=== PATIENT | female | born 1980 | race Caucasian/White ===

== ENCOUNTER → 2018-11-26 08:56 | Outpatient (CLI) | payer OTHER, SELFPAY ==
[2016-04-02 10:10] VITALS: BMI 22.1
[2018-11-26 09:58] LABS: Absolute Lymphocyte Count 1.73 X10^3/ul (0.83-4.51); Absolute Neutrophil Count 5.5 X10^3/uL (2.0-7.7); Basophil# 0.04 X10^3/uL; Basophil% 0.5 % (0-1); Eosinophil# 0.12 X10^3/uL; Eosinophils% 1.5 % (0-5); Hematocrit 37.4 % (37-47); Hemoglobin 12.1 g/dl (12.0-15.0); Lymphocyte # 1.73 X10^3/ul (4.0); Lymphocyte % 21.3 % (19-41); Mean Corp Hgb Conc 32.4 g/gl (32-36); Mean Corpuscular Hgb 28.3 pg (27.0-32.0); Mean Corpuscular Volume 87.4 fL (81-99); Monocyte% 8.6 % (0-10); Neutrophil # 5.54 X10^3/uL (2.7-7.7); Platelet Count 257 K/mm3 (150-450); RBC Distribution Width CV 15.4 % (11.6-14.6); RBC Distribution Width SD 49.4 fl (35.1-43.9); Red Blood Count 4.28 M/mm3 (4.2-5.4); White Blood Count 8.1 K/mm3 (4.4-11.0)
[2018-11-26 09:59] LABS: POSITIVE COUNT NO; POSITIVE DIFFERENTIAL NO; POSITIVE MORPHOLOGY NO
[2018-11-26 11:02] LABS: ALB/GLOB Ratio 1.1 RATIO (0.9-2.4); AST(SGOT) 24 U/L (15-37); Alanine Aminotransfer ALT/SGPT 18 U/L (13-56); Albumin, Serum 3.8 g/dL (3.2-5.0); Alkaline Phosphatase 54 U/L (45-117); Anion Gap 6 (5-15); BUN 16 mg/dL (7-18); BUN/Creat Ratio 20.3 RATIO (10-20); Calcium,Total 8.7 mg/dL (8.5-10.1); Chloride 105 mmol/L (98-107); Cholesterol 183 mg/dL (200); Creatinine, Serum 0.79 mg/dL (0.55-1.02); EST Glomerular Filtration Rate 87 mL/min (>60); Est Glom Filt Rate - Afr Amer 105 mL/min (>60); Globulin 3.4 g/dL (2.2-4.2); Glucose 96 mg/dL (74-106); High Density Lipoprotein 58 mg/dL; Potassium 4.2 mmol/L (3.5-5.1); Protein, Total 7.2 g/dL (6.4-8.2); Sodium Level 138 mmol/L (136-145); Thyroid Stim Hormone (TSH) 1.62 uIU/mL (0.358-3.74); Triglycerides 60 mg/dL; Very Low Density Lipoprotein 12 mg/dL (5-40)
== END ==
PROVIDERS: Family Provider Family Medicine; PCP Family Medicine; Referring Provider Family Medicine; Visit Provider Family Medicine
DX: Z00.00 Encounter for general adult medical examination without abnormal findings (principal)
CPT/HCPCS: 36415; 80053; 80061; 84443; 85025

== ENCOUNTER → 2019-06-25 17:10 | Outpatient (CLI) | payer BC, SELFPAY ==
[2019-07-01 14:07] LABS: Age Gdln ACOG Testing 30-65 (.)
[2019-07-02 13:15] LABS: HPV APTIMA, High Risk Negative (Negative)
[2019-07-02 13:25] LABS: HPV Reflexed? YES, CHARGE PATIENT
== END ==
PROVIDERS: Family Provider Family Medicine; PCP Family Medicine; Referring Provider Obstetrics & Gynecology; Visit Provider Obstetrics & Gynecology
DX: Z12.4 Encounter for screening for malignant neoplasm of cervix (principal)
CPT/HCPCS: 87624; 88175; G0145

== ENCOUNTER → 2019-07-22 12:37 | Outpatient (CLI) | payer BC, SELFPAY ==
--- NOTE | 2019-07-22 12:43 | EKG12_ITS ---
Test Reason : CP Blood Pressure : / mmHG Vent. Rate : 061 BPM Atrial Rate : 061 BPM P-R Int : 140 ms QRS Dur : 096 ms QT Int : 448 ms P-R-T Axes : 039 085 046 degrees QTc Int : 450 ms Normal sinus rhythm Normal ECG Confirmed by JANES PERKINS, JANELLE ([id number]), editor publications [employer] ([id number]) on 07/23/2019 2:18:56 PM Referred By: BRAEDEN MERRITT Confirmed By:CASSY MARRERO MD
== END ==
PROVIDERS: PCP Family Medicine
DX: R07.9 Chest pain, unspecified (principal)
CPT/HCPCS: 93005

== ENCOUNTER → 2020-11-20 | Outpatient (CLI) | payer BC, SELFPAY ==
[2020-11-22 13:30] LABS: HPV APTIMA, High Risk Negative (Negative)
== END | disposition home or self-care (01) ==
LOC: LABSPEC 10:23
PROVIDERS: PCP Family Medicine; Visit Provider Obstetrics & Gynecology
DX: Z12.4 Encounter for screening for malignant neoplasm of cervix (principal)
CPT/HCPCS: 87624; 88175; G0145

== ENCOUNTER → 2020-12-07 17:03 | Outpatient (CLI) | payer BC, SELFPAY ==
[2020-12-07 18:02] LABS: Estradiol 46.7 pg/mL; Prolactin 9.1 ng/mL
[2020-12-13 13:23] LABS: Testosterone Free 1.4 pg/mL (0.0-4.2)
== END ==
PROVIDERS: PCP Family Medicine; Visit Provider Obstetrics & Gynecology
DX: N93.9 Abnormal uterine and vaginal bleeding, unspecified (principal)
CPT/HCPCS: 36415; 82627; 82670; 84146; 84402; 82626

== ENCOUNTER → 2020-12-25 | Outpatient (CLI) | payer BC, SELFPAY ==
--- NOTE | 2020-12-25 16:00 | EMB_PTH ---
PATIENT: ELEAZAR SHAHID LOC: [facility] U#:[id number] AGE/SX: 40/F ROOM: RE12/25/[address]: Dr. Gonzalez Henry MD : 1980 BED: DIS: 12/25/2020 SPEC #: [id number] RECD: 12/25/20 17:58 STATUS: YANY PEACE #: [id number] RADHA: 12/25/20 16:[address]: Gonzalez Henry DEPT: SURGICAL PATHOLOGY RECD BY: Domonique Strange ENTERED: 12/26/20 08:06 SP TYPE: ENDOM BX/C MUKESH DR: Dr. Ej Sutton MD Tissues: Endometrium, NOS Procedures: Surgery Specimen Level IV HEADER OPERATION: Endometrial biopsy PRE-OP DIAGNOSIS: Abnormal uterine bleeding N93.9 TISSUE SUBMITTED: Endometrial biopsy MICROSCOPIC DIAGNOSIS Endometrial biopsy: Secretory endometrium. SJ:jasmin 12/27/2020 MICROSCOPIC DESCRIPTION Slides are reviewed. GROSS DESCRIPTION Received in fixative is one container labeled with the patient's name and designated EM biopsy. The specimen consists of multiple irregular fragments of soria soft tissue that in aggregate measure 1.5 x 1 x 0.1 cm. The specimen is totally submitted in one cassette. / SJ:jasmin 12/26/20 TC:4 CPT: 33353
== END | disposition home or self-care (01) ==
LOC: LABSPEC 17:08
PROVIDERS: PCP Family Medicine; Visit Provider Obstetrics & Gynecology
DX: N93.9 Abnormal uterine and vaginal bleeding, unspecified (principal)
CPT/HCPCS: 88305

== ENCOUNTER 2021-01-05 09:57 | Emergency (ER) | payer BC, SELFPAY ==
[2021-01-05 09:59] VITALS: BP 154/102; PULSE 76; RESP 20; TEMP 36.7; O2SAT 99; BMI 26.6
--- NOTE | 2021-01-05 10:12 | EKG12_ITS ---
Test Reason : CHEST PAIN Blood Pressure : / mmHG Vent. Rate : 073 BPM Atrial Rate : 073 BPM P-R Int : 136 ms QRS Dur : 084 ms QT Int : 430 ms P-R-T Axes : 038 085 041 degrees QTc Int : 473 ms Normal sinus rhythm Normal ECG Confirmed by LENY PERKINS, COY ([id number]), staff editor YVETTE EMERY ([id number]) on 01/08/2021 1:17:00 PM Referred By: Confirmed By:COY MICHELE MD
--- NOTE | 2021-01-05 10:13 | ED.RN ---
PT C/O CHEST PAIN. EKG COMPLETED
--- NOTE | 2021-01-05 10:56 | MRI_ITS ---
STUDY: MRI LUMBAR SPINE WITHOUT CONTRAST REASON FOR EXAM: Female, 40 years old. back pain, unable to ambulate, h/o 2 hnp TECHNIQUE: Standardized fat and water weighted pulse sequences were obtained in the sagittal and axial planes. COMPARISON: None FINDINGS: T12-L1: Normal endplates. Normal disc height, hydration and morphology. Normal bilateral facet joints. Normal central canal and bilateral lateral recesses. Normal bilateral intervertebral neural foramina. Normal lumbar lordosis. There is no substantial scoliosis. Normal conus medullaris that terminates at the T12/L1. L1-2: Normal endplates. Normal disc height, hydration and morphology. Normal bilateral facet joints. Normal central canal and bilateral lateral recesses. Normal bilateral intervertebral neural foramina. L2-3: Normal endplates. Normal disc height, hydration and morphology. Normal bilateral facet joints. Normal central canal and bilateral lateral recesses. Normal bilateral intervertebral neural foramina. L3-4: Normal endplates. Normal disc height, hydration and morphology. Normal bilateral facet joints. Normal central canal and bilateral lateral recesses. Normal bilateral intervertebral neural foramina. L4-5: Disc desiccation but no disc protrusion, spinal stenosis, or neural foraminal stenosis. L5-S1: Large (12 mm) central left paracentral disc protrusion produces moderate spinal stenosis, mild right lateral recess stenosis, moderate left lateral recess stenosis with abutment of the left S1 nerve root and no neural foraminal stenosis. Normal visualized sacral ala. Normal visualized paraspinous soft tissue structures. MRI/Spine Lumbar (Routine) IMPRESSION: Focal degenerative disc disease L5/S1 as described above. Electronically Signed: Mario Godinez MD at 13:56 EDT Tel , Service support ,
[2021-01-05] MEDS: Ondansetron 4 MG/2 ML Vial IV (11:00)
[2021-01-05] MEDS: Ketorolac 15 MG/ML Vial IV (11:01)
--- NOTE | 2021-01-05 11:01 | ED.VIS.BACK ---
HPI History of Present Illness Chief Complaint: Back Narrative Narrative: 40-year-old female presenting with lower back pain. She has had this issue chronically but in the acute setting has had worsening. She saw Dr. Henson who ordered an MRI on her lumbar spine and noted that she had some bulging disks the worst of which is at L5-S1. Patient was told not to take meloxicam because she is supposed to get an injection next week. She has only been able to take Tylenol. Nobody wrote her for any other pain medications. Patient states that she went for a walk yesterday to loosen up and did and felt loose enough to try to jog a little bit and it made it worse. She then felt a crunch in the left lower back and is not able to walk. She does have sensation and motor in her lower extremities but she cannot walk secondary to pain in her back. She states she had slide herself across the floor to use the restroom. She is also states it took multiple people to get her into the ambulance. She denies any loss of bladder or bowel control. She denies saddle paresthesia. [facility] Medical History (Updated 01/05/21 @ 14:[address] Behzad Brown DO) Herniated disc Hypertension Home Medications amlodipine 10 mg PO DAILY 01/05/21 [History Last Taken Unknown] hydrochlorothiazide 12.5 mg PO DAILY 01/05/21 [History Last Taken Unknown] meloxicam [Mobic] 15 mg PO DAILY 01/05/21 [History Last Taken Unknown] oxycodone-acetaminophen [Percocet] 1 tab PO Q6H PRN 3 Days #12 tab 01/05/21 [Rx Last Taken Unknown] tizanidine [Zanaflex] 4 mg PO BID PRN 01/05/21 [History Last Taken Unknown] Allergy/AdvReac Type Severity Reaction Status Date / Time clindamycin Allergy Hives Verified 01/05/21 10:04 Social History Smoking Status: Never smoker ROS ROS ED Constitutional Constitutional ED: Denies fever(s) or subjective Eyes Eyes: Denies blurry vision or diplopia ENT ENT ED: Denies rhinorrhea or sore throat Cardiovascular Cardiovascular: Denies chest pain or palpitations Respiratory/Chest Respiratory/Chest: Denies dyspnea or sputum Gastrointestinal Gastrointestinal: Denies abdominal pain, nausea or vomiting Genitourinary Genitourinary ED: Denies dysuria or hematuria Musculoskeletal Musculoskeletal: Reports back pain Integumentary Denies abscess or rash Neurologic Neurologic: Denies headache(s) or weakness Psychiatric Psychiatric: Denies anxiety or depression EXAM Physical Exam Const Vital Signs: 01/05/21 09:59 01/05/21 14:16 Temperature 98.0 F Temperature Source Oral Pulse Rate 76 84 Respiratory Rate 20 H 16 Blood Pressure 154/102 H 148/66 H Blood Pressure Mean 119 93 Pulse Ox 99 99 Oxygen Delivery Method Room Air Positive well nourished General Appearance ED: NAD HEENT Reports moist mucous membranes Negative for trauma Eyes PERRL and EOMs intact bilaterally Resp normal respiratory effort and clear to auscultation bilaterally Cardio regular rate and regular rhythm GI normal to inspection, nondistended, normoactive bowel sounds Narrative: Sensation intact in the perineum and in the gluteal region. Patient has sensation in both legs. It is hard to test motor strength because she will not move her legs secondary to pain. She was able to roll over in the bed to give me a better back exam. Back/Spine Back/Spine Narrative: Tenderness to palpation left lumbar paraspinal musculature and into the left gluteal region. No midline spinal deformity or step-off. Extremity normal to inspection General Extremety ED: Negative for edema or tenderness General Extremity: Negative for edema Neuro oriented x3 Sensorium / Orientation: alert Skin no rashes or lesions noted and no wounds MDM MDM MDM Narrative Medical decision making narrative: Patient presenting with acute worsening of what sounds like chronic back pain. She previous had an MRI which showed findings that L5-S1 bulging disks and degenerative changes. This was ordered by Dr. Henson. On arrival patient is unable to move secondary to pain. Patient was given pain medication in the ED which did control her pain. Patient had an MRI of the lumbar spine which showed similar findings as previous after discussing this with Dr. Henson. He felt as if she could get her pain under control but that she could stay in the hospital until we can get it under control but there was no new surgical intervention that would need to be acutely done. Patient was able to get up with assist. She is given Percocet for home. She also has Zanaflex and is counseled not to take them together. She requested a referral to another physician at [facility] which was provided. Patient discharged home in stable condition. Impression: 1. Degenerative disc disease L5-S1 Lab Data Labs: Laboratory Results - last 24 hr 01/05/21 01/05/21 01/05/21 09:30 09:50 09:50 WBC 7.0 Cancelled Corrected WBC Cancelled RBC 4.64 Cancelled Hgb 13.9 Cancelled Hct 41.4 Cancelled MCV 89.2 Cancelled MCH 30.0 Cancelled MCHC 33.6 Cancelled RDW Std Deviation 40.6 Cancelled RDW Coeff of Mike 12.4 Cancelled Plt Count 270 Cancelled MPV 10.3 Cancelled Immature Gran % (Auto) 0.400 Cancelled Neut % (Auto) 47.7 Cancelled Lymph % (Auto) 37.1 Cancelled [place] % (Auto) 11.2 H Cancelled Eos % (Auto) 2.7 Cancelled Baso % (Auto) 0.9 Cancelled Absolute Neuts (auto) 3.3 Cancelled Absolute Lymphs (auto) 2.59 Cancelled Total Counted Cancelled Neutrophils % (Manual) Cancelled Band Neutrophils % Cancelled Lymphocytes % (Manual) Cancelled Monocytes % (Manual) Cancelled Eosinophils % (Manual) Cancelled Basophils % (Manual) Cancelled Metamyelocytes % Cancelled Myelocytes % Cancelled Promyelocytes % Cancelled Blast Cells % Cancelled Plasma Cell % (Manual) Cancelled Other Cells % Cancelled Nucleated RBC % 0 Cancelled Nucleated RBCs/100 WBC Cancelled Differential Comment Cancelled Diff Path Review Cancelled Hypersegmented Neuts Cancelled Atypical Lymphocytes Cancelled Reactive Lymphocytes Cancelled Smudge Cells Cancelled Toxic Granulation Cancelled Toxic Vacuolation Cancelled Dohle Bodies Cancelled Cristi Rods Cancelled Platelet Estimate Cancelled Plt Morphology Comment Cancelled RBC Morphology Cancelled Polychromasia Cancelled Hypochromasia Cancelled Poikilocytosis Cancelled Basophilic Stippling Cancelled Anisocytosis Cancelled Microcytosis Cancelled Macrocytosis Cancelled Spherocytes Cancelled Sickle Cells Cancelled Target Cells Cancelled Tear Drop Cells Cancelled Ovalocytes Cancelled Stomatocytes Cancelled Feldman-Oreana Bodies Cancelled Patrick Cells Cancelled Bite Cells Cancelled Crenated Cell Cancelled Acanthocytes (Spur) Cancelled Rouleaux Cancelled Schistocytes Cancelled Sodium 134 L Potassium 3.6 Chloride 102 Carbon Dioxide 24.0 Anion Gap 8 BUN 17 Creatinine 0.83 Estim Creat Clear Calc 81.07 Est GFR (MDRD) Af Amer 98 Est GFR (MDRD) Non-Af 81 BUN/Creatinine Ratio 20.4 H Glucose 101 Calcium 9.4 Radiography Diagnostic Testing: Radiology Impression Lumbar Spine MRI 01/05/21 10:56 IMPRESSION: Focal degenerative disc disease L5/S1 as described above. Electronically Signed: Mario Godinez MD at 13:56 EDT Tel , Service support , Discharge Plan Triage Chief Complaint: Back ED Provider: Behzad Brown Dx/Rx/DC Orders Prescriptions: New oxycodone-acetaminophen [Percocet] 5-325 mg tablet 1 tab PO Q6H PRN (Reason: pain) 3 Days Qty: 12 RF: 0 No Action tizanidine [Zanaflex] 4 mg Tablet 4 mg PO BID PRN (Reason: MUSCLE SPASMS) RF: 0 meloxicam [Mobic] 15 mg Tablet 15 mg PO DAILY RF: 0 amlodipine 10 mg tablet 10 mg PO DAILY RF: 0 hydrochlorothiazide 12.5 mg tablet 12.5 mg PO DAILY RF: 0 Primary Care Provider: Care Physician,No Primary Referrals: Violet Iverson [Other] - As soon as possible (Hours Friday:7 a.m. - 6 p.m. Friday:7 a.m. - 6 p.m. Friday:7 a.m. - 6 p.m. :7 a.m. - 6 p.m. Friday:7 a.m. - 6 p.m. Friday:8 a.m. - 1 p.m. Friday:Closed ) Uri Henosn DO [STAFF PHYSICIAN] - As soon as possible Care Physician,No Primary [Primary Care Provider] - Disposition Disposition: Home, Self Care Discharge Date/Time: 01/05/21 15:11
[2021-01-05] MEDS: MethylPREDNISolone 125 MG/2 ML Vial IV (11:03)
[2021-01-05] MEDS: HYDROmorphone 0.5 MG/0.5 ML SYRINGE IV (11:04)
[2021-01-05 11:07] LABS: Absolute Lymphocyte Count 2.59 X10^3/uL (0.83-4.51); Absolute Neutrophil Count 3.3 X10^3/uL (2.0-7.7); Basophil# 0.06 X10^3/uL; Basophil% 0.9 % (0-1); Eosinophil# 0.19 X10^3/uL; Eosinophils% 2.7 % (0-5); Hematocrit 41.4 % (37-47); Hemoglobin 13.9 g/dL (12.0-15.0); Lymphocyte # 2.59 X10^3/ul (0.83-4.51); Lymphocyte % 37.1 % (19-41); Mean Corp Hgb Conc 33.6 g/dL (32-36); Mean Corpuscular Volume 89.2 fL (81-99); Mean Platelet Vol. 10.3 fl (6.2-12.0); Monocyte# 0.78 X10^3/uL; Monocyte% 11.2 % (0-10); NRBC Flagged by Analyzer 0 % (0-5); Neutrophil # 3.33 X10^3/uL (2.7-7.7); Neutrophil % 47.7 % (47-70); Platelet Count 270 K/mm3 (150-450); RBC Distribution Width CV 12.4 % (11.6-14.6); RBC Distribution Width SD 40.6 fl (35.1-43.9); Red Blood Count 4.64 M/mm3 (4.2-5.4)
[2021-01-05 12:04] LABS: Anion Gap 8 (5-15); BUN 17 mg/dL (7-18); BUN/Creat Ratio 20.4 RATIO (10-20); Calcium,Total 9.4 mg/dL (8.5-10.1); Chloride 102 mmol/L (98-107); Creatinine, Serum 0.83 mg/dL (0.55-1.02); EST Glomerular Filtration Rate 81 mL/min (>60); Est Glom Filt Rate - Afr Amer 98 mL/min (>60); Estimated Creatinine Clearance 81.07 ml/min; Glucose 101 mg/dL (74-106); Potassium 3.6 mmol/L (3.5-5.1); Sodium Level 134 mmol/L (136-145)
[2021-01-05] MEDS: fentaNYL 100 MCG/2 ML Ampul 25 MCG IV (12:20)
[2021-01-05 14:16] VITALS: BP 148/66; PULSE 84; RESP 16; O2SAT 99
[2021-01-05] MEDS: oxyCODONE 5 MG Tablet PO (14:50)
== END 2021-01-05 15:11 | disposition home or self-care (01) ==
PROVIDERS: Emergency Provider Student in an Organized Health Care Education/Training Program
DX: M51.37 Other intervertebral disc degeneration, lumbosacral region (principal); G89.29 Other chronic pain; I10 Essential (primary) hypertension; Z79.899 Other long term (current) drug therapy; Z79.1 Long term (current) use of non-steroidal anti-inflammatories (NSAID)
CPT/HCPCS: 72148; 80048; 85025; 93005; 96374; 96375; 99285; A4216; J2405

== ENCOUNTER 2021-02-01 07:05 | Day surgery (SDC) | payer BC, SELFPAY ==
[2021-02-01] VITALS (8 sets, daily range): BP systolic 109–131; BP diastolic 72–79; PULSE 50–68; RESP 16–18; TEMP 36.1–36.7; O2SAT 96–100; BMI 23.9
[2021-02-01] MEDS: Lactated Ringers 1,000 ML 100 ML IV ×2 (07:30→09:18)
[2021-02-01 07:33] LABS: Internal QC Validated? YES +Cl - CLEAR BKGD; Pregnancy, Urine Negative Negative
--- NOTE | 2021-02-01 08:15 | PCM.HP.BLA ---
History and Physical Date of Admission: 02/01/21 Surgical History and Physical Date: 02/01/2021 Name: CASSIA RONDON Age: 40 Date of : 1980 Cassia Rondon, a 40 year old female 2 0 0 0 2, presents for Hysteroscopy D Lucila ablation on February 01, 2021 at 7:30. -- Abnormal uterine/vaginal bleeding. 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 Questions answered and consents signed. Medication and Allergy lists up-dated. ARMOND Cassia is here for Pre-Op visit for Hysteroscopy, D and C, Lucila MEDICATIONS HISTORY: Patient is also takin. amlodipine 10 mg tablet, daily ALLERGIES: NKDA, clindamycin, Hives, Clindamycin and Hives and/or rash Infections - Chicken pox Illnesses - no serious past illnesses Accidents - no injuries of consequence Hospitalizations - see surgery LGSIL pap, Last pap 06/07 WNL and but + HPV; Review of Systems: GENERAL - Denies fever, or chills SKIN - Denies skin changes EYES - Denies visual changes EARS - Denies difficulty hearing NOSE - Denies nasal congestion or bleeding MOUTH - Denies sore throat or difficulty swallowing NECK - Denies pain or swelling RESPIRATORY - Denies shortness of breath or wheezing CARDIOVASCULAR - Denies palpitations or chest pain GASTROINTESTINAL - Denies nausea, vomiting, diarrhea, constipation GENITOURINARY - Denies dysuria, frequency of urination, incontinence of urine MUSCULOSKELETAL - Denies joint or muscle pain NEUROLOGICAL - Denies localized numbness or weakness PSYCHIATRIC - Denies depression or anxiety ENDOCRINE - Denies heat or cold intolerance, weight loss or gain HEMATO-IMMUNOLOGIC - Denies excesive bleeding with cuts SOCIAL HISTORY: Alcohol Use - denies drinking Smoking - used to smoke but quit and 2002 Diet - moderately well balanced Lifestyle - moderate stress lifestyle and Exercise - regular Seat Belt Use - always Employer - [employer] 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 Maternal Grandmother: Lung cancer. Maternal Grandfather: Lung cancer. Paternal Grandmother: Lung cancer. Paternal Grandfather: Lung cancer. MENSTRUAL HISTORY: LMP Known?- DefiniteAmount/Duration - 5-7, Regularity - heavy, Frequency - monthly days, LMP - 12/31/20, Age Onset Menarche - 12 PAST PREGNANCIES: Total Pregnancies - 2; Full Term Pregnancies - 2; Premature - 0; Abortions, Induced - 0; Abortions, Spontaneous - 0; Ectopics - 0; Multiple Births - 0; Living Children - 2 SURGICAL HISTORY: 1. tumor removed right knee-1994 ; - 2. tubes in ears 1990 ; - 3. 04/19/2011 ELIOTIK ; - PHYSICAL EXAM BP- 134/76 Sitting, Right arm, regular cuff Weight- 143.05080 lbs Height- 65 inch BMI:[id number] CONSTITUTIONAL - NAD, well nourished, and well developed SKIN - No rash, lesions, or ulcers HEENT - Normocephalic, PERRLA, EOMI NECK - No nodes, no nuchal rigidity and thyroid normal size and texture LYMPH NODES - Palpation of lymph nodes in neck and groins within normal limits ABDOMEN - Without hepatosplenomegaly, distention, masses, rebound, or guarding; normal bowel sounds; no hernias EXTREMITIES - No edema or calf tenderness NEUROLOGICAL - Cranial nerves II-XII grossly intact PSYCHIATRIC - A and O to time, place, person, mood and affect External Genitial Vagina - non-tender without lesions Urethra/Urethral Meatus - non-tender Bladder - non-tender Vagina - vaginal latham are pink and moist without loss of rugae and no evidence of atropy Cervix - without cervical motion tenderness and has normal size and features without evident lesions Uterus - 5-6 cm in size, mobile and nontender Adnexa - clear without massess or tenderness ASSESSMENT/PLAN: 1. Encounter For Other Preprocedural Examination Scheduled for hysteroscopy, dilation curettage, endometrial ablation Educated patient on procedure risk benefits alternatives. All questions were answered consent was signed. Patient with no history of complications with anesthesia. Discussed home medications Educated patient on pain after surgery, driving, intercourse, vaginal discharge 2. Abnormal Uterine And Vaginal Bleeding, Unspecified Pt with regular but heavy periods that recently started. These are also very painful. 2 days of heavy bleeding, 5 days total. Effects her daily life unresolved by IBU U/s 8.9cm EMB negative, educated patient on results
--- NOTE | 2021-02-01 09:03 | PCM.DC ---
Discharge Instructions Diet Discharge Diet: No restrictions Activity Discharge Activity: Return to Normal Activity, May Drive and May Shower May resume sexual activity in: 4-6 weeks Weight Bearing Status: Weight bearing as tolerated Dressing / Incision Call your doctor if your incision/area has: Continuous Slow Oozing and Foul Smelling Discharge Call your doctor if you observe: Fever of 101 or Higher, Shortness of breath and Chest pain Follow Up Care Please Follow Up With: Gonzalez Henry MD When: Follow-up 2 weeks postoperatively Test Results: Test results from this visit will be discussed in further detail at your follow-up appointment, if applicable. Discharge Plan Admission Attending Provider: Gonzalez Henry Primary Care Provider: Care Physician,Isidra Primary Discharge Orders/Prescriptions Prescriptions: No Action amlodipine 10 mg tablet 10 mg PO DAILY RF: 0 Disposition Discharge Orders: Discharge Patient (Routine); Ordered 02/01/21 Ordered By: Dr. Gonzalez Henry
--- NOTE | 2021-02-01 09:03 | PCM.OPRPT ---
Report of Operation Date of Procedure: 02/01/21 Pre-Operative Diagnosis: Abnormal uterine bleeding Post-Operative Diagnosis: Abnormal uterine bleeding Surgery/Procedure Performed:: Hysteroscopy, endometrial ablation via Lucila Description of Surgical Findings:: Surgeon: Gonzalez Henry MD Anesthesia: MAC EBL: 5 cc Urine output: 100 cc IV fluids: 1000 cc Complications: None Specimen: None Findings: Preoperative hysteroscopy with no pathology noted. Endometrial ablation device Lucila cavity length 5 cm. Lucila safety test passed x2. Post procedure hysteroscopy performed and no new pathology noted Consent: Patient with abnormal uterine bleeding in need of hysteroscopy Lucila endometrial ablation. Patient understands the risk of the procedure include but are not limited to visceral or vascular injury, prolonged hospitalization, blood loss and need for transfusion, reoperation. Patient states understanding wish to proceed. All questions were answered consent was signed. Procedure: Patient was brought back to the OR where MAC anesthesia was found to be adequate. Patient was prepared and draped in a dorsolithotomy position with yellowfin stirrups. Lid speculum placed in the posterior aspect of vagina and cervical dilators used dilate cervix. Hysteroscope was inserted and above findings were noted. Lucila device was inserted under direct visualization, cavity length set to 5 cm. Lucila cavity safety test were passed x2. Endometrial ablation 420 seconds performed. Lucila device was removed under direct visualization. Hysteroscope was inserted and above findings are noted. Good hemostasis noted. All counts correct x2. Patient tolerated procedure well was brought to recovery in a stable condition.
[2021-02-01] MEDS: oxyCODONE 5 MG Tablet PO (09:56)
== END 2021-02-01 10:44 | disposition home or self-care (01) ==
LOC: SDC 07:06 → AC 07:07
PROVIDERS: Anesthesiology; Referring Provider Obstetrics & Gynecology; Visit Provider Obstetrics & Gynecology
PROC: 0U5B8ZZ Destruction of Endometrium, Via Natural or Artificial Opening Endoscopic (ICD-10-PCS; CPT 58558; principal; 2021-02-01 08:15)
DX: N93.9 Abnormal uterine and vaginal bleeding, unspecified (principal); Z20.822 Contact with and (suspected) exposure to COVID-19; I10 Essential (primary) hypertension; M19.90 Unspecified osteoarthritis, unspecified site; Z79.899 Other long term (current) drug therapy; Z87.891 Personal history of nicotine dependence
CPT/HCPCS: 00952; 58563; 81025; 87426; J7120; J2405

== ENCOUNTER → 2021-03-30 11:14 | Outpatient (CLI) | payer BC, SELFPAY ==
--- NOTE | 2021-03-30 11:17 | CT_ITS ---
STUDY: CT ABDOMEN AND PELVIS WITH CONTRAST REASON FOR EXAM: Female, 40 years old. ABD PAIN . ACUTE RT LOWER QUAD RADIATION DOSAGE (If Supplied By Facility): CTDIvol = ( 8.175 ) mGy, DLP = ( 507.15 ) mGycm TECHNIQUE: Transaxial images were obtained from the dome of the diaphragm to the symphysis pubis with oral contrast. Oral and amp; IV Gastrografin and amp; 100mL Isovue-370 was administered. Sagittal and coronal images were reconstructed. Individualized dose optimization techniques were used for this CT. COMPARISON: None. FINDINGS: The visualized lung bases are unremarkable. The visualized portions of the heart are within normal limits. Normal liver. Normal gallbladder and extrahepatic biliary system. Normal spleen. Normal pancreas. Normal bilateral adrenal glands. Normal right kidney. Normal left kidney. Normal visualized stomach. Normal small intestine. Normal colon. The appendix is visualized and appears normal. Normal abdominal aorta. Normal inferior vena cava. Normal retroperitoneum. Normal urinary bladder. Small follicles are seen in the right ovary. There is evidence of a nabothian cyst of the cervix. Normal abdominal wall. There is a 1.6 cm x 0.7 cm sclerotic density along the midportion of the left sacroiliac joint. CT/Abdomen/Pelvis WITH Contrast IMPRESSION: No acute abnormality is seen. 1.6 cm x 0.7 sinus colonic density in the left iliac bone at the level of the left sacroiliac joint. Electronically Signed: Shiraz Vail MD at 14:09 EDT , Service support ,
== END ==
PROVIDERS: PCP Internal Medicine; Visit Provider Internal Medicine
DX: R10.31 Right lower quadrant pain (principal)
CPT/HCPCS: 74177; Q9967; A4216

== ENCOUNTER 2021-08-22 07:56 | Outpatient (CLI) | payer BC, SELFPAY ==
--- NOTE | 2021-08-22 08:03 | US_ITS ---
STUDY: ABDOMINAL ULTRASOUND - RIGHT UPPER QUADRANT REASON FOR VISIT: Female, 41 years old RUQ PAIN TECHNIQUE: Ultrasound evaluation of the right upper quadrant was performed with real-time and static malin-scale imaging. TECHNICAL QUALITY: Adequate. COMPARISON: None. FINDINGS: Liver: The liver measures 15.1 cm. There is normal echogenicity of the liver. The bile ducts are within normal limits. There is hepatic color flow. The direction of portal flow is hepatopetal. There is no demonstrated mass lesion. Gallbladder: Normal distended gallbladder. The gallbladder wall measures 1.5 mm. There is a negative sonographic Andrade''s sign. There is no pericholecystic fluid. There are no gallstones. Common Bile Duct (C.B.D.): The common bile duct measures 3.3 mm. Pancreas: Normal size of the head, body and tail of the pancreas. There is normal echogenicity of the pancreas. There is no demonstrated pancreatic mass or cyst. Right Kidney: Normal size of the right kidney. The right kidney measures 10.6 cm x 4.6 cm x 3.5 cm. Normal renal cortex. The right cortex measures 1.5 cm. There is no demonstrated renal mass or cyst. There is no right hydronephrosis. US/Abdomen Limited IMPRESSION: Normal right upper quadrant ultrasound examination. Electronically Signed: Shiraz Vail MD at 10:54 EST ,
== END 2021-08-22 23:59 | disposition home or self-care (01) ==
PROVIDERS: PCP Internal Medicine; Referring Provider Internal Medicine; Visit Provider Internal Medicine
DX: R10.10 Upper abdominal pain, unspecified (principal)
CPT/HCPCS: 76705

== ENCOUNTER 2021-08-24 13:53 | Outpatient (CLI) | payer BC, SELFPAY ==
[2021-08-24 14:12] LABS: Absolute Lymphocyte Count 2.31 X10^3/uL (0.83-4.51); Absolute Neutrophil Count 4.1 X10^3/uL (2.0-7.7); Basophil# 0.05 X10^3/uL; Basophil% 0.7 % (0-1); Eosinophil# 0.02 X10^3/uL; Eosinophils% 0.3 % (0-5); Hematocrit 39.6 % (37-47); Hemoglobin 13.4 g/dL (12.0-15.0); Lymphocyte # 2.31 X10^3/ul (0.83-4.51); Lymphocyte % 32.4 % (19-41); Mean Corp Hgb Conc 33.8 g/dL (32-36); Mean Corpuscular Hgb 31.2 pg (27.0-32.0); Mean Corpuscular Volume 92.3 fL (81-99); Mean Platelet Vol. 10.1 fl (6.2-12.0); Monocyte# 0.67 X10^3/uL; Monocyte% 9.4 % (0-10); NRBC Flagged by Analyzer 0 % (0-5); Neutrophil # 4.07 X10^3/uL (2.7-7.7); Neutrophil % 56.9 % (47-70); Platelet Count 259 K/mm3 (150-450); RBC Distribution Width CV 12.6 % (11.6-14.6); RBC Distribution Width SD 43.2 fl (35.1-43.9); Red Blood Count 4.29 M/mm3 (4.2-5.4); White Blood Count 7.1 K/mm3 (4.4-11.0)
[2021-08-24 14:18] LABS: Erythrocyte Sedimentation Rate 3 mm/hr (0-30)
[2021-08-24 14:32] LABS: AST(SGOT) 62 U/L (15-37); Alanine Aminotransfer ALT/SGPT 132 U/L (13-56); Alkaline Phosphatase 190 U/L (45-117); Amylase 70 U/L (25-115); Anion Gap 5 (5-15); BUN 15 mg/dL (7-18); Calcium,Total 9.4 mg/dL (8.5-10.1); Chloride 104 mmol/L (98-107); Creatinine, Serum 0.75 mg/dL (0.55-1.02); EST Glomerular Filtration Rate 90 mL/min (>60); Est Glom Filt Rate - Afr Amer 109 mL/min (>60); Glucose 97 mg/dL (74-106); Lipase 220 U/L (73-393); Potassium 4.2 mmol/L (3.5-5.1); Sodium Level 138 mmol/L (136-145); Thyroid Stim Hormone (TSH) 0.69 uIU/mL (0.358-3.74); Troponin-I HS 7 pg/mL (3.0-54.0)
== END 2021-08-24 23:59 | disposition home or self-care (01) ==
LOC: LABSPEC 13:54
PROVIDERS: PCP Internal Medicine; Visit Provider Internal Medicine
DX: R07.89 Other chest pain (principal); R10.10 Upper abdominal pain, unspecified; R00.1 Bradycardia, unspecified
CPT/HCPCS: 80053; 82150; 83690; 84443; 84484; 85025; 85652

== ENCOUNTER → 2021-11-07 | Outpatient (CLI) | payer BC, SELFPAY ==
--- NOTE | 2021-11-07 14:35 | RAD_ITS ---
STUDY: X-RAY CHEST REASON FOR EXAM: Female, 41 years old. PRE OP TECHNIQUE: XR Chest 2 Views COMPARISON: None FINDINGS: There is no demonstrated pleural abnormality. Normal size heart. Normal mediastinum and belkis. Normal visualized pulmonary arteries. Normal visualized aortic arch and descending thoracic aorta. Normal visualized thoracic spine. Normal visualized ribs, clavicles, and shoulders. There is no demonstrated abnormality of the visualized soft tissue structures of the upper abdomen. RAD/Chest PA and Lateral IMPRESSION: There are no acute findings. Electronically Signed: Jonah Germain MD at 18:29 EDT ,
[2021-11-07 15:17] LABS: Absolute Lymphocyte Count 2.06 X10^3/uL (0.83-4.51); Absolute Neutrophil Count 4.1 X10^3/uL (2.0-7.7); Basophil# 0.07 X10^3/uL; Eosinophil# 0.09 X10^3/uL; Eosinophils% 1.2 % (0-5); Hematocrit 37.3 % (37-47); Hemoglobin 12.1 g/dL (12.0-15.0); Lymphocyte # 2.06 X10^3/ul (0.83-4.51); Lymphocyte % 28.5 % (19-41); Mean Corp Hgb Conc 32.4 g/dL (32-36); Mean Corpuscular Hgb 30.4 pg (27.0-32.0); Mean Corpuscular Volume 93.7 fL (81-99); Mean Platelet Vol. 9.7 fl (6.2-12.0); Monocyte# 0.85 X10^3/uL; Monocyte% 11.8 % (0-10); NRBC Flagged by Analyzer 0 % (0-5); Neutrophil # 4.13 X10^3/uL (2.7-7.7); Neutrophil % 57.2 % (47-70); Platelet Count 254 K/mm3 (150-450); RBC Distribution Width CV 12.7 % (11.6-14.6); RBC Distribution Width SD 43.8 fl (35.1-43.9); Red Blood Count 3.98 M/mm3 (4.2-5.4); White Blood Count 7.2 K/mm3 (4.4-11.0)
[2021-11-07 15:26] LABS: International Normalized Ratio 1.1; Partial Thromboplast Time 25.4 Seconds (24.1-36.2); Prothrombin Time (Protime)PT. 13.7 SECONDS (11.7-14.9)
[2021-11-07 16:09] LABS: Anion Gap 6 (5-15); BUN 13 mg/dL (7-18); BUN/Creat Ratio 17.6 RATIO (10-20); Calcium,Total 9.4 mg/dL (8.5-10.1); Chloride 105 mmol/L (98-107); Creatinine, Serum 0.74 mg/dL (0.55-1.02); EST Glomerular Filtration Rate 92 mL/min (>60); Est Glom Filt Rate - Afr Amer 111 mL/min (>60); Glucose 102 mg/dL (74-106); Potassium 3.8 mmol/L (3.5-5.1); Sodium Level 138 mmol/L (136-145)
== END | disposition home or self-care (01) ==
PROVIDERS: PCP Internal Medicine; Referring Provider Orthopaedic Surgery; Visit Provider Orthopaedic Surgery
DX: Z01.818 Encounter for other preprocedural examination (principal); Z11.59 Encounter for screening for other viral diseases
CPT/HCPCS: 36415; 71046; 80048; 85025; 85610; 85730; 87635; C9803; U0003; U0005

== ENCOUNTER → 2022-01-02 | Outpatient (CLI) | payer BC, SELFPAY ==
[2022-01-02 14:43] LABS: Erythrocyte Sedimentation Rate 11 mm/hr (0-30)
[2022-01-02 14:44] LABS: Absolute Lymphocyte Count 1.79 X10^3/uL (0.83-4.51); Absolute Neutrophil Count 2.5 X10^3/uL (2.0-7.7); Basophil# 0.02 X10^3/uL; Basophil% 0.4 % (0-1); Eosinophil# 0.02 X10^3/uL; Eosinophils% 0.4 % (0-5); Hematocrit 39.1 % (37-47); Lymphocyte # 1.79 X10^3/ul (0.83-4.51); Lymphocyte % 36.8 % (19-41); Mean Corp Hgb Conc 33.2 g/dL (32-36); Mean Corpuscular Hgb 29.9 pg (27.0-32.0); Mean Corpuscular Volume 89.9 fL (81-99); Mean Platelet Vol. 9.9 fl (6.2-12.0); Monocyte# 0.51 X10^3/uL; Monocyte% 10.5 % (0-10); NRBC Flagged by Analyzer 0 % (0-5); Neutrophil # 2.52 X10^3/uL (2.7-7.7); Neutrophil % 51.9 % (47-70); Platelet Count 252 K/mm3 (150-450); RBC Distribution Width CV 11.9 % (11.6-14.6); RBC Distribution Width SD 39.4 fl (35.1-43.9); Red Blood Count 4.35 M/mm3 (4.2-5.4); White Blood Count 4.9 K/mm3 (4.4-11.0)
[2022-01-02 15:21] LABS: ALB/GLOB Ratio 1.1 RATIO (0.9-2.4); AST(SGOT) 69 U/L (15-37); Alanine Aminotransfer ALT/SGPT 100 U/L (13-56); Alkaline Phosphatase 74 U/L (45-117); Anion Gap 5 (5-15); BUN 8 mg/dL (7-18); BUN/Creat Ratio 11.5 RATIO (10-20); CRP < 2.90 mg/L (0.0-3.0); Calcium,Total 9.1 mg/dL (8.5-10.1); Chloride 109 mmol/L (98-107); Creatinine, Serum 0.69 mg/dL (0.55-1.02); EST Glomerular Filtration Rate 99 mL/min (>60); Est Glom Filt Rate - Afr Amer 120 mL/min (>60); Globulin 3.7 g/dL (2.2-4.2); Glucose 106 mg/dL (74-106); Potassium 3.9 mmol/L (3.5-5.1); Protein, Total 7.7 g/dL (6.4-8.2); Sodium Level 139 mmol/L (136-145)
[2022-01-04 14:11] LABS: Anti-Centromere B Ab <0.2 AI (0.0-0.9); Anti-Chromatin <0.2 AI (0.0-0.9); Anti-Jo <0.2 AI (0.0-0.9); Anti-Scleroderma-70 AB <0.2 AI (0.0-0.9); RNP Ab <0.2 AI (0.0-0.9); SJOGREN'S Anti-SS-A test < 0.2 AI (0.0-0.9); SJOGREN'S Anti-SS-B test 0.2 AI (0.0-0.9); Smith Ab <0.2 AI (0.0-0.9)
[2022-01-04 15:56] LABS: Anti-Mitochondrial AB <20.0 Units (0.0-20.0); Anti-dsDNA Ab 3 IU/mL (0-9)
[2022-01-05 14:10] LABS: Endomysial Antibody IgA Negative (Negative); HEPATITIS B SURFACE AG Negative (Negative); Hep C Antibodies <0.1 s/co ratio (0.0-0.9); Hepatitis A IgM Antibody Negative (Negative); Hepatitis B Core AB IgM Negative (Negative); Immunoglobulin A 221 mg/dL (87-352)
[2022-01-06 14:15] LABS: Anti-Smooth Muscle ABS 3 Units (0-19); t-Transglutaminase IgA <2 U/mL (0-3)
== END | disposition home or self-care (01) ==
LOC: LAB 13:46
PROVIDERS: PCP Internal Medicine; Referring Provider Nurse Practitioner Adult Health; Visit Provider Nurse Practitioner Adult Health
DX: R10.11 Right upper quadrant pain (principal)
CPT/HCPCS: 36415; 80053; 80074; 82784; 83516; 85025; 85652; 86140; 86225; 86235; 86255

== ENCOUNTER → 2022-01-03 | Outpatient (CLI) | payer BC, SELFPAY ==
[2022-01-08 10:34] LABS: Pancreatic Elastase, Fecal > 500 (>200)
== END | disposition home or self-care (01) ==
LOC: LABSPEC 10:08
PROVIDERS: PCP Internal Medicine; Visit Provider Nurse Practitioner Adult Health
DX: R10.11 Right upper quadrant pain (principal)
CPT/HCPCS: 82653

== ENCOUNTER 2022-01-16 16:28 | Emergency (ER) | payer BC, SELFPAY ==
[2022-01-16 16:30] VITALS: BP 153/111; PULSE 72; RESP 16; TEMP 36.9; O2SAT 95; BMI 22.4
[2022-01-16 16:48] VITALS: BP 173/114; PULSE 106; RESP 16; O2SAT 98
--- NOTE | 2022-01-16 16:49 | CT_ITS ---
INDICATION: paresthesias. LEFT-sided arm and face numbness for one week. EXAMINATION: CTA HEAD - CTA Head and Neck W/ Contrast Injection (and W/O Contrast Images if performed) TECHNIQUE: Noncontrast CT examination the head. CTA examination of the [place] of [place], and CTA examination of the cervical vasculature obtained. Head CT obtained with axial noncontrast imaging with additional planar reconstructions. CTA examination of the head and neck obtained with axial postcontrast imaging, and three-dimensional MIP reconstructions. A radiation dose optimization technique was used for this scan. Radiation Dose (provided by facility) CTDIvol (27.09 ) mGy, DLP ( 1360.94) mGy-cm IV Contrast dosage and agent: 100 mL Isovue-370 COMPARISON: None. FINDINGS: CT HEAD: 1. The cerebral parenchyma, ventricular system and gyral pattern have normal configuration. 2. Hemispheric white matter has normal appearance. 3. No intraparenchymal mass, hemorrhage, or acute territorial infarct. 4. The cerebellum, brainstem, basilar and suprasellar cisterns have normal appearance. No Chiari malformation. 5. No vascular calcifications identified in the cavernous carotid vessels. No hyperdense vascular signs noted. 6. Normal appearance the visualized orbits and paranasal sinuses. CTA [place]: PETROUS AND CAVERNOUS CAROTID ARTERIES: Normal appearance of the petrous and cavernous carotid vessels bilaterally. No focal stenosis noted. SUPRACLINOID CAROTID ARTERIES: Normal appearance the supraclinoid carotid vessels bilaterally, the visualized ophthalmic arteries have normal appearance. ANTERIOR CEREBRAL AND A- COMM: Normal appearance the proximal and distal segments of the anterior cerebral circulation bilaterally. MIDDLE CEREBRAL ARTERIES: Normal appearance the proximal and distal segments of the middle cerebral circulation bilaterally. Normal appearance of the M4 cortical distribution bilaterally. INTRACRANIAL VERTEBRAL ARTERIES AND BASILAR ARTERY: Normal appearance of the intracranial course of the vertebral arteries bilaterally, normal appearance of basilar artery to the level of the bifurcation. POSTERIOR CEREBRAL ARTERIES: Normal appearance proximal distal segments of posterior cerebral circulation bilaterally. DURAL SINUSES: Normal, no filling defects noted CT HEAD: The cerebral parenchyma, ventricular system and gyral pattern have normal configuration. No areas of abnormal contrast enhancement. No evidence of hemorrhage given the limitation of postcontrast imaging. CTA Neck: TECHNIQUE: CTA examination of the neck obtained with standard protocol including axial postcontrast imaging with additional planar and three-dimensional reconstructions. Aortic arch: [Normal appearance of the aortic arch and origin the great vessels.] Right carotid system: There is normal appearance RIGHT common carotid, RIGHT internal carotid arteries, and the bifurcation. Normal appearance of the external carotid circulation on the RIGHT. Left carotid system: There is normal appearance of the LEFT common carotid, LEFT internal carotid, and the bifurcation. There is normal appearance of the LEFT external carotid circulation Vertebral arteries: There is normal appearance of the vertebral arteries bilaterally without focal stenosis or occlusion. Airway and soft tissues of the neck: There is normal appearance of the musculofascial planes of suprahyoid and infrahyoid neck. Normal appearance of the visualized airway. Normal appearance the visualized thyroid without masses or nodules noted. Cervical spine: Normal appearance of bony elements of the cervical spine. No focal stenosis or occlusion involving the cervical spinal canal. CT/CTA Head AND Neck W/ Contrast IMPRESSION: 1. Normal CT examination of the head without intracranial mass, hemorrhage, or acute territorial infarct. 2. No evidence of radiographically significant sinus disease. 3. Normal CTA examination of the [place] of [place] without focal stenosis occlusion or aneurysmal dilatation. No CTA evidence of LVO. 4. Normal CTA examination of the cervical carotid and vertebral circulation to the level of skull base without stenosis occlusion or luminal irregularity. Electronically Signed: Mario Olsen MD at 19:14 EDT ,
--- NOTE | 2022-01-16 16:49 | EKG12_ITS ---
Test Reason : CP Blood Pressure : / mmHG Vent. Rate : 062 BPM Atrial Rate : 062 BPM P-R Int : 136 ms QRS Dur : 088 ms QT Int : 432 ms P-R-T Axes : 034 077 054 degrees QTc Int : 438 ms Normal sinus rhythm Minimal voltage criteria for LVH, may be normal variant ( Sokolow-Messer ) Borderline ECG Confirmed by LUIS M PERKINS, DIAMOND ([id number]), senior technical editor [facility]UC[facility] ([id number]) on 01/17/2022 2:21:46 PM Referred By: DAYRON/RADHA Confirmed By:DIAMOND ASENCIO MD
--- NOTE | 2022-01-16 16:56 | EDS_ITS ---
HPI History of Present Illness Chief Complaint: Chest Pain Informant: patient Onset/Context/Timing Onset: Days Current Severity: Mild Maximum Severity: Moderate Narrative Narrative: Patient presents secondary to recurrent episodes of paresthesias in her left face and left arm along with chest pressure. She describes the chest sensation as a squeezing. She states the first episode occurred after she had taken a dose of Flexeril. This had been prescribed by her back surgeon as she had a laminectomy at L5-S1 2 months ago. Patient assumed that the symptoms were secondary to the Flexeril did not take another dose. Symptoms resolved in about 24 hours. Several days later she had an alcoholic beverage and symptoms recurred. Symptoms again lasted several hours and then resolved. She then had recurrent symptoms after taking some anti-inflammatories. When she called her doctor's office today for evaluation she was advised to come to the emergency room. She does report a history of high blood pressure but states her blood pressure has been running higher than normal. [facility] Medical History Alcohol use Arthritis Back pain Elevated LFTs Elevated serum GGT level Former smoker Herniated disc History of edema History of peptic ulcer Hypertension Injury of head and neck Tumor Home Medications amlodipine 10 mg tablet 10 mg PO DAILY 01/05/21 [History Last Taken 02/01/21 04:00] omeprazole 40 mg capsule,delayed release 40 mg PO DAILY 11/07/21 [History Last Taken Unknown] lidocaine 5 % topical patch (Lidoderm) 1 patch topical DAILY #15 ea 01/16/22 [Rx Last Taken Unknown] Allergy/AdvReac Type Severity Reaction Status Date / Time clindamycin Allergy Hives Verified 01/16/22 16:33 Surgical History History of discectomy History of laminectomy Hx of myringotomy Social History Smoking Status: Former smoker ROS ROS ED Constitutional Constitutional ED: Denies chills or fever(s) Eyes Eyes: Denies change in vision or discharge from eye(s) ENT ENT ED: Denies discharge from eye(s), rhinorrhea or sore throat Cardiovascular Cardiovascular: Reports chest pain; Denies palpitations Respiratory/Chest Respiratory/Chest: Denies cough or dyspnea Gastrointestinal Gastrointestinal: Denies abdominal pain, diarrhea, nausea or vomiting Genitourinary Genitourinary ED: Denies difficulty urinating or dysuria Musculoskeletal Musculoskeletal: Denies back pain or extremity pain Integumentary Denies Abrasions or rash Neurologic Neurologic: Reports paresthesias; Denies headache(s) or weakness Psychiatric Psychiatric: Denies anxiety or depression Endocrine Endocrinology: Denies polydipsia or polyuria Allergic/Immunologic Allergic/Immunologic ED: Denies lip swelling or urticaria EXAM Physical Exam Const Vital Signs: 01/16/22 16:30 01/16/22 16:48 01/16/22 16:48 Temperature 98.4 F Temperature Source Oral Pulse Rate 72 106 H Respiratory Rate 16 16 Respiratory Effort Normal Blood Pressure 153/111 H 173/114 H Blood Pressure Mean 125 133 Pulse Ox 95 98 Oxygen Delivery Method Room Air Room Air 01/16/22 17:46 01/16/22 18:39 Temperature Temperature Source Pulse Rate 61 68 Respiratory Rate 15 15 Respiratory Effort Blood Pressure 144/89 H Blood Pressure Mean 107 Pulse Ox 99 99 Oxygen Delivery Method Room Air Positive well nourished and well developed General Appearance ED: well developed HEENT Reports normocephalic and head/scalp atraumatic Eyes PERRL and EOMs intact bilaterally Neck supple Chest Wall inspection of chest normal and palpation of chest normal Resp normal respiratory effort and clear to auscultation bilaterally Cardio regular rate and regular rhythm GI normal to inspection, nondistended, normoactive bowel sounds Palpation: soft Extremity normal to inspection Neuro oriented x3 and no sensory deficits noted Neuro Narrative: NIH equals 0 at time of my exam. Sensorium / Orientation: alert Motor Exam: strength 5/5 throughout Psych mental status grossly normal Skin no rashes or lesions noted MDM MDM MDM Narrative Medical decision making narrative: Patient placed on air sampling and monitoring. EKG and chest x-ray obtained. Lab work obtained along with CTA of the head and neck. Lab Data Attestation: I reviewed the patient's lab results. Labs: Laboratory Results - last 24 hr 01/16/22 01/16/22 16:58 16:58 WBC 6.1 RBC 4.19 L Hgb 12.5 Hct 38.7 MCV 92.4 MCH 29.8 MCHC 32.3 RDW Std Deviation 42.0 RDW Coeff of Mike 12.4 Plt Count 256 MPV 9.7 Immature Gran % (Auto) 0.300 Neut % (Auto) 58.9 Lymph % (Auto) 30.8 [place] % (Auto) 9.0 Eos % (Auto) 0.3 Baso % (Auto) 0.7 Absolute Neuts (auto) 3.6 Absolute Lymphs (auto) 1.88 Nucleated RBC % 0 Sodium 140 Potassium 3.9 Chloride 107 Carbon Dioxide 28.0 Anion Gap 5 BUN 8 Creatinine 0.75 Estim Creat Clear Calc 81.66 Est GFR (MDRD) Af Amer 109 Est GFR (MDRD) Non-Af 90 BUN/Creatinine Ratio 10.6 Glucose 96 Calcium 9.2 Total Bilirubin 0.50 Direct Bilirubin 0.15 AST 29 ALT 40 Alkaline Phosphatase 55 Troponin I High Sens 4 Total Protein 7.8 Albumin 4.1 Globulin 3.7 Radiography Chest X-Ray - ED: 1 View, Read by ED Physician, Normal, Heart, Lungs and Mediastinum Diagnostic Testing: Clinical Impression(s) from Imaging Studies Head/Neck CTA 01/16/22 16:49 IMPRESSION: 1. Normal CT examination of the head without intracranial mass, hemorrhage, or acute territorial infarct. 2. No evidence of radiographically significant sinus disease. 3. Normal CTA examination of the [place] without focal stenosis occlusion or aneurysmal dilatation. No CTA evidence of LVO. 4. Normal CTA examination of the cervical carotid and vertebral circulation to the level of skull base without stenosis occlusion or luminal irregularity. Electronically Signed: Mario Olsen MD at 19:14 EDT , Chest X-Ray 01/16/22 17:18 IMPRESSION: There are no acute findings. Electronically Signed: Jonah Germain MD at 18:50 EDT , EKG Initial EKG: Attestation: I personally reviewed and interpreted this EKG as follows: Interpretation: Sinus Rhythm (Sinus at 62 with no acute ischemia.) Treatment and Re-Evaluation Narrative: On repeat evaluation patient resting comfortably. Test results discussed with patient as well as at bedside. At this time work-up is unremarkable including negative cardiac and neurologic testing. I do believe the patient's thought process is correct in thinking that she is having muscle spasm. Symptoms wrap around the left side of her neck to her face, left arm, left chest. I will write her for some Lidoderm patches. We did discuss that if this were recurrent TIAs with seem symptom distribution each time I would expect to see some narrowing on the CTA resolving focal to that area of the brain. She voices understanding and agreement. She was given strict return instructions. She will follow-up with her primary care physician. Discharge Plan Triage Chief Complaint: Chest Pain Other Complaint: Numb/Ting ED Provider: Bessy Rosa Dx/Rx/DC Orders Clinical Impression: Paresthesias, Chest pain, non-cardiac Instructions: ED Chest Pain, Noncardiac, ED Paraesthesias Prescriptions: New lidocaine [Lidoderm] 5 % adhesive patch,medicated 1 patch topical DAILY Qty: 15 0RF Rx Instructions: leave on most painful area for up to 12 hrs No Action omeprazole 40 mg capsule,delayed release(DR/EC) 40 mg PO DAILY amlodipine 10 mg tablet 10 mg PO DAILY Label Comments: take 1 tablet by mouth every morning Primary Care Provider: Cassidy Ugarte Referrals: Cassidy Ugarte DO [Primary Care Provider] - 3-5 Days Disposition Disposition: Home, Self Care
[2022-01-16 17:07] LABS: Absolute Lymphocyte Count 1.88 X10^3/uL (0.83-4.51); Absolute Neutrophil Count 3.6 X10^3/uL (2.0-7.7); Basophil# 0.04 X10^3/uL; Basophil% 0.7 % (0-1); Eosinophil# 0.02 X10^3/uL; Eosinophils% 0.3 % (0-5); Hematocrit 38.7 % (37-47); Hemoglobin 12.5 g/dL (12.0-15.0); Lymphocyte # 1.88 X10^3/ul (0.83-4.51); Lymphocyte % 30.8 % (19-41); Mean Corp Hgb Conc 32.3 g/dL (32-36); Mean Corpuscular Hgb 29.8 pg (27.0-32.0); Mean Corpuscular Volume 92.4 fL (81-99); Mean Platelet Vol. 9.7 fl (6.2-12.0); Monocyte# 0.55 X10^3/uL; NRBC Flagged by Analyzer 0 % (0-5); Neutrophil # 3.59 X10^3/uL (2.7-7.7); Neutrophil % 58.9 % (47-70); Platelet Count 256 K/mm3 (150-450); RBC Distribution Width CV 12.4 % (11.6-14.6); Red Blood Count 4.19 M/mm3 (4.2-5.4); White Blood Count 6.1 K/mm3 (4.4-11.0)
--- NOTE | 2022-01-16 17:18 | RAD_ITS ---
STUDY: X-RAY CHEST REASON FOR EXAM: Female, 41 years old. CHEST PAIN chest pain TECHNIQUE: XR Chest 1 View COMPARISON: 11/07/2021 FINDINGS: There is no demonstrated pleural abnormality. Stable left lung nodularities. Normal size heart. Normal mediastinum and belkis. Normal visualized pulmonary arteries. Normal visualized aortic arch and descending thoracic aorta. Normal visualized thoracic spine. Normal visualized ribs, clavicles, and shoulders. There is no demonstrated abnormality of the visualized soft tissue structures of the upper abdomen. RAD/Chest 1 View (Portable) IMPRESSION: There are no acute findings. Electronically Signed: Jonah Germain MD at 18:50 EDT ,
[2022-01-16 17:31] LABS: AST(SGOT) 29 U/L (15-37); Alanine Aminotransfer ALT/SGPT 40 U/L (13-56); Albumin, Serum 4.1 g/dL (3.2-5.0); Alkaline Phosphatase 55 U/L (45-117); Anion Gap 5 (5-15); BUN 8 mg/dL (7-18); BUN/Creat Ratio 10.6 RATIO (10-20); Bilirubin, Direct 0.15 mg/dL (0.00-0.30); Calcium,Total 9.2 mg/dL (8.5-10.1); Chloride 107 mmol/L (98-107); Creatinine, Serum 0.75 mg/dL (0.55-1.02); EST Glomerular Filtration Rate 90 mL/min (>60); Est Glom Filt Rate - Afr Amer 109 mL/min (>60); Estimated Creatinine Clearance 81.66 ml/min; Globulin 3.7 g/dL (2.2-4.2); Glucose 96 mg/dL (74-106); Potassium 3.9 mmol/L (3.5-5.1); Protein, Total 7.8 g/dL (6.4-8.2); Sodium Level 140 mmol/L (136-145); Troponin-I HS 4 pg/mL (3.0-54.0)
[2022-01-16 17:46] VITALS: BP 144/89; PULSE 61; RESP 15; O2SAT 99
[2022-01-16 18:39] VITALS: PULSE 68; RESP 15; O2SAT 99
[2022-01-16] MEDS: Lidocaine 5% Patch 1 PATCH TOPICAL (19:43)
[2022-01-16 19:46] VITALS: BP 138/77; PULSE 64; RESP 15; O2SAT 97
== END 2022-01-16 19:47 | disposition home or self-care (01) ==
PROVIDERS: Emergency Provider Emergency Medicine; PCP Internal Medicine; Visit Provider Emergency Medicine
DX: R20.2 Paresthesia of skin (principal); R07.89 Other chest pain; I10 Essential (primary) hypertension; M19.90 Unspecified osteoarthritis, unspecified site; Z79.899 Other long term (current) drug therapy; Z87.891 Personal history of nicotine dependence; Z87.11 Personal history of peptic ulcer disease
CPT/HCPCS: 70496; 70498; 71045; 80048; 80076; 84484; 85025; 93005; 99285; Q9967; A4216

== ENCOUNTER → 2022-01-23 | Outpatient (CLI) | payer BC, SELFPAY ==
--- NOTE | 2022-01-23 17:03 | MRI_ITS ---
STUDY: MR MRCP WITHOUT CONTRAST REASON FOR EXAM: Female, 41 years old. elevated GGT, RUQ pain TECHNIQUE: Standard MRCP technique was utilized. COMPARISON: None. FINDINGS: Gall Bladder: Normal with no distention or demonstrated fixed intraluminal filling defect. Cystic duct: Normal with no demonstrated fixed filling defect. Intrahepatic ducts: Normal visualized intrahepatic ducts with no demonstrated fixed filling defect, dilation or stricture. Common hepatic duct: Normal with no demonstrated fixed filling defect, dilation or stricture. Common bile duct: Normal with no demonstrated fixed filling defect, dilation or stricture. Pancreatic duct: Normal with no demonstrated fixed filling defect, dilation or stricture. MRI/MRCP Abdomen without Contrast IMPRESSION: Normal MR Cholangiopancreatography (MRCP). Electronically Signed: Todd Dawn DO at 3:04 EDT ,
== END | disposition home or self-care (01) ==
LOC: MRI 17:03
PROVIDERS: PCP Internal Medicine; Visit Provider Nurse Practitioner Adult Health
DX: R74.8 Abnormal levels of other serum enzymes (principal); R10.11 Right upper quadrant pain
CPT/HCPCS: 74181

== ENCOUNTER → 2022-01-30 | Outpatient (CLI) | payer BC, SELFPAY ==
[2022-01-30 09:06] LABS: D-Dimer Quantitative (DVT/PE) < 0.27 FEU/ug/m (0.27-0.49)
== END | disposition home or self-care (01) ==
LOC: LABSPEC 08:44
PROVIDERS: PCP Internal Medicine; Visit Provider Family Medicine
DX: R06.02 Shortness of breath (principal); R79.89 Other specified abnormal findings of blood chemistry
CPT/HCPCS: 85379

== ENCOUNTER → 2022-02-11 | Outpatient (CLI) | payer BC, SELFPAY ==
--- NOTE | 2022-02-11 14:54 | ECHOD_ITS ---
Reason For Study: Atypical Chest Pain Procedure This was a 2D Doppler, Color Flow transthoracic echocardiogram. Exam performed in department. Left Ventricle Normal LV size. Left ventricular systolic function is normal. The estimated ejection fraction is 65 %. Normal diastology for age. No regional wall motion abnormalities noted. Right Ventricle Normal RV size. Normal systolic function. Atria Normal left atrium. Normal right atrium. Mitral Valve Normal mitral valve. Tricuspid Valve Normal tricuspid valve. Aortic Valve Normal aortic valve. Trisinus/trileaflet aortic valve. Pulmonic Valve Normal pulmonic valve. Great Vessels Normal aortic root. The pulmonary artery is normal size. Normal inferior vena cava. Pericardium/Pleural No pericardial effusion. MMode/2D Measurements & Calculations LVIDd: 4.2 cm IVSd: 0.80 cm Ao root diam: 3.1 cm LVIDs: 2.2 cm LVPWd: 0.93 cm LA dimension: 3.2 cm RVDd: 3.3 cm FS: 47.8 % LAV(MOD-bp): 46.4 ml LA A4 area: 16.3 cm2 RA A4 area: 12.0 cm2 LAV(MOD-bp) Indexed: 28.7 ml/m2 LAV(MOD-sp2): 48.9 ml LAV(MOD-sp4): 44.5 ml Time Measurements MV dec time: 0.22 sec Doppler Measurements & Calculations MV E max aleida: 91.4 cm/sec MV V2 max: 103.6 cm/sec MV P1/2t max aleida: 103.6 cm/sec MV A max aleida: 58.0 cm/sec MV max P.3 mmHg MV P1/2t: 74.4 msec MV E/A: 1.6 MV V2 mean: 44.5 cm/sec MV dec slope: 407.7 cm/sec2 MV mean P.0 mmHg MVA(P1/2t): 3.0 cm2 MV V2 VTI: 31.5 cm Ao V2 max: 130.7 cm/sec LV V1 max: 110.9 cm/sec PA V2 max: 100.9 cm/sec Ao max P.8 mmHg LV V1 max P.9 mmHg PA V2 mean: 71.7 cm/sec LV V1 mean P.8 mmHg LV V1 mean: 78.7 cm/sec LV V1 VTI: 24.4 cm ECHO/Echo Complete Interpretation Summary Normal LV size. Left ventricular systolic function is normal. The estimated ejection fraction is 65 %. Normal diastology for age. Structurally normal valves. Ordering Physician: Cassidy Ugarte Referring Physician: Cassidy Ugarte M.D. Performed By: Hoang Keenan RCS
== END | disposition home or self-care (01) ==
LOC: CVS 14:52
PROVIDERS: PCP Internal Medicine; Visit Provider Internal Medicine
DX: R07.89 Other chest pain (principal); K76.1 Chronic passive congestion of liver
CPT/HCPCS: 93306

== ENCOUNTER 2022-02-24 10:20 | Emergency (ER) | payer BC, SELFPAY ==
[2022-02-24 10:20] VITALS: BP 147/95; PULSE 81; RESP 18; TEMP 37.1; O2SAT 96; BMI 20.7
[2022-02-24 10:30] VITALS: BMI 20.7
--- NOTE | 2022-02-24 10:57 | EDS_ITS ---
HPI History of Present Illness Chief Complaint: Numb/Ting Informant: patient Onset/Context/Timing Onset: Weeks Context: Gradual Onset Timing: Continuous Current Severity: Mild Maximum Severity: Mild Narrative Narrative: 41-year-old female prior lumbar discectomy in October of this year by Dr. Henson. She had injection done on February 05. In her lower back. Since 2 days after the injection she has had numbness and tingling in both her upper and lower extremities. Again it was a lumbar epidural steroid injection. She denies any bowel or bladder incontinence. She denies any fever or chills. She denies any weakness in her lower extremities. She is able to walk. Prior similar symptoms: Yes Recent Illness/Hospitalization: No PFSH PFS Medical History Alcohol use Arthritis Back pain Elevated LFTs Elevated serum GGT level Former smoker Herniated disc History of edema History of peptic ulcer Hypertension Injury of head and neck Tumor Home Medications amlodipine 10 mg tablet 10 mg PO DAILY 01/05/21 [History Last Taken 02/01/21 04:00] omeprazole 40 mg capsule,delayed release 40 mg PO DAILY 11/07/21 [History Last Taken Unknown] lidocaine 5 % topical patch (Lidoderm) 1 patch topical DAILY #15 ea 01/16/22 [Rx Last Taken Unknown] Allergy/AdvReac Type Severity Reaction Status Date / Time clindamycin Allergy Hives Verified 02/24/22 10:22 benazepril AdvReac Other Verified 02/24/22 10:22 Surgical History History of discectomy History of laminectomy Hx of myringotomy Social History Smoking Status: Former smoker ROS ROS ED ROS Narrative Subjective numbness and tingling in both upper EXTR and lower extremities. Review of Systems ROS Unobtainable: Denies due to encephalopathy Constitutional Constitutional ED: Denies chills or fever(s) Eyes Eyes: Denies blurry vision ENT ENT ED: Denies ear pain Cardiovascular Cardiovascular: Denies chest pain Respiratory/Chest Respiratory/Chest: Denies cough Gastrointestinal Gastrointestinal: Denies abdominal pain Genitourinary Genitourinary ED: Denies dysuria Musculoskeletal Musculoskeletal: Denies arthralgias Integumentary Denies abscess Neurologic Neurologic: Denies headache(s) Psychiatric Psychiatric: Denies anxiety Endocrine Endocrinology: Denies cold intolerance Hematologic/Lymphatic Hematologic/Lymphatic: Reports none Allergic/Immunologic Allergic/Immunologic ED: Denies mouth swelling or tongue swelling EXAM Physical Exam Narrative Exam Narrative: 41-year-old female no acute distress. Vital signs stable afebrile. H EENT exam unremarkable. Neck nontender. Lungs clear to auscultation bilaterally. Heart regular rhythm no murmur. Abdomen soft nontender. Moving all 4 extremities. Neurovascular intact. 5 out of 5 fundraising officer strength both upper extremities. Dorsi and plantar flexion intact in both lower extremities. No cauda equina. No saddle anesthesia. Normal medial thigh sensation. Normal both medial and lateral sensation of both lower extremities. She can lift either leg off the bed without any difficulty. Back nontender. Prior lumbar surgery scar well- healed. No redness or warmth. No discomfort to exam. Next nontender. N eurologic exam normal. No focal numbness or weakness. Normal motor strength. Completely normal exam. Const Vital Signs: 02/24/22 10:20 Temperature 98.7 F Temperature Source Temporal Pulse Rate 81 Respiratory Rate 18 Blood Pressure 147/95 H Blood Pressure Mean 112 Pulse Ox 96 Oxygen Delivery Method Room Air Positive well nourished and well developed; Negative for obese, cachectic, contractures or unkempt General Appearance ED: well developed and NAD; Negative for unkempt, cachectic, contractures, cyanotic or diaphoretic Nutritional Appearance: Negative for cachectic or obese HEENT Reports moist mucous membranes; Denies dry mucous membranes Negative for trauma Mouth ED: No dry mucous membranes Mouth: No dry mucous membranes Eyes PERRL and EOMs intact bilaterally General Eye ED: Negative for pale conjunctiva, scleral icterus or other Neck no lymphadenopathy, supple and no JVD General: Negative for tenderness Lymph Lymphatic: Negative for other Chest Wall inspection of chest normal and palpation of chest normal Chest: Negative for other Resp normal respiratory effort and clear to auscultation bilaterally Effort and Inspection: Negative for retractions Auscultation: Negative for rales, rhonchi, wheezes or diminished lung sounds Cardio regular rate, regular rhythm, S1 normal heart sound, S2 normal heart sound and no murmurs Palpation: Negative for palpable S3 Rate: Negative for bradycardia Rhythm: Negative for abnormal rhythm GI normal to inspection, nondistended, normoactive bowel sounds, non-tender, non- distended and no masses Inspection: Negative for abdominal distention Auscultation: normoactive bowel sounds Palpation: soft; Negative for tender Back/Spine no CVA tenderness Back/Spine Narrative: Well-healed lumbar scar. No signs of infection. No redness or warmth. General Back: Negative for CVA tenderness Cervical Spine: Negative for cervical spine tenderness Thoracic Spine / Upper Back: Negative for thoracic spinal tenderness Lumbar Spine / Lower Back: Negative for lumbar spinal tenderness Extremity normal to inspection Extremity Narrative: Normal motor strength and sensation both upper and lower extremities. No cauda equina. Full range of motion. Normal sensation. General Extremety ED: Negative for edema or tenderness General Extremity: Negative for edema Neuro oriented x3, CN's II-XII intact bilaterally and no sensory deficits noted Sensorium / Orientation: alert; Negative for orientation impaired Sensory Exam: No sensory level loss detected Motor Exam: strength 5/5 throughout; Negative for general weakness Psych mental status grossly normal Appearance: Negative for unkempt Attitude: No agitated Mood & Affect: Negative for depressed or anxious Skin no rashes or lesions noted and no wounds General Skin Exam: Negative for elasticity normal Lesions: No lesion noted Rashes: No rashes noted Trauma: Negative for abrasion Wounds: Negative for wounds noted MDM MDM MDM Narrative Medical decision making narrative: 41-year-old complaining of subjective numbness and tingling in both upper and lower extremities. She has a normal exam both motor strength and sensation. No signs of cauda equina. This is been 2 weeks. She has had no fever. The injection was in the lumbar spine area which should not affect her upper extremities. Objectively she has no findings and does not need emergent MRI. I told her if is not improving they can get one as an outpatient is unavailable at this time at this facility today. She question if she should go to a larger facility I told her that is possible they may or may not have MRI capability with a normal exam they may not consider an emergent but she is willing to choose that option. She can also follow-up with her primary care physician or orthopedic microbial specialist to determine if they want to do any imaging.. There is no signs of any space-occupying lesion compressing her spinal cord at this time. Discharge Plan Triage Chief Complaint: Numb/Ting ED Provider: Chapa,Gomez Dx/Rx/DC Orders Clinical Impression: Paresthesia Instructions: ED Paraesthesias Prescriptions: No Action omeprazole 40 mg capsule,delayed release(DR/EC) 40 mg PO DAILY amlodipine 10 mg tablet 10 mg PO DAILY Label Comments: take 1 tablet by mouth every morning lidocaine [Lidoderm] 5 % adhesive patch,medicated 1 patch topical DAILY Qty: 15 0RF Rx Instructions: leave on most painful area for up to 12 hrs Primary Care Provider: Cassidy Ugarte Referrals: Uri Henson DO [Med Staff - Active Staff] - As soon as possible Cassidy Ugarte DO [Primary Care Provider] - As soon as possible Activity Restrictions/Additional Instructions: You have a normal exam today. The lower lumbar injection should not affect her upper extremities due to the distribution of the nerves. You can follow-up with Dr. Henson your primary care physician they may or may not she is a an MRI of your spine to evaluate for possible fluid collection in your lower back impinging on your lower spine or nerves. There is no signs of that currently on exam. If you develop significant weakness in 1 lower extremity or fever you need to be seen. Disposition Disposition: Home, Self Care
== END 2022-02-24 11:09 | disposition home or self-care (01) ==
LOC: ED 11:08
PROVIDERS: Emergency Provider Emergency Medicine; PCP Internal Medicine; Visit Provider Emergency Medicine
DX: R20.2 Paresthesia of skin (principal); I10 Essential (primary) hypertension; Z79.899 Other long term (current) drug therapy; Z87.891 Personal history of nicotine dependence; Z98.890 Other specified postprocedural states
CPT/HCPCS: 99282

== ENCOUNTER 2022-03-01 17:23 | Emergency (ER) | payer BC, SELFPAY ==
[2022-03-01 17:25] VITALS: BP 144/80; PULSE 68; RESP 16; TEMP 36.2; O2SAT 98; BMI 20.5
--- NOTE | 2022-03-01 19:56 | CT_ITS ---
STUDY: CT LUMBAR SPINE WITH CONTRAST REASON FOR EXAM: Female, 41 years old. paresthesias RADIATION DOSAGE (If Supplied By Facility): CTDIvol = ( 13.98 ) mGy, DLP = ( 479.69 ) mGycm TECHNIQUE: The patient was scanned in a multi detector CT scanner. High resolution transaxial imaging was performed following the intravenous administration of IV-100 ML ISOVUE 370. Images were obtained from T12 to S1. Sagittal and coronal images were reconstructed. Individualized dose optimization techniques were used for this CT. COMPARISON: None FINDINGS: Normal lumbar lordosis. There is no substantial scoliosis. Normal vertebrae of the lumbar spine. L1-2: Normal endplates. Normal disc height and morphology. Normal bilateral facet joints. Normal central canal and bilateral lateral recesses. Normal bilateral intervertebral neural foramina. L2-3: Normal endplates. Normal disc height and morphology. Normal bilateral facet joints. Normal central canal and bilateral lateral recesses. Normal bilateral intervertebral neural foramina. L3-4: Normal endplates. Normal disc height and morphology. Normal bilateral facet joints. Normal central canal and bilateral lateral recesses. Normal bilateral intervertebral neural foramina. L4-5: Mild broad disc protrusion produces mild spinal stenosis and mild bilateral neural foraminal stenosis. L5-S1: Mild broad disc protrusion produces mild spinal stenosis and mild bilateral neural foraminal stenosis. Normal visualized paraspinous soft tissue structures. CT/Spine Lumbar WITH Contrast IMPRESSION: Multilevel degenerative changes, as described above. Electronically Signed: Mario Godinez MD at 22:08 EDT ,
--- NOTE | 2022-03-01 19:56 | CT_ITS ---
STUDY: CT CERVICAL SPINE WITH CONTRAST REASON FOR EXAM: Female, 41 years old. paresthesias RADIATION DOSAGE (If Supplied By Facility): CTDIvol = ( 13.56 ) mGy, DLP = ( 302.29 ) mGycm TECHNIQUE: High resolution transaxial imaging was performed following intravenous administration of IV-100 ML ISOVUE 370. Sagittal and coronal images were reconstructed. Individualized dose optimization techniques were used for this CT. COMPARISON: None FINDINGS: Normal craniovertebral junction. Normal anterior atlantoaxial articulation. Normal odontoid process. Normal cervical lordosis. Normal vertebral bodies and posterior osseous elements. C2-3: Normal endplates. Normal disc height and morphology. Normal central canal and intervertebral neuroforamina. C3-4: Normal endplates. Normal disc height and morphology. Normal central canal and intervertebral neuroforamina. C4-5: Normal endplates. Normal disc height and morphology. Normal central canal and intervertebral neuroforamina. C5-6: Normal endplates. Normal disc height and morphology. Normal central canal and intervertebral neuroforamina. C6-7: Normal endplates. Normal disc height and morphology. Normal central canal and intervertebral neuroforamina. C7-T1: Normal endplates. Normal disc height and morphology. Normal central canal and intervertebral neuroforamina. Normal visualized soft tissue structures. CT/Spine Cervical WITH Contrast IMPRESSION: Normal enhanced CT examination of the cervical spine. Electronically Signed: Mario Godinez MD at 22:05 EDT ,
[2022-03-01] MEDS: 0.9% Normal Saline 1,000 ML 150 ML IV (20:08)
[2022-03-01 20:17] LABS: Absolute Lymphocyte Count 2.63 X10^3/uL (0.83-4.51); Absolute Neutrophil Count 4.3 X10^3/uL (2.0-7.7); Basophil# 0.04 X10^3/uL; Basophil% 0.5 % (0-1); Eosinophil# 0.07 X10^3/uL; Eosinophils% 0.9 % (0-5); Hematocrit 36.7 % (37-47); Hemoglobin 11.9 g/dL (12.0-15.0); Lymphocyte # 2.63 X10^3/ul (0.83-4.51); Lymphocyte % 33.3 % (19-41); Mean Corp Hgb Conc 32.4 g/dL (32-36); Mean Corpuscular Hgb 30.4 pg (27.0-32.0); Mean Corpuscular Volume 93.6 fL (81-99); Mean Platelet Vol. 9.4 fl (6.2-12.0); Monocyte% 10.1 % (0-10); NRBC Flagged by Analyzer 0 % (0-5); Neutrophil # 4.34 X10^3/uL (2.7-7.7); Neutrophil % 54.9 % (47-70); Platelet Count 239 K/mm3 (150-450); RBC Distribution Width CV 13.2 % (11.6-14.6); RBC Distribution Width SD 45.4 fl (35.1-43.9); Red Blood Count 3.92 M/mm3 (4.2-5.4); White Blood Count 7.9 K/mm3 (4.4-11.0)
[2022-03-01 20:31] LABS: Erythrocyte Sedimentation Rate 5 mm/hr (0-30)
[2022-03-01 21:08] LABS: Anion Gap 7 (5-15); BUN 13 mg/dL (7-18); BUN/Creat Ratio 19.6 RATIO (10-20); CRP < 2.90 mg/L (0.0-3.0); Calcium,Total 9.1 mg/dL (8.5-10.1); Chloride 107 mmol/L (98-107); Creatinine, Serum 0.66 mg/dL (0.55-1.02); EST Glomerular Filtration Rate 104 mL/min (>60); Est Glom Filt Rate - Afr Amer 126 mL/min (>60); Glucose 92 mg/dL (74-106); Magnesium 2.4 mg/dL (1.6-2.6); Sodium Level 140 mmol/L (136-145)
--- NOTE | 2022-03-01 22:27 | EX.ED.DYSGE1 ---
HPI History of Present Illness Chief Complaint: General Illness Informant: patient Onset/Context/Timing Onset: Weeks Context: Gradual Onset Narrative Narrative: Patient presents secondary to continued paresthesias. She had an injection in her lumbar spine on February 05. Several days later she started evolving patchy paresthesias over her whole body. She feels that her legs are slightly weak. She was seen in the emergency room recently and referred to her PCP for an MRI. Her PCP has ordered a brain MRI but it is not yet scheduled. Patient denies fever or chills. She has no significant increase in back pain. [facility] Medical History Alcohol use Arthritis Back pain Elevated LFTs Elevated serum GGT level Former smoker Herniated disc History of edema History of peptic ulcer Hypertension Injury of head and neck Tumor Home Medications amlodipine 10 mg tablet 10 mg PO DAILY 01/05/21 [History Last Taken 02/01/21 04:00] omeprazole 40 mg capsule,delayed release 40 mg PO DAILY 11/07/21 [History Last Taken Unknown] lidocaine 5 % topical patch (Lidoderm) 1 patch topical DAILY #15 ea 01/16/22 [Rx Last Taken Unknown] Allergy/AdvReac Type Severity Reaction Status Date / Time clindamycin Allergy Hives Verified 03/01/22 17:26 benazepril AdvReac Other Verified 03/01/22 17:26 Surgical History History of discectomy History of laminectomy Hx of myringotomy Social History Smoking Status: Former smoker ROS ROS ED Constitutional Constitutional ED: Denies chills or fever(s) Eyes Eyes: Denies change in vision or discharge from eye(s) ENT ENT ED: Denies discharge from eye(s), rhinorrhea or sore throat Cardiovascular Cardiovascular: Denies chest pain or palpitations Respiratory/Chest Respiratory/Chest: Denies cough or dyspnea Gastrointestinal Gastrointestinal: Denies abdominal pain, diarrhea, nausea or vomiting Genitourinary Genitourinary ED: Denies difficulty urinating or dysuria Musculoskeletal Musculoskeletal: Denies back pain or extremity pain Integumentary Denies Abrasions or rash Neurologic Neurologic: Reports paresthesias and weakness; Denies headache(s) Psychiatric Psychiatric: Denies anxiety or depression Allergic/Immunologic Allergic/Immunologic ED: Denies lip swelling or urticaria EXAM Physical Exam Const Vital Signs: 03/01/22 17:25 03/01/22 19:10 Temperature 97.1 F L Temperature Source Temporal Pulse Rate 68 Respiratory Rate 16 Respiratory Effort Normal Non-Labored Respiratory Pattern Normal Blood Pressure 144/80 H Blood Pressure Mean 101 Pulse Ox 98 Oxygen Delivery Method Room Air Positive well nourished and well developed General Appearance ED: well developed HEENT Reports normocephalic and head/scalp atraumatic Eyes PERRL and EOMs intact bilaterally Neck supple Chest Wall inspection of chest normal and palpation of chest normal Resp normal respiratory effort and clear to auscultation bilaterally Cardio regular rate and regular rhythm GI normal to inspection, nondistended, normoactive bowel sounds Palpation: soft Extremity normal to inspection Neuro oriented x3 Neuro Narrative: Patient has no obvious focal motor or sensory deficits on exam. Sensorium / Orientation: alert Psych mental status grossly normal Skin no rashes or lesions noted MDM MDM MDM Narrative Medical decision making narrative: Spoke with MRI shortly to see the patient as the patient thought she was supposed to come here to get the MRI that her PCP ordered. They state they have an order but it is a routine outpatient study and has not yet been scheduled. They are going off shift and 15 minutes and I do not have caused to get an emergent MRI at this time. Lab work was obtained including inflammatory markers, potassium, magnesium. CT scan of the C-spine and L-spine are obtained with contrast to ensure no space-occupying lesions or hematomas. Lab Data Attestation: I reviewed the patient's lab results. Labs: Laboratory Results - last 24 hr 03/01/22 03/01/22 20:05 20:05 WBC 7.9 RBC 3.92 L Hgb 11.9 L Hct 36.7 L MCV 93.6 MCH 30.4 MCHC 32.4 RDW Std Deviation 45.4 H RDW Coeff of Mike 13.2 Plt Count 239 MPV 9.4 Immature Gran % (Auto) 0.300 Neut % (Auto) 54.9 Lymph % (Auto) 33.3 [place] % (Auto) 10.1 H Eos % (Auto) 0.9 Baso % (Auto) 0.5 Absolute Neuts (auto) 4.3 Absolute Lymphs (auto) 2.63 Nucleated RBC % 0 ESR 5 Sodium 140 Potassium 4.0 Chloride 107 Carbon Dioxide 26.0 Anion Gap 7 BUN 13 Creatinine 0.66 Estim Creat Clear Calc 98.80 Est GFR (MDRD) Af Amer 126 Est GFR (MDRD) Non-Af 104 BUN/Creatinine Ratio 19.6 Glucose 92 Calcium 9.1 Magnesium 2.4 C-React Prot Ext Range < 2.90 Radiography Diagnostic Testing: Clinical Impression(s) from Imaging Studies Cervical Spine CT 03/01/22 19:56 IMPRESSION: Normal enhanced CT examination of the cervical spine. Electronically Signed: Mario Godinez MD at 22:05 EDT Reading Location ID and State: [facility] / [address] Tel , Service support , Lumbar Spine CT 03/01/22 19:56 IMPRESSION: Multilevel degenerative changes, as described above. Electronically Signed: Mario Godinez MD at 22:08 EDT Reading Location ID and State: [facility] / [address] Tel , Service support , Treatment and Re-Evaluation Narrative: Lab work is unremarkable including normal sed rate and CRP. Magnesium and potassium are normal. CT scans of the C-spine and L-spine show chronic degenerative changes. Test results are reviewed with the patient. At this time I advised her I see no evidence of acute finding on the studies. I did recommend she follow-up for the MRI as previously ordered. She did state that MS had been mention to her. I did advise her that those lesions are not necessarily seen on the CAT scan and will require the MRI. Discharge Plan Triage Chief Complaint: General Illness ED Provider: Bessy Rosa Dx/Rx/DC Orders Clinical Impression: Paresthesias Instructions: ED Paraesthesias Prescriptions: No Action omeprazole 40 mg capsule,delayed release(DR/EC) 40 mg PO DAILY amlodipine 10 mg tablet 10 mg PO DAILY Label Comments: take 1 tablet by mouth every morning lidocaine [Lidoderm] 5 % adhesive patch,medicated 1 patch topical DAILY Qty: 15 0RF Rx Instructions: leave on most painful area for up to 12 hrs Primary Care Provider: Cassidy Ugarte Referrals: Cassidy Ugarte DO [Primary Care Provider] - 1 Week Activity Restrictions/Additional Instructions: As discussed, please follow-up for your brain MRI. Disposition Disposition: Home, Self Care
== END 2022-03-01 22:35 | disposition home or self-care (01) ==
PROVIDERS: Emergency Provider Emergency Medicine; PCP Internal Medicine; Visit Provider Emergency Medicine
DX: R20.2 Paresthesia of skin (principal); Z87.891 Personal history of nicotine dependence; I10 Essential (primary) hypertension; M54.9 Dorsalgia, unspecified
CPT/HCPCS: 72126; 72132; 80048; 83735; 85025; 85652; 86140; 96360; 96361; 99284; J7030; Q9967; A4216

== ENCOUNTER → 2022-04-01 | Outpatient (CLI) | payer BC, SELFPAY ==
--- NOTE | 2022-04-01 17:05 | MRI_ITS ---
STUDY: MRI BRAIN WITHOUT CONTRAST REASON FOR EXAM: Female, 41 years old. PARESTHESIA TECHNIQUE: Standardized multiplanar fat and water weighted pulse sequences were obtained. COMPARISON: None. FINDINGS: Normal size of the ventricles and extra-axial spaces for the patient''s age. Normal white matter tracts of the supratentorial brain. Normal bilateral basal ganglia. Normal thalami. There is no extra-axial fluid accumulation. Normal flow voids within the major intracranial circulation suggesting patency by spin echo criteria. Normal sella turcica, pituitary gland, infundibular stalk, optic chiasm and hypothalamus. Normal tectal plate and pineal gland. Normal midbrain, may and medulla. Normal cerebellum. Normal basal cisterns. Normal bilateral temporal bones. Normal bilateral internal auditory canals. Fluid signal density noted within left mastoid which may be consistent with inflammatory disease No demonstrated orbital abnormality, within the constraints of a routine brain study. Normal visualized paranasal sinuses. Normal calvarium and skull base. Normal visualized soft tissue structures. Normal visualized upper cervical spine. MRI/Brain without Contrast IMPRESSION: Normal unenhanced MRI of the brain. Findings which may be consistent with chronic left mastoid sinus disease Electronically Signed: Uri Davis MD at 22:12 EDT ,
== END | disposition home or self-care (01) ==
LOC: MRI 17:01
PROVIDERS: PCP Internal Medicine; Referring Provider Internal Medicine; Visit Provider Internal Medicine
DX: R20.2 Paresthesia of skin (principal)
CPT/HCPCS: 70551

== ENCOUNTER → 2022-04-04 | Outpatient (CLI) | payer BC, SELFPAY | END | disposition home or self-care (01) | LOC: LABSPEC 08:31 | PROVIDERS: PCP Internal Medicine; Visit Provider Nurse Practitioner Adult Health | DX: R19.7 Diarrhea, unspecified (principal); K58.9 Irritable bowel syndrome, unspecified | CPT/HCPCS: 87493; 87506 ==

== ENCOUNTER → 2022-04-15 | Outpatient (CLI) | payer BC, SELFPAY | END | disposition home or self-care (01) | LOC: LABSPEC 07:16 | PROVIDERS: PCP Internal Medicine; Referring Provider Nurse Practitioner Adult Health; Visit Provider Nurse Practitioner Adult Health | DX: K58.9 Irritable bowel syndrome, unspecified (principal) | CPT/HCPCS: 87177; 87209 ==

== ENCOUNTER → 2022-05-03 | Outpatient (CLI) | payer BC, SELFPAY ==
[2022-05-10 15:03] LABS: HPV APTIMA, High Risk Negative (Negative)
== END | disposition home or self-care (01) ==
LOC: LABSPEC 16:00
PROVIDERS: PCP Internal Medicine; Visit Provider Obstetrics & Gynecology
DX: Z12.4 Encounter for screening for malignant neoplasm of cervix (principal)
CPT/HCPCS: 87624; 88175; G0145

== ENCOUNTER → 2022-05-17 | Outpatient (CLI) | payer BC, SELFPAY ==
--- NOTE | 2022-05-17 15:55 | BI_ITS ---
MAMMOGRAPHY - BILATERAL SCREENING REASON FOR EXAM: Female, 41 years old. Routine annual screening examination. PERTINENT HISTORY: Non-contributory. TECHNIQUE: Digital bilateral breast jennifer (3D mammographic acquisition) in the CC and MLO projections. 2-D mediolateral oblique (MLO) and craniocaudad (CC) views of both breasts were obtained. CAD: Full Field Digital Mammography with Computer Added Detection was performed. COMPARISON: None. Baseline examination. FINDINGS: Breast Composition: The breasts are extremely dense, which lowers the sensitivity of mammography. There are no dominant masses or suspicious calcifications. No other significant abnormalities are identified. BI/SCRN MAMM (CAD)W/JENNIFER BILAT IMPRESSION: Negative screening mammogram. Yearly followup mammogram recommended. (A) ASSESSMENT CATEGORY: BIRADS Category 1: Negative. A letter regarding these results will be sent to the patient by the facility within 30 days. Approximately 10% of breast cancers are not detected by mammography. A normal mammogram should not delay biopsy of a clinically suspicious abnormality. Electronically Signed: Hossein Warner, at 10:20 EST ,
== END | disposition home or self-care (01) ==
LOC: OPBI 15:54
PROVIDERS: PCP Internal Medicine; Referring Provider Obstetrics & Gynecology; Visit Provider Obstetrics & Gynecology
DX: Z12.31 Encounter for screening mammogram for malignant neoplasm of breast (principal)
CPT/HCPCS: 77063; 77067

== ENCOUNTER → 2022-06-07 | Outpatient (CLI) | payer BC, SELFPAY ==
[2022-06-07 09:44] LABS: Creatinine, Serum 0.78 mg/dL (0.55-1.02); EST Glomerular Filtration Rate 87 mL/min (>60); Est Glom Filt Rate - Afr Amer 105 mL/min (>60); Estradiol 52.1 pg/mL; Free T3 2.5 pg/mL (2.18-3.98); T4 Free Direct 0.91 ng/dL (0.76-1.46); Thyroid Stim Hormone (TSH) 1.88 uIU/mL (0.358-3.74)
[2022-06-08 09:48] LABS: Thyroid Peroxidase AB 9 IU/mL (0-34)
== END | disposition home or self-care (01) ==
PROVIDERS: PCP Internal Medicine
DX: N28.9 Disorder of kidney and ureter, unspecified (principal); B37.7 Candidal sepsis; E03.9 Hypothyroidism, unspecified; N95.1 Menopausal and female climacteric states
CPT/HCPCS: 36415; 82565; 82627; 82670; 84144; 84403; 84439; 84443; 84481; 86376; 82626

== ENCOUNTER → 2022-06-14 | Outpatient (CLI) | payer BC, SELFPAY ==
--- NOTE | 2022-06-14 17:56 | MRI_ITS ---
EXAM: MR LUMBAR SPINE WITHOUT AND WITH INTRAVENOUS CONTRAST CLINICAL INDICATION: RADICULOPATHY TECHNIQUE: Multiplanar and multisequence MR images of the lumbar spine without and with intravenous contrast. This report was created using [employer] report [employer] technology. CONTRAST: IV 11ml clariscan COMPARISON: CT 03/01/2022. FINDINGS: VERTEBRAE: Unremarkable. Vertebral body heights are preserved. Normal vertebral bodies and posterior elements. Normal alignment. No spondylolisthesis. There is preservation of the normal lumbar lordosis. SPINAL CORD: Unremarkable. Normal position and signal intensity of the conus medullaris. SOFT TISSUES: Unremarkable. DISCS/SPINAL CANAL/NEURAL FORAMINA: No demonstrated fracture. Vertebral bodies are normal in height. T12-L1: Normal disc height and morphology. Normal bilateral facet joints. Normal central canal. Normal bilateral lateral recesses. Normal intervertebral neural foramina. L1-2: Normal disc height and morphology. Normal bilateral facet joints. Normal central canal. Normal bilateral lateral recesses. Normal intervertebral neural foramina. L2-3: Normal disc height and morphology. Normal bilateral facet joints. Normal central canal. Normal bilateral lateral recesses. Normal intervertebral neural foramina. L3-4: Normal disc height and morphology. Normal bilateral facet joints. Normal central canal. Normal bilateral lateral recesses. Normal intervertebral neural foramina. L4-5: Disc dehydration and mild disc space narrowing. Small, central, noncompressive disc protrusion. Normal bilateral facet joints. Normal central canal. Normal bilateral lateral recesses. Normal intervertebral neural foramina. L5-S1: Disc dehydration and moderate disc space narrowing. Normal bilateral facet joints. Normal central canal. Normal bilateral lateral recesses. Mild right foraminal encroachment due to spurring. No enhancing lesion. MRI/Spine Lumbar W/WO Contrast IMPRESSION: No compressive disc disease, canal or high-grade foraminal stenosis. Noncompressive L4-5 disc protrusion. Electronically Signed: Aminah Woodall MD at 22:49 EST Reading Location ID and State: [id number] / Tel , Service support ,
== END | disposition home or self-care (01) ==
LOC: MRI 17:50
PROVIDERS: PCP Internal Medicine; Referring Provider Orthopaedic Surgery Orthopaedic Surgery of the Spine; Visit Provider Orthopaedic Surgery Orthopaedic Surgery of the Spine
DX: M54.16 Radiculopathy, lumbar region (principal); N28.9 Disorder of kidney and ureter, unspecified
CPT/HCPCS: 72158; A9575

== ENCOUNTER → 2022-06-27 | Outpatient (CLI) | payer BC, SELFPAY ==
--- NOTE | 2022-06-27 17:42 | MRI_ITS ---
MRI of the cervical spine INDICATION: Spondylosis and radiculopathy TECHNIQUE: MRI of the cervical spine was performed in the sagittal and axial projections utilizing, T1 T2 and STIR imaging sequences. FINDINGS: Bony structures demonstrate homogeneous signal intensity. No evidence for acute fracture or subluxation.. The cervicocranial junction is unremarkable as is the atlantoaxial complex C2-3: Normal disc space height and morphology. Normal central canal and neuroforamina C3-4: Normal disc space height and morphology. Normal central canal and neural foramina C4-5: Normal disc space height and morphology. Normal central canal and neuroforamina C5-6: Normal disc space height and tiny right foraminal disc/osteophyte protrusion. Normal central canal. Mild right neural foraminal encroachment. C6-7: Normal disc space height and morphology. Normal central canal and bilateral neural foraminal Spinal cord is normal in size and homogeneous signal intensity. MRI/Spine Cervical (Routine) IMPRESSION: No evidence for acute fracture or other significant bony pathology. Mild right neural foraminal encroachment at C5-6 secondary to tiny right foraminal disc/osteophyte protrusion Electronically Signed: Uri Davis MD at 20:35 EST ,
--- NOTE | 2022-06-27 18:40 | MRI_ITS ---
STUDY: MR PELVIS WITH T WITHOUT CONTRAST REASON FOR EXAM: Female, 41 years old. LESION L ILLIAC ADJACENT TO SI JOINT -- SEEN ON CT LUMBAR SPINE TECHNIQUE: Standardized fat and water weighted pulse sequences were obtained in all 3 orthogonal planes, pre-and post contrast administration. IV 12mL CLARISCAN was administered for the contrast portion of the examination. COMPARISON: CT lumbar spine 03/01/2022. FINDINGS: Normal urinary bladder. Normal visualized small intestine. Normal visualized colon. Normal visualized uterus. Normal visualized adnexa. There is no pelvic fluid. There is no pelvic mass lesion or lymphadenopathy. Normal visualized pelvic arteries. 1.6 x 0.6 cm T1 and T2 dark lesion in the medial left iliac bone adjacent to the sacroiliac joint . No evidence of enhancement on post contrast images. Normal abdominal wall. MRI/Pelvis W/WO Contrast IMPRESSION: Previously seen 1.6 cm sclerotic lesion in the left medial iliac bone adjacent to the left sacroiliac joint is most consistent with a benign bone island. Electronically Signed: Tacos Hernandez MD at 21:13 EST ,
== END | disposition home or self-care (01) ==
LOC: MRI 17:00
PROVIDERS: PCP Internal Medicine; Referring Provider Orthopaedic Surgery; Visit Provider Orthopaedic Surgery
DX: M47.22 Other spondylosis with radiculopathy, cervical region (principal); R20.2 Paresthesia of skin; Q76.49 Other congenital malformations of spine, not associated with scoliosis
CPT/HCPCS: 72141; 72197; A9575

== ENCOUNTER → 2022-07-25 | Outpatient (CLI) | payer BC, SELFPAY ==
[2022-07-25 22:53] LABS: Absolute Lymphocyte Count 2.63 X10^3/uL (0.83-4.51); Absolute Neutrophil Count 2.5 X10^3/uL (2.0-7.7); Basophil# 0.04 X10^3/uL; Basophil% 0.7 % (0-1); Eosinophil# 0.09 X10^3/uL; Eosinophils% 1.5 % (0-5); Hematocrit 38.4 % (37-47); Hemoglobin 12.8 g/dL (12.0-15.0); Lymphocyte # 2.63 X10^3/ul (0.83-4.51); Lymphocyte % 45.2 % (19-41); Mean Corp Hgb Conc 33.3 g/dL (32-36); Mean Platelet Vol. 10.4 fl (6.2-12.0); Monocyte# 0.52 X10^3/uL; Monocyte% 8.9 % (0-10); NRBC Flagged by Analyzer 0 % (0-5); Neutrophil # 2.53 X10^3/uL (2.7-7.7); Neutrophil % 43.5 % (47-70); Platelet Count 268 K/mm3 (150-450); RBC Distribution Width CV 12.8 % (11.6-14.6); RBC Distribution Width SD 43.6 fl (35.1-43.9); Red Blood Count 4.13 M/mm3 (4.2-5.4); White Blood Count 5.8 K/mm3 (4.4-11.0)
[2022-07-25 23:10] LABS: ALB/GLOB Ratio 1.3 RATIO (0.9-2.4); AST(SGOT) 28 U/L (15-37); Alanine Aminotransfer ALT/SGPT 32 U/L (13-56); Albumin, Serum 4.3 g/dL (3.2-5.0); Alkaline Phosphatase 45 U/L (45-117); Anion Gap 9 (5-15); BUN 16 mg/dL (7-18); BUN/Creat Ratio 24.1 RATIO (10-20); Calcium,Total 9.2 mg/dL (8.5-10.1); Chloride 102 mmol/L (98-107); Creatinine, Serum 0.66 mg/dL (0.55-1.02); EST Glomerular Filtration Rate 104 mL/min (>60); Est Glom Filt Rate - Afr Amer 126 mL/min (>60); Globulin 3.4 g/dL (2.2-4.2); Glucose 89 mg/dL (74-106); Potassium 4.4 mmol/L (3.5-5.1); Protein, Total 7.7 g/dL (6.4-8.2); Sodium Level 138 mmol/L (136-145)
== END | disposition home or self-care (01) ==
PROVIDERS: PCP Internal Medicine; Visit Provider Nurse Practitioner Family
DX: A79.9 Rickettsiosis, unspecified (principal)
CPT/HCPCS: 80053; 85025

== ENCOUNTER → 2022-08-23 | Outpatient (CLI) | payer BC, SELFPAY ==
[2022-08-23 11:24] LABS: Basophil# 0.06 X10^3/uL; Basophil% 0.8 % (0-1); Eosinophil# 0.05 X10^3/uL; Eosinophils% 0.7 % (0-5); Hematocrit 38.3 % (37-47); Hemoglobin 12.1 g/dL (12.0-15.0); Lymphocyte % 33.8 % (19-41); Mean Corp Hgb Conc 31.6 g/dL (32-36); Mean Corpuscular Hgb 30.2 pg (27.0-32.0); Mean Corpuscular Volume 95.5 fL (81-99); Mean Platelet Vol. 10.8 fl (6.2-12.0); Monocyte# 0.61 X10^3/uL; Monocyte% 8.6 % (0-10); NRBC Flagged by Analyzer 0 % (0-5); Neutrophil # 3.98 X10^3/uL (2.7-7.7); Platelet Count 266 K/mm3 (150-450); RBC Distribution Width CV 13.3 % (11.6-14.6); Red Blood Count 4.01 M/mm3 (4.2-5.4); White Blood Count 7.1 K/mm3 (4.4-11.0)
[2022-08-23 11:28] LABS: ALB/GLOB Ratio 1.4 RATIO (0.9-2.4); AST(SGOT) 32 U/L (15-37); Alanine Aminotransfer ALT/SGPT 31 U/L (13-56); Albumin, Serum 4.4 g/dL (3.2-5.0); Alkaline Phosphatase 47 U/L (45-117); Anion Gap 9 (5-15); BUN 20 mg/dL (7-18); BUN/Creat Ratio 28.2 RATIO (10-20); Calcium,Total 9.3 mg/dL (8.5-10.1); Chloride 104 mmol/L (98-107); Creatinine, Serum 0.71 mg/dL (0.55-1.02); EST Glomerular Filtration Rate 96 mL/min (>60); Est Glom Filt Rate - Afr Amer 117 mL/min (>60); Globulin 3.2 g/dL (2.2-4.2); Glucose 91 mg/dL (74-106); Potassium 4.3 mmol/L (3.5-5.1); Protein, Total 7.6 g/dL (6.4-8.2); Sodium Level 140 mmol/L (136-145)
[2022-08-25 17:06] LABS: Red Blood Cell Count Test/G6PD 3.96 x10E6/uL (3.77-5.28)
[2022-08-26 09:51] LABS: G6PD Quant Test 278 (127-427)
== END | disposition home or self-care (01) ==
LOC: LABSPEC 10:32
PROVIDERS: PCP Internal Medicine; Referring Provider Nurse Practitioner Family; Visit Provider Nurse Practitioner Family
DX: A79.9 Rickettsiosis, unspecified (principal); A69.20 Lyme disease, unspecified; B37.31 Acute candidiasis of vulva and vagina; B60.09 Other babesiosis
CPT/HCPCS: 80053; 82955; 85025

== ENCOUNTER → 2022-12-11 | Outpatient (CLI) | payer BC, SELFPAY ==
[2022-12-11 15:52] LABS: ALB/GLOB Ratio 1.1 RATIO (0.9-2.4); AST(SGOT) 25 U/L (15-37); Alanine Aminotransfer ALT/SGPT 29 U/L (13-56); Albumin, Serum 3.9 g/dL (3.2-5.0); Alkaline Phosphatase 46 U/L (45-117); Amylase 60 U/L (25-115); Anion Gap 6 (5-15); BUN 14 mg/dL (7-18); BUN/Creat Ratio 18.8 RATIO (10-20); Bilirubin, Direct 0.17 mg/dL (0.00-0.30); CRP < 2.90 mg/L (0.0-3.0); Calcium,Total 9.3 mg/dL (8.5-10.1); Chloride 104 mmol/L (98-107); Creatinine, Serum 0.75 mg/dL (0.55-1.02); EST Glomerular Filtration Rate 91 mL/min (>60); Est Glom Filt Rate - Afr Amer 110 mL/min (>60); Globulin 3.5 g/dL (2.2-4.2); Glucose 88 mg/dL (74-106); Lipase 46 U/L (13-75); Potassium 4.2 mmol/L (3.5-5.1); Protein, Total 7.4 g/dL (6.4-8.2); Sodium Level 137 mmol/L (136-145)
[2022-12-11 15:55] LABS: Erythrocyte Sedimentation Rate 2 mm/hr (0-30)
[2022-12-11 15:56] LABS: Absolute Lymphocyte Count 2.37 X10^3/uL (0.83-4.51); Absolute Neutrophil Count 3.3 X10^3/uL (2.0-7.7); Basophil# 0.05 X10^3/uL; Basophil% 0.8 % (0-1); Eosinophil# 0.09 X10^3/uL; Eosinophils% 1.4 % (0-5); Hematocrit 37.9 % (37-47); Hemoglobin 12.6 g/dL (12.0-15.0); Lymphocyte # 2.37 X10^3/ul (0.83-4.51); Lymphocyte % 36.7 % (19-41); Mean Corp Hgb Conc 33.2 g/dL (32-36); Mean Corpuscular Hgb 31.5 pg (27.0-32.0); Mean Corpuscular Volume 94.8 fL (81-99); Mean Platelet Vol. 10.3 fl (6.2-12.0); Monocyte# 0.62 X10^3/uL; Monocyte% 9.6 % (0-10); NRBC Flagged by Analyzer 0 % (0-5); Neutrophil # 3.31 X10^3/uL (2.7-7.7); Neutrophil % 51.2 % (47-70); Platelet Count 247 K/mm3 (150-450); RBC Distribution Width CV 12.3 % (11.6-14.6); RBC Distribution Width SD 42.9 fl (35.1-43.9); White Blood Count 6.5 K/mm3 (4.4-11.0)
== END | disposition home or self-care (01) ==
LOC: BIMLAB 12:08
PROVIDERS: PCP Internal Medicine; Referring Provider Nurse Practitioner Family; Visit Provider Nurse Practitioner Family
DX: A79.9 Rickettsiosis, unspecified (principal); B60.09 Other babesiosis; A69.20 Lyme disease, unspecified; M54.59 Other low back pain; R10.10 Upper abdominal pain, unspecified; R11.0 Nausea
CPT/HCPCS: 36415; 80053; 82150; 82248; 83690; 85025; 85652; 86140

== ENCOUNTER → 2022-12-19 | Outpatient (CLI) | payer BC, SELFPAY ==
--- NOTE | 2022-12-19 07:28 | US_ITS ---
EXAM: US ABDOMEN LIMITED, RIGHT UPPER QUADRANT CLINICAL INDICATION: POST PRANDIAL PAIN TECHNIQUE: Real-time ultrasound of the right upper quadrant with image documentation. COMPARISON: No relevant prior studies available. FINDINGS: LIVER: Unremarkable. There is normal echotexture. No focal hepatic lesion. No intrahepatic biliary ductal dilation. GALLBLADDER: Unremarkable. No shadowing gallstone. No gallbladder wall thickening is demonstrated. No pericholecystic fluid. Negative sonographic Andrade''s sign. COMMON BILE DUCT: Unremarkable as visualized. The proximal common bile duct is within normal limits for the patient''s age. PANCREAS: Unremarkable as visualized. No focal abnormality is demonstrated in the pancreas. No pancreatic ductal dilatation. RIGHT KIDNEY: Unremarkable. There is no hydronephrosis. No shadowing calculus. No focal lesion or perinephric collection is demonstrated. US/Abdomen Limited IMPRESSION: Normal right upper quadrant ultrasound. Electronically Signed: Izaiah Villa MD at 5:10 EDT ,
== END | disposition home or self-care (01) ==
PROVIDERS: PCP Nurse Practitioner Family; Referring Provider Nurse Practitioner Family; Visit Provider Nurse Practitioner Family
DX: R10.819 Abdominal tenderness, unspecified site (principal)
CPT/HCPCS: 76705

== ENCOUNTER → 2023-01-08 | Outpatient (CLI) | payer BC, SELFPAY ==
--- NOTE | 2023-01-08 18:02 | CT_ITS ---
INDICATION: EARLY SATIETY,PELVIC PAIN EXAMINATION: CT ABDOMEN AND PELVIS WITH CONTRAST - CT Abdomen And Pelvis W/ Contrast Injection TECHNIQUE: Helically acquired images were obtained of the abdomen and pelvis following IV contrast. A radiation dose optimization technique was used for this scan. IV Contrast dosage and agent: 100 mL Isovue-370 Oral contrast: Administered.. COMPARISON: December 19 2022 abdominal ultrasound. FINDINGS: LOWER CHEST: Lung bases are clear. No cardiomegaly or pericardial effusion. LIVER: Homogeneous. No focal mass. GALLBLADDER AND BILIARY TREE: No calcified gallstones. No gallbladder distension or wall edema. No intra- or extrahepatic biliary ductal dilation. PANCREAS: No focal cystic or solid mass. SPLEEN: Normal size without focal cystic or solid mass. ADRENAL GLANDS: No nodules. KIDNEYS AND URETERS: Normal renal size and position. No hydronephrosis. PERITONEUM: No ascites or free air. No other fluid collection. BOWEL: No acute gastric finding. No small bowel distention or focal wall thickening. Normal appendix suggested in the anterior right lower pelvis. Large colonic stool burden from cecum to rectum. LYMPH NODES: No enlarged mesenteric or retroperitoneal lymph nodes. VESSELS: Aorta is non-dilated. URINARY BLADDER: Unremarkable. REPRODUCTIVE ORGANS: Unremarkable uterus and adnexa. ABDOMINAL WALL: No discrete abdominal or pelvic wall hernia. BONES: Left iliac bone island. L5-S1 disc height loss with small posterior disc bulge L4-5 and L5-S1 with minimal spinal canal and mild neural foraminal narrowing. CT/Abdomen/Pelvis WITH Contrast IMPRESSION: Large colonic burden of layering soft stool and air as can be seen with constipation. Electronically Signed: Chico Johns MD at 2:27 EDT ,
== END | disposition home or self-care (01) ==
LOC: CT 18:01
PROVIDERS: PCP Nurse Practitioner Family; Referring Provider Nurse Practitioner Family; Visit Provider Nurse Practitioner Family
DX: M54.9 Dorsalgia, unspecified (principal); R10.2 Pelvic and perineal pain; R68.81 Early satiety
CPT/HCPCS: 74177; Q9967

== ENCOUNTER → 2023-05-27 | Outpatient (CLI) | payer BC, SELFPAY ==
--- NOTE | 2023-05-27 16:15 | RAD_ITS ---
STUDY: X-RAY - LUMBAR SPINE REASON FOR EXAM: Female, 42 years old. Back pain. TECHNIQUE: 2 view(s) of the lumbar spine were obtained. COMPARISON: Lumbar spine MRI dated December 2020 and May 2022. FINDINGS: Normal lumbar lordosis. No substantial scoliosis. Normal alignment of the vertebrae. Diffuse lower thoracic and lumbosacral facet sclerosis. Intervertebral disc space narrowing at L5-S1 with subchondral sclerosis and small osteophytes. Normal soft tissues. RAD/Lumbar Spine 2 or 3 Views IMPRESSION: Substantial disc degeneration at L5-S1. No acute abnormality or erosive changes. Electronically Signed: Luis Angel MD at 12:07 EST ,
== END | disposition home or self-care (01) ==
LOC: RAD.FUTURE 16:00 → RAD 16:02
PROVIDERS: PCP Nurse Practitioner Family; Referring Provider Orthopaedic Surgery; Visit Provider Orthopaedic Surgery
DX: M54.59 Other low back pain (principal)
CPT/HCPCS: 72100

== ENCOUNTER → 2023-06-27 | Outpatient (CLI) | payer BC, SELFPAY ==
[2023-06-27 15:23] LABS: Absolute Lymphocyte Count 1.96 X10^3/uL (0.83-4.51); Absolute Neutrophil Count 2.6 X10^3/uL (2.0-7.7); Basophil# 0.06 X10^3/uL; Basophil% 1.2 % (0-1); Eosinophil# 0.06 X10^3/uL; Eosinophils% 1.2 % (0-5); Hematocrit 37.9 % (37-47); Lymphocyte # 1.96 X10^3/ul (0.83-4.51); Lymphocyte % 38.1 % (19-41); Mean Corp Hgb Conc 31.7 g/dL (32-36); Mean Corpuscular Hgb 29.9 pg (27.0-32.0); Mean Corpuscular Volume 94.5 fL (81-99); Mean Platelet Vol. 10.5 fl (6.2-12.0); Monocyte# 0.45 X10^3/uL; Monocyte% 8.8 % (0-10); NRBC Flagged by Analyzer 0 % (0-5); Neutrophil % 50.5 % (47-70); Platelet Count 249 K/mm3 (150-450); RBC Distribution Width CV 13.6 % (11.6-14.6); RBC Distribution Width SD 47.4 fl (35.1-43.9); Red Blood Count 4.01 M/mm3 (4.2-5.4); White Blood Count 5.1 K/mm3 (4.4-11.0)
[2023-06-27 15:31] LABS: ALB/GLOB Ratio 1.1 RATIO (0.9-2.4); AST(SGOT) 24 U/L (15-37); Alanine Aminotransfer ALT/SGPT 26 U/L (13-56); Albumin, Serum 3.8 g/dL (3.2-5.0); Alkaline Phosphatase 51 U/L (45-117); Anion Gap 5 (5-15); BUN 11 mg/dL (7-18); BUN/Creat Ratio 18.4 RATIO (10-20); Calcium,Total 8.8 mg/dL (8.5-10.1); Chloride 104 mmol/L (98-107); EST Glomerular Filtration Rate 117 mL/min (>60); Est Glom Filt Rate - Afr Amer 141 mL/min (>60); Globulin 3.6 g/dL (2.2-4.2); Glucose 92 mg/dL (74-106); Magnesium 2.2 mg/dL (1.6-2.6); Potassium 3.9 mmol/L (3.5-5.1); Protein, Total 7.4 g/dL (6.4-8.2); Sodium Level 134 mmol/L (136-145)
[2023-06-27 15:37] LABS: Progesterone Level 4.09 ng/mL (See Comment)
[2023-07-04 16:09] LABS: Copper, Serum or Plasma 109 ug/dL (80-158); EBV Acute VCA IgM < 36.0 U/mL (0.0-35.9); EBV Early Antigen IgG 17.6 U/mL (0.0-8.9); EBV-VCA IgG > 600.0 U/mL (0.0-17.9); VITAMIN B6 7.3 ug/L (3.4-65.2); Vitamin A, Retinol 41.7 ug/dL (20.1-62.0); Vitamin B1, Thiamine 105.7 nmol/L (66.5-200.0)
== END | disposition home or self-care (01) ==
PROVIDERS: PCP Nurse Practitioner Family; Referring Provider Nurse Practitioner Family; Visit Provider Nurse Practitioner Family
DX: A79.9 Rickettsiosis, unspecified (principal); B60.09 Other babesiosis; A69.20 Lyme disease, unspecified; M54.59 Other low back pain; R10.10 Upper abdominal pain, unspecified; R11.0 Nausea; R68.81 Early satiety; R53.82 Chronic fatigue, unspecified; G89.29 Other chronic pain
CPT/HCPCS: 36415; 80053; 82306; 82525; 82627; 83735; 84144; 84207; 84403; 84425; 84590; 85025; 86663; 86665; 82626

== ENCOUNTER → 2023-06-28 | Outpatient (CLI) | payer BC, SELFPAY ==
--- OUTSIDE RECORDS SUMMARY | 2023-06-28 11:59 | XMS RPT_ITS | CCD ---
Author Name Unknown Address [address] [place] [address] Organization [facility] Care Team Providers Care Change Control Analyst Name Role Phone Cassidy Dawkins DO Unavailable Violet Lorenzo Unavailable Raymond LAUREANO, Cee Unavailable Unavailable Gravius STATE APPELLATE CLERK, Aline Unavailable Unavailable Cuate RAZOR GRINDER, Becky Unavailable Unavailable Unavailable Unavailable Slarb RAZOR GRINDER, Prerna Unavailable Unavailable CASSIDY DAWKINS DO Attending Unavailable CASSIDY DAWKINS DO Consulting Unavailable CASSIDY DAWKINS DO Primary Care Unavailable CASSIDY DAWKINS DO Admitting Unavailable PROVIDER, UNKNOWN Consulting Unavailable Friend, Dr. Sands Unavailable [phone] Unavailable Primary Care Provider Unavailabl e Cassidy Dawkins DO Primary Care Provider Cassidy Dawkins DO Unavailable Martha Musa MD Unavailable Unavailable Unavailable Akosua HENLEY, Kayela Unavailable Unavailable Cassidy Dawkins DO Primary Care Provider Adry Cai CNP Unavailable Cassidy Dawkins DO Primary Care Provider [phone] CASSIDY DAWKINS Primary Care Unavailable VIOLET LORENZO Attending Unavailable JUANCHOCASSIDY AL K Primary Care Unavailable MANLOO DAWKINSHLEEN K Referring Unavailable VIOLET LORENZO Attending Unavailable VIOLET LORENZO Referring Unavailable JUANCHOMANOLOCASSIDY K Primary Care Unavailable JUANCHOMANOLOCASSIDY K Primary Care Unavailable Maikel Crawley Unavailable Dr. Lester Santacruz Unavailable Yazan Hank Unavailable Dr. Gato Lee Unavailable Mahesh Leger LPN Unavailable Unavailable Zhanejef jansen Unavailable Unavailable Juancho ARMIJO, Cassidy Short Primary Care Provider CLARI DEL VALLE Attending Unavailable JUANCHO, CASSIDY SHORT Referring Unavailab le JUANCHO, CASSIDY SHORT Primary Care Unavailab le HARDINGERMA Attending Unavailab le JUANCHO, CASSIDY SHORT Primary Care Unavailab le MARISOL, MARTHA Riley Referring Unavailable JUANCHO, CASSIDY SHORT Primary Care Unavailab le JESSICANICOLAS Attending Unavailable JUANCHO, CASSIDY SHORT Primary Care Unavailab le MARISOL, MARTHA Riley Attending Unavailable MARISOL, MARTHA Riley Referring Unavailable JUANCHO, CASSIDY SHORT Primary Care Unavailab le VANCECHRISTIANO Referring Unavailable JUANCHO, CASSIDY SHORT Primary Care Unavailab le JUANCHO, CASSIDY SHORT Primary Care Unavailab le MARISOL, MARTHA Riley Attending Unavailable MARISOL, MARTHA Riley Referring Unavailable JUANCHO, CASSIDY SHORT Primary Care Unavailab le MARISOL, MARTHA Riley Attending Unavailable MARISOL, MARTHA Riley Referring Unavailable MARISOL, MARTHA Riley Attending Unavailable Juancho DO, Cassidy Short Primary Care Provider Clari Del Valle MD Unavailable Cassidy Dawkins DO Attending Unavailable Juancho , Cassidy Consulting Unavailable Allergies Allergy Classification Reported Allergen(s) Allergy Type Date of Onset Reaction(s) Facility (19 sources) Clindamycin; Translations: [CLINDAMYCIN] Drug Allergy 3 Rash [facility] Work Phone: (18 sources) benazepril; Translations: [BENAZEPRIL] Drug Allergy 2 Cough [facility] (20 sources) Ciprofloxacin; Translations: [Cipro *FLUOROQUINOLONE S*] Drug Allergy [facility] Work Phone: Medications Current Medications Medication Drug Class(es) Dates Sig (Normalized) Sig (Original) Ascorbic Acid (2 sources) Vitamin C Start: 03-04-2022 Ascorbic Acid (VITAMIN C PLUS WILD ALEXSANDER HIPS PO) B Complex Vitamins (VITAMIN B COMPLEX PO) (2 sources) B Complex Vitami ns (VITAMIN B COMPLEX PO) Take by mouth. 0 Active cholecalciferol 0.125 mg oral tablet (2 sources) Vitamin D Start: 03-04-2022 cholecalciferol 125 MCG (5000 UNIT) tablet Garlic preparation (6 sources) Non-Standardized Food Allergenic Extract Start: 06-29-2018 End: 01-30-2022 take 1 tablet by mouth once daily Garlic tab Take 1 tablet by mouth once daily. 0 06/29/2018 01/30/2022 Discontinued Completed/Discontinued Medications Medication Drug Class(es) Dates Sig (Normalized) Sig (Original) acetaminophen 325 mg oral tablet (6 sources) TylenoL 325 mg o ral tablet as needed (325 mg) Active Comments: Medication taken as needed. Problems Active Problems Problem Classification Problem Date Documented Da te Episodic/Chronic Abdominal hernia (20 sources) Hernia of anterior abdominal wall; Translations: [Ventral hernia without obstruction or gangrene] Resolved: 11-02-2021 03-30-2021 Episodic Abdominal pain (20 sources) Right lower quadrant pain; Translations: [Abdominal pain, acute, right lower quadrant] Onset: 02-21-2022 Resolved: 11-02-2021 03-30-2021 Episodic Allergic reactions (20 sources) Disorders of skin induced by physical agents; Translations: [Contact dermatitis and other eczema due to plants (except food)] Resolved: 03-16-2021 03-16-2021 Episodic Anxiety disorders (20 sources) Anxiety; Translations: [Anxiety] Resolved: 03-16-2021 03-30-2021 Chronic Cardiac dysrhythmias (20 sources) Bradycardia; Translations: [Bradycardia] 2021 Episodic Contraceptive and procreative management (20 sources) Patient encounter status; Translations: [General counseling on prescription of oral contraceptives] Resolved: 11-24-2008 05-19-2015 Episodic Diseases of mouth; excluding dental (20 sources) Oral aphthae; Translations: [Oral aphthae] Resolved: 11-24-2008 09-21-2012 Episodic Past or Other Problems Problem Classification Problem Date Documented Da te Episodic/Chronic Intracranial injury (20 sources) Concussion injury of body structure; Translations: [Concussion] Resolved: 11-02-2021 03-30-2021 Episodic Results Test Name Value Interpretation Reference Range Facil ity Vital Signs Date Time Vital Sign Value Performing Clinician Shayla parikhuvaldo 06-13-2022 10:37-0500 Body height 165.1 cm Beckyyou Cuello MARY KAY [facility] Work Phone: Encounters Encounter Date Encounter Type Care Provider Facility Start: 06-13-2022 Review Cassidy abarca DO Work Phone: [facility] Start: 06-13-2022 End: 06-13-2022 Office outpatient visit 40 minutes Cassidy Dawkins DO Work Phone: [facility] Start: 06-12-2022 ambulatory Cassidy Dawkins DO [facility] Start: 05-15-2022 End: 05-15-2022 ambulatory CLARI DEL VALLE Facility:[facility] Start: 05-15-2022 End: 05-15-2022 Patient encounter procedure Clari Del Valle MD Work Phone: Neurology Procedures Date Procedure Procedure Detail Performing Clinician Start: 06-27-2022 End: 06-27-2022 Pelvis W/WO Contrast Procedure Note: See Note; NOTES: [facility] Imaging Services [address] [place] [address] Pelvis W/WO Contrast MR#: [id number] Acct: [id number] Name: ELEAZAR RONDON Rep #: [id number] : 1980 F 41 From: Tacos negron MD PCP: Dr. Cassidy Dawkins, DO Status: REG CLI Study: Pelvis W/WO Contrast Date of Exam: 06/27/22 Exam# [id number] Ordering Dr: Uri Henson DO STUDY: MR PELVIS WITH T WITHOUT CONTRAST REASON FOR EXAM: Female, 41 years old. LESION L ILLIAC ADJACENT TO SI JOINT -- SEEN ON CT LUMBAR SPINE TECHNIQUE: Standardized fat and water weighted pulse sequences were obtained in all 3 orthogonal planes, pre-and post contrast administration. IV 12mL CLARISCAN was administered for the contrast portion of the examination. COMPARISON: CT lumbar spine 03/01/2022. FINDINGS: Normal urinary bladder. Normal visualized small intestine. Normal visualized colon. Normal visualized uterus. Normal visualized adnexa. There is no pelvic fluid. There is no pelvic mass lesion or lymphadenopathy. Normal visualized pelvic arteries. 1.6 x 0.6 cm T1 and T2 dark lesion in the medial left iliac bone adjacent to the sacroiliac joint . No evidence of enhancement on post contrast images. Normal abdominal wall. MRI/Pelvis W/WO Contrast IMPRESSION: Previously seen 1.6 cm sclerotic lesion in the left medial iliac bone adjacent to the left sacroiliac joint is most consistent with a benign bone island. Electronically Signed: Tacos Hernandez MD at 21:13 EST Reading Location ID and State: [facility] / [place] Tel , Service support , CC: Dr. Uri Henson DO; Dr. Cassidy Dawkins DO Janitorial Cleaner: Signed Cassidy Dawkins DO Work Phone: Start: 06-27-2022 End: 06-27-2022 Spine Cervical (Routine) Procedure Note: See Note; NOTES: [facility] Imaging Services [address] [place] [id number] Spine Cervical (Routine) MR#: [id number] Acct: [id number] Name: ELEAZAR RONDON Rep #: [id number] : 1980 F 41 From: Uri Davis MD PCP: Dr. Cassidy Dawkins DO Status: REG CLI Study: Spine Cervical (Routine) Date of Exam: Exam# [id number] Ordering Dr: Uri Henson DO MRI of the cervical spine INDICATION: Spondylosis and radiculopathy TECHNIQUE: MRI of the cervical spine was performed in the sagittal and axial projections utilizing, T1 T2 and STIR imaging sequences. FINDINGS: Bony structures demonstrate homogeneous signal intensity. No evidence for acute fracture or subluxation.. The cervicocranial junction is unremarkable as is the atlantoaxial complex C2-3: Normal disc space height and morphology. Normal central canal and neuroforamina C3-4: Normal disc space height and morphology. Normal central canal and neural foramina C4-5: Normal disc space height and morphology. Normal central canal and neuroforamina C5-6: Normal disc space height and tiny right foraminal disc/osteophyte protrusion. Normal central canal. Mild right neural foraminal encroachment. C6-7: Normal disc space height and morphology. Normal central canal and bilateral neural foraminal Spinal cord is normal in size and homogeneous signal intensity. MRI/Spine Cervical (Routine) IMPRESSION: No evidence for acute fracture or other significant bony pathology. Mild right neural foraminal encroachment at C5-6 secondary to tiny right foraminal disc/osteophyte protrusion Electronically Signed: Uri Davis MD at 20:35 EST Reading Location ID and State: [facility] / [place] , Service support , CC: Dr. Uri Henson, ; Dr. Cassidy Dawkins DO Janitorial Cleaner: Signed Cassidy Dawkins DO Work Phone: Start: 06-14-2022 End: 06-14-2022 Spine Lumbar W/WO Contrast Procedure Note: See Note; NOTES: [facility] Imaging Services [address] [place] [address] Spine Lumbar W/WO Contrast MR#: [id number] Acct: [id number] Name: ELEAZAR RONDON Rep #: [id number] : 1980 F 41 From: Aminah cook MD PCP: Dr. Cassidy Dawkins DO Status: REG CLI Study: Spine Lumbar W/WO Contrast Date of Exam: 05/30 12/19 Exam# [id number] Ordering Dr: Jacqueline Mo MD EXAM: MR LUMBAR SPINE WITHOUT AND WITH INTRAVENOUS CONTRAST CLINICAL INDICATION: RADICULOPATHY TECHNIQUE: Multiplanar and multisequence MR images of the lumbar spine without and with intravenous contrast. This report was created using [employer] report [employer] technology. CONTRAST: IV 11ml clariscan COMPARISON: CT 03/01/2022. FINDINGS: VERTEBRAE: Unremarkable. Vertebral body heights are preserved. Normal vertebral bodies and posterior elements. Normal alignment. No spondylolisthesis. There is preservation of the normal lumbar lordosis. SPINAL CORD: Unremarkable. Normal position and signal intensity of the conus medullaris. SOFT TISSUES: Unremarkable. DISCS/SPINAL CANAL/NEURAL FORAMINA: No demonstrated fracture. Vertebral bodies are normal in height. T12-L1: Normal disc height and morphology. Normal bilateral facet joints. Normal central canal. Normal bilateral lateral recesses. Normal intervertebral neural foramina. L1-2: Normal disc height and morphology. Normal bilateral facet joints. Normal central canal. Normal bilateral lateral recesses. Normal intervertebral neural foramina. L2-3: Normal disc height and morphology. Normal bilateral facet joints. Normal central canal. Normal bilateral lateral recesses. Normal intervertebral neural foramina. L3-4: Normal disc height and morphology. Normal bilateral facet joints. Normal central canal. Normal bilateral lateral recesses. Normal intervertebral neural foramina. L4-5: Disc dehydration and mild disc space narrowing. Small, central, noncompressive disc protrusion. Normal bilateral facet joints. Normal central canal. Normal bilateral lateral recesses. Normal intervertebral neural foramina. L5-S1: Disc dehydration and moderate disc space narrowing. Normal bilateral facet joints. Normal central canal. Normal bilateral lateral recesses. Mild right foraminal encroachment due to spurring. No enhancing lesion. MRI/Spine Lumbar W/WO Contrast IMPRESSION: No compressive disc disease, canal or high-grade foraminal stenosis. Noncompressive L4-5 disc protrusion. Electronically Signed: Aminah Woodall MD at 22:49 EST Reading Location ID and State: [id number] / Tel , Service support , CC: Dr. Jacqueline Mo MD; Dr. Cassidy Dawkins DO Janitorial Cleaner: Signed Cassidy Dawkins DO Work Phone: Start: 05-28-2022 End: 05-28-2022 Gastroenterology Visit Report Procedure Note: See Note ; NOTES: [facility] Gastroenterology [address] [place] [address] OFFICE VISIT Date of Service: 05/28/22 MR#: [id number] Acct: [id number] Name: ELEAZAR RONDON Rep #: [id number] : 1980 Provider: KELSY Hartley Age/Sex: 41/F [place] [facility] [place] Signed Intake Vital Signs 03/01/22 17:25 05/28/22 10:26 Height 5 ft 5 in 5 ft 5 in Weight: 133 lb BMI 22.1 BP 150/94 H Blood Pressure Location Rt brachial Position Sitting Pulse 58 L Pulse Oximetry (%) 98 Oxygen Delivery Method room air Intake Visit Reasons: FU Chief Complaint: paresthesias Allergies clindamycin Allergy (Verified 05/28/22 10:22) Hives benazepril Adverse Reaction (Verified 05/28/22 10:22) Other Medications amlodipine 10 mg tablet 10 mg PO DAILY 01/05/21 [History Confirmed 05/28/22] fluconazole 150 mg tablet 150 mg PO DAILY #7 tabs 05/28/22 [Rx Confirmed 05/28/22] PFSH Medical History (Reviewed 05/28/22 @ 10:28 by Wendy Hartley BIAS CUTTING MACHINE OPERATOR, BIAS CUTTING MACHINE OPERATOR-C) Alcohol use Arthritis Back pain Elevated LFTs Elevated serum GGT level Former smoker Herniated disc History of edema History of peptic ulcer Hypertension Injury of head and neck Tumor Surgical History History of discectomy History of laminectomy Hx of myringotomy Social History Smoking Status: Former smoker HPI HPI Chief Complaint: paresthesias Details: ELEAZAR RONDON, is a 41 F who presents to the office today for concern about intestinal yeast infection. Since January she gets pins and needles, can be random different places in the body eg hands, feet--has seen neuro, no disorder found. Started after steroid injection for back. Gets worse after eating sugar, eg chocolate. Asks about yeast or bacterial infection in the intestines as cause of those food related paresthesias. Can have sharp pain inferior to umbilicus at same time. Taking OTC digestive enzymes which has treated the post-prandial epigastric pain. Er Rn diagnosed overgrowth of yeast, hasn't improved with over a month of treatment drops. We did stool tests in 03/2022 for infection--negative enteric pathogens, C diff, O P. Bowels are fine. Hasn't lost weight. ROS Const Constitutional: Positive for fatigue ENT ENT: No difficulty swallowing Gastro GI: Positive for abdominal pain, bloating, diarrhea, heartburn and excessive flatus; No belching, change in bowel habits, change in stool character, coffee ground emesis, constipation, cramping, difficulty swallowing, feeling full early, incontinent of stools, Vomiting blood/hematemesis, Blood in stool, loose stools, Black,tarry stools, nausea/dyspepsia, pain with swallowing, vomiting or other Musc Musculoskeletal: Positive for joint pain, back pain, muscle cramps, numbness, stiffness, tingling, Arthritis and sciatica Skin Skin: No yellowing of the eye or itchy eyes Neuro Neurology: Positive for numbness, tingling and Increased tone in limbs Psych Psychiatric: Positive for anxiety and No depression Endo Endocrine: Positive for fatigue Aller/Imm Allergy/Immunologic: No itchy eyes Calixto/Lymp Hematologic/Lymphatic: No easy bleeding or easy bruising Exam Const General: cooperative and comfortable Nutritional Appearance: average body habitus Orientation: alert, awake and oriented x3 Quality Reporting Tobacco Screening ([facility] 138) Smoking Status: Former smoker Assessment and Plan Assessment and Plan (1) Abdominal pain: Status: Acute Plan: Consider breath tests for intestinal bacterial overgrowth eg Trio online. Discussed that yeast overgrowth isn't typically a diagnosis we make. I agreed to give her a short course of fluconazole which she has tolerated in the past. Medications: New fluconazole 150 mg PO DAILY 7 tabs 0RF Coding Level of Care Code Off vis,est,level 2 Diagnoses Abdominal pain R10.9 05/28/22 1132 <Electronically signed by Wendy Hartely BIAS CUTTING MACHINE OPERATOR BIAS CUTTING MACHINE OPERATOR-C> Date Wendy Hartley NP BIAS CUTTING MACHINE OPERATOR-C Cosigner Signature: Date (if applicable) CC: DO Cassidy Marin DO Work Phone: Start: 05-17-2022 End: 05-20-2022 SCRN MAMM (CAD)W/JENNIFER BILAT Procedure Note: See Note; NOTES: [facility] Imaging Services [address] [place] [address] SCRN MAMM (CAD)W/JENNIFER BILAT MR#: [id number] Acct: [id number] Name: ELEAZAR RONDON Rep #: [id number] : 1980 F 41 From: Hossein Hylton DO PCP: Dr. Cassidy Dawkins DO Status: REG CLI Study: SCRN MAMM (CAD)W/JENNIFER BILAT Date of Exam: 04/30 02/18 Exam# [id number] Ordering Dr: Gonzalez Henry MD MAMMOGRAPHY - BILATERAL SCREENING REASON FOR EXAM: Female, 41 years old. Routine annual screening examination. PERTINENT HISTORY: Non-contributory. TECHNIQUE: Digital bilateral breast jennifer (3D mammographic acquisition) in the CC and MLO projections. 2-D mediolateral oblique (MLO) and craniocaudad (CC) views of both breasts were obtained. CAD: Full Field Digital Mammography with Computer Added Detection was performed. COMPARISON: None. Baseline examination. FINDINGS: Breast Composition: The breasts are extremely dense, which lowers the sensitivity of mammography. There are no dominant masses or suspicious calcifications. No other significant abnormalities are identified. BI/SCRN MAMM (CAD)W/JENNIFER BILAT IMPRESSION: Negative screening mammogram. Yearly followup mammogram recommended. (A) ASSESSMENT CATEGORY: BIRADS Category 1: Negative. A letter regarding these results will be sent to the patient by the facility within 30 days. Approximately 10% of breast cancers are not detected by mammography. A normal mammogram should not delay biopsy of a clinically suspicious abnormality. Electronically Signed: Hossein Hylton, at 10:20 EST Reading Location ID and State: [facility] / [place] Tel , Service support , CC: Dr. Gonzalez Henry MD; Dr. Cassidy Dawkins DO Janitorial Cleaner: Signed Cassidy Dawkins DO Work Phone: Start: 04-01-2022 End: 04-05-2022 Brain without Contrast Procedure Note: See Note; NOTES: [facility] Imaging Services [address] [place] [address] Brain without Contrast MR#: [id number] Acct: [id number] Name: ELEAZAR RONDON Rep #: [id number] : 1980 F 41 From: Uri Davis MD PCP: Dr. Cassidy Dawkins DO Status: REG CLI Study: Brain without Contrast Date of Exam: 04/01/22 Exam# [id number] Ordering Dr: Cassidy Dawkins DO STUDY: MRI BRAIN WITHOUT CONTRAST REASON FOR EXAM: Female, 41 years old. PARESTHESIA TECHNIQUE: Standardized multiplanar fat and water weighted pulse sequences were obtained. COMPARISON: None. FINDINGS: Normal size of the ventricles and extra-axial spaces for the patient''s age. Normal white matter tracts of the supratentorial brain. Normal bilateral basal ganglia. Normal thalami. There is no extra-axial fluid accumulation. Normal flow voids within the major intracranial circulation suggesting patency by spin echo criteria. Normal sella turcica, pituitary gland, infundibular stalk, optic chiasm and hypothalamus. Normal tectal plate and pineal gland. Normal midbrain, may and medulla. Normal cerebellum. Normal basal cisterns. Normal bilateral temporal bones. Normal bilateral internal auditory canals. Fluid signal density noted within left mastoid which may be consistent with inflammatory disease No demonstrated orbital abnormality, within the constraints of a routine brain study. Normal visualized paranasal sinuses. Normal calvarium and skull base. Normal visualized soft tissue structures. Normal visualized upper cervical spine. MRI/Brain without Contrast IMPRESSION: Normal unenhanced MRI of the brain. Findings which may be consistent with chronic left mastoid sinus disease Electronically Signed: Uri Davis MD at 22:12 EDT , CC: Dr. Cassidy Dawkins DO Janitorial Cleaner: Signed Cassidy Dawkins DO Work Phone: Start: 03-01-2022 End: 03-02-2022 Emergency Department Summary Procedure Note: See Note; NOTES: [facility] Medical Records Department [address] [place] [address] Emergency Department Summary 03/01/22 MR#: [id number] Acct: [id number] Name: ELEAZAR RONDON Rep #: [id number] : 1980 41 From: Bessy Rosa MD PCP: Dr. Cassidy Dawkins DO Status:[facility] ER Location: ED HPI History of Present Illness Chief Complaint: General Illness Informant: patient Onset/Context/Timing Onset: Weeks Context: Gradual Onset Narrative Narrative: Patient presents secondary to continued paresthesias. She had an injection in her lumbar spine on February 05. Several days later she started evolving patchy paresthesias over her whole body. She feels that her legs are slightly weak. She was seen in the emergency room recently and referred to her PCP for an MRI. Her PCP has ordered a brain MRI but it is not yet scheduled. Patient denies fever or chills. She has no significant increase in back pain. [facility] Medical History Alcohol use Arthritis Back pain Elevated LFTs Elevated serum GGT level Former smoker Herniated disc History of edema History of peptic ulcer Hypertension Injury of head and neck Tumor Home Medications amlodipine 10 mg tablet 10 mg PO DAILY 01/05/21 [History Last Taken 02/01/21 04:00] omeprazole 40 mg capsule,delayed release 40 mg PO DAILY 11/07/21 [History Last Taken Unknown] lidocaine 5 % topical patch (Lidoderm) 1 patch topical DAILY #15 ea 01/16/22 [Rx Last Taken Unknown] Allergy/AdvReac Type Severity Reaction Status Date / Time clindamycin Allergy Hives Verified 03/01/22 17:26 benazepril AdvReac Other Verified 03/01/22 17:26 Surgical History History of discectomy History of laminectomy Hx of myringotomy Social History Smoking Status: Former smoker ROS ROS ED Constitutional Constitutional ED: Denies chills or fever(s) Eyes Eyes: Denies change in vision or discharge from eye(s) ENT ENT ED: Denies discharge from eye(s), rhinorrhea or sore throat Cardiovascular Cardiovascular: Denies chest pain or palpitations Respiratory/Chest Respiratory/Chest: Denies cough or dyspnea Gastrointestinal Gastrointestinal: Denies abdominal pain, diarrhea, nausea or vomiting Genitourinary Genitourinary ED: Denies difficulty urinating or dysuria Musculoskeletal Musculoskeletal: Denies back pain or extremity pain Integumentary Denies Abrasions or rash Neurologic Neurologic: Reports paresthesias and weakness; Denies headache(s) Psychiatric Psychiatric: Denies anxiety or depression Allergic/Immunologic Allergic/Immunologic ED: Denies lip swelling or urticaria EXAM Physical Exam Const Vital Signs: 03/01/22 17:25 03/01/22 19:10 Temperature 97.1 F L Temperature Source Temporal Pulse Rate 68 Respiratory Rate 16 Respiratory Effort Normal Non-Labored Respiratory Pattern Normal Blood Pressure 144/80 H Blood Pressure Mean 101 Pulse Ox 98 Oxygen Delivery Method Room Air Positive well nourished and well developed General Appearance ED: well developed HEENT Reports normocephalic and head/scalp atraumatic Eyes PERRL and EOMs intact bilaterally Neck supple Chest Wall inspection of chest normal and palpation of chest normal Resp normal respiratory effort and clear to auscultation bilaterally Cardio regular rate and regular rhythm GI normal to inspection, nondistended, normoactive bowel sounds Palpation: soft Extremity normal to inspection Neuro oriented x3 Neuro Narrative: Patient has no obvious focal motor or sensory deficits on exam. Sensorium / Orientation: alert Psych mental status grossly normal Skin no rashes or lesions noted MDM MDM MDM Narrative Medical decision making narrative: Spoke with MRI shortly to see the patient as the patient thought she was supposed to come here to get the MRI that her PCP ordered. They state they have an order but it is a routine outpatient stud y and has not yet been scheduled. They are going off shift and 15 minutes and I do not have caused to get an emergent MRI at this time. Lab work was obtained including inflammatory markers, potassium, magnesium. CT scan of the C-spine and L-spine are obtained with contrast to ensure no space-occupying lesions or hematomas. Lab Data Attestation: I reviewed the patient's lab results. Labs: Laboratory Results - last 24 hr 03/01/22 03/01/22 20:05 20:05 WBC 7.9 RBC 3.92 L Hgb 11.9 L Hct 36.7 L MCV 93.6 MCH 30.4 MCHC 32.4 RDW Std Deviation 45.4 H RDW Coeff of Mike 13.2 Plt Count 239 MPV 9.4 Immature Gran % (Auto) 0.300 Neut % (Auto) 54.9 Lymph % (Auto) 33.3 [place] % (Auto) 10.1 H Eos % (Auto) 0.9 Baso % (Auto) 0.5 Absolute Neuts (auto) 4.3 Absolute Lymphs (auto) 2.63 Nucleated RBC % 0 ESR 5 Sodium 140 Potassium 4.0 Chloride 107 Carbon Dioxide 26.0 Anion Gap 7 BUN 13 Creatinine 0.66 Estim Creat Clear Calc 98.80 Est GFR (MDRD) Af Amer 126 Est GFR (MDRD) Non-Af 104 BUN/Creatinine Ratio 19.6 Glucose 92 Calcium 9.1 Magnesium 2.4 C-React Prot Ext Range < 2.90 Radiography Diagnostic Testing: Clinical Impression(s) from Imaging Studies Cervical Spine CT 03/01/22 19:56 IMPRESSION: Normal enhanced CT examination of the cervical spine. Electronically Signed: Martha Godinez MD at 22:05 EDT Reading Location ID and State: [id number] / [facility] [employer] , Service support , Lumbar Spine CT 03/01/22 19:56 IMPRESSION: Multilevel degenerative changes, as described above. Electronically Signed: Martha Godinez MD at 22:08 EDT , Treatment and Re-Evaluation Narrative: Lab work is unremarkable including normal sed rate and CRP. Magnesium and potassium are normal. CT scans of the C-spine and L-spine show chronic degenerative changes. Test results are reviewed with the patient. At this time I advised her I see no evidence of acute finding on the studies. I did recommend she follow-up for the MRI as previously ordered. She did state that MS had been mention to her. I did advise her that those lesions are not necessarily seen on the CAT scan and will require the MRI. Discharge Plan Triage Chief Complaint: General Illness ED Provider: Bessy Rosa Dx/Rx/DC Orders Clinical Impression: Paresthesias Instructions: ED Paraesthesias Prescriptions: No Action omeprazole 40 mg capsule,delayed release(DR/EC) 40 mg PO DAILY amlodipine 10 mg tablet 10 mg PO DAILY Label Comments: take 1 tablet by mouth every morning lidocaine [Lidoderm] 5 % adhesive patch,medicated 1 patch topical DAILY Qty: 15 0RF Rx Instructions: leave on most painful area for up to 12 hrs Primary Care Provider: Cassidy Dawkins Referrals: Cassidy Dawkins DO [Primary Care Provider] - 1 Week Activity Restrictions/Additional Instructions: As discussed, please follow-up for your brain MRI. Disposition Disposition: Home, Self Care What to do if you have Problems For any increased pain, shortness of breath, bleeding, nausea or vomiting, chest pain, or any unexpected problems, contact your Primary Care Provider. Call [facility] ([phone]) or report to the closest Emergency Room. Call 911 if necessary. 03/02/22 0011 <Electronically signed by Bessy Rosa MD> Cosigner Signature (if applicable): CC: Dr. Cassidy Dawkins, DO Signed Cassidy Dawkins DO Work Phone: Start: 03-01-2022 End: 03-01-2022 Spine Cervical WITH Contrast Procedure Note: See Note; NOTES: [facility] Imaging Services [address] [place] [address] Spine Cervical WITH Contrast MR#: [id number] Acct: [id number] Name: ELEAZAR RONDON Rep #: [id number] : 1980 F 41 From: Martha Godinez MD PCP: Dr. Cassidy Dawkins DO Status: REG ER Study: Spine Cervical WITH Contrast Date of Exam: 08/21 Exam# [id number] Ordering Dr: Bessy Rosa MD STUDY: CT CERVICAL SPINE WITH CONTRAST REASON FOR EXAM: Female, 41 years old. paresthesias RADIATION DOSAGE (If Supplied By Facility): CTDIvol = ( 13.56 ) mGy, DLP = ( 302.29 ) mGycm TECHNIQUE: High resolution transaxial imaging was performed following intravenous administration of IV-100 ML ISOVUE 370. Sagittal and coronal images were reconstructed. Individualized dose optimization techniques were used for this CT. COMPARISON: None FINDINGS: Normal craniovertebral junction. Normal anterior atlantoaxial articulation. Normal odontoid process. Normal cervical lordosis. Normal vertebral bodies and posterior osseous elements. C2-3: Normal endplates. Normal disc height and morphology. Normal central canal and intervertebral neuroforamina. C3-4: Normal endplates. Normal disc height and morphology. Normal central canal and intervertebral neuroforamina. C4-5: Normal endplates. Normal disc height and morphology. Normal central canal and intervertebral neuroforamina. C5-6: Normal endplates. Normal disc height and morphology. Normal central canal and intervertebral neuroforamina. C6-7: Normal endplates. Normal disc height and morphology. Normal central canal and intervertebral neuroforamina. C7-T1: Normal endplates. Normal disc height and morphology. Normal central canal and intervertebral neuroforamina. Normal visualized soft tissue structures. CT/Spine Cervical WITH Contrast IMPRESSION: Normal enhanced CT examination of the cervical spine. Electronically Signed: Martha Godinez MD at 22:05 EDT , CC: Dr. Bessy Rosa MD; Dr. Cassidy Dawkins DO Janitorial Cleaner: Signed Cassidy Dawkins DO Work Phone: Start: 03-01-2022 End: 03-01-2022 Spine Lumbar WITH Contrast Procedure Note: See Note; NOTES: [facility] Imaging Services [address] [place] [address] Spine Lumbar WITH Contrast MR#: [id number] Acct: [id number] Name: ELEAZAR RONDON Rep #: [id number] : 1980 F 41 From: Martha Godinez MD PCP: Dr. Cassidy Dawkins DO Status: REG ER Study: Spine Lumbar WITH Contrast Date of Exam: 03/01 Exam# [id number] Ordering Dr: Bessy Rosa MD STUDY: CT LUMBAR SPINE WITH CONTRAST REASON FOR EXAM: Female, 41 years old. paresthesias RADIATION DOSAGE (If Supplied By Facility): CTDIvol = ( 13.98 ) mGy, DLP = ( 479.69 ) mGycm TECHNIQUE: The patient was scanned in a multi detector CT scanner. High resolution transaxial imaging was performed following the intravenous administration of IV-100 ML ISOVUE 370. Images were obtained from T12 to S1. Sagittal and coronal images were reconstructed. Individualized dose optimization techniques were used for this CT. COMPARISON: None FINDINGS: Normal lumbar lordosis. There is no substantial scoliosis. Normal vertebrae of the lumbar spine. L1-2: Normal endplates. Normal disc height and morphology. Normal bilateral facet joints. Normal central canal and bilateral lateral recesses. Normal bilateral intervertebral neural foramina. L2-3: Normal endplates. Normal disc height and morphology. Normal bilateral facet joints. Normal central canal and bilateral lateral recesses. Normal bilateral intervertebral neural foramina. L3-4: Normal endplates. Normal disc height and morphology. Normal bilateral facet joints. Normal central canal and bilateral lateral recesses. Normal bilateral intervertebral neural foramina. L4-5: Mild broad disc protrusion produces mild spinal stenosis and mild bilateral neural foraminal stenosis. L5-S1: Mild broad disc protrusion produces mild spinal stenosis and mild bilateral neural foraminal stenosis. Normal visualized paraspinous soft tissue structures. CT/Spine Lumbar WITH Contrast IMPRESSION: Multilevel degenerative changes, as described above. Electronically Signed: Martha Godinez MD at 22:08 EDT , CC: Dr. Bessy Rosa MD; Dr. Cassidy Dawkins DO Janitorial Cleaner: Signed Cassidy Dawkins DO Work Phone: Start: 02-24-2022 End: 02-24-2022 Emergency Department Summary Procedure Note: See Note; NOTES: [facility] Medical Records Department [address] [place] [address] Emergency Department Summary 02/24/22 MR#: [id number] Acct: [id number] Name: ELEAZAR RONDON Rep #: [id number] : 1980 41 From: Gomez Chapa MD PCP: Dr. Cassidy Dawkins DO Status:DEP ER Location: ED HPI History of Present Illness Chief Complaint: Numb/Ting Informant: patient Onset/Context/Timing Onset: Weeks Context: Gradual Onset Timing: Continuous Current Severity: Mild Maximum Severity: Mild Narrative Narrative: 41-year-old female prior lumbar discectomy in October of this year by Dr. Henson. She had injection done on February 05. In her lower back. Since 2 days after the injection she has had numbness and tingling in both her upper and lower extremities. Again it was a lumbar epidural steroid injection. She denies any bowel or bladder incontinence. She denies any fever or chills. She denies any weakness in her lower extremities. She is able to walk. Prior similar symptoms: Yes Recent Illness/Hospitalization: No PFSH PFSH Medical History Alcohol use Arthritis Back pain Elevated LFTs Elevated serum GGT level Former smoker Herniated disc History of edema History of peptic ulcer Hypertension Injury of head and neck Tumor Home Medications amlodipine 10 mg tablet 10 mg PO DAILY 01/05/21 [History Last Taken 02/01/21 04:00] omeprazole 40 mg capsule,delayed release 40 mg PO DAILY 11/07/21 [History Last Taken Unknown] lidocaine 5 % topical patch (Lidoderm) 1 patch topical DAILY #15 ea 01/16/22 [Rx Last Taken Unknown] Allergy/AdvReac Type Severity Reaction Status Date / Time clindamycin Allergy Hives Verified 02/24/22 10:22 benazepril AdvReac Other Verified 02/24/22 10:22 Surgical History History of discectomy History of laminectomy Hx of myringotomy Social History Smoking Status: Former smoker ROS ROS ED ROS Narrative Subjective numbness and tingling in both upper EXTR and lower extremities. Review of Systems ROS Unobtainable: Denies due to encephalopathy Constitutional Constitutional ED: Denies chills or fever(s) Eyes Eyes: Denies blurry vision ENT ENT ED: Denies ear pain Cardiovascular Cardiovascular: Denies chest pain Respiratory/Chest Respiratory/Chest: Denies cough Gastrointestinal Gastrointestinal: Denies abdominal pain Genitourinary Genitourinary ED: Denies dysuria Musculoskeletal Musculoskeletal: Denies arthralgias Integumentary Denies abscess Neurologic Neurologic: Denies headache(s) Psychiatric Psychiatric: Denies anxiety Endocrine Endocrinology: Denies cold intolerance Hematologic/Lymphatic Hematologic/Lymphatic: Reports none Allergic/Immunologic Allergic/Immunologic ED: Denies mouth swelling or tongue swelling EXAM Physical Exam Narrative Exam Narrative: 41-year-old female no acute distress. Vital signs stable afebrile. H EENT exam unremarkable. Neck nontender. Lungs clear to auscultation bilaterally. Heart regular rhythm no murmur. Abdomen soft nontender. Moving all 4 extremities. Neurovascular intact. 5 out of 5 it field technician strength both upper extremities. Dorsi and plantar flexion intact in both lower extremities. No cauda equina. No saddle anesthesia. Normal medial thigh sensation. Normal both medial and lateral sensation of both lower extremities. She can lift either leg off the bed without any difficulty. Back nontender. Prior lumbar surgery scar well-healed. No redness or warmth. No discomfort to exam. Next nontender. Neurologic exam normal. No focal numbness or weakness. Normal motor strength. Completely normal exam. Const Vital Signs: 02/24/22 10:20 Temperature 98.7 F Temperature Source Temporal Pulse Rate 81 Respiratory Rate 18 Blood Pressure 147/95 H Blood Pressure Mean 112 Pulse Ox 96 Oxygen Delivery Method Room Air Positive well nourished and well developed; Negative for obese, cachectic, contractures or unkempt General Appearance ED: well developed and NAD; Negative for unkempt, cachectic, contractures, cyanotic or diaphoretic Nutritional Appearance: Negative for cachectic or obese HEENT Reports moist mucous membranes; Denies dry mucous membranes Negative for trauma Mouth ED: No dry mucous membranes Mouth: No dry mucous membranes Eyes PERRL and EOMs intact bilaterally General Eye ED: Negative for pale conjunctiva, scleral icterus or other Neck no lymphadenopathy, supple and no JVD General: Negative for tenderness Lymph Lymphatic: Negative for other Chest Wall inspection of chest normal and palpation of chest normal Chest: Negative for other Resp normal respiratory effort and clear to auscultation bilaterally Effort and Inspection: Negative for retractions Auscultation: Negative for rales, rhonchi, wheezes or diminished lung sounds Cardio regular rate, regular rhythm, S1 normal heart sound, S2 normal heart sound and no murmurs Palpation: Negative for palpable S3 Rate: Negative for bradycardia Rhythm: Negative for abnormal rhythm GI normal to inspection, nondistended, normoactive bowel sounds, non-tender, non-distended and no masses Inspection: Negative for abdominal distention Auscultation: normoactive bowel sounds Palpation: soft; Negative for tender Back/Spine no CVA tenderness Back/Spine Narrative: Well-healed lumbar scar. No signs of infection. No redness or warmth. General Back: Negative for CVA tenderness Cervical Spine: Negative for cervical spine tenderness Thoracic Spine / Upper Back: Negative for thoracic spinal tenderness Lumbar Spine / Lower Back: Negative for lumbar spinal tenderness Extremity normal to inspection Extremity Narrative: Normal motor strength and sensation both upper and lower extremities. No cauda equina. Full range of motion. Normal sensation. General Extremety ED: Negative for edema or tenderness General Extremity: Negative for edema Neuro oriented x3, CN's II-XII intact bilaterally and no sensory deficits noted Sensorium / Orientation: alert; Negative for orientation impaired Sensory Exam: No sensory level loss detected Motor Exam: strength 5/5 throughout; Negative for general weakness Psych mental status grossly normal Appearance: Negative for unkempt Attitude: No agitated Mood Affect: Negative for depressed or anxious Skin no rashes or lesions noted and no wounds General Skin Exam: Negative for elasticity normal Lesions: No lesion noted Rashes: No rashes noted Trauma: Negative for abrasion Wounds: Negative for wounds noted MDM MDM MDM Narrative Medical decision making narrative: 41-year-old complaining of subjective numbness and tingling in both upper and lower extremities. She has a normal exam both motor strength and sensation. No signs of cauda equina. This is been 2 weeks. She has had no fever. The injection was in the lumbar spine area which should not affect her upper extremities. Objectively she has no findings and does not need emergent MRI. I told her if is not improving they can get one as an outpatient is unavailable at this time at this facility today. She question if she should go to a larger facility I told her that is possible they may or may not have MRI capability with a normal exam they may not consider an emergent but she is willing to choose that option. She can also follow-up with her primary care physician or orthopedic process control specialist to determine if they want to do any imaging.. There is no signs of any space-occupying lesion compressing her spinal cord at this time. Discharge Plan Triage Chief Complaint: Numb/Ting ED Provider: Gomez Chapa Dx/Rx/DC Orders Clinical Impression: Paresthesia Instructions: ED Paraesthesias Prescriptions: No Action omeprazole 40 mg capsule,delayed release(DR/EC) 40 mg PO DAILY amlodipine 10 mg tablet 10 mg PO DAILY Label Comments: take 1 tablet by mouth every morning lidocaine [Lidoderm] 5 % adhesive patch,medicated 1 patch topical DAILY Qty: 15 0RF Rx Instructions: leave on most painful area for up to 12 hrs Primary Care Provider: Cassidy Dawkins Referrals: Uri Henson DO [Med Staff - Active Staff] - As soon as possible Cassidy Dawkins DO [Primary Care Provider] - As soon as possible Activity Restrictions/Additional Instructions: You have a normal exam today. The lower lumbar injection should not affect her upper extremities due to the distribution of the nerves. You can follow-up with Dr. Henson your primary care physician they may or may not she is a an MRI of your spine to evaluate for possible fluid collection in your lower back impinging on your lower spine or nerves. There is no signs of that currently on exam. If you develop significant weakness in 1 lower extremity or fever you need to be seen. Disposition Disposition: Home, Self Care What to do if you have Problems For any increased pain, shortness of breath, bleeding, nausea or vomiting, chest pain, or any unexpected problems, contact your Primary Care Provider. Call [facility] ([phone]) or report to the closest Emergency Room. Call 911 if necessary. 02/24/22 1553 <Electronically signed by Gomez Chapa MD> Cosign Signature (if applicable): CC: Dr. Cassidy Dawkins DO Signed Cassidy Dawkins DO Work Phone: Start: 02-11-2022 End: 02-11-2022 Echo Complete Procedure Note: See Note; NOTES: [facility] Cardiovascular Services [address] [place] [address] Echo Complete 02/11/22 1508 MR#: [id number] Acct: [id number] Name: ELEAZAR RONDON Rep #: [id number] : 1980 41 From: Mehdi Mitchell MD Attending Dr: Dr. Cassidy Dawkins DO Status: R EG CLI Ordering Dr: Cassidy Dawkins DO Date: 02/11/22 Location: CVS Sex: F C Admitted: Reason For Study: Atypical Chest Pain Procedure This was a 2D Doppler, Color Flow transthoracic echocardiogram. Exam performed in department. Left Ventricle Normal LV size. Left ventricular systolic function is normal. The estimated ejection fraction is 65 %. Normal diastology for age. No regional wall motion abnormalities noted. Right Ventricle Normal RV size. Normal systolic function. Atria Normal left atrium. Normal right atrium. Mitral Valve Normal mitral valve. Tricuspid Valve Normal tricuspid valve. Aortic Valve Normal aortic valve. Trisinus/trileaflet aortic valve. Pulmonic Valve Normal pulmonic valve. Great Vessels Normal aortic root. The pulmonary artery is normal size. Normal inferior vena cava. Pericardium/Pleural No pericardial effusion. MMode/2D Measurements Calculations LVIDd: 4.2 cm IVSd: 0.80 cm Ao root diam: 3.1 cm LVIDs: 2.2 cm LVPWd: 0.93 cm LA dimension: 3.2 cm RVDd: 3.3 cm FS: 47.8 % LAV(MOD-bp): 46.4 ml LA A4 area: 16.3 cm2 RA A4 area: 12.0 cm2 LAV(MOD-bp) Indexed: 28.7 ml/m2 LAV(MOD-sp2): 48.9 ml LAV(MOD-sp4): 44.5 ml Time Measurements MV dec time: 0.22 sec Doppler Measurements Calculations MV E max aleida: 91.4 cm/sec MV V2 max: 103.6 cm/sec MV P1/2t max aleida: 103.6 cm/sec MV A max aleida: 58.0 cm/sec MV max P.3 mmHg MV P1/2t: 74.4 msec MV E/A: 1.6 MV V2 mean: 44.5 cm/sec MV dec slope: 407.7 cm/sec2 MV mean P.0 mmHg MVA(P1/2t): 3.0 cm2 MV V2 VTI: 31.5 cm Ao V2 max: 130.7 cm/sec LV V1 max: 110.9 cm/sec PA V2 max: 100.9 cm/sec Ao max P.8 mmHg LV V1 max P.9 mmHg PA V2 mean: 71.7 cm/sec LV V1 mean P.8 mmHg LV V1 mean: 78.7 cm/sec LV V1 VTI: 24.4 cm ECHO/Echo Complete Interpretation Summary Normal LV size. Left ventricular systolic function is normal. The estimated ejection fraction is 65 %. Normal diastology for age. Structurally normal valves. _ Ordering Physician: Cassidy Dawkins Referring Physician: Cassidy Dawkins M.D. Performed By: Hoang Keenan, RCS 02/11/221802 Date Mehdi Mitchell MD CC: Dr. Cassidy Dawkins DO Date Dictated: 02/11/22 1508 Date Transcribed: 02/11/221802 Janitorial Cleaner: Signed Cassidy Dawkins DO Work Phone: Start: 01-30-2022 STREP A MOLECULAR (POC) Christiano Vance MD Work Phone: Start: 01-23-2022 End: 01-28-2022 MRCP Abdomen without Contrast Comments: See Note; NOTES: [facility] Imaging Services [address] [place] [address] MRCP Abdomen without Contrast MR#: [id number] Acct: [id number] Name: ELEAZAR RONDON Rep #: [id number] : 1980 F 41 From: Todd Dawn DO PCP: Dr. Cassidy Dawkins DO Status: DEP CLI Study: MRCP Abdomen without Contrast Date of Exam: Exam# [id number] Ordering Dr: Wendy Hartley NP BIAS CUTTING MACHINE OPERATOR-C STUDY: MR MRCP WITHOUT CONTRAST REASON FOR EXAM: Female, 41 years old. elevated GGT, RUQ pain TECHNIQUE: Standard MRCP technique was utilized. COMPARISON: None. FINDINGS: Gall Bladder: Normal with no distention or demonstrated fixed intraluminal filling defect. Cystic duct: Normal with no demonstrated fixed filling defect. Intrahepatic ducts: Normal visualized intrahepatic ducts with no demonstrated fixed filling defect, dilation or stricture. Common hepatic duct: Normal with no demonstrated fixed filling defect, dilation or stricture. Common bile duct: Normal with no demonstrated fixed filling defect, dilation or stricture. Pancreatic duct: Normal with no demonstrated fixed filling defect, dilation or stricture. MRI/MRCP Abdomen without Contrast IMPRESSION: Normal MR Cholangiopancreatography (MRCP). Electronically Signed: Todd Dawn DO at 3:04 EDT , CC: BIAS CUTTING MACHINE OPERATOR-C Wendy Hartley; Dr. Cassidy Dawknis DO Janitorial Cleaner: Signed Cassidy Dawkins DO Work Phone: Start: 01-16-2022 End: 01-16-2022 Chest 1 View (Portable) Comments: See Note; NOTES: [facility] Imaging Services [address] [place] [address] Chest 1 View (Portable) MR#: [id number] Acct: [id number] Name: ELEAZAR RONDON Rep #: [id number] : 1980 F 41 From: Jonah Lyle PCP: Dr. Cassidy Dawkins DO Status: REG ER Study: Chest 1 View (Portable) Date of Exam: 01/16/22 Exam# [id number] Ordering Dr: Bessy Rosa MD STUDY: X-RAY CHEST REASON FOR EXAM: Female, 41 years old. CHEST PAIN chest pain TECHNIQUE: XR Chest 1 View COMPARISON: 11/07/2021 FINDINGS: There is no demonstrated pleural abnormality. Stable left lung nodularities. Normal size heart. Normal mediastinum and belkis. Normal visualized pulmonary arteries. Normal visualized aortic arch and descending thoracic aorta. Normal visualized thoracic spine. Normal visualized ribs, clavicles, and shoulders. There is no demonstrated abnormality of the visualized soft tissue structures of the upper abdomen. RAD/Chest 1 View (Portable) IMPRESSION: There are no acute findings. Electronically Signed: Jonah Germain MD at 18:50 EDT Reading Location ID and State: [facility] / [place] , Service support , CC: Dr. Bessy Rosa MD; Dr. Cassidy Dawkins DO Janitorial Cleaner: Signed Cassidy Dawkins DO Work Phone: Start: 01-16-2022 End: 01-16-2022 Emergency Department Summary Comments: See Note; NOTES: [facility] Medical Records Department [address] [place] [address] Emergency Department Summary 01/16/22 MR#: [id number] Acct: [id number] Name: ELEAZAR RONDON Rep #: [id number] : 1980 41 From: Bessy Rosa MD PCP: Dr. Cassidy Dawkins, DO Status:DEP ER Location: ED HPI History of Present Illness Chief Complaint: Chest Pain Informant: patient Onset/Context/Timing Onset: Days Current Severity: Mild Maximum Severity: Moderate Narrative Narrative: Patient presents secondary to recurrent episodes of paresthesias in her left face and left arm along with chest pressure. She describes the chest sensation as a squeezing. She states the first episode occurred after she had taken a dose of Flexeril. This had been prescribed by her back surgeon as she had a laminectomy at L5-S1 2 months ago. Patient assumed that the symptoms were secondary to the Flexeril did not take another dose. Symptoms resolved in about 24 hours. Several days later she had an alcoholic beverage and symptoms recurred. Symptoms again lasted several hours and then resolved. She then had recurrent symptoms after taking some anti-inflammatories. When she called her doctor's office today for evaluation she was advised to come to the emergency room. She does report a history of high blood pressure but states her blood pressure has been running higher than normal. [facility] Medical History Alcohol use Arthritis Back pain Elevated LFTs Elevated serum GGT level Former smoker Herniated disc History of edema History of peptic ulcer Hypertension Injury of head and neck Tumor Home Medications amlodipine 10 mg tablet 10 mg PO DAILY 01/05/21 [History Last Taken 02/01/21 04:00] omeprazole 40 mg capsule,delayed release 40 mg PO DAILY 11/07/21 [History Last Taken Unknown] lidocaine 5 % topical patch (Lidoderm) 1 patch topical DAILY #15 ea 01/16/22 [Rx Last Taken Unknown] Allergy/AdvReac Type Severity Reaction Status Date / Time clindamycin Allergy Hives Verified 01/16/22 16:33 Surgical History History of discectomy History of laminectomy Hx of myringotomy Social History Smoking Status: Former smoker ROS ROS ED Constitutional Constitutional ED: Denies chills or fever(s) Eyes Eyes: Denies change in vision or discharge from eye(s) ENT ENT ED: Denies discharge from eye(s), rhinorrhea or sore throat Cardiovascular Cardiovascular: Reports chest pain; Denies palpitations Respiratory/Chest Respiratory/Chest: Denies cough or dyspnea Gastrointestinal Gastrointestinal: Denies abdominal pain, diarrhea, nausea or vomiting Genitourinary Genitourinary ED: Denies difficulty urinating or dysuria Musculoskeletal Musculoskeletal: Denies back pain or extremity pain Integumentary Denies Abrasions or rash Neurologic Neurologic: Reports paresthesias; Denies headache(s) or weakness Psychiatric Psychiatric: Denies anxiety or depression Endocrine Endocrinology: Denies polydipsia or polyuria Allergic/Immunologic Allergic/Immunologic ED: Denies lip swelling or urticaria EXAM Physical Exam Const Vital Signs: 01/16/22 16:30 01/16/22 16:48 01/16/22 16:48 Temperature 98.4 F Temperature Source Oral Pulse Rate 72 106 H Respiratory Rate 16 16 Respiratory Effort Normal Blood Pressure 153/111 H 173/114 H Blood Pressure Mean 125 133 Pulse Ox 95 98 Oxygen Delivery Method Room Air Room Air 01/16/22 17:46 01/16/22 18:39 Temperature Temperature Source Pulse Rate 61 68 Respiratory Rate 15 15 Respiratory Effort Blood Pressure 144/89 H Blood Pressure Mean 107 Pulse Ox 99 99 Oxygen Delivery Method Room Air Positive well nourished and well developed General Appearance ED: well developed HEENT Reports normocephalic and head/scalp atraumatic Eyes PERRL and EOMs intact bilaterally Neck supple Chest Wall inspection of chest normal and palpation of chest normal Resp normal respiratory effort and clear to auscultation bilaterally Cardio regular rate and regular rhythm GI normal to inspection, nondistended, normoactive bowel sounds Palpation: soft Extremity normal to inspection Neuro oriented x3 and no sensory deficits noted Neuro Narrative: NIH equals 0 at time of my exam. Sensorium / Orientation: alert Motor Exam: strength 5/5 throughout Psych mental status grossly normal Skin no rashes or lesions noted MDM MDM MDM Narrative Medical decision making narrative: Patient placed on property assessment monitor. EKG and chest x-ray obtained. Lab work obtained along with CTA of the head and neck. Lab Data Attestation: I reviewed the patient's lab results. Labs: Laboratory Results - last 24 hr 01/16/22 01/16/22 16:58 16:58 WBC 6.1 RBC 4.19 L Hgb 12.5 Hct 38.7 MCV 92.4 MCH 29.8 MCHC 32.3 RDW Std Deviation 42.0 RDW Coeff of Mike 12.4 Plt Count 256 MPV 9.7 Immature Gran % (Auto) 0.300 Neut % (Auto) 58.9 Lymph % (Auto) 30.8 [place] % (Auto) 9.0 Eos % (Auto) 0.3 Baso % (Auto) 0.7 Absolute Neuts (auto) 3.6 Absolute Lymphs (auto) 1.88 Nucleated RBC % 0 Sodium 140 Potassium 3.9 Chloride 107 Carbon Dioxide 28.0 Anion Gap 5 BUN 8 Creatinine 0.75 Estim Creat Clear Calc 81.66 Est GFR (MDRD) Af Amer 109 Est GFR (MDRD) Non-Af 90 BUN/Creatinine Ratio 10.6 Glucose 96 Calcium 9.2 Total Bilirubin 0.50 Direct Bilirubin 0.15 AST 29 ALT 40 Alkaline Phosphatase 55 Troponin I High Sens 4 Total Protein 7.8 Albumin 4.1 Globulin 3.7 Radiography Chest X-Ray - ED: 1 View, Read by ED Physician, Normal, Heart, Lungs and Mediastinum Diagnostic Testing: Clinical Impression(s) from Imaging Studies Head/Neck CTA 01/16/22 16:49 IMPRESSION: 1. Normal CT examination of the head without intracranial mass, hemorrhage, or acute territorial infarct. 2. No evidence of radiographically significant sinus disease. 3. Normal CTA examination of the [place] without focal stenosis occlusion or aneurysmal dilatation. No CTA evidence of LVO. 4. Normal CTA examination of the cervical carotid and vertebral circulation to the level of skull base without stenosis occlusion or luminal irregularity. Electronically Signed: Martha Olsen MD at 19:14 EDT , Chest X-Ray 01/16/22 17:18 IMPRESSION: There are no acute findings. Electronically Signed: Jonah Germain MD at 18:50 EDT , EKG Initial EKG: Attestation: I personally reviewed and interpreted this EKG as follows: Interpretation: Sinus Rhythm (Sinus at 62 with no acute ischemia.) Treatment and Re-Evaluation Narrative: On repeat evaluation patient resting comfortably. Test results discussed with patient as well as at bedside. At this time work-up is unremarkable including negative cardiac and neurologic testing. I do believe the patient's thought process is correct in thinking that she is having muscle spasm. Symptoms wrap around the left side of her neck to her face, left arm, left chest. I will write her for some Lidoderm patches. We did discuss that if this were recurrent TIAs with seem symptom distribution each time I would expect to see some narrowing on the CTA resolving focal to that area of the brain. She voices understanding and agreement. She was given strict return instructions. She will follow-up with her primary care physician. Discharge Plan Triage Chief Complaint: Chest Pain Other Complaint: Numb/Ting ED Provider: Bessy Rosa Dx/Rx/DC Orders Clinical Impression: Paresthesias, Chest pain, non-cardiac Instructions: ED Chest Pain, Noncardiac, ED Paraesthesias Prescriptions: New lidocaine [Lidoderm] 5 % adhesive patch,medicated 1 patch topical DAILY Qty: 15 0RF Rx Instructions: leave on most painful area for up to 12 hrs No Action omeprazole 40 mg capsule,delayed release(DR/EC) 40 mg PO DAILY amlodipine 10 mg tablet 10 mg PO DAILY Label Comments: take 1 tablet by mouth every morning Primary Care Provider: Cassidy Dawkins Referrals: Cassidy Dawkins DO [Primary Care Provider] - 3-5 Days Disposition Disposition: Home, Self Care What to do if you have Problems For any increased pain, shortness of breath, bleeding, nausea or vomiting, chest pain, or any unexpected problems, contact your Primary Care Provider. Call [facility] ([phone]) or report to the closest Emergency Room. Call 911 if necessary. 01/16/22 4513 <Electronically signed by Bessy Rosa MD> Cosigner Signature (if applicable): CC: Dr. Cassidy Dawkins DO Signed Cassidy Dawkins DO Work Phone: Start: 01-16-2022 End: 01-17-2022 12 Lead EKG Comments: See Note; NOTES: [facility] Cardiovascular Services [address] [place] [address] 12 Lead EKG 01/16/22 1639 MR#: [id number] Acct: [id number] Name: ELEAZAR RONDON Rep #: [id number] : 1980 41 From: Miquel Candelario MD Attending Dr: Status: DEP ER Ordering Dr: Bessy Rosa MD Date: 01/16/22 Location: ED Sex: F C Admitted: Test Reason : CP Blood Pressure : / mmHG Vent. Rate : 062 BPM Atrial Rate : 062 BPM P-R Int : 136 ms QRS Dur : 088 ms QT Int : 432 ms P-R-T Axes : 034 077 054 degrees QTc Int : 438 ms Normal sinus rhythm Minimal voltage criteria for LVH, may be normal variant ( Sokolow-Messer ) Borderline ECG Confirmed by LUIS M PERKINS, MIQUEL ([id number]), fashion editor NHI SAUCEDO ([id number]) on 01/17/2022 2:21:46 PM Referred By: DAYRON/RADHA Confirmed By:MIQUEL CANDELARIO MD 01/17/22 1421 Date Miquel Candelario MD CC: Dr. Bessy Rosa MD; Dr. Cassidy Dawkins DO Signed Cassidy Dawkins DO Work Phone: Start: 01-16-2022 End: 01-16-2022 CTA Head AND Neck W/ Contrast Comments: See Note; NOTES: [facility] Imaging Services [address] [place] [address] CTA Head AND Neck W/ Contrast MR#: [id number] Acct: [id number] Name: ELEAZAR RONDON Rep #: [id number] : 1980 F 41 From: Martha Lyle PCP: Dr. Cassidy Dawkins DO Status: REG ER Study: CTA Head AND Neck W/ Contrast Date of Exam: Exam# [id number] Ordering Dr: Bessy Rosa MD INDICATION: paresthesias. LEFT-sided arm and face numbness for one week. EXAMINATION: CTA HEAD - CTA Head and Neck W/ Contrast Injection (and W/O Contrast Images if performed) TECHNIQUE: Noncontrast CT examination the head. CTA examination of the [place], and CTA examination of the cervical vasculature obtained. Head CT obtained with axial noncontrast imaging with additional planar reconstructions. CTA examination of the head and neck obtained with axial postcontrast imaging, and three-dimensional MIP reconstructions. A radiation dose optimization technique was used for this scan. Radiation Dose (provided by facility) CTDIvol (27.09 ) mGy, DLP ( 1360.94) mGy-cm IV Contrast dosage and agent: 100 mL Isovue-370 COMPARISON: None. FINDINGS: CT HEAD: 1. The cerebral parenchyma, ventricular system and gyral pattern have normal configuration. 2. Hemispheric white matter has normal appearance. 3. No intraparenchymal mass, hemorrhage, or acute territorial infarct. 4. The cerebellum, brainstem, basilar and suprasellar cisterns have normal appearance. No Chiari malformation. 5. No vascular calcifications identified in the cavernous carotid vessels. No hyperdense vascular signs noted. 6. Normal appearance the visualized orbits and paranasal sinuses. CTA [place]: PETROUS AND CAVERNOUS CAROTID ARTERIES: Normal appearance of the petrous and cavernous carotid vessels bilaterally. No focal stenosis noted. SUPRACLINOID CAROTID ARTERIES: Normal appearance the supraclinoid carotid vessels bilaterally, the visualized ophthalmic arteries have normal appearance. ANTERIOR CEREBRAL AND A- COMM: Normal appearance the proximal and distal segments of the anterior cerebral circulation bilaterally. MIDDLE CEREBRAL ARTERIES: Normal appearance the proximal and distal segments of the middle cerebral circulation bilaterally. Normal appearance of the M4 cortical distribution bilaterally. INTRACRANIAL VERTEBRAL ARTERIES AND BASILAR ARTERY: Normal appearance of the intracranial course of the vertebral arteries bilaterally, normal appearance of basilar artery to the level of the bifurcation. POSTERIOR CEREBRAL ARTERIES: Normal appearance proximal distal segments of posterior cerebral circulation bilaterally. DURAL SINUSES: Normal, no filling defects noted CT HEAD: The cerebral parenchyma, ventricular system and gyral pattern have normal configuration. No areas of abnormal contrast enhancement. No evidence of hemorrhage given the limitation of postcontrast imaging. CTA Neck: TECHNIQUE: CTA examination of the neck obtained with standard protocol including axial postcontrast imaging with additional planar and three-dimensional reconstructions. Aortic arch: [Normal appearance of the aortic arch and origin the great vessels.] Right carotid system: There is normal appearance RIGHT common carotid, RIGHT internal carotid arteries, and the bifurcation. Normal appearance of the external carotid circulation on the RIGHT. Left carotid system: There is normal appearance of the LEFT common carotid, LEFT internal carotid, and the bifurcation. There is normal appearance of the LEFT external carotid circulation Vertebral arteries: There is normal appearance of the vertebral arteries bilaterally without focal stenosis or occlusion. Airway and soft tissues of the neck: There is normal appearance of the musculofascial planes of suprahyoid and infrahyoid neck. Normal appearance of the visualized airway. Normal appearance the visualized thyroid without masses or nodules noted. Cervical spine: Normal appearance of bony elements of the cervical spine. No focal stenosis or occlusion involving the cervical spinal canal. CT/CTA Head AND Neck W/ Contrast IMPRESSION: 1. Normal CT examination of the head without intracranial mass, hemorrhage, or acute territorial infarct. 2. No evidence of radiographically significant sinus disease. 3. Normal CTA examination of the [place] without focal stenosis occlusion or aneurysmal dilatation. No CTA evidence of LVO. 4. Normal CTA examination of the cervical carotid and vertebral circulation to the level of skull base without stenosis occlusion or luminal irregularity. Electronically Signed: Martha Olsen MD at 19:14 EDT Reading Location ID and State: [address] [place] [address] Tel , Service support , CC: Dr. Bessy Rosa MD; Dr. Cassidy Dawkins DO Janitorial Cleaner: Signed Cassidy Dawkins DO Work Phone: Start: 01-02-2022 End: 01-02-2022 Gastroenterology Visit Report Comments: See Note; NOTES: [facility] Gastroenterology [address] [place] [address] OFFICE VISIT Date of Service: 01/02/22 MR#: [id number] Acct: [id number] Name: ELEAZAR RONDON Rep #: [id number] : 1980 Provider: KELSY Hartley Age/Sex: 41/F [place] [facility] Status: Signed Intake Vital Signs 01/02/22 13:01 Height 5 ft 3 in Weight: 130 lb BMI 23.0 BP 137/89 H Blood Pressure Location Rt brachial Position Sitting Pulse 65 Pulse Oximetry (%) 97 Oxygen Delivery Method room air Intake Visit Reasons: ABD PAIN Chief Complaint: Right upper quadrant pain Allergies clindamycin Allergy (Verified 01/02/22 13:00) Hives Medications amlodipine 10 mg tablet 10 mg PO DAILY 01/05/21 [History Confirmed 01/02/22] omeprazole 40 mg capsule,delayed release 40 mg PO DAILY 11/07/21 [History Confirmed 01/02/22] PFSH Medical History Alcohol use Arthritis Back pain Elevated LFTs Elevated serum GGT level Former smoker Herniated disc History of edema Hypertension Injury of head and neck Tumor Surgical History Hx of myringotomy Social History Smoking Status: Former smoker HPI HPI Chief Complaint: Right upper quadrant pain Details: ELEAZAR RONDON, is a 41 F who presents to the office today for ongoing RUQ pain. The epigastric pain is almost gone. She was diagnosed with gastritis, esophagitis, elevated liver enzymes. At her appointments last month we tried to add sucralfate however she reports it caused an increase in her right upper quadrant pain. The right upper quadrant pain is anintermittent pain, wraps around flank. Occurs after eating, not severe, lingers for hours. It can wake her up. Sharp and burning. No relieving factors. No cause other than eating. Doesn't matter what she eats, eg had banana this morning which caused it. It also flared with alcohol. Not having diarrhea. She is concerned about poor digestion, last week she took an Sherin-D capsule and passed the entire pill the next day. 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 She established with this office on 11/07/2021, presenting for gastritis and elevated liver enzymes. She had been having epigastric and RUQ pain after eating.??? This began in July 2021.??? Right upper quadrant ultrasound was normal.??? HIDA scan was normal with ejection fraction 80%, that was done at [facility].??? Last year she had a CT of the abdomen and pelvis done for right lower quadrant pain, that scan was unremarkable.??? In October 2021 she had EGD done by Dr. Musa; he found nonsevere reflux esophagitis, gastritis, duodenal erosions without bleeding.??? Biopsies showed no pathology in the esophagus, no pathology in the stomach, negative for H. pylori, no pathology in the duodenum, no evidence of celiac disease or enteritis.??? She had not had relief with famotidine, but she reported significant improvement on omeprazole 40 mg daily.??? She was no longer has pain after eating, only getting the epigastric pain if she is feeling especially stressed or anxious. Can also get pain in other locations in abd such as LUQ, wonders if gas. Especially bothered by processed cheese, milk and bread; this is new since July. She is not having nausea, vomiting, dysphagia.??? Her bowels are regular, she denies constipation or diarrhea.??? No hematochezia or melena. In July 2021 her liver enzymes were elevated. AST 62, ALT 132, alk phos 190. GGT was 435 in August, patient reports it was 256 in September or October, GGT decreased to 128 on 12/26.??? She also reports AST ALT and alk phos normalized in September or October. On 12/26/2021 AST was 47 (0-40), ALT 53 (0- 32) acute. Normal bilirubin, normal amylase, normal lipase, normal TSH, normal sed rate.??? Ceruloplasmin normal.??? Hepatitis panel normal.??? Transferrin normal.??? Liver kidney microsomal antibody negative.??? Cytomegalovirus antibody negative.??? Ferritin normal.??? Actin antibody normal.??? Mitochondrial antibody negative, MEHNAZ negative. She had discectomy for L5-S1 herniated disc 7 weeks ago; her pain resolved however she had a recurrence of pain that radiates down the left leg, therefore she had an MRI this morning to reevaluate. ROS Const Constitutional: No fatigue ENT ENT: No difficulty swallowing Gastro GI: Positive for abdominal pain, bloating and excessive flatus; No belching, change in bowel habits, change in stool character, coffee ground emesis, constipation, cramping, diarrhea, heartburn, difficulty swallowing, feeling full early, incontinent of stools, Vomiting blood/hematemesis, Blood in stool, loose stools, Black,tarry stools, nausea/dyspepsia, pain with swallowing, vomiting or other Musc Musculoskeletal: Positive for back pain and leg pain at night; No joint pain Skin Skin: No yellowing of the eye or itchy eyes Psych Psychiatric: Positive for anxiety and No depression Endo Endocrine: No fatigue Aller/Imm Allergy/Immunologic: No itchy eyes Calixto/Lymp Hematologic/Lymphatic: No easy bleeding or easy bruising Exam Const General: cooperative, healthy appearing, no acute distress and well developed Nutritional Appearance: average body habitus HENMT Head: normal to inspection Eyes General: appearance normal, both eyes and all related structures Resp Effort Inspection: normal respiratory effort GI Inspection: normal to inspection Palpation: soft, no hepatosplenomegaly, no guarding, no masses and tender in the RUQ; with no rebound tenderness Skin General: no jaundice Quality Reporting Tobacco Screening ([facility] 138) Smoking Status: Former smoker Assessment and Plan Assessment and Plan (1) RUQ abdominal pain: Status: Acute Plan: 41 yr old female w/ post prandial RUQ pain, in the setting of elevated GGT, alk phos, ALT, AST although improving. RUQ US was normal, HIDA was normal. Further biochemical eval today--eval celiac, autoimmune disorders. Pancreatic fecal elastase. MRCP ordered to further eval biliary tract. DDx includes biliary obstruction, pancreatic insufficiency, gastroparesis. Consider gastric emptying study. (2) Elevated serum GGT level: Status: Acute (3) Elevated alkaline phosphatase level: Status: Acute (4) Postprandial abdominal pain in right upper quadrant: Status: Acute Orders: Orders CRP Today R10.11 - Right upper quadrant pain Erythrocyte Sed Rate Today R10.11 - Right upper quadrant pain Anti-Mitochondrial AB Today R10.11 - Right upper quadrant pain MEHNAZ Comprehensive Panel Today R10.11 - Right upper quadrant pain Hepatitis Panel Acute Today R10.11 - Right upper quadrant pain Anti-Smooth Muscle ABS Today R10.11 - Right upper quadrant pain Celiac Disease Profile Today R10.11 - Right upper quadrant pain Comprehensive Metabolic Profil Today R10.11 - Right upper quadrant pain CBC W/Diff, Automated Today R10.11 - Right upper quadrant pain MRCP Abdomen without Contrast Today R10.11 - Right upper quadrant pain, R74.8 - Abnormal levels of other serum enzymes Pancreatic Elastase, Fecal Today R10.11 - Right upper quadrant pain Medications: Discontinued sucralfate Discontinued Reason: Order Completed 1 g PO QAC 90 tabs 0RF Coding Level of Care Code Off vis,est,level 4 Diagnoses RUQ abdominal pain R10.11 Elevated serum GGT level R74.8 Elevated alkaline phosphatase level R74.8 Postprandial abdominal pain in right upper quadrant R10.11 01/02/22 1638 <Electronically signed by Wendy TIERNEY> Date Wendy TIERNEY Cosigner Signature: Date (if applicable) CC: Dr. Cassidy Dawkins, DO Cassidy Dawkins DO Work Phone: Start: 11-07-2021 End: 11-07-2021 Gastroenterology Visit Report Comments: See Note; NOTES: [facility] Gastroenterology [address] [place] [address] OFFICE VISIT Date of Service: 11/07/21 MR#: [id number] Acct: [id number] Name: ELEAZAR RONDON Rep #: [id number] : 1980 Provider: KELSY Hartley Age/Sex: 41/F [place] [facility] Status: Signed Intake Vital Signs 11/07/21 15:08 Height 5 ft 3 in Weight: 132 lb BMI 23.3 BP 148/87 H Blood Pressure Location Rt brachial Position Sitting Pulse 55 L Pulse Oximetry (%) 98 Oxygen Delivery Method room air Intake Visit Reasons: Consult Allergies clindamycin Allergy (Verified 02/01/21 07:37) Hives Medications amlodipine 10 mg PO DAILY 01/05/21 [History Confirmed 01/25/21] omeprazole 40 mg capsule,delayed release 40 mg PO DAILY 11/07/21 [History Confirmed 11/07/21] sucralfate 1 gram tablet 1 g PO QAC #90 tab 11/07/21 [Rx Confirmed 11/07/21] PFSH Medical History (Updated 11/07/21 @ 16:01 by Wendy Hartley BIAS CUTTING MACHINE OPERATOR, BIAS CUTTING MACHINE OPERATOR-C) Alcohol use Arthritis Back pain Elevated LFTs Elevated serum GGT level Former smoker Herniated disc History of edema Hypertension Injury of head and neck Tumor Surgical History Hx of myringotomy Social History Smoking Status: Former smoker HPI HPI Details: ELEAZAR RONDON, is a 41 F who presents to the office today for abdominal pain and abnormal liver labs. She has already had a comprehensive work up for the abdominal pain. Epigastric and RUQ pain after eating. This began in July of this year. Right upper quadrant ultrasound was normal. HIDA scan was normal with ejection fraction 80%. Last year she had a CT of the abdomen and pelvis done for right lower quadrant pain, that scan was unremarkable. Earlier this month she had EGD done by Dr. Musa; he found nonsevere reflux esophagitis, gastritis, duodenal erosions without bleeding. Biopsies showed no pathology in the esophagus, no pathology in the stomach, negative for H. pylori, no pathology in the duodenum, no evidence of celiac disease or enteritis. She had not had relief with famotidine, but she is noticing significant improvement now that she is taking omeprazole 40 mg daily since her endoscopy. She no longer has pain after eating, only getting the epigastric pain if she is feeling especially stressed or anxious. Can also get pain in other locations in abd such as LUQ, wonders if gas. Especially bothered by processed cheese, milk and bread; this is new since July. She is not having nausea, vomiting, dysphagia. Her bowels are regular, she denies constipation or diarrhea. No hematochezia or melena. In July her liver enzymes were elevated. AST 62, ALT 132, alk phos 190. GGT was 435 in August, patient reports it was 256 since then. She also reports AST ALT and alk phos normalized. Normal bilirubin, normal amylase, normal lipase, normal TSH, normal sed rate. Ceruloplasmin normal. Hepatitis panel normal. Transferrin normal. Liver kidney microsomal antibody negative. Cytomegalovirus antibody negative. Ferritin normal. Actin antibody normal. Mitochondrial antibody negative MEHNAZ negative. She has L5-S1 herniated disc; she will be having discectomy next week; she is understandably nervous about that surgery. Past medical history hypertension ROS Const Constitutional: No fatigue ENT ENT: No difficulty swallowing Gastro GI: Positive for abdominal pain, bloating and heartburn; No belching, change in bowel habits, change in stool character, coffee ground emesis, constipation, cramping, diarrhea, difficulty swallowing, feeling full early, excessive flatus, incontinent of stools, Vomiting blood/hematemesis, Blood in stool, loose stools, Black,tarry stools, nausea/dyspepsia, pain with swallowing, vomiting or other Musc Musculoskeletal: Positive for back pain, stiffness and sciatica; No joint pain Skin Skin: No yellowing of the eye or itchy eyes Psych Psychiatric: Positive for anxiety and No depression Endo Endocrine: No fatigue Aller/Imm Allergy/Immunologic: No itchy eyes Calixto/Lymp Hematologic/Lymphatic: No easy bleeding or easy bruising Exam Const General: healthy appearing, no acute distress, well developed and well groomed Eyes General: appearance normal, both eyes and all related structures Conjunctivae: conjunctivae normal Sclera: sclerae normal Resp Effort Inspection: normal respiratory effort Psych Affect: anxious affect Quality Reporting Tobacco Screening ([facility] 138) Smoking Status: Former smoker Assessment and Plan Assessment and Plan (1) Elevated serum GGT level: Status: Acute Plan - Wendy Hartley BIAS CUTTING MACHINE OPERATOR, BIAS CUTTING MACHINE OPERATOR-C: She reports her AST and ALT returned to normal. She reports GGT is going down; she plans to get it rechecked at Dr Dawkins's office after her back surgery. She can certainly follow-up if needed at that point. (2) Gastritis: Status: Acute Plan - Wendy Hartley BIAS CUTTING MACHINE OPERATOR, BIAS CUTTING MACHINE OPERATOR-C: 41-year-old female in good health with epigastric and right upper quadrant pain that has been fully worked up. We reviewed all of her imaging tests, lab work, endoscopy and biopsies. Discussed gastritis, esophagitis. Complete the 3 months of omeprazole 40 mg daily as prescribed by Dr. Musa. We will add sucralfate 3 times daily before meals for the next month. I would expect her abdominal pain to resolve. She may be having some gas pains, may be swallowing more air with increased stress and anxiety. She can follow-up as needed Plan Details Other Medications: New: sucralfate 1 g PO QAC 90 tabs 0RF Coding Level of Care Code Off vis,new,level 3 Diagnoses Elevated serum GGT level R74.8 Gastritis K29.70 11/07/21 1604 <Electronically signed by Wendy Hartley BIAS CUTTING MACHINE OPERATOR BIAS CUTTING MACHINE OPERATOR-C> Date Wendy Hartley NP BIAS CUTTING MACHINE OPERATOR-C Cosigner Signature: Date (if applicable) CC: DO Cassidy Marin DO Work Phone: Start: 11-07-2021 End: 11-07-2021 Chest PA and Lateral Comments: See Note; NOTES: [facility] Imaging Services [address] [place] [id number] Chest PA and Lateral MR#: [id number] Acct: [id number] Name: ELEAZAR RONDON Rep #: [id number] : 1980 F 41 From: Jonah Lyle PCP: Dr. Cassidy Dawkins, Status: REG CLI Study: Chest PA and Lateral Date of Exam: 11/07/21 Exam# [id number] Ordering Dr: Uri Henson DO STUDY: X-RAY CHEST REASON FOR EXAM: Female, 41 years old. PRE OP TECHNIQUE: XR Chest 2 Views COMPARISON: None FINDINGS: There is no demonstrated pleural abnormality. Normal size heart. Normal mediastinum and belkis. Normal visualized pulmonary arteries. Normal visualized aortic arch and descending thoracic aorta. Normal visualized thoracic spine. Normal visualized ribs, clavicles, and shoulders. There is no demonstrated abnormality of the visualized soft tissue structures of the upper abdomen. RAD/Chest PA and Lateral IMPRESSION: There are no acute findings. Electronically Signed: Jonah Germain MD at 18:29 EDT , CC: Dr. Uri Henson DO; Dr. Cassidy Dawkins DO Janitorial Cleaner: Signed Cassidy Dawkins DO Work Phone: Start: 10-23-2021 Esophagogastroduodenoscopy transoral diagnostic Martha Musa MD Work Phone: Start: 10-04-2021 Urnls dip stick/tablet rgnt auto w/o microscopy [facility] Provider Start: 08-22-2021 End: 08-22-2021 Abdomen Limited Comments: See Note; NOTES: [facility] [facility] Imaging Services [address] [place] [id number] Abdomen Limited MR#: [id number] Acct: [id number] Name: ELEAZAR RONDON Rep #: [id number] : 1980 F 41 From: Shiraz juarez MD PCP: Dr. Cassidy Dawkins DO Status: REG CLI Study: Abdomen Limited Date of Exam: 08/22/21 Exam# [id number] Ordering Dr: Cassidy Dawkins DO STUDY: ABDOMINAL ULTRASOUND - RIGHT UPPER QUADRANT REASON FOR VISIT: Female, 41 years old RUQ PAIN TECHNIQUE: Ultrasound evaluation of the right upper quadrant was performed with real-time and static malin-scale imaging. TECHNICAL QUALITY: Adequate. COMPARISON: None. FINDINGS: Liver: The liver measures 15.1 cm. There is normal echogenicity of the liver. The bile ducts are within normal limits. There is hepatic color flow. The direction of portal flow is hepatopetal. There is no demonstrated mass lesion. Gallbladder: Normal distended gallbladder. The gallbladder wall measures 1.5 mm. There is a negative sonographic Andrade''s sign. There is no pericholecystic fluid. There are no gallstones. Common Bile Duct (C.B.D.): The common bile duct measures 3.3 mm. Pancreas: Normal size of the head, body and tail of the pancreas. There is normal echogenicity of the pancreas. There is no demonstrated pancreatic mass or cyst. Right Kidney: Normal size of the right kidney. The right kidney measures 10.6 cm x 4.6 cm x 3.5 cm. Normal renal cortex. The right cortex measures 1.5 cm. There is no demonstrated renal mass or cyst. There is no right hydronephrosis. US/Abdomen Limited IMPRESSION: Normal right upper quadrant ultrasound examination. Electronically Signed: Shiraz Vail MD at 10:54 EST Reading Location ID and State: [address] [place] [address] , Service support , CC: Dr. Cassidy Dawkins DO Janitorial Cleaner: Signed Cassidy Dawkins DO Work Phone: Start: 03-30-2021 End: 03-30-2021 Abdomen/Pelvis WITH Contrast Comments: See Note; NOTES: [facility] Imaging Services [address] [place] [address] Abdomen/Pelvis WITH Contrast MR#: [id number] Acct: [id number] Name: ELEAZAR RONDON Rep #: [id number] : 1980 F 40 From: Shiraz juarez MD PCP: Dr. Cassidy Dawkins DO Status: REG CLI Study: Abdomen/Pelvis WITH Contrast Date of Exam: 07/20 Exam# [id number] Ordering Dr: Cassidy Dawkins DO STUDY: CT ABDOMEN AND PELVIS WITH CONTRAST REASON FOR EXAM: Female, 40 years old. ABD PAIN . ACUTE RT LOWER QUAD RADIATION DOSAGE (If Supplied By Facility): CTDIvol = ( 8.175 ) mGy, DLP = ( 507.15 ) mGycm TECHNIQUE: Transaxial images were obtained from the dome of the diaphragm to the symphysis pubis with oral contrast. Oral and amp; IV Gastrografin and amp; 100mL Isovue-370 was administered. Sagittal and coronal images were reconstructed. Individualized dose optimization techniques were used for this CT. COMPARISON: None. FINDINGS: The visualized lung bases are unremarkable. The visualized portions of the heart are within normal limits. Normal liver. Normal gallbladder and extrahepatic biliary system. Normal spleen. Normal pancreas. Normal bilateral adrenal glands. Normal right kidney. Normal left kidney. Normal visualized stomach. Normal small intestine. Normal colon. The appendix is visualized and appears normal. Normal abdominal aorta. Normal inferior vena cava. Normal retroperitoneum. Normal urinary bladder. Small follicles are seen in the right ovary. There is evidence of a nabothian cyst of the cervix. Normal abdominal wall. There is a 1.6 cm x 0.7 cm sclerotic density along the midportion of the left sacroiliac joint. CT/Abdomen/Pelvis WITH Contrast IMPRESSION: No acute abnormality is seen. 1.6 cm x 0.7 sinus colonic density in the left iliac bone at the level of the left sacroiliac joint. Electronically Signed: Shiraz Vail MD at 14:09 EDT , Service support , CC: Dr. Cassidy Dawkins DO Janitorial Cleaner: Signed Cassidy Dawkins DO Work Phone: Start: 06-29-2018 Adult depression screening assessment Erma Cardenas APRN.RAILCAR SWITCHER Work Phone: Benign Neoplasm Of Skin Payt on Raymond LAUREANO Plan of Treatment Date Care Activity Detail Author Start: 01-31-2026 Urine microalbumin profile DTAP,TDAP,TD (2 - Td or Tdap) [facility] [place] Start: 06-13-2022 Procedure Education Eprescribed prescriptions (G8553) [facility] Work Phone: Start: 06-13-2022 Blood count complete auto&auto difrntl wbc CBC W/AUTO DIFF WBC (20291) [facility]; [facility] Work Phone: Start: 06-13-2022 Hepatic function panel HEPATIC FUNCTION PANEL (15632) [facility]; [facility] Work Phone: Start: 04-25-2022 Blood count complete automated CBC & PLATELETS (AUTO) (84035) [facility] Work Phone: Start: 04-08-2022 Antibody cytomegalovirus cmv CMV ANTIBODY (57430) [facility]; [facility] Work Phone: Start: 04-08-2022 Antibody cytomegalovirus cmv igm CMV IGM ANTBDY (31662) [facility]; [facility] Work Phone: Start: 04-05-2022 Hepatic function panel HEPATIC FUNCTION PANEL (36995) [facility]; [facility] Work Phone: Immunizations Immunization Date Immunization Notes Care Provider Neeraj freeman 09-10-2016 hepatitis B vaccine, adult dosage Erma Cardenas CLINICAL RN.RAILCAR SWITCHER Work Phone: [facility] [place] Work Phone: 03-18-2016 hepatitis B vaccine, adult dosage Erma Cardenas CLINICAL RN.RAILCAR SWITCHER Work Phone: [facility] [place] Work Phone: 03-18-2016 measles, mumps and rubella virus vaccine Erma Cardenas CLINICAL RN.RAILCAR SWITCHER Work Phone: [facility] [place] Work Phone: 02-16-2016 measles, mumps and rubella virus vaccine Erma Cardenas CLINICAL RN.RAILCAR SWITCHER Work Phone: [facility] [place] Work Phone: 02-01-2016 hepatitis B vaccine, adult dosage Erma Cardenas CLINICAL RN.RAILCAR SWITCHER Work Phone: [facility] [place] 02-01-2016 tetanus toxoid, redu huseyin diphtheria toxoid, and acellular pertussis vaccine, adsorbed Ermamary Cardenas CLINICAL RN.RAILCAR SWITCHER Work Phone: [facility] [place] Payers Date Payer Category Payer Unknown [id number] 2019 Unknown 2019 Unknown [employer] PPO [id number] 2019-Present [phone] [facility] [id number] [place] [address] PPO [id number] 2019 Unknown [id number] 2010 Unknown [id number] 2007 Private Health Insurance [id number] 2004 Private Health Insurance [id number] 1980 Unknown [id number] 1980 Unknown [id number] 1980 Unknown [id number] 1980 Unknown [id number] 1980 Unknown [id number] 1980 Unknown [id number] [facility] [id number] Private Health Insurance [id number] Social History Date Type Detail Facility Start: 10-04-2021 End: 04-17-2022 Alcohol Use Alcohol Use [facility] Work Phone: Clinical Notes 10-04-2021 to 05-15-2022 Clari Del Valle MD - 05/15/2022 3:57 PM Emilia Harding MD - 04/17/2022 4:00 PM Fantasma Lorenzo MD - 03/14/2022 1:15 PM Dawna Angel MD - 03/14/2022 1:15 PM EDTPatient Instructions Note Date & Type Note Facility 05-15-2022 Note HNO ID: [id number] Author: Clari Del Valle MD Service: ? Author Type: Physician Type: Progress Notes Filed: 05/19/2022 4:56 PM Note Text: NEW PATIENT EVALUATION Subjective HPI Eleazar Rondon is a 41 year old right-handed female who presents for evaluation of paresthesias. Dr. Cassidy Dawkins DO is the PCP and referring physician. She explains that a year had a herniated disc, was having back issues for about a year, had surgery 10/[address] Henson. Prior to this she was a runner, running 25 miles a week, since then hasn't been able to run due to pain. Then had COVID beginning of December with typical acute symptoms lasting for 2 weeks, then 3 weeks later she had a steroid spinal injection in early January. 4 days later developed tingling down her legs then up to the rest of her body. Three weeks after having COVID had left sided pins/needles in left face and arm with chest pain. She had a hemilaminectomy / discectomy with Dr. Henson She had EMG/NCS at [facility] in February, did all 4 limbs, normal. She has been getting acupuncture for the past months which has been really helpful. The pins and needles sensation tends to come and go, most prominent in bottoms of feet and less commonly in pinkies going up ulnar surface. If she is having a good day where it isn't happening, might occur after eating. After one session of acupuncture had no pins and needles for 1.5 weeks, but then threw out her back and put on prednisone which then came back. Her PCP put her on Lexapro then duloxetine but stopped each as made things worse. Also has been dealing with stomach issues, was working with GI, had upper GI and MRCP which were normal. Medications: Current Outpatient Medications Medication Sig Dispense Refill losartan (COZAAR) 100 mg tablet Take 100 mg by mouth once daily. fexofenadine/pseudoephedrine (SHERIN-D 24 HOUR ORAL) Take 1 tablet by mouth as needed. As needed only omeprazole (PRILOSEC) 40 mg capsule Take 1 capsule by mouth once daily. 30 capsule 0 escitalopram oxalate (LEXAPRO) 5 mg tablet Take 5 mg by mouth once daily. omeprazole (PRILOSEC) 20 mg capsule Take 2 capsules by mouth once daily. 60 capsule 2 famotidine (PEPCID) 20 mg tablet take 1 tablet by mouth at bedtime if needed 21 tablet 0 cholecalciferol, vitamin D3, (VITAMIN D3 ORAL) Take by mouth once daily. olopatadine (PATANOL) 0.1 % ophthalmic solution Use 1 Drop in both eyes twice daily. No current facility-administered medications for this visit. ROS ROS: Her ROS was positive for that mentioned in the HPI. Otherwise a 10-point ROS was completed and was negative. ALLERGIES Allergen Reactions Benazepril Cough Clindamycin Rash Doxycycline Unknown Makes skin burn Past Medical History: PAST MEDICAL HISTORY Diagnosis Date Mononucleosis Unspecified essential hypertension Essential hypertension Family History: FAMILY HISTORY Problem Relation Age of Onset Hypertension Father Alcohol/Drug Maternal Grandmother Cancer Maternal Grandfather Stroke Paternal Grandfather No family history of neurologic issues. 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 Head: Normocephalic Neck: Supple Heart: RRR Peripheral Pulses: Normal Neurologic Examination Mental Status: She is alert. She is fully oriented. Attention is intact. Recent and remote memory is intact. Language shows normal comprehension and fluency. Praxis is normal. Affect is appropriate. Cranial Nerves: Pupils are equal and reactive to light. Extraocular movements show full and smooth pursuits. No nystagmus. Visual hernandez are full to confrontation. Facial sensation is intact. Facial activation is symmetric. Hearing is intact to conversation. There is no hypomimia. There is no hypophonia. There is no dysarthria. Tongue is midline. Palate elevates symmetrically. Shoulder shrug is normal. Motor: Muscle bulk is normal. Rapid alternating movements are normal. Muscle power is full. Sensory: Intact to fine touch, temp, and vibration. Reflex: 2+ and symmetric Coordination: Finger to nose is smooth without ataxia. Gait/station: Normal DATA REVIEWED Actual films/image/tracing reviewed (more content not included)... [facility] 05-15-2022 History of Present illness Narrative NEW PATIENT EVALUATION Subjective HPI Eleazar Rondon is a 41 year old right-handed female who presents for evaluation of paresthesias. Dr. Cassidy Dawikns DO is the PCP and referring physician. She explains that a year had a herniated disc, was having back issues for about a year, had surgery 10/[address] Henson. Prior to this she was a runner, running 25 miles a week, since then hasn't been able to run due to pain. Then had COVID beginning of December with typical acute symptoms lasting for 2 weeks, then 3 weeks later she had a steroid spinal injection in early January. 4 days later developed tingling down her legs then up to the rest of her body. Three weeks after having COVID had left sided pins/needles in left face and arm with chest pain. She had a hemilaminectomy / discectomy with Dr. Henson She had EMG/NCS at [facility] in February, did all 4 limbs, normal. She has been getting acupuncture for the past months which has been really helpful. The pins and needles sensation tends to come and go, most prominent in bottoms of feet and less commonly in pinkies going up ulnar surface. If she is having a good day where it isn't happening, might occur after eating. After one session of acupuncture had no pins and needles for 1.5 weeks, but then threw out her back and put on prednisone which then came back. Her PCP put her on Lexapro then duloxetine but stopped each as made things worse. Also has been dealing with stomach issues, was working with GI, had upper GI and MRCP which were normal. Medications: Current Outpatient Medications Medication Sig Dispense Refill losartan (COZAAR) 100 mg tablet Take 100 mg by mouth once daily. fexofenadine/pseudoephedrine (SHERIN-D 24 HOUR ORAL) Take 1 tablet by mouth as needed. As needed only omeprazole (PRILOSEC) 40 mg capsule Take 1 capsule by mouth once daily. 30 capsule 0 escitalopram oxalate (LEXAPRO) 5 mg tablet Take 5 mg by mouth once daily. omeprazole (PRILOSEC) 20 mg capsule Take 2 capsules by mouth once daily. 60 capsule 2 famotidine (PEPCID) 20 mg tablet take 1 tablet by mouth at bedtime if needed 21 tablet 0 cholecalciferol, vitamin D3, (VITAMIN D3 ORAL) Take by mouth once daily. olopatadine (PATANOL) 0.1 % ophthalmic solution Use 1 Drop in both eyes twice daily. No current facility-administered medications for this visit. ROS ROS: Her ROS was positive for that mentioned in the HPI. Otherwise a 10-point ROS was completed and was negative. ALLERGIES Allergen Reactions Benazepril Cough Clindamycin Rash Doxycycline Unknown Makes skin burn Past Medical History: PAST MEDICAL HISTORY Diagnosis Date Mononucleosis Unspecified essential hypertension Essential hypertension Family History: FAMILY HISTORY Problem Relation Age of Onset Hypertension Father Alcohol/Drug Maternal Grandmother Cancer Maternal Grandfather Stroke Paternal Grandfather No family history of neurologic issues. 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 Head: Normocephalic Neck: Supple Heart: RRR Peripheral Pulses: Normal Neurologic Examination Mental Status: She is alert. She is fully oriented. Attention is intact. Recent and remote memory is intact. Language shows normal comprehension and fluency. Praxis is normal. Affect is appropriate. Cranial Nerves: Pupils are equal and reactive to light. Extraocular movements show full and smooth pursuits. No nystagmus. Visual hernandez are full to confrontation. Facial sensation is intact. Facial activation is symmetric. Hearing is intact to conversation. There is no hypomimia. There is no hypophonia. There is no dysarthria. Tongue is midline. Palate elevates symmetrically. Shoulder shrug is normal. Motor: Muscle bulk is normal. Rapid alternating movements are normal. Muscle power is full. Sensory: Intact to fine touch, temp, and vibration. Reflex: 2+ and symmetric Coordination: Finger to nose is smooth without ataxia. Gait/station: Normal DATA REVIEWED Actual films/image/tracing reviewed and summarized as follows: n/a Old records reviewed and summarized as follows: EMG/NCS mentioned as being down at [facility] maybe 02/2022 but no result. MRI Brain 04/01/22 normal except left mastoid fluid MRI C-spine 03/01/22 normal MRI L-spine 03/01/22 mostly normal, mild foraminal and central stenosis at L4-5 and L5-S1 CTA H/N 01/16/22 (left sided numbness / tingling) normal MEHNAZ neg, CRP 1, Lyme Ab neg, ESR 2, B12 1006, Zn 86, TSH 1.22, Anti Sm muscle neg, DS DNA neg, Anti-Cent neg, SS A/B neg, scl neg, radha neg, angeles neg TTE 02/11/2022 normal MRCP 01/23/22 normal Assessment/Plan Assessment & Plan: Eleazar Rondon is a 41 year old right-handed female who presents for evaluation of paresthesias that started in the vicinity of having COVID and having an injection into her lumbar spine. Her examination is normal. Extensive testing including MRIs and 4 limb EMG/NCS all normal. With these normal tests and normal exam, don't think there is a neurologic cause to her symptoms. Explained not uncommon for people to have paresthesias without source found. Diagnoses of exclusion sometimes include things like stress / psychological factors, fibromyalgia, or possibly a post-COVID phenomenon, can't say if any of these fit for sure but don't think other testing would be helpful. Not interested in further med trials after bad response to Lexapro and duloxetine. Acupuncture has been helpful, had no symptoms for a while with it until getting steroid (don't have a good explanation for this), certainly reasonable to continue. She should return to see me as needed in the future. Clari Del Valle MD [facility] Neurology documented in this encounter [facility] 04-17-2022 Note HNO ID: [id number] Author: Erma Harding MD Service: ? Author Type: Physician Type: Progress Notes Filed: 04/17/2022 5:09 PM Note Text: INFECTIOUS DISEASE CONSULT NOTE Date: April 17, 2022 Patient Name: Eleazar Rondon Non-healing sores on lip HISTORY OF PRESENT ILLNESS: Eleazar Rondon is a 41 year old female with a history of cold sores, hypertension, and chronic esophagitis and gastritis, herniated disc s/p distectomy L5-S1 11/13/2021, Covid 12/2021 who presents due to sores on lip. She states since January she has had painless sores on her top lip. She was seen by dermatology and these were thought to be mucoceles. She reports that since starting 20 prednisone for her back last week, and she now has painful blisters of her bottom lip which remind her of her cold sores in the past. She states she has had cold sores in the past which responded to valtrex. She denies fevers, chills, night sweats, fatigue, respiratory symptoms. She has chronic mild right upper quadrant pain. She also has low back pain. She is now seeing an central office maintainer and starting taking amanda hanh wan for the past week. She reports intermittent tingling of her extremities without numbness or asymmetric weakness which she states started since she had covid. EGD 10/23/2021: Few localized erosions without bleeding were found in the duodenal bulb Localized minimal inflammation characterized by erosions and friability found in gastric antrum. Non-severe esophagitis with no bleeding Pathology: A. Duodenum, biopsy: - Small bowel mucosa with no significant diagnostic alteration. - No evidence of celiac disease or enteritis. B. Antrum, biopsy: - Antral mucosa with no significant diagnostic alteration. - No morphologic evidence of Helicobacter pylori organisms. C. Distal esophagus, biopsy: - Reactive squamous mucosa with no significant inflammation. - No evidence of eosinophilia. - See comment. D. Mid esophagus, biopsy: - Squamous mucosa with no significant diagnostic alteration. - No evidence of esophagitis or eosinophilia. Due to the presence of reactive epithelial change an HSV immunostain was performed on block C1 and is negative for viral inclusions. PAST MEDICAL HISTORY Diagnosis Date Mononucleosis Unspecified essential hypertension Essential hypertension PAST SURGICAL HISTORY Procedure Laterality Date COLONOSCOPY 10/23/2021 EGD W/O [facility] SPEC VARICIES INJ 10/23/2021 ENDOMETRIAL ABLATION WITH US GUIDANCE 2020 LOW BACK DISK SURGERY 10/2021 discectomy, laminectomy REMOVE TUMOR, LEG OR ANKLE >5 CM 06/30/1994 right knee TYMPANOSTOMY LOCAL/TOPICAL ANESTHESIA 06/30/1989 VAGINAL DELIVERY W/ CARE ONLY 06/30/2009 FAMILY HISTORY FAMILY HISTORY Problem Relation Age of Onset Hypertension Father Alcohol/Drug Maternal Grandmother Cancer Maternal Grandfather Stroke Paternal Grandfather SOCIAL HISTORY Social History Tobacco Use Smoking status: Former Types: Cigarettes Quit date: 07/19/2002 Years since quittin.7 Smokeless tobacco: Never Tobacco comments: 1 cigarette daily at that time Vaping Use Vaping Use: Never used Substance Use Topics Alcohol use: Yes Alcohol/week: 5.0 standard drinks Types: 2 Glasses of Wine (5oz) per week Drug use: No MEDICATIONS: Medications reviewed. Current antibiotics: None ALLERGIES Allergen Reactions Benazepril Cough Clindamycin Rash IMMUNIZATION HISTORY Immunization History Administered Date(s) Administered Hepatitis B Adult 02/01/2016 03/18/2016 09/10/2016 PPD (Mantoux) 02/02/2016 02/14/2016 06/25/201707/02/2017 Tdap (Age 7+) 02/01/2016 measles mumps rubella (MMR) vaccine (M-M-R II, PRIORIX) 02/16/2016 03/18/2016 REVIEW OF SYSTEMS: As outlined in HPI above. All other systems reviewed and negative. EXAMINATION: GEN: No acute distress, well-appearing HEENT: small blister of the lower lips appears consistent with HSV Cystic sores of the upper lips ?mucocele CV: Regular rate and rhythm, no murmurs RESP: Clear to auscultation bilaterally, no crackles ABD: Soft, non-tender MSK: No edema SKIN: No rashes NEURO: Conversant, no tremors LAB, MICROBIOLOGY, AND IMAGING DATA: Lab results, microbiology findings, and imaging reports reviewed. Relevant images personally reviewed. Relevant findings are incorporated at the appropriate places in the history section. ASSESSMENT: Eleazar Rondon is a 41 year old female with a history of cold sores, hypertension, and chronic esophagitis and gastritis, herniated disc s/p distectomy L5-S1 11/13/2021, Covid 12/2021 who presents due to sores on lip. She presents today with blisters on her lower lip consistent with prior oral herpes infection that has responded to valtrex in the past. RECOMMENDATIONS: - Valtrex 1 gram q24h x 5 days. Provided 5 refills Signature: Erma Harding MD Pager: Pager [facility] 04-17-2022 History of Present illness Narrative Images from the original note were not included. INFECTIOUS DISEASE CONSULT NOTE Date: April 17, 2022 Patient Name: Eleazar Rondon Non-healing sores on lip HISTORY OF PRESENT ILLNESS: Eleazar Rondon is a 41 year old female with a history of cold sores, hypertension, and chronic esophagitis and gastritis, herniated disc s/p distectomy L5-S1 11/13/2021, Covid 12/2021 who presents due to sores on lip. She states since January she has had painless sores on her top lip. She was seen by dermatology and these were thought to be mucoceles. She reports that since starting 20 prednisone for her back last week, and she now has painful blisters of her bottom lip which remind her of her cold sores in the past. She states she has had cold sores in the past which responded to valtrex. She denies fevers, chills, night sweats, fatigue, respiratory symptoms. She has chronic mild right upper quadrant pain. She also has low back pain. She is now seeing an central office maintainer and starting taking amanda hanh wan for the past week. She reports intermittent tingling of her extremities without numbness or asymmetric weakness which she states started since she had covid. EGD 10/23/2021: Few localized erosions without bleeding were found in the duodenal bulb Localized minimal inflammation characterized by erosions and friability found in gastric antrum. Non-severe esophagitis with no bleeding Pathology: A. Duodenum, biopsy: - Small bowel mucosa with no significant diagnostic alteration. - No evidence of celiac disease or enteritis. B. Antrum, biopsy: - Antral mucosa with no significant diagnostic alteration. - No morphologic evidence of Helicobacter pylori organisms. C. Distal esophagus, biopsy: - Reactive squamous mucosa with no significant inflammation. - No evidence of eosinophilia. - See comment. D. Mid esophagus, biopsy: - Squamous mucosa with no significant diagnostic alteration. - No evidence of esophagitis or eosinophilia. Due to the presence of reactive epithelial change an HSV immunostain was performed on block C1 and is negative for viral inclusions. PAST MEDICAL HISTORY Diagnosis Date Mononucleosis Unspecified essential hypertension Essential hypertension PAST SURGICAL HISTORY Procedure Laterality Date COLONOSCOPY 10/23/2021 EGD W/O [facility] SPEC VARICIES INJ 10/23/2021 ENDOMETRIAL ABLATION WITH US GUIDANCE 2020 LOW BACK DISK SURGERY 10/2021 discectomy, laminectomy REMOVE TUMOR, LEG OR ANKLE >5 CM 06/30/1994 right knee TYMPANOSTOMY LOCAL/TOPICAL ANESTHESIA 06/30/1989 VAGINAL DELIVERY W/ CARE ONLY 06/30/2009 FAMILY HISTORY FAMILY HISTORY Problem Relation Age of Onset Hypertension Father Alcohol/Drug Maternal Grandmother Cancer Maternal Grandfather Stroke Paternal Grandfather SOCIAL HISTORY Social History Tobacco Use Smoking status: Former Types: Cigarettes Quit date: 07/19/2002 Years since quittin.7 Smokeless tobacco: Never Tobacco comments: 1 cigarette daily at that time Vaping Use Vaping Use: Never used Substance Use Topics Alcohol use: Yes Alcohol/week: 5.0 standard drinks Types: 2 Glasses of Wine (5oz) per week Drug use: No MEDICATIONS: Medications reviewed. Current antibiotics: None ALLERGIES Allergen Reactions Benazepril Cough Clindamycin Rash IMMUNIZATION HISTORY Immunization History Administered Date(s) Administered Hepatitis B Adult 02/01/2016 03/18/2016 09/10/2016 PPD (Mantoux) 02/02/2016 02/14/2016 06/25/2017 07/02/2017 Tdap (Age 7+) 02/01/2016 measles mumps rubella (MMR) vaccine (M-M-R II, PRIORIX) 02/16/2016 03/18/2016 REVIEW OF SYSTEMS: As outlined in HPI above. All other systems reviewed and negative. EXAMINATION: GEN: No acute distress, well-appearing HEENT: small blister of the lower lips appears consistent with HSV Cystic sores of the upper lips ?mucocele CV: Regular rate and rhythm, no murmurs RESP: Clear to auscultation bilaterally, no crackles ABD: Soft, non-tender MSK: No edema SKIN: No rashes NEURO: Conversant, no tremors LAB, MICROBIOLOGY, AND IMAGING DATA: Lab results, microbiology findings, and imaging reports reviewed. Relevant images personally reviewed. Relevant findings are incorporated at the appropriate places in the history section. ASSESSMENT: Eleazar Rondon is a 41 year old female with a history of cold sores, hypertension, and chronic esophagitis and gastritis, herniated disc s/p distectomy L5-S1 11/13/2021, Covid 12/2021 who presents due to sores on lip. She presents today with blisters on her lower lip consistent with prior oral herpes infection that has responded to valtrex in the past. RECOMMENDATIONS: - Valtrex 1 gram q24h x 5 days. Provided 5 refills Signature: Erma Harding MD Pager: Pager documented in this encounter [facility] 03-14-2022 History of Present illness Narrative Orthopaedic Surgery Attending (Spine) I have personally seen and examined Eleazar Rondon and reviewed the relevant images in conjunction with the NOELLE or resident/fellow. I independently interviewed, examined and formulated the medical decision making along with him or her and provided a substantive portion of the care for this patient. I personally performed all aspects of the medical decision making for this encounter. I agree with the clinical history, physical examination, and management plan detailed in the above note. I have personally discussed the diagnosis and management with the patient and family. 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 [id number] female who presents for evaluation of back pain as well as bilateral leg pain. Patient states that she has dealt with back pain and leg pain for several years however this progressed as of December 2020. She was following with a Dr. Henson for this and had undergone several left L5-S1 TFESIs per her report. These were performed in December and March 2021 as well as August of 2021. She states that all of these worked very well in relieved her symptoms for several months. She underwent a L5-S1 left-sided hemilaminotomy and microdiskectomy on 11/13/2021. She states that overall her symptoms are not significantly improved and may be even worse. She also endorses now pain on her right leg which previously she only had left-sided pain. She states that the pain originates in her low back and traverses through her buttock as well as lateral thigh and then skips down to her foot in a nondermatomal fashion. She states that her symptoms are 75% back and 25% leg. She also additionally endorses numbness as well as tingling in her legs. She states that the pain in her right leg is only along her lateral thigh. She states that her symptoms are worse with activities such as running and prolonged periods of sitting or standing. She denies any thing that improves her symptoms. She denies any gait abnormalities. She denies any bowel or bladder issues. She denies any hand dexterity issues. She denies fevers or chills. Since her surgery she has undergone physical therapy which she states did not help. She did take a prednisone pack for 6 days which did temporarily help her symptoms. She additionally uses Tylenol as needed. On February 05 she underwent a left-sided L5-S1 transforaminal epidural steroid injection per care everywhere notes, which she states did not provide her with any relief. She states that the last time she saw her surgeon, she was offered an fusion, however she did not want to proceed with this. Past medical history of epigastric pain Care everywhere notes reviewed. Chart notes and referral notes reviewed. Review of Systems: Chart review of systems was reviewed prior to the interview. A subset of that information is presented below. Constitutional: - Unexplained Weight Loss No - Fever/chills No Chest: - Chest Pain No - Shortness of Breath No - Abdominal Pain No Musculoskeletal: -spine or extremity pain Yes Neurological: -Extremity numbness Yes -Tingling Yes - Weakness No GI/: - Bowel incontinence No - Bladder incontinence No Bleeding disorders: - DVT/PE No - increased clotting disorder No - increased bleeding disorder No Past Medical History: Past Medical History: Diagnosis Date Herniated cervical disc Past Surgical History: Past Surgical History: Procedure Laterality Date LUMBAR DISKECTOMY 10/2021 [facility] TUMOR REMOVAL Left Knee; Benign Social History: Smoking No , ETOH socially Social History Occupational History Not on file Tobacco Use Smoking status: Never Smoker Smokeless tobacco: Never Used Substance and Sexual Activity Alcohol use: Not on file Comment: Occasional Drug use: Not Currently Sexual activity: Not on file Family History: History reviewed. No pertinent family history. Medications: Outpatient Medications Prior to Visit Medication Sig Dispense Refill ALPRAZolam 0.5 MG tablet take 1 tablet by mouth once daily if needed Ascorbic Acid (VITAMIN C PLUS WILD ALEXSANDER HIPS PO) B Complex Vitamins (VITAMIN B COMPLEX PO) Take by mouth. cholecalciferol 125 MCG (5000 UNIT) tablet faMOTIdine 20 MG tablet take 1 tablet by mouth at bedtime if needed losartan 100 MG tablet Take 100 mg by mouth daily. methylPREDNIsolone 4 MG Tab Therapy Pack tablet use as directed FOLLOW DIRECTIONS ON BACK OF FOIL PACK - DO NOT TAKE NSAIDS WHILE ON THIS nystatin [id number] UNIT/ML oral suspension SWISH AND SPIT 5 milliliters by mouth four times a day Iron-Vitamin C (IRON 100/C PO) VITAMIN B COMPLEX-C PO acyclovir 400mg 400 MG tablet take 1 tablet by mouth three times a day for 7 days (Patient not taking: Reported on 03/14/2022) DULoxetine [address] Particles capsule DR Take 20 mg by mouth daily. (Patient not taking: Reported on 03/14/2022) omeprazole [address] capsule Take 40 mg by mouth daily. (Patient not taking: Reported on 03/14/2022) sucralfate 1 g tablet Take 1 g by mouth 4 times daily. (Patient not taking: Reported on 03/14/2022) thyroid 60 MG tablet Take 60 mg by mouth Daily (with dinner). (Patient not taking: Reported on 03/14/2022) escitalopram 5 MG tablet Take 5 mg by mouth at bedtime. No facility-administered medications prior to visit. Allergies: is allergic to clindamycin, clindamycin phos-benzoyl perox, and benazepril. Physical Exam: General: Vitals: 03/14/22 1356 BP: (P) 141/86 Pulse: (P) 62 Weight: (P) 57.4 kg (126 lb 9.6 oz) Height: (P) 1.651 m (5' 5 ) No acute distress Psych: A+Ox3, Affect is appropriate Gait: Gait: Slightly antalgic gait pattern Heel and toe walking is intact Able to tandem gait Peripheral Vascular: LE swelling No Fingers/toes warm, well perfused. DP/PT palpable, capillary refill < 2 seconds Skin: Lesions on Skin No Spine: No skin lesions, ulcers noted. No visual asymmetry or rotation in cervicothoracolumbosacral spine noted. Cervicothoracolumbosacral spine mildly tender to palpation at the inferior aspect of her incision. Patient s spine is normal (alignment). Range of motion of the lumbar spine is slightly limited in flexion, extension, lateral bending, and rotation (with pain). Dysraphism (neural tube defect) absent, Prior surgical scars healed Neuro: Upper extremity (R/L): deltoids R 5/5 L 5/5, biceps R 5/5, L 5/5, wrist extensors R 5/5 L 5/5, triceps R 5/5, L 5/5, finger flexors R 5/5, L 5/5, and first dorsal interossei R 5/5 L 5/5. Lower extremity (R/L): hip flexors R 5/5, L 5/5, quadriceps R 5/5, L 5/5, anterior tibialis R 5/5, L 5/5, EHL R 5/5 L 5/5, hamstrings R 5/5, L 5/5, gastrocsoleus R 5/5, L 5/5. Reflexes (R/L): biceps R +2 / L +2, triceps R +2 / L +2, brachioradialis R +2 / L +2, patellar R +2 / L +2, Achilles deep tendon R +2 / L +2. Clonus (R/L): 0/0 Negative bilateral upper extremities Hoffmans Babinksi (R/L): Downgoing Sensation to light touch in the upper and lower extremities are intact. Imaging Independent review Xrays lumbar spine 03/07/2022 [facility] reveals diffuse spondylosis. MRI lumbar spine 01/02/2022 [facility] reveals diffuse spondylosis. No severe central, lateral recess or foraminal stenosis. Prior right sided L5-S1 hemilaminotomy defect. Clinical impression: Patient is a 41 y.o. female who presents with low back pain and bilateral leg pain s/p left L5-S1 hemilaminotomy with microdiscectomy elsewhere Plan: The natural history and course of the symptomatology of Ms Rondon was discussed in detail with the patient. I answered all questions regarding the mode of onset, pathophysiology, symptoms, imaging findings, treatment options regarding her diagnosis. We discussed that based on her imaging, we currently do not see an indication for surgical intervention. We discussed a referral to Dr. Curry as she is interested in potential PRP injections. Follow up as needed with us. Plan of care discussed. All questions answered. The patient and her significant other verbalized understanding of the disease process and agreed to the treatment plan formulated for this visit. Cullen Angel MD Orthopaedic Surgery Spine Fellow documented in this encounter [facility] 03-05-2022 Note HNO ID: [id number] Author: Nicolas Alicea MD Service: ? Author Type: Physician Type: Progress Notes Filed: 03/05/2022 10:18 AM Note Text: HISTORY AND PHYSICAL Eleazar Rondon 1980 REFERRING PHYSICIAN: MD William CHIEF COMPLAINT: Follow Up (Continued epigastric pain, sores in mouth x5 weeks) HPI: The patient is a 41 year old female referred for endoscopy. Initially saw her in September for epigastric symptoms and performed upper endoscopy. Eleazar is a patient I am following for epigastric pain. The patient is a 41 year old female referred for endoscopy. Eleazar notes pain in her epigastric area. She noticed this is more severe when she was on vacation in [place] back in August 18. She noted epigastric pain and a sensation of substernal chest discomfort which she said it been progressive over 2 weeks. The pain was worse the day she presented emergency department. Of note, the patient is thin and did run 2 and half miles the day before without any exertional chest pain. As they were confident this was not cardiac and the patient lives in [place] she declined additional work-up at that time and return to her primary care physician, Lizette Dawkins. The patient notes episodic upper abdominal pain more in the epigastric area. She describes it is occasionally radiating both to the left and the right. It also occasionally goes up to her shoulder. At times she notes it is burning other times she notes it is cramping. Initial impression was that this was going to be biliary colic in nature. The patient had the following work-up. She underwent CT scan of the abdomen pelvis previously at [facility]. No abnormalities were seen at that time. The patient had laboratory studies obtained her liver profile was in normal range with normal bilirubin normal transaminases normal alkaline phosphatase along with a normal lipase and normal white count. More recently, the patient underwent right upper quadrant ultrasound on August 22, 2021. This returned as normal right upper quadrant ultrasound with no abnormalities noted. She also had laboratory studies obtained on August 24, 2021. This demonstrated mildly elevated transaminases and alkaline phosphatase with a normal total bilirubin. White blood cell count was normal at both times. With these mildly elevated studies the patient had multiple additional liver enzymes obtained on September 06, 2019. These included MEHNAZ which was normal antimitochondrial antibody which was normal. Hepatitis profile was negative. Anti-smooth muscle antibody was negative. Ferritin was within normal range. CMV antibody was negative. Antiliver antikidney microsomal antibody was negative. Transferrin was negative. Repeat hepatic function demonstrated alkaline phosphatase now just slightly over normal range with a normal AST and slightly elevated ALT with a normal bilirubin. GGT was also mildly elevated at 435. Hepatitis panel was negative. Ceruloplasmin was negative. Copper studies were within normal range. He had a follow-up hepatic function panel on September 27. By this time bilirubin alk phos and AST were normal. ALT was just slightly elevated and GGT was now at 256 Patient had a HIDA scan obtained with ejection fraction. Her ejection fraction was 80%, she does recall that she was having some epigastric pain before the test started and still had pain at the conclusion of the test. She was started on Pepcid and she states this is caused some improvement but not complete improvement. She stopped taking the Bentyl as she thought this was causing her more cramping issues and not helping her symptoms The patient denies colon issues. Eleazar has not undergone prior endoscopy. Dr. Murphy performed upper endoscopy on October 23, 2021. The patient was found to have: Impression: - Normal examined jejunum. - Duodenal erosions without bleeding. Biopsied. - Gastritis. Biopsied. - Non-severe reflux esophagitis. Biopsied. - Normal middle third of esophagus. Biopsied The patient was started on Prilosec 40 mg daily. Pathology demonstrated: FINAL DIAGNOSIS A. Duodenum, biopsy: - Small bowel mucosa with no significant diagnostic alteration. - No evidence of celiac disease or enteritis. B. Antrum, biopsy: - Antral mucosa with no significant diagnostic alteration. - No morphologic evidence of Helicobacter pylori organisms. C. Distal esophagus, biopsy: - Reactive squamous mucosa with no significant inflammation. - No evidence of eosinophilia. - See comment. D. Mid esophagus, biopsy: - Squamous mucosa with no significant diagnostic alteration. - No evidence of esophagitis or eosinophilia. The patient notes more improvement but not complete resolution of her complaints since the procedure. The patient states she was doing even better when approximately a week and a half ago she developed epigastric pain, discomfort swallowing that basically is left her ta (more content not included)... [facility] 03-05-2022 History of Present illness Narrative HISTORY AND PHYSICAL Eleazar Rondon 1980 REFERRING PHYSICIAN: MD William CHIEF COMPLAINT: Follow Up (Continued epigastric pain, sores in mouth x5 weeks) HPI: The patient is a 41 year old female referred for endoscopy. Initially saw her in September for epigastric symptoms and performed upper endoscopy. Eleazar is a patient I am following for epigastric pain. The patient is a 41 year old female referred for endoscopy. Eleazar notes pain in her epigastric area. She noticed this is more severe when she was on vacation in [place] back in August 18. She noted epigastric pain and a sensation of substernal chest discomfort which she said it been progressive over 2 weeks. The pain was worse the day she presented emergency department. Of note, the patient is thin and did run 2 and half miles the day before without any exertional chest pain. As they were confident this was not cardiac and the patient lives in [place] she declined additional work-up at that time and return to her primary care physician, Lizette Dawkins. The patient notes episodic upper abdominal pain more in the epigastric area. She describes it is occasionally radiating both to the left and the right. It also occasionally goes up to her shoulder. At times she notes it is burning other times she notes it is cramping. Initial impression was that this was going to be biliary colic in nature. The patient had the following work-up. She underwent CT scan of the abdomen pelvis previously at [facility]. No abnormalities were seen at that time. The patient had laboratory studies obtained her liver profile was in normal range with normal bilirubin normal transaminases normal alkaline phosphatase along with a normal lipase and normal white count. More recently, the patient underwent right upper quadrant ultrasound on August 22, 2021. This returned as normal right upper quadrant ultrasound with no abnormalities noted. She also had laboratory studies obtained on August 24, 2021. This demonstrated mildly elevated transaminases and alkaline phosphatase with a normal total bilirubin. White blood cell count was normal at both times. With these mildly elevated studies the patient had multiple additional liver enzymes obtained on September 06, 2019. These included MEHNAZ which was normal antimitochondrial antibody which was normal. Hepatitis profile was negative. Anti-smooth muscle antibody was negative. Ferritin was within normal range. CMV antibody was negative. Antiliver antikidney microsomal antibody was negative. Transferrin was negative. Repeat hepatic function demonstrated alkaline phosphatase now just slightly over normal range with a normal AST and slightly elevated ALT with a normal bilirubin. GGT was also mildly elevated at 435. Hepatitis panel was negative. Ceruloplasmin was negative. Copper studies were within normal range. He had a follow-up hepatic function panel on September 27. By this time bilirubin alk phos and AST were normal. ALT was just slightly elevated and GGT was now at 256 Patient had a HIDA scan obtained with ejection fraction. Her ejection fraction was 80%, she does recall that she was having some epigastric pain before the test started and still had pain at the conclusion of the test. She was started on Pepcid and she states this is caused some improvement but not complete improvement. She stopped taking the Bentyl as she thought this was causing her more cramping issues and not helping her symptoms The patient denies colon issues. Eleazar has not undergone prior endoscopy. Dr. Murphy performed upper endoscopy on October 23, 2021. The patient was found to have: Impression: - Normal examined jejunum. - Duodenal erosions without bleeding. Biopsied. - Gastritis. Biopsied. - Non-severe reflux esophagitis. Biopsied. - Normal middle third of esophagus. Biopsied The patient was started on Prilosec 40 mg daily. Pathology demonstrated: FINAL DIAGNOSIS A. Duodenum, biopsy: - Small bowel mucosa with no significant diagnostic alteration. - No evidence of celiac disease or enteritis. B. Antrum, biopsy: - Antral mucosa with no significant diagnostic alteration. - No morphologic evidence of Helicobacter pylori organisms. C. Distal esophagus, biopsy: - Reactive squamous mucosa with no significant inflammation. - No evidence of eosinophilia. - See comment. D. Mid esophagus, biopsy: - Squamous mucosa with no significant diagnostic alteration. - No evidence of esophagitis or eosinophilia. The patient notes more improvement but not complete resolution of her complaints since the procedure. The patient states she was doing even better when approximately a week and a half ago she developed epigastric pain, discomfort swallowing that basically is left her taking only liquids and noticed aphthous ulcers/sores on her lips and mouth. This started around January 29. She notes that the lip lesions have been getting slightly better but still has upper GI complaints. [facility]. D-dimer and strep were negative. Due to the ulceration on her lip and dysphagia I was concerned about herpetic esophagitis. I had scheduled her for an upper endoscopy later that week. When she spoke to the preendoscopy staff she understood that she was going to be getting general anesthetic not just to sedation. As a result she got anxious and canceled her procedure. I had then discussed her taking Carafate but she recalled Carafate did not work for her in the past. She returns today to discuss the next possible steps. She still notes ulcerations in her mouth and still notes dysphagia Patient is stated that her discomfort is not relieved with proton pump inhibitors. She does get some relief by taking the Carafate. States that she has been having episodes where she would wake up with a bitter taste in her mouth. But she does not have regurgitative symptoms when she bends over to tie her shoes. PAST MEDICAL HISTORY Diagnosis Date Mononucleosis Unspecified essential hypertension Essential hypertension PAST SURGICAL HISTORY Procedure Laterality Date COLONOSCOPY 10/23/2021 EGD W/O [facility] SPEC VARICIES INJ 10/23/2021 ENDOMETRIAL ABLATION WITH US GUIDANCE 2020 LOW BACK DISK SURGERY 10/2021 discectomy, laminectomy REMOVE TUMOR, LEG OR ANKLE >5 CM 06/30/1994 right knee TYMPANOSTOMY LOCAL/TOPICAL ANESTHESIA 06/30/1989 VAGINAL DELIVERY W/ CARE ONLY 06/30/2009 Current Outpatient Medications Medication Sig sucralfate (CARAFATE) 1 gram tablet Take 1 tablet by mouth four times daily. escitalopram oxalate (LEXAPRO) 5 mg tablet Take 5 mg by mouth once daily. famotidine (PEPCID) 20 mg tablet take 1 tablet by mouth at bedtime if needed losartan (COZAAR) 100 mg tablet Take 100 mg by mouth once daily. cholecalciferol, vitamin D3, (VITAMIN D3 ORAL) Take by mouth once daily. fexofenadine/pseudoephedrine (SHERIN-D 24 HOUR ORAL) Take 1 tablet by mouth as needed. olopatadine (PATANOL) 0.1 % ophthalmic solution Use 1 Drop in both eyes twice daily. omeprazole (PRILOSEC) 40 mg capsule Take 1 capsule by mouth once daily. (Patient not taking: Reported on 03/05/2022) omeprazole (PRILOSEC) 20 mg capsule Take 2 capsules by mouth once daily. No current facility-administered medications for this visit. ALLERGIES: Benazepril and Clindamycin PERSONAL HISTORY: Social History Tobacco Use Smoking status: Former Types: Cigarettes Quit date: 07/19/2002 Years since quittin.6 Smokeless tobacco: Never Tobacco comments: 1 cigarette daily at that time Vaping Use Vaping Use: Never used Substance Use Topics Alcohol use: Yes Alcohol/week: 5.0 standard drinks Types: 2 Glasses of Wine (5oz) per week Drug use: No FAMILY HISTORY: FAMILY HISTORY Problem Relation Age of Onset Hypertension Father Alcohol/Drug Maternal Grandmother Cancer Maternal Grandfather Stroke Paternal Grandfather REVIEW OF SYSTEMS: General: The patient denies fatigue, notes weight loss, denies weight gain, denies feeling hot, and denies feelings of cold. Eyes: The patient denies glaucoma, denies eye injury/surgery, does not wear glasses or contacts. Ear/Nose/Throat: The patient notes allergies, denies hayfever, denies ear infections, and denies bloody noses. Cardiovascular: The patient notes chest pain, denies heart disease, notes high blood pressure,denies cardiac stent, denies prior heart attack, denies irregular heart beat, denies high cholesterol, denies poor circulation, denies heart failure, other cardiac issues, denies claudication, denies cold feet, denies peripheral arterial stent. Respiratory: The patient denies tuberculosis, denies pneumonia, denies frequent cough, denies pulmonary embolism, denies shortness of breath, and denies coughing up blood. Gastrointestinal: The patient denies difficulty swallowing, denies acid reflux, denies ulcers, denies vomiting, denies jaundice/hepatitis, denies gallbladder problems, denies black or tarry stools, denies hemorrhoids, denies bleeding from rectum, denies diverticulitis, denies constipation, denies diarrhea, denies loss of stool control, and denies hernias. Kidney/Bladder: The patient denies kidney stones, denies urine infections, and denies bloody urine. Skin: The patient denies a history of skin cancer, denies bleeding/changing moles, and denies a history of skin rash. Neurologic: The patient denies a history of epilepsy/convulsions, denies headaches, denies head/spinal injuries, and denies stroke/TIA. Psychiatric: The patient denies psychiatric medications, denies depression, and denies voices, denies substance abuse. Endocrine: The patient denies thyroid disorders, denies diabetes, and denies hormonal problems. Hematologic: The patient denies a history of bruising, denies bleeding, and denies anemia, denies blood clots. Infections: The patient denies a history of measles and mumps, denies rheumatic fever, and denies sexually transmitted diseases. Musculoskeletal: The patient notes back pain/injury, denies back problems, denies sciatica, denies knee/foot trouble, denies arthritis, or denies gout. PHYSICAL EXAMINATION: General: The patient is 41 year old female, well nourished, well hydrated in no acute distress. The patient is oriented to time, place, and person. VITALS: Blood pressure 128/88, pulse 66, temperature 36.4 C (97.6 F), weight 58.2 kg (128 lb 3.2 oz), last menstrual period 10/16/2021, SpO2 98 %. Body mass index is 21.33 kg/m . HEENT: Normal cephalic, ataumatic, pupils are equally round, sclera are anicteric, mucous membranes are moist, oropharynx is clear. Neck has no masses, asymmetry or lymphadenopathy. Thyroid is unremarkable. Respiratory: Clear to auscultation and percussion. Normal respiratory excursion and pattern. Cardiac: Examination is regular rate and rhythm. Abdominal exam: Soft, nontender, with no palpable masses. No hepatosplenomegaly. No palpable hernias. Rectal exam: exam deferred Extremities: no clubbing, cyanosis or edema. No adenopathy. Other: LABORATORY VALUES: As Noted RADIOLOGIC STUDIES: As Noted Assessment IMPRESSION: Gastroesophageal reflux disease, unspecified whether esophagitis present (primary encounter diagnosis) Mouth sore PLAN: I plan to perform upper endoscopy with a 48-hour pH probe. We discussed the risks and benefits of the planned endoscopy. I have informed the patient that complications can occur including failure to complete the endoscopy and perforation. The patient had the opportunity to ask questions concerning the planned endoscopy. My staff has also explained the procedure to the patient in understandable terms and has given the patient printed material concerning the procedure. The patient freely consents to surgery. Diagnoses: (K21.9) Gastroesophageal reflux disease, unspecified whether esophagitis present (primary encounter diagnosis) (K13.79) Mouth sore A letter was sent to Dr. Cassidy Dawkins DO, DO indicating the above finding for this patient. Return to Clinic: The patient is instructed to follow-up with me 1 week post operatively. Nicolas Alicea III, MD documented in this encounter [facility] 03-05-2022 Miscellaneous Notes Spoke to [facility], medical records and radiology, HIDA scan report to be faxed and Disc will be mailed to Dr Alicea. Najma Duran LPN documented in this encounter [facility] 03-01-2022 Miscellaneous Notes Images from the original note were not included. Patient scheduled for 03/05/[address] Alicea. ALVARADO Benz MD 59 minutes ago (7:17 AM) Can you get the patient into see me so that I can get her scheduled for a repeat EGD Note MD Martha Mujica MD; Ellie Canada PA-C; Pam Cole MD 1 hour ago (7:15 AM) I will be glad to see her back and do an upper scope MD Ellie Guerra PA-C; Nicolas Alicea MD; Pam Cole MD 1 hour ago (7:00 AM) Can either of you do an upper endoscopy on this patient in my absence? Thanks Rich CARMELA Wood MD 18 hours ago (1:51 PM) Will defer to you after reviewing your note, as not sure how you want to proceed. FYI I am out of the office tomorrow Can you get the patient into see me so that I can get her scheduled for a repeat EGD Pt states epigastric pain has worsened. She had recent labs with elevated enzymes. She is a pt of Dr. Musa but understood he may be out. She had had testing done both at [place] ([place]) and [facility] (labs and US). She would like to know if she should be seen by someone sooner than with Dr. Musa when he returns. documented in this encounter [facility] 02-21-2022 Note HNO ID: [id number] Author: Martha Musa MD Service: ? Author Type: Physician Type: Progress Notes Filed: 02/21/2022 3:48 PM Note Text: HISTORY AND PHYSICAL Eleazar Rondon 1980 REFERRING PHYSICIAN: Cassidy Dawkins,* CHIEF COMPLAINT: Follow Up (Constant heartburn w/mouth sores, EGD done 09/2021) HPI: The patient is a 41 year old female referred for endoscopy. Initially saw her in September for epigastric symptoms and performed upper endoscopy. Eleazar is a patient I am following for epigastric pain. The patient is a 41 year old female referred for endoscopy. Eleazar notes pain in her epigastric area. She noticed this is more severe when she was on vacation in [facility] in August 18. She noted epigastric pain and a sensation of substernal chest discomfort which she said it been progressive over 2 weeks. The pain was worse the day she presented emergency department. Of note, the patient is thin and did run 2 and half miles the day before without any exertional chest pain. As they were confident this was not cardiac and the patient lives in [place] she declined additional work-up at that time and return to her primary care physician, Lizette Dawkins. The patient notes episodic upper abdominal pain more in the epigastric area. She describes it is occasionally radiating both to the left and the right. It also occasionally goes up to her shoulder. At times she notes it is burning other times she notes it is cramping. Initial impression was that this was going to be biliary colic in nature. The patient had the following work-up. She underwent CT scan of the abdomen pelvis previously at [facility]. No abnormalities were seen at that time. The patient had laboratory studies obtained her liver profile was in normal range with normal bilirubin normal transaminases normal alkaline phosphatase along with a normal lipase and normal white count. More recently, the patient underwent right upper quadrant ultrasound on August 22, 2021. This returned as normal right upper quadrant ultrasound with no abnormalities noted. She also had laboratory studies obtained on August 24, 2021. This demonstrated mildly elevated transaminases and alkaline phosphatase with a normal total bilirubin. White blood cell count was normal at both times. With these mildly elevated studies the patient had multiple additional liver enzymes obtained on September 06, 2019. These included MEHNAZ which was normal antimitochondrial antibody which was normal. Hepatitis profile was negative. Anti-smooth muscle antibody was negative. Ferritin was within normal range. CMV antibody was negative. Antiliver antikidney microsomal antibody was negative. Transferrin was negative. Repeat hepatic function demonstrated alkaline phosphatase now just slightly over normal range with a normal AST and slightly elevated ALT with a normal bilirubin. GGT was also mildly elevated at 435. Hepatitis panel was negative. Ceruloplasmin was negative. Copper studies were within normal range. He had a follow-up [facility] function panel on September 27. By this time bilirubin alk phos and AST were normal. ALT was just slightly elevated and GGT was now at 256 Patient had a HIDA scan obtained with ejection fraction. I do not have those results but she states this also was normal. She does recall that she was having some epigastric pain before the test started and still had pain at the conclusion of the test. She was started on Pepcid and she states this is caused some improvement but not complete improvement. She stopped taking the Bentyl as she thought this was causing her more cramping issues and not helping her symptoms The patient denies colon issues. Eleazar has not undergone prior endoscopy. The patient is being seen by meat the request of Dr. Cassidy Dawkins DO, DO for my opinion and advice regarding upper abdominal symptoms so far negative work-up for biliary colic with some mildly elevated liver enzymes I performed upper endoscopy on October 23, 2021. The patient was found to have: Impression: - Normal examined jejunum. - Duodenal erosions without bleeding. Biopsied. - Gastritis. Biopsied. - Non-severe reflux esophagitis. Biopsied. - Normal middle third of esophagus. Biopsied The patient was started on Prilosec 40 mg daily. Pathology demonstrated: FINAL DIAGNOSIS A. Duodenum, biopsy: - Small bowel mucosa with no significant diagnostic alteration. - No evidence of celiac disease or enteritis. B. Antrum, biopsy: - Antral mucosa with no significant diagnostic alteration. - No morphologic evidence of Helicobacter pylori organisms. C. Distal esophagus, biopsy: - Reactive squamous mucosa with no significant inflammation. - No evidence of eosinophilia. - See comment. D. Mid esophagus, biopsy: - Squamous mucosa with no significant diagnostic alteration. - No evidence of esophagitis or eosinophilia. The corine (more content not included)... [facility] 02-21-2022 History of Present illness Narrative HISTORY AND PHYSICAL Eleazar Rondon 1980 REFERRING PHYSICIAN: Cassidy Dawkins,* CHIEF COMPLAINT: Follow Up (Constant heartburn w/mouth sores, EGD done 09/2021) HPI: The patient is a 41 year old female referred for endoscopy. Initially saw her in September for epigastric symptoms and performed upper endoscopy. Eleazar is a patient I am following for epigastric pain. The patient is a 41 year old female referred for endoscopy. Eleazar notes pain in her epigastric area. She noticed this is more severe when she was on vacation in [place] back in August 18. She noted epigastric pain and a sensation of substernal chest discomfort which she said it been progressive over 2 weeks. The pain was worse the day she presented emergency department. Of note, the patient is thin and did run 2 and half miles the day before without any exertional chest pain. As they were confident this was not cardiac and the patient lives in [place] she declined additional work-up at that time and return to her primary care physician, Lizette Dawkins. The patient notes episodic upper abdominal pain more in the epigastric area. She describes it is occasionally radiating both to the left and the right. It also occasionally goes up to her shoulder. At times she notes it is burning other times she notes it is cramping. Initial impression was that this was going to be biliary colic in nature. The patient had the following work-up. She underwent CT scan of the abdomen pelvis previously at [facility]. No abnormalities were seen at that time. The patient had laboratory studies obtained her liver profile was in normal range with normal bilirubin normal transaminases normal alkaline phosphatase along with a normal lipase and normal white count. More recently, the patient underwent right upper quadrant ultrasound on August 22, 2021. This returned as normal right upper quadrant ultrasound with no abnormalities noted. She also had laboratory studies obtained on August 24, 2021. This demonstrated mildly elevated transaminases and alkaline phosphatase with a normal total bilirubin. White blood cell count was normal at both times. With these mildly elevated studies the patient had multiple additional liver enzymes obtained on September 06, 2019. These included MEHNAZ which was normal antimitochondrial antibody which was normal. Hepatitis profile was negative. Anti-smooth muscle antibody was negative. Ferritin was within normal range. CMV antibody was negative. Antiliver antikidney microsomal antibody was negative. Transferrin was negative. Repeat hepatic function demonstrated alkaline phosphatase now just slightly over normal range with a normal AST and slightly elevated ALT with a normal bilirubin. GGT was also mildly elevated at 435. Hepatitis panel was negative. Ceruloplasmin was negative. Copper studies were within normal range. He had a follow-up [facility] function panel on September 27. By this time bilirubin alk phos and AST were normal. ALT was just slightly elevated and GGT was now at 256 Patient had a HIDA scan obtained with ejection fraction. I do not have those results but she states this also was normal. She does recall that she was having some epigastric pain before the test started and still had pain at the conclusion of the test. She was started on Pepcid and she states this is caused some improvement but not complete improvement. She stopped taking the Bentyl as she thought this was causing her more cramping issues and not helping her symptoms The patient denies colon issues. Eleazar has not undergone prior endoscopy. The patient is being seen by meat the request of Dr. Cassidy Dawkins, , DO for my opinion and advice regarding upper abdominal symptoms so far negative work-up for biliary colic with some mildly elevated liver enzymes I performed upper endoscopy on October 23, 2021. The patient was found to have: Impression: - Normal examined jejunum. - Duodenal erosions without bleeding. Biopsied. - Gastritis. Biopsied. - Non-severe reflux esophagitis. Biopsied. - Normal middle third of esophagus. Biopsied The patient was started on Prilosec 40 mg daily. Pathology demonstrated: FINAL DIAGNOSIS A. Duodenum, biopsy: - Small bowel mucosa with no significant diagnostic alteration. - No evidence of celiac disease or enteritis. B. Antrum, biopsy: - Antral mucosa with no significant diagnostic alteration. - No morphologic evidence of Helicobacter pylori organisms. C. Distal esophagus, biopsy: - Reactive squamous mucosa with no significant inflammation. - No evidence of eosinophilia. - See comment. D. Mid esophagus, biopsy: - Squamous mucosa with no significant diagnostic alteration. - No evidence of esophagitis or eosinophilia. The patient notes more improvement but not complete resolution of her complaints since the procedure. The patient states she was doing even better when approximately a week and a half ago she developed epigastric pain, discomfort swallowing that basically is left her taking only liquids and noticed aphthous ulcers/sores on her lips and mouth. This started around January 29. She notes that the lip lesions have been getting slightly better but still has upper GI complaints. [facility] in [facility]. D-dimer and strep were negative. Due to the ulceration on her lip and dysphagia I was concerned about herpetic esophagitis. I had scheduled her for an upper endoscopy later that week. When she spoke to the preendoscopy staff she understood that she was going to be getting general anesthetic not just to sedation. As a result she got anxious and canceled her procedure. I had then discussed her taking Carafate but she recalled Carafate did not work for her in the past. She returns today to discuss the next possible steps. She still notes ulcerations in her mouth and still notes dysphagia PAST MEDICAL HISTORY Diagnosis Date Mononucleosis Unspecified essential hypertension Essential hypertension PAST SURGICAL HISTORY Procedure Laterality Date COLONOSCOPY 10/23/2021 ENDOMETRIAL ABLATION WITH US GUIDANCE 2020 LOW BACK DISK SURGERY 10/2021 discectomy, laminectomy REMOVE TUMOR, LEG OR ANKLE >5 CM 06/30/1994 right knee TYMPANOSTOMY LOCAL/TOPICAL ANESTHESIA 06/30/1989 VAGINAL DELIVERY W/ CARE ONLY 06/30/2009 Current Outpatient Medications Medication Sig escitalopram oxalate (LEXAPRO) 5 mg tablet Take 5 mg by mouth once daily. famotidine (PEPCID) 20 mg tablet take 1 tablet by mouth at bedtime if needed losartan (COZAAR) 100 mg tablet Take 100 mg by mouth once daily. cholecalciferol, vitamin D3, (VITAMIN D3 ORAL) Take by mouth once daily. fexofenadine/pseudoephedrine (SHERIN-D 24 HOUR ORAL) Take 1 tablet by mouth as needed. olopatadine (PATANOL) 0.1 % ophthalmic solution Use 1 Drop in both eyes twice daily. omeprazole (PRILOSEC) 40 mg capsule Take 1 capsule by mouth once daily. (Patient not taking: Reported on 02/21/2022) sucralfate (CARAFATE) 1 gram tablet Take 1 tablet by mouth four times daily. (Patient not taking: Reported on 02/21/2022) omeprazole (PRILOSEC) 20 mg capsule Take 2 capsules by mouth once daily. No current facility-administered medications for this visit. ALLERGIES: Benazepril and Clindamycin PERSONAL HISTORY: Social History Tobacco Use Smoking status: Former Types: Cigarettes Quit date: 07/19/2002 Years since quittin.6 Smokeless tobacco: Never Tobacco comments: 1 cigarette daily at that time Vaping Use Vaping Use: Never used Substance Use Topics Alcohol use: Yes Alcohol/week: 5.0 standard drinks Types: 2 Glasses of Wine (5oz) per week Drug use: No FAMILY HISTORY: FAMILY HISTORY Problem Relation Age of Onset Hypertension Father Alcohol/Drug Maternal Grandmother Cancer Maternal Grandfather Stroke Paternal Grandfather REVIEW OF SYMPTOMS: The review of systems data was entered by the nurse and reviewed by me There are no exam notes on file for this visit. PHYSICAL EXAMINATION: General: The patient is 41 year old female, well nourished, well hydrated in no acute distress. The patient is oriented to time, place, and person. VITALS: Pulse 85, temperature 36.6 C (97.9 F), height 165.1 cm (5' 5 ), weight 57.2 kg (126 lb), last menstrual period 10/16/2021, SpO2 96 %. Body mass index is 20.97 kg/m . HEENT: Normal cephalic, ataumatic, pupils are equally round, sclera are anicteric, mucous membranes are moist, oropharynx is clear. Neck has no masses, asymmetry or lymphadenopathy. Thyroid is unremarkable. small ulcers on her internal lips and uvula Respiratory: Clear to auscultation and percussion. Normal respiratory excursion and pattern. Cardiac: Examination is regular rate and rhythm. Abdominal exam: Soft, nontender, with no palpable masses. No hepatosplenomegaly. No palpable hernias. Rectal exam: exam deferred Extremities: no clubbing, cyanosis or edema. No adenopathy. Other: LABORATORY VALUES: As Noted RADIOLOGIC STUDIES: As Noted Assessment IMPRESSION: Epigastric pain, dysphagia since development of oral and lip superficial ulcerations-questionable herpetic esophagitis? PLAN: She is concerned about taking Carafate as a slurry, I would recommend trying Maalox to see if this improves her symptoms otherwise I would still recommend trying a slurry of Carafate to see how this works. I now have no further endoscopy time before I go on vacation for 3 weeks so the next opportunity for endoscopy would be in March at the earliest. Given the fact that she has nonhealing sores on her lips and mouth I would recommend referral to ID to see if they can give a more exact diagnosis than I can and treat her. If she is still having symptoms when I return, I plan to perform upper endoscopy. We discussed the risks and benefits of the planned endoscopy. I have informed the patient that complications can occur including failure to complete the endoscopy and perforation. The patient had the opportunity to ask questions concerning the planned endoscopy. My staff has also explained the procedure to the patient in understandable terms and has given the patient printed material concerning the procedure. The patient freely consents to surgery. I plan for monitored anesthetic care. I have prescribed Carafate 4 times a day to see if this temporizes her symptoms. If she actually has herpetic ulcerations would consider antivirals. Diagnoses: (R10.13) Epigastric pain (primary encounter diagnosis) Return to Clinic: The patient is instructed to follow-up with me after testing. Martha Musa MD documented in this encounter [facility] 02-14-2022 Miscellaneous Notes I filled Prilosec 40 mg a day. Please let her know I do want her to try the Carafate as if she does have herpetic esophagitis this should make it better faster than the Prilosec, especially since she canceled her procedure tomorrow and I will not be able to do another scope for some time. Called Eleazar. Advised that according to Dr. Musa's note, he was starting her on Carafate. Eleazar advised that she did not realize the generic name of Carafate, Dr. Rice had prescribed it 3-4 months ago and it did not work for me, I quit taking it after 4 or 5 days. It made things worse . She is requesting that the omeprazole 20 mg be filled. Please advise. Alis Shah RN Patient needs omeprazole 20 mg refilled and sent to [facility] in [place]. Thank you. documented in this encounter [facility] 02-12-2022 Note HNO ID: [id number] Author: Martha Musa MD Service: ? Author Type: Physician Type: Progress Notes Filed: 02/12/2022 7:56 PM Note Text: HISTORY AND PHYSICAL Eleazar Rondon 1980 REFERRING PHYSICIAN: Cassidy Dawkins,* CHIEF COMPLAINT: Follow Up (Constant heartburn w/mouth sores, EGD done 09/2021) HPI: The patient is a 41 year old female referred for endoscopy. Initially saw her in September for epigastric symptoms and performed upper endoscopy. Eleazar is a patient I am following for epigastric pain. The patient is a 41 year old female referred for endoscopy. Eleazar notes pain in her epigastric area. She noticed this is more severe when she was on vacation in [facility] in August 18. She noted epigastric pain and a sensation of substernal chest discomfort which she said it been progressive over 2 weeks. The pain was worse the day she presented emergency department. Of note, the patient is thin and did run 2 and half miles the day before without any exertional chest pain. As they were confident this was not cardiac and the patient lives in [place] she declined additional work-up at that time and return to her primary care physician, Lizette Dawkins. The patient notes episodic upper abdominal pain more in the epigastric area. She describes it is occasionally radiating both to the left and the right. It also occasionally goes up to her shoulder. At times she notes it is burning other times she notes it is cramping. Initial impression was that this was going to be biliary colic in nature. The patient had the following work-up. She underwent CT scan of the abdomen pelvis previously at [facility]. No abnormalities were seen at that time. The patient had laboratory studies obtained her liver profile was in normal range with normal bilirubin normal transaminases normal alkaline phosphatase along with a normal lipase and normal white count. More recently, the patient underwent right upper quadrant ultrasound on August 22, 2021. This returned as normal right upper quadrant ultrasound with no abnormalities noted. She also had laboratory studies obtained on August 24, 2021. This demonstrated mildly elevated transaminases and alkaline phosphatase with a normal total bilirubin. White blood cell count was normal at both times. With these mildly elevated studies the patient had multiple additional liver enzymes obtained on September 06, 2019. These included MEHNAZ which was normal antimitochondrial antibody which was normal. Hepatitis profile was negative. Anti-smooth muscle antibody was negative. Ferritin was within normal range. CMV antibody was negative. Antiliver antikidney microsomal antibody was negative. Transferrin was negative. Repeat hepatic function demonstrated alkaline phosphatase now just slightly over normal range with a normal AST and slightly elevated ALT with a normal bilirubin. GGT was also mildly elevated at 435. Hepatitis panel was negative. Ceruloplasmin was negative. Copper studies were within normal range. [facility] By this time bilirubin alk phos and AST were normal. ALT was just slightly elevated and GGT was now at 256 Patient had a HIDA scan obtained with ejection fraction. I do not have those results but she states this also was normal. She does recall that she was having some epigastric pain before the test started and still had pain at the conclusion of the test. She was started on Pepcid and she states this is caused some improvement but not complete improvement. She stopped taking the Bentyl as she thought this was causing her more cramping issues and not helping her symptoms The patient denies colon issues. Eleazar has not undergone prior endoscopy. The patient is being seen by meat the request of Dr. Cassidy Dawkins DO, DO for my opinion and advice regarding upper abdominal symptoms so far negative work-up for biliary colic with some mildly elevated liver enzymes I performed upper endoscopy on October 23, 2021. The patient was found to have: Impression: - Normal examined jejunum. - Duodenal erosions without bleeding. Biopsied. - Gastritis. Biopsied. - Non-severe reflux esophagitis. Biopsied. - Normal middle third of esophagus. Biopsied The patient was started on Prilosec 40 mg daily. Pathology demonstrated: FINAL DIAGNOSIS A. Duodenum, biopsy: - Small bowel mucosa with no significant diagnostic alteration. - No evidence of celiac disease or enteritis. B. Antrum, biopsy: - Antral mucosa with no significant diagnostic alteration. - No morphologic evidence of Helicobacter pylori organisms. C. Distal esophagus, biopsy: - Reactive squamous mucosa with no significant inflammation. - No evidence of eosinophilia. - See comment. D. Mid esophagus, biopsy: - Squamous mucosa with no significant diagnostic alteration. - No evidence of esophagitis or eosinophilia. The corine (more content not included)... [facility] 02-04-2022 Miscellaneous Notes Images from the original note were not included. Martha Musa MD You 2 days ago Need records from GI Spoke with Eleazar, advised that Dr. Musa would like to have the GI notes and testing faxed to our office. Provided her with our fax number. She voiced understanding. Alis Shah RN Eleazar called. She was last evaluated in October and was advised to continue taking Omeprazole 40 mg once a day. She states that as of January 25, the Omeprazole has stopped working. She states that her symptoms have changed and she is not having heartburn also. She states that she tried Pepcid 20 mg at bedtime and it helped the first night, but it has not worked since. Eleazar advised that she has been seen at [facility] and they have completed blood work, RUQ ultrasound, HIDA scan and an MRCP, all of which were normal. She has schedule a return visit with you on 02/12/2022, but would like to know if there is anything additional she can do, medication mendoza, until she is seen by you. I have printed Wendy Hartley NP office visit not and MRCP report from [facility], but I am unable to locate a HIDA scan result. I will leave them for your review. Please advise. Alis Shah RN documented in this encounter [facility] 01-30-2022 Miscellaneous Notes Patient given results and verbalized understanding of instructions given. Sharri Olivares D-dimer blood test was normal <0.27 (range 0.27-0.49). This essentially rules out a blood clot. Follow up with PCP as discussed at her visit. documented in this encounter [facility] 01-30-2022 Note HNO ID: [id number] Author: Christiano Vance MD Service: ? Author Type: Physician Type: Progress Notes Filed: 01/30/2022 8:54 AM Note Text: Patient presents with: Acute Visit: sores on lips and throat, thinks it may be caused by acid reflux x 2 days HPI: Sores on lips and mouth increased since yesterday. Positive symptoms: intermittent moderate Shortness of breath (few minutes on and off randomly, easy exhaustion with swimming a few days ago, none with bike riding yesterday), burning Chest pain in AM for a few days (different than chest pain evaluated this winter, not associated with SOB), Sore throat, AM acid brash, Negative symptoms: Cough, Nasal Congestion, Rhinorrhea, Fever, Body Aches, Fatigue, Nausea, Vomiting, Diarrhea, dizziness, leg swelling/pain, recent travel OTC: routine prilosec, sleeps propped up. Uses no lipstick or lip balm. She had back surgery in October. She was in the ER 2 weeks ago with unilateral face and arm numbness thought to be from a pinch in her neck and had a negative cardiac evaluation. She had ER evaluation in July for chest pain and incidental LFT elevation. Follow up EGD in September with normal pathology. PAST MEDICAL HISTORY Diagnosis Date - Mononucleosis - Unspecified essential hypertension Essential hypertension PAST SURGICAL HISTORY Procedure Laterality Date - COLONOSCOPY 10/23/2021 - ENDOMETRIAL ABLATION WITH US GUIDANCE 2020 - LOW BACK DISK SURGERY 10/2021 discectomy, laminectomy - REMOVE TUMOR, LEG OR ANKLE >5 CM 06/30/1994 right knee - TYMPANOSTOMY LOCAL/TOPICAL ANESTHESIA 06/30/1989 - VAGINAL DELIVERY W/ CARE ONLY 06/30/2009 MEDICATIONS: Has not started lexapro which was recently prescribed. Current Outpatient Medications Medication Sig - omeprazole (PRILOSEC) 20 mg capsule Take 2 capsules by mouth once daily. - famotidine (PEPCID) 20 mg tablet take 1 tablet by mouth at bedtime if needed - losartan (COZAAR) 100 mg tablet Take 100 mg by mouth once daily. - cholecalciferol, vitamin D3, (VITAMIN D3 ORAL) Take by mouth once daily. - fexofenadine/pseudoephedrine (SHERIN-D 24 HOUR ORAL) Take 1 tablet by mouth as needed. - olopatadine (PATANOL) 0.1 % ophthalmic solution Use 1 Drop in both eyes twice daily. (Patient taking differently: Use 1 Drop in both eyes as needed. ) - [place]-3 Fatty Acids (FISH OIL) 500 mg cap Take 2 capsules by mouth once daily. (Patient not taking: Reported on 10/18/2021 ) - Garlic tab Take 1 tablet by mouth once daily. (Patient not taking: Reported on 10/18/2021 ) No current facility-administered medications for this visit. ALLERGIES: ALLERGIES Allergen Reactions - Benazepril Cough - Clindamycin Rash VITALS: BP 140/78 Pulse 60 Temp 36.7 ?C (98 ?F) Resp 21 Wt 58.9 kg (129 lb 12.8 oz) LMP 10/16/2021 (Exact Date) SpO2 100% BMI 21.60 kg/m? PHYSICAL EXAM: GEN: Pleasant, in no acute distress. HEENT: PERRL, EOMI, conjunctiva clear Sinuses: non-tender frontal sinus, non-tender maxillary sinuses Throat: moist mucous membranes. Circumferential ring-like shallow ulceration inner upper and lower lip. mild pharyngeal erythema, no exudate Neck: supple, no thyromegaly, no lymphadenopathy HEART: regular rate and rhythm, no murmurs LUNGS: clear to auscultation, no wheezes or crackles, no increased WOB EXT: No edema NEURO: Alert and oriented to person, place, and time. CN II-XII grossly intact. Normal strength. Normal gait. No tremor. PSYCH: Normal mood, full range of affect, speech rate normal and content appropriate ASSESSMENT/PLAN: 1. Sore throat - ICD9: 462, ICD10: J02.9 (primary diagnosis) 2. Lip ulceration - ICD9: 528.5, ICD10: K13.0 - STREP A MOLECULAR (POC) - negative Differential includes aphthous ulcer, allergy, reflux. Supportive care with gargles, lozenges, or OTC analgesia. 3. Burning in the chest - ICD9: 786.59, ICD10: R07.89 4. SOB (shortness of breath) - ICD9: 786.05, ICD10: R06.02 Low suspicion for CAD or pulmonary embolism. Morning pyrosis and acid brash make GERD likely. - D-DIMER, discussed sensitivity of test to rule out DVT/PE and risk of false positive. She should have ER evaluation if abnormal. Advised to return to the ER with return of shortness of breath. She is to seek follow up with her PCP in the next couple days. Christiano Vance MD [facility] 01-30-2022 History of Present illness Narrative Patient presents with: Acute Visit: sores on lips and throat, thinks it may be caused by acid reflux x 2 days HPI: Sores on lips and mouth increased since yesterday. Positive symptoms: intermittent moderate Shortness of breath (few minutes on and off randomly, easy exhaustion with swimming a few days ago, none with bike riding yesterday), burning Chest pain in AM for a few days (different than chest pain evaluated this winter, not associated with SOB), Sore throat, AM acid brash, Negative symptoms: Cough, Nasal Congestion, Rhinorrhea, Fever, Body Aches, Fatigue, Nausea, Vomiting, Diarrhea, dizziness, leg swelling/pain, recent travel OTC: routine prilosec, sleeps propped up. Uses no lipstick or lip balm. She had back surgery in October. She was in the ER 2 weeks ago with unilateral face and arm numbness thought to be from a pinch in her neck and had a negative cardiac evaluation. She had ER evaluation in July for chest pain and incidental LFT elevation. Follow up EGD in September with normal pathology. PAST MEDICAL HISTORY Diagnosis Date Mononucleosis Unspecified essential hypertension Essential hypertension PAST SURGICAL HISTORY Procedure Laterality Date COLONOSCOPY 10/23/2021 ENDOMETRIAL ABLATION WITH US GUIDANCE 2020 LOW BACK DISK SURGERY 10/2021 discectomy, laminectomy REMOVE TUMOR, LEG OR ANKLE >5 CM 06/30/1994 right knee TYMPANOSTOMY LOCAL/TOPICAL ANESTHESIA 06/30/1989 VAGINAL DELIVERY W/ CARE ONLY 06/30/2009 MEDICATIONS: Has not started lexapro which was recently prescribed. Current Outpatient Medications Medication Sig omeprazole (PRILOSEC) 20 mg capsule Take 2 capsules by mouth once daily. famotidine (PEPCID) 20 mg tablet take 1 tablet by mouth at bedtime if needed losartan (COZAAR) 100 mg tablet Take 100 mg by mouth once daily. cholecalciferol, vitamin D3, (VITAMIN D3 ORAL) Take by mouth once daily. fexofenadine/pseudoephedrine (SHERIN-D 24 HOUR ORAL) Take 1 tablet by mouth as needed. olopatadine (PATANOL) 0.1 % ophthalmic solution Use 1 Drop in both eyes twice daily. (Patient taking differently: Use 1 Drop in both eyes as needed. ) [place]-3 Fatty Acids (FISH OIL) 500 mg cap Take 2 capsules by mouth once daily. (Patient not taking: Reported on 10/18/2021 ) Garlic tab Take 1 tablet by mouth once daily. (Patient not taking: Reported on 10/18/2021 ) No current facility-administered medications for this visit. ALLERGIES: ALLERGIES Allergen Reactions Benazepril Cough Clindamycin Rash VITALS: BP 140/78 Pulse 60 Temp 36.7 C (98 F) Resp 21 Wt 58.9 kg (129 lb 12.8 oz) LMP 10/16/2021 (Exact Date) SpO2 100% BMI 21.60 kg/m PHYSICAL EXAM: GEN: Pleasant, in no acute distress. HEENT: PERRL, EOMI, conjunctiva clear Sinuses: non-tender frontal sinus, non-tender maxillary sinuses Throat: moist mucous membranes. Circumferential ring-like shallow ulceration inner upper and lower lip. mild pharyngeal erythema, no exudate Neck: supple, no thyromegaly, no lymphadenopathy HEART: regular rate and rhythm, no murmurs LUNGS: clear to auscultation, no wheezes or crackles, no increased WOB EXT: No edema NEURO: Alert and oriented to person, place, and time. CN II-XII grossly intact. Normal strength. Normal gait. No tremor. PSYCH: Normal mood, full range of affect, speech rate normal and content appropriate ASSESSMENT/PLAN: 1. Sore throat - ICD9: 462, ICD10: J02.9 (primary diagnosis) 2. Lip ulceration - ICD9: 528.5, ICD10: K13.0 - STREP A MOLECULAR (POC) - negative Differential includes aphthous ulcer, allergy, reflux. Supportive care with gargles, lozenges, or OTC analgesia. 3. Burning in the chest - ICD9: 786.59, ICD10: R07.89 4. SOB (shortness of breath) - ICD9: 786.05, ICD10: R06.02 Low suspicion for CAD or pulmonary embolism. Morning pyrosis and acid brash make GERD likely. - D-DIMER, discussed sensitivity of test to rule out DVT/PE and risk of false positive. She should have ER evaluation if abnormal. Advised to return to the ER with return of shortness of breath. She is to seek follow up with her PCP in the next couple days. Christiano Vance MD documented in this encounter [facility] 10-31-2021 Note HNO ID: [id number] Author: Martha Musa MD Service: ? Author Type: Physician Type: Progress Notes Filed: 10/31/2021 8:22 AM Note Text: FOLLOW UP VISIT - ENDOSCOPY - VIRTUAL NAME: Eleazar Iglesias [facility] NO.: [id number] DATE OF SERVICE: 10/31/2021 : 1980 REFERRING PHYSICIAN: Cassidy Dawkins DO, DO Eleazar is a patient I am following for epigastric pain. The patient is a 41 year old female referred for endoscopy. Eleazar notes pain in her epigastric area. She noticed this is more severe when she was on vacation in [place] back in August 18. She noted epigastric pain and a sensation of substernal chest discomfort which she said it been progressive over 2 weeks. The pain was worse the day she presented emergency department. Of note, the patient is thin and did run 2 and half miles the day before without any exertional chest pain. ? As they were confident this was not cardiac and the patient lives in [place] she declined additional work-up at that time and return to her primary care physician, Lizette Dawkins. ? The patient notes episodic upper abdominal pain more in the epigastric area. She describes it is occasionally radiating both to the left and the right. It also occasionally goes up to her shoulder. At times she notes it is burning other times she notes it is cramping. Initial impression was that this was going to be biliary colic in nature. The patient had the following work-up. ? She underwent CT scan of the abdomen pelvis previously at [facility]. No abnormalities were seen at that time. The patient had laboratory studies obtained her liver profile was in normal range with normal bilirubin normal transaminases normal alkaline phosphatase along with a normal lipase and normal white count. ? More recently, the patient underwent right upper quadrant ultrasound on August 22, 2021. This returned as normal right upper quadrant ultrasound with no abnormalities noted. She also had laboratory studies obtained on August 24, 2021. This demonstrated mildly elevated transaminases and alkaline phosphatase with a normal total bilirubin. White blood cell count was normal at both times. ? With these mildly elevated studies the patient had multiple additional liver enzymes obtained on September 06, 2019. These included MEHNAZ which was normal antimitochondrial antibody which was normal. Hepatitis profile was negative. Anti-smooth muscle antibody was negative. Ferritin was within normal range. CMV antibody was negative. Antiliver antikidney microsomal antibody was negative. Transferrin was negative. Repeat hepatic function demonstrated alkaline phosphatase now just slightly over normal range with a normal AST and slightly elevated ALT with a normal bilirubin. GGT was also mildly elevated at 435. Hepatitis panel was negative. Ceruloplasmin was negative. Copper studies were within normal range. ? [facility] By this time bilirubin alk phos and AST were normal. ALT was just slightly elevated and GGT was now at 256 ? Patient had a HIDA scan obtained with ejection fraction. I do not have those results but she states this also was normal. She does recall that she was having some epigastric pain before the test started and still had pain at the conclusion of the test. ? ? She was started on Pepcid and she states this is caused some improvement but not complete improvement. She stopped taking the Bentyl as she thought this was causing her more cramping issues and not helping her symptoms ? ? The patient denies colon issues. ? Eleazar has not undergone prior endoscopy. ? The patient is being seen by meat the request of Dr. Cassidy Dawkins, DO, DO for my opinion and advice regarding upper abdominal symptoms so far negative work-up for biliary colic with some mildly elevated liver enzymes I performed upper endoscopy on October 23, 2021. The patient was found to have: Impression: ? - Normal examined jejunum. ?- Duodenal erosions without bleeding. Biopsied. ?- Gastritis. Biopsied. ?- Non-severe reflux esophagitis. Biopsied. ?- Normal middle third of esophagus. Biopsied The patient was started on Prilosec 40 mg daily. Pathology demonstrated: FINAL DIAGNOSIS A. Duodenum, biopsy: - Small bowel mucosa with no significant diagnostic alteration. - No evidence of celiac disease or enteritis. B. Antrum, biopsy: - Antral mucosa with no significant diagnostic alteration. - No morphologic evidence of Helicobacter pylori organisms. ? C. Distal esophagus, biopsy: - Reactive squamous mucosa with no significant inflammation. - No evidence of eosinophilia. - See comment. D. Mid esophagus, biopsy: - Squamous mucosa with no significant diagnostic alteration. - No evidence of esophagitis or eosinophilia. The patient (more content not included)... [facility] 10-31-2021 History of Present illness Narrative FOLLOW UP VISIT - ENDOSCOPY - VIRTUAL NAME: Eleazar Iglesias [facility] NO.: [id number] DATE OF SERVICE: 10/31/2021 : 1980 REFERRING PHYSICIAN: Cassidy Dawkins DO, DO Eleazar is a patient I am following for epigastric pain. The patient is a 41 year old female referred for endoscopy. Eleazar notes pain in her epigastric area. She noticed this is more severe when she was on vacation in [place] back in August 18. She noted epigastric pain and a sensation of substernal chest discomfort which she said it been progressive over 2 weeks. The pain was worse the day she presented emergency department. Of note, the patient is thin and did run 2 and half miles the day before without any exertional chest pain. As they were confident this was not cardiac and the patient lives in [place] she declined additional work-up at that time and return to her primary care physician, Lizette Dawkins. The patient notes episodic upper abdominal pain more in the epigastric area. She describes it is occasionally radiating both to the left and the right. It also occasionally goes up to her shoulder. At times she notes it is burning other times she notes it is cramping. Initial impression was that this was going to be biliary colic in nature. The patient had the following work-up. She underwent CT scan of the abdomen pelvis previously at [facility]. No abnormalities were seen at that time. The patient had laboratory studies obtained her liver profile was in normal range with normal bilirubin normal transaminases normal alkaline phosphatase along with a normal lipase and normal white count. More recently, the patient underwent right upper quadrant ultrasound on August 22, 2021. This returned as normal right upper quadrant ultrasound with no abnormalities noted. She also had laboratory studies obtained on August 24, 2021. This demonstrated mildly elevated transaminases and alkaline phosphatase with a normal total bilirubin. White blood cell count was normal at both times. With these mildly elevated studies the patient had multiple additional liver enzymes obtained on September 06, 2019. These included MEHNAZ which was normal antimitochondrial antibody which was normal. Hepatitis profile was negative. Anti-smooth muscle antibody was negative. Ferritin was within normal range. CMV antibody was negative. Antiliver antikidney microsomal antibody was negative. Transferrin was negative. Repeat hepatic function demonstrated alkaline phosphatase now just slightly over normal range with a normal AST and slightly elevated ALT with a normal bilirubin. GGT was also mildly elevated at 435. Hepatitis panel was negative. Ceruloplasmin was negative. Copper studies were within normal range. [facility] By this time bilirubin alk phos and AST were normal. ALT was just slightly elevated and GGT was now at 256 Patient had a HIDA scan obtained with ejection fraction. I do not have those results but she states this also was normal. She does recall that she was having some epigastric pain before the test started and still had pain at the conclusion of the test. She was started on Pepcid and she states this is caused some improvement but not complete improvement. She stopped taking the Bentyl as she thought this was causing her more cramping issues and not helping her symptoms The patient denies colon issues. Eleazar has not undergone prior endoscopy. The patient is being seen by meat the request of Dr. Cassidy Dawkins DO, DO for my opinion and advice regarding upper abdominal symptoms so far negative work-up for biliary colic with some mildly elevated liver enzymes I performed upper endoscopy on October 23, 2021. The patient was found to have: Impression: - Normal examined jejunum. - Duodenal erosions without bleeding. Biopsied. - Gastritis. Biopsied. - Non-severe reflux esophagitis. Biopsied. - Normal middle third of esophagus. Biopsied The patient was started on Prilosec 40 mg daily. Pathology demonstrated: FINAL DIAGNOSIS A. Duodenum, biopsy: - Small bowel mucosa with no significant diagnostic alteration. - No evidence of celiac disease or enteritis. B. Antrum, biopsy: - Antral mucosa with no significant diagnostic alteration. - No morphologic evidence of Helicobacter pylori organisms. C. Distal esophagus, biopsy: - Reactive squamous mucosa with no significant inflammation. - No evidence of eosinophilia. - See comment. D. Mid esophagus, biopsy: - Squamous mucosa with no significant diagnostic alteration. - No evidence of esophagitis or eosinophilia. The patient notes more improvement but not complete resolution of her complaints since the procedure. VITALS: Last menstrual period 10/16/2021. Assessment IMPRESSION: Epigastric pain, improved but not resolved PLAN: If the patient notes any problems or changes in bowel function, the patient should contact me immediately. Otherwise I recommend follow up endoscopy as needed. Since she states she is doing better on the Prilosec I would refill her Prilosec for the next 3 months. The patient's for me she is also planning to see a tube sizer operator next week. If her symptoms have not completely resolved I would recommend consideration of pH studies and/or manometry. The patient also questioned whether her issues were a food allergy. I discussed with the patient that her small bowel biopsy was negative for celiac changes and her esophageal biopsies were negative for eosinophilic esophagitis findings nonetheless if she feels this is an option she could consider an illumination diet. Diagnoses: (R10.13) Epigastric pain (primary encounter diagnosis) Return to Clinic: The patient is instructed to follow-up with me as needed. Martha Musa MD documented in this encounter [facility] 10-23-2021 Note HNO ID: [id number] Author: Juanita Curtis RN Service: ? Author Type: Registered Nurse Type: Nursing Progress Note Filed: 10/23/2021 1:21 PM Note Text: Abdomen soft non-distended. Will continue to monitor. [facility] 10-23-2021 Nurse Note Abdomen soft non-distended. Will continue to monitor. documented in this encounter [facility] 10-23-2021 History and physical note UPDATED PROCEDURAL SEDATION HISTORY AND PHYSICAL EXAMINATION SERVICE DATE: 10/23/2021 SERVICE TIME: 12:29 PM PHYSICAL EXAM MUST BE COMPLETED ON ADMISSION PROCEDURE: Procedure Indications: The History and Physical (completed in the past 30 days) has been reviewed and the patient has been examined. The contents accurately reflect the patient's condition with the following additions or revisions since the H&P was completed. ASA Class: ASA Class:: Patient with mild systemic disease Examination indicates no changes. AIRWAY: Airway Visualization of Uvula: Yes Mouth opening greater than 2 fingerbreadths: Yes Neck Full Range of Motion: Yes LUNGS: Lungs clear to auscultation CARDIAC: Regular rhythm,Regular rate Provisional Diagnosis/Treatment Plan: epigastric pain - EGD SEDATION GOAL: Moderate This H&P can be found in the attached. SIGNATURE: Martha Musa MD PATIENT NAME: Eleazar Rondon DATE: October 23, 2021 TIME: 12:29 PM Images from the original note were not included. HISTORY AND PHYSICAL Eleazar Rondon 1980 REFERRING PHYSICIAN: Self CHIEF COMPLAINT: Pain (abdomen pain, since july) HPI: The patient is a 41 year old female referred for endoscopy. Eleazar notes pain in her epigastric area. She noticed this is more severe when she was on vacation in [place] back in August 18. She noted epigastric pain and a sensation of substernal chest discomfort which she said it been progressive over 2 weeks. The pain was worse the day she presented emergency department. Of note, the patient is thin and did run 2 and half miles the day before without any exertional chest pain. As they were confident this was not cardiac and the patient lives in [place] she declined additional work-up at that time and return to her primary care physician, Lizette Dawkins. The patient notes episodic upper abdominal pain more in the epigastric area. She describes it is occasionally radiating both to the left and the right. It also occasionally goes up to her shoulder. At times she notes it is burning other times she notes it is cramping. Initial impression was that this was going to be biliary colic in nature. The patient had the following work-up. She underwent CT scan of the abdomen pelvis previously at [facility]. No abnormalities were seen at that time. The patient had laboratory studies obtained her liver profile was in normal range with normal bilirubin normal transaminases normal alkaline phosphatase along with a normal lipase and normal white count. More recently, the patient underwent right upper quadrant ultrasound on August 22, 2021. This returned as normal right upper quadrant ultrasound with no abnormalities noted. She also had laboratory studies obtained on August 24, 2021. This demonstrated mildly elevated transaminases and alkaline phosphatase with a normal total bilirubin. White blood cell count was normal at both times. With these mildly elevated studies the patient had multiple additional liver enzymes obtained on September 06, 2019. These included MEHNAZ which was normal antimitochondrial antibody which was normal. Hepatitis profile was negative. Anti-smooth muscle antibody was negative. Ferritin was within normal range. CMV antibody was negative. Antiliver antikidney microsomal antibody was negative. Transferrin was negative. Repeat hepatic function demonstrated alkaline phosphatase now just slightly over normal range with a normal AST and slightly elevated ALT with a normal bilirubin. GGT was also mildly elevated at 435. Hepatitis panel was negative. Ceruloplasmin was negative. Copper studies were within normal range. He had a follow-up [facility] function panel on September 27. By this time bilirubin alk phos and AST were normal. ALT was just slightly elevated and GGT was now at 256 Patient had a HIDA scan obtained with ejection fraction. I do not have those results but she states this also was normal. She does recall that she was having some epigastric pain before the test started and still had pain at the conclusion of the test. She was started on Pepcid and she states this is caused some improvement but not complete improvement. She stopped taking the Bentyl as she thought this was causing her more cramping issues and not helping her symptoms The patient denies colon issues. Eleazar has not undergone prior endoscopy. The patient is being seen by me today at the request of Dr. Cassidy Dawkins, DO, DO for my opinion and advice regarding upper abdominal symptoms so far negative work-up for biliary colic with some mildly elevated liver enzymes.. PAST MEDICAL HISTORY PAST MEDICAL HISTORY Diagnosis Date Mononucleosis Unspecified essential hypertension Essential hypertension PAST SURGICAL HISTORY PAST SURGICAL HISTORY Procedure Laterality Date ENDOMETRIAL ABLATION WITH US GUIDANCE 2020 REMOVE TUMOR, LEG OR ANKLE >5 CM 06/30/1994 right knee TYMPANOSTOMY LOCAL/TOPICAL ANESTHESIA 06/30/1989 VAGINAL DELIVERY W/ CARE ONLY 06/30/2009 CURRENT MEDICATIONS Current Outpatient Medications Medication Sig losartan (COZAAR) 100 mg tablet Take 100 mg by mouth once daily. cholecalciferol, vitamin D3, (VITAMIN D3 ORAL) Take by mouth once daily. famotidine (PEPCID) 20 mg tablet Take 1 tablet by mouth at bedtime as needed. fexofenadine/pseudoephedrine (SHERIN-D 24 HOUR ORAL) Take 1 tablet by mouth as needed. olopatadine (PATANOL) 0.1 % ophthalmic solution Use 1 Drop in both eyes twice daily. (Patient taking differently: Use 1 Drop in both eyes as needed. ) dicyclomine (BENTYL) 10 mg capsule Take 1 capsule by mouth before meals and at bedtime. (Patient not taking: Reported on 10/18/2021 ) amLODIPine-benazepril (LOTREL) 10-20 mg per capsule Take 1 capsule by mouth once daily. (Patient not taking: Reported on 10/18/2021 ) benazepril (LOTENSIN) 10 mg tablet Take 1 tablet by mouth once daily. (Patient not taking: Reported on 10/18/2021 ) [place]-3 Fatty Acids (FISH OIL) 500 mg cap Take 2 capsules by mouth once daily. (Patient not taking: Reported on 10/18/2021 ) Garlic tab Take 1 tablet by mouth once daily. (Patient not taking: Reported on 10/18/2021 ) No current facility-administered medications for this visit. ALLERGIES: Benazepril and Clindamycin PERSONAL HISTORY: SOCIAL HISTORY Social History Tobacco Use Smoking status: Former Smoker Quit date: 07/19/2002 Years since quittin.2 Smokeless tobacco: Never Used Tobacco comment: 1 cigarette daily at that time Vaping Use Vaping Use: Never used Substance Use Topics Alcohol use: Yes Alcohol/week: 5.0 standard drinks Types: 2 Glasses of Wine (5oz) per week Drug use: No FAMILY HISTORY: FAMILY HISTORY FAMILY HISTORY Problem Relation Age of Onset Hypertension Father Alcohol/Drug Maternal Grandmother Cancer Maternal Grandfather Stroke Paternal Grandfather REVIEW OF SYMPTOMS: The review of systems data was entered by the nurse and reviewed by me Nursing Notes: Najma DuranMARY KAY 10/18/2021 10:12 AM Signed REVIEW OF SYSTEMS: General: The patient denies fatigue, notes weight loss, denies weight gain, denies feeling hot, and denies feelings of cold. Eyes: The patient denies glaucoma, denies eye injury/surgery, does not wear glasses or contacts. Ear/Nose/Throat: The patient notes allergies, denies hayfever, denies ear infections, and denies bloody noses. Cardiovascular: The patient notes chest pain, denies heart disease, notes high blood pressure,denies cardiac stent, denies prior heart attack, denies irregular heart beat, denies high cholesterol, denies poor circulation, denies heart failure, other cardiac issues, denies claudication, denies cold feet, denies peripheral arterial stent. Respiratory: The patient denies tuberculosis, denies pneumonia, denies frequent cough, denies pulmonary embolism, denies shortness of breath, and denies coughing up blood. Gastrointestinal: The patient denies difficulty swallowing, denies acid reflux, denies ulcers, denies vomiting, denies jaundice/hepatitis, denies gallbladder problems, denies black or tarry stools, denies hemorrhoids, denies bleeding from rectum, denies diverticulitis, denies constipation, denies diarrhea, denies loss of stool control, and denies hernias. Kidney/Bladder: The patient denies kidney stones, denies urine infections, and denies bloody urine. Skin: The patient denies a history of skin cancer, denies bleeding/changing moles, and denies a history of skin rash. Neurologic: The patient denies a history of epilepsy/convulsions, denies headaches, denies head/spinal injuries, and denies stroke/TIA. Psychiatric: The patient denies psychiatric medications, denies depression, and denies voices, denies substance abuse. Endocrine: The patient denies thyroid disorders, denies diabetes, and denies hormonal problems. Hematologic: The patient denies a history of bruising, denies bleeding, and denies anemia, denies blood clots. Infections: The patient denies a history of measles and mumps, denies rheumatic fever, and denies sexually transmitted diseases. Musculoskeletal: The patient notes back pain/injury, denies back problems, denies sciatica, denies knee/foot trouble, denies arthritis, or denies gout. When was patient's last Mammogram screening? N/A Last Colonoscopy: None Najma Duran LPN PHYSICAL EXAMINATION: General: The patient is 41 year old female, well nourished, well hydrated in no acute distress. The patient is oriented to time, place, and person. VITALS: Blood pressure 144/82, pulse 71, temperature 36.3 C (97.4 F), height 165.1 cm (5' 5 ), weight 60.8 kg (134 lb), last menstrual period 06/08/2018, SpO2 99 %. Body mass index is 22.3 kg/m . HEENT: Normal cephalic, ataumatic, pupils are equally round, sclera are anicteric, mucous membranes are moist, oropharynx is clear. Neck has no masses, asymmetry or lymphadenopathy. Thyroid is unremarkable. Respiratory: Clear to auscultation and percussion. Normal respiratory excursion and pattern. Cardiac: Examination is regular rate and rhythm. Abdominal exam: Soft, nontender, with no palpable masses. No hepatosplenomegaly. No palpable hernias. Rectal exam: exam deferred Extremities: no clubbing, cyanosis or edema. No adenopathy. Other: LABORATORY VALUES: As Noted RADIOLOGIC STUDIES: As Noted Assessment IMPRESSION: Epigastric and upper abdominal symptoms, mildly elevated liver enzymes normalizing, persistent paroxysmal epigastric issues PLAN: I plan to perform upper endoscopy. We discussed the risks and benefits of the planned endoscopy. I have informed the patient that complications can occur including failure to complete the endoscopy and perforation. The patient had the opportunity to ask questions concerning the planned endoscopy. My staff has also explained the procedure to the patient in understandable terms and has given the patient printed material concerning the procedure. The patient freely consents to surgery. Discussed with the patient that if she is having significant symptoms and upper endoscopy is also unremarkable, then I would consider cholecystectomy as sometimes that is the next diagnostic step. Diagnoses: (R10.13) Epigastric pain (primary encounter diagnosis) A letter was sent to Dr. Cassidy Dawkins, DO, DO indicating the above finding for this patient. Return to Clinic: The patient is instructed to follow-up with me after the testing has been completed. Martha Musa MD documented in this encounter [facility] 10-18-2021 Note HNO ID: [id number] Author: Martha Musa MD Service: ? Author Type: Physician Type: Progress Notes Filed: 10/18/2021 12:35 PM Note Text: HISTORY AND PHYSICAL Eleazar Rondon 1980 REFERRING PHYSICIAN: Self CHIEF COMPLAINT: Pain (abdomen pain, since july) HPI: The patient is a 41 year old female referred for endoscopy. Eleazar notes pain in her epigastric area. She noticed this is more severe when she was on vacation in [facility] in August 18. She noted epigastric pain and a sensation of substernal chest discomfort which she said it been progressive over 2 weeks. The pain was worse the day she presented emergency department. Of note, the patient is thin and did run 2 and half miles the day before without any exertional chest pain. As they were confident this was not cardiac and the patient lives in [place] she declined additional work-up at that time and return to her primary care physician, Lizette Dawkins. The patient notes episodic upper abdominal pain more in the epigastric area. She describes it is occasionally radiating both to the left and the right. It also occasionally goes up to her shoulder. At times she notes it is burning other times she notes it is cramping. Initial impression was that this was going to be biliary colic in nature. The patient had the following work-up. She underwent CT scan of the abdomen pelvis previously at [facility]. No abnormalities were seen at that time. The patient had laboratory studies obtained her liver profile was in normal range with normal bilirubin normal transaminases normal alkaline phosphatase along with a normal lipase and normal white count. More recently, the patient underwent right upper quadrant ultrasound on August 22, 2021. This returned as normal right upper quadrant ultrasound with no abnormalities noted. She also had laboratory studies obtained on August 24, 2021. This demonstrated mildly elevated transaminases and alkaline phosphatase with a normal total bilirubin. White blood cell count was normal at both times. With these mildly elevated studies the patient had multiple additional liver enzymes obtained on September 06, 2019. These included MEHNAZ which was normal antimitochondrial antibody which was normal. Hepatitis profile was negative. Anti-smooth muscle antibody was negative. Ferritin was within normal range. CMV antibody was negative. Antiliver antikidney microsomal antibody was negative. Transferrin was negative. Repeat hepatic function demonstrated alkaline phosphatase now just slightly over normal range with a normal AST and slightly elevated ALT with a normal bilirubin. GGT was also mildly elevated at 435. Hepatitis panel was negative. Ceruloplasmin was negative. Copper studies were within normal range. He had a follow-up [facility] function panel on September 27. By this time bilirubin alk phos and AST were normal. ALT was just slightly elevated and GGT was now at 256 Patient had a HIDA scan obtained with ejection fraction. I do not have those results but she states this also was normal. She does recall that she was having some epigastric pain before the test started and still had pain at the conclusion of the test. She was started on Pepcid and she states this is caused some improvement but not complete improvement. She stopped taking the Bentyl as she thought this was causing her more cramping issues and not helping her symptoms The patient denies colon issues. Eleazar has not undergone prior endoscopy. The patient is being seen by me today at the request of Dr. Cassidy Dawkins, , DO for my opinion and advice regarding upper abdominal symptoms so far negative work-up for biliary colic with some mildly elevated liver enzymes.. PAST MEDICAL HISTORY Diagnosis Date - Mononucleosis - Unspecified essential hypertension Essential hypertension PAST SURGICAL HISTORY Procedure Laterality Date - ENDOMETRIAL ABLATION WITH US GUIDANCE 2020 - REMOVE TUMOR, LEG OR ANKLE >5 CM 06/30/1994 right knee - TYMPANOSTOMY LOCAL/TOPICAL ANESTHESIA 06/30/1989 - VAGINAL DELIVERY W/ CARE ONLY 06/30/2009 Current Outpatient Medications Medication Sig - losartan (COZAAR) 100 mg tablet Take 100 mg by mouth once daily. - cholecalciferol, vitamin D3, (VITAMIN D3 ORAL) Take by mouth once daily. - famotidine (PEPCID) 20 mg tablet Take 1 tablet by mouth at bedtime as needed. - fexofenadine/pseudoephedrine (SHERIN-D 24 HOUR ORAL) Take 1 tablet by mouth as needed. - olopatadine (PATANOL) 0.1 % ophthalmic solution Use 1 Drop in both eyes twice daily. (Patient taking differently: Use 1 Drop in both eyes as needed. ) - dicyclomine (BENTYL) 10 mg capsule Take 1 capsule by mouth before meals and at bedtime. (Patient not taking: Reported on 10/18/2021 ) - amLODIPine-benazepril (LOTREL) 10-20 mg per capsule Take 1 capsule by mouth once daily. (Patient not taking: Reported on 10/18/2021 (more content not included)... [facility] 10-18-2021 History of Present illness Narrative HISTORY AND PHYSICAL Eleazar Rondon 1980 REFERRING PHYSICIAN: Self CHIEF COMPLAINT: Pain (abdomen pain, since july) HPI: The patient is a 41 year old female referred for endoscopy. Eleazar notes pain in her epigastric area. She noticed this is more severe when she was on vacation in [facility] in August 18. She noted epigastric pain and a sensation of substernal chest discomfort which she said it been progressive over 2 weeks. The pain was worse the day she presented emergency department. Of note, the patient is thin and did run 2 and half miles the day before without any exertional chest pain. As they were confident this was not cardiac and the patient lives in [place] she declined additional work-up at that time and return to her primary care physician, Lizette Dawkins. The patient notes episodic upper abdominal pain more in the epigastric area. She describes it is occasionally radiating both to the left and the right. It also occasionally goes up to her shoulder. At times she notes it is burning other times she notes it is cramping. Initial impression was that this was going to be biliary colic in nature. The patient had the following work-up. She underwent CT scan of the abdomen pelvis previously at [facility]. No abnormalities were seen at that time. The patient had laboratory studies obtained her liver profile was in normal range with normal bilirubin normal transaminases normal alkaline phosphatase along with a normal lipase and normal white count. More recently, the patient underwent right upper quadrant ultrasound on August 22, 2021. This returned as normal right upper quadrant ultrasound with no abnormalities noted. She also had laboratory studies obtained on August 24, 2021. This demonstrated mildly elevated transaminases and alkaline phosphatase with a normal total bilirubin. White blood cell count was normal at both times. With these mildly elevated studies the patient had multiple additional liver enzymes obtained on September 06, 2019. These included MEHNAZ which was normal antimitochondrial antibody which was normal. Hepatitis profile was negative. Anti-smooth muscle antibody was negative. Ferritin was within normal range. CMV antibody was negative. Antiliver antikidney microsomal antibody was negative. Transferrin was negative. Repeat hepatic function demonstrated alkaline phosphatase now just slightly over normal range with a normal AST and slightly elevated ALT with a normal bilirubin. GGT was also mildly elevated at 435. Hepatitis panel was negative. Ceruloplasmin was negative. Copper studies were within normal range. He had a follow-up [facility] function panel on September 27. By this time bilirubin alk phos and AST were normal. ALT was just slightly elevated and GGT was now at 256 Patient had a HIDA scan obtained with ejection fraction. I do not have those results but she states this also was normal. She does recall that she was having some epigastric pain before the test started and still had pain at the conclusion of the test. She was started on Pepcid and she states this is caused some improvement but not complete improvement. She stopped taking the Bentyl as she thought this was causing her more cramping issues and not helping her symptoms The patient denies colon issues. Eleazar has not undergone prior endoscopy. The patient is being seen by me today at the request of Dr. Cassidy Dawkins, , DO for my opinion and advice regarding upper abdominal symptoms so far negative work-up for biliary colic with some mildly elevated liver enzymes.. PAST MEDICAL HISTORY Diagnosis Date Mononucleosis Unspecified essential hypertension Essential hypertension PAST SURGICAL HISTORY Procedure Laterality Date ENDOMETRIAL ABLATION WITH US GUIDANCE 2020 REMOVE TUMOR, LEG OR ANKLE >5 CM 06/30/1994 right knee TYMPANOSTOMY LOCAL/TOPICAL ANESTHESIA 06/30/1989 VAGINAL DELIVERY W/ CARE ONLY 06/30/2009 Current Outpatient Medications Medication Sig losartan (COZAAR) 100 mg tablet Take 100 mg by mouth once daily. cholecalciferol, vitamin D3, (VITAMIN D3 ORAL) Take by mouth once daily. famotidine (PEPCID) 20 mg tablet Take 1 tablet by mouth at bedtime as needed. fexofenadine/pseudoephedrine (SHERIN-D 24 HOUR ORAL) Take 1 tablet by mouth as needed. olopatadine (PATANOL) 0.1 % ophthalmic solution Use 1 Drop in both eyes twice daily. (Patient taking differently: Use 1 Drop in both eyes as needed. ) dicyclomine (BENTYL) 10 mg capsule Take 1 capsule by mouth before meals and at bedtime. (Patient not taking: Reported on 10/18/2021 ) amLODIPine-benazepril (LOTREL) 10-20 mg per capsule Take 1 capsule by mouth once daily. (Patient not taking: Reported on 10/18/2021 ) benazepril (LOTENSIN) 10 mg tablet Take 1 tablet by mouth once daily. (Patient not taking: Reported on 10/18/2021 ) [place]-3 Fatty Acids (FISH OIL) 500 mg cap Take 2 capsules by mouth once daily. (Patient not taking: Reported on 10/18/2021 ) Garlic tab Take 1 tablet by mouth once daily. (Patient not taking: Reported on 10/18/2021 ) No current facility-administered medications for this visit. ALLERGIES: Benazepril and Clindamycin PERSONAL HISTORY: Social History Tobacco Use Smoking status: Former Smoker Quit date: 07/19/2002 Years since quittin.2 Smokeless tobacco: Never Used Tobacco comment: 1 cigarette daily at that time Vaping Use Vaping Use: Never used Substance Use Topics Alcohol use: Yes Alcohol/week: 5.0 standard drinks Types: 2 Glasses of Wine (5oz) per week Drug use: No FAMILY HISTORY: FAMILY HISTORY Problem Relation Age of Onset Hypertension Father Alcohol/Drug Maternal Grandmother Cancer Maternal Grandfather Stroke Paternal Grandfather REVIEW OF SYMPTOMS: The review of systems data was entered by the nurse and reviewed by ca Nursing Notes: Najma Duran LPN 10/18/2021 10:12 AM Signed REVIEW OF SYSTEMS: General: The patient denies fatigue, notes weight loss, denies weight gain, denies feeling hot, and denies feelings of cold. Eyes: The patient denies glaucoma, denies eye injury/surgery, does not wear glasses or contacts. Ear/Nose/Throat: The patient notes allergies, denies hayfever, denies ear infections, and denies bloody noses. Cardiovascular: The patient notes chest pain, denies heart disease, notes high blood pressure,denies cardiac stent, denies prior heart attack, denies irregular heart beat, denies high cholesterol, denies poor circulation, denies heart failure, other cardiac issues, denies claudication, denies cold feet, denies peripheral arterial stent. Respiratory: The patient denies tuberculosis, denies pneumonia, denies frequent cough, denies pulmonary embolism, denies shortness of breath, and denies coughing up blood. Gastrointestinal: The patient denies difficulty swallowing, denies acid reflux, denies ulcers, denies vomiting, denies jaundice/hepatitis, denies gallbladder problems, denies black or tarry stools, denies hemorrhoids, denies bleeding from rectum, denies diverticulitis, denies constipation, denies diarrhea, denies loss of stool control, and denies hernias. Kidney/Bladder: The patient denies kidney stones, denies urine infections, and denies bloody urine. Skin: The patient denies a history of skin cancer, denies bleeding/changing moles, and denies a history of skin rash. Neurologic: The patient denies a history of epilepsy/convulsions, denies headaches, denies head/spinal injuries, and denies stroke/TIA. Psychiatric: The patient denies psychiatric medications, denies depression, and denies voices, denies substance abuse. Endocrine: The patient denies thyroid disorders, denies diabetes, and denies hormonal problems. Hematologic: The patient denies a history of bruising, denies bleeding, and denies anemia, denies blood clots. Infections: The patient denies a history of measles and mumps, denies rheumatic fever, and denies sexually transmitted diseases. Musculoskeletal: The patient notes back pain/injury, denies back problems, denies sciatica, denies knee/foot trouble, denies arthritis, or denies gout. When was patient's last Mammogram screening? N/A Last Colonoscopy: None Najma Duran LPN PHYSICAL EXAMINATION: General: The patient is 41 year old female, well nourished, well hydrated in no acute distress. The patient is oriented to time, place, and person. VITALS: Blood pressure 144/82, pulse 71, temperature 36.3 C (97.4 F), height 165.1 cm (5' 5 ), weight 60.8 kg (134 lb), last menstrual period 06/08/2018, SpO2 99 %. Body mass index is 22.3 kg/m . HEENT: Normal cephalic, ataumatic, pupils are equally round, sclera are anicteric, mucous membranes are moist, oropharynx is clear. Neck has no masses, asymmetry or lymphadenopathy. Thyroid is unremarkable. Respiratory: Clear to auscultation and percussion. Normal respiratory excursion and pattern. Cardiac: Examination is regular rate and rhythm. Abdominal exam: Soft, nontender, with no palpable masses. No hepatosplenomegaly. No palpable hernias. Rectal exam: exam deferred Extremities: no clubbing, cyanosis or edema. No adenopathy. Other: LABORATORY VALUES: As Noted RADIOLOGIC STUDIES: As Noted Assessment IMPRESSION: Epigastric and upper abdominal symptoms, mildly elevated liver enzymes normalizing, persistent paroxysmal epigastric issues PLAN: I plan to perform upper endoscopy. We discussed the risks and benefits of the planned endoscopy. I have informed the patient that complications can occur including failure to complete the endoscopy and perforation. The patient had the opportunity to ask questions concerning the planned endoscopy. My staff has also explained the procedure to the patient in understandable terms and has given the patient printed material concerning the procedure. The patient freely consents to surgery. Discussed with the patient that if she is having significant symptoms and upper endoscopy is also unremarkable, then I would consider cholecystectomy as sometimes that is the next diagnostic step. Diagnoses: (R10.13) Epigastric pain (primary encounter diagnosis) A letter was sent to Dr. Cassidy Dawkins DO, DO indicating the above finding for this patient. Return to Clinic: The patient is instructed to follow-up with me after the testing has been completed. Martha Musa MD documented in this encounter [facility] 10-18-2021 Nurse Note REVIEW OF SYSTEMS: General: The patient denies fatigue, notes weight loss, denies weight gain, denies feeling hot, and denies feelings of cold. Eyes: The patient denies glaucoma, denies eye injury/surgery, does not wear glasses or contacts. Ear/Nose/Throat: The patient notes allergies, denies hayfever, denies ear infections, and denies bloody noses. Cardiovascular: The patient notes chest pain, denies heart disease, notes high blood pressure,denies cardiac stent, denies prior heart attack, denies irregular heart beat, denies high cholesterol, denies poor circulation, denies heart failure, other cardiac issues, denies claudication, denies cold feet, denies peripheral arterial stent. Respiratory: The patient denies tuberculosis, denies pneumonia, denies frequent cough, denies pulmonary embolism, denies shortness of breath, and denies coughing up blood. Gastrointestinal: The patient denies difficulty swallowing, denies acid reflux, denies ulcers, denies vomiting, denies jaundice/hepatitis, denies gallbladder problems, denies black or tarry stools, denies hemorrhoids, denies bleeding from rectum, denies diverticulitis, denies constipation, denies diarrhea, denies loss of stool control, and denies hernias. Kidney/Bladder: The patient denies kidney stones, denies urine infections, and denies bloody urine. Skin: The patient denies a history of skin cancer, denies bleeding/changing moles, and denies a history of skin rash. Neurologic: The patient denies a history of epilepsy/convulsions, denies headaches, denies head/spinal injuries, and denies stroke/TIA. Psychiatric: The patient denies psychiatric medications, denies depression, and denies voices, denies substance abuse. Endocrine: The patient denies thyroid disorders, denies diabetes, and denies hormonal problems. Hematologic: The patient denies a history of bruising, denies bleeding, and denies anemia, denies blood clots. Infections: The patient denies a history of measles and mumps, denies rheumatic fever, and denies sexually transmitted diseases. Musculoskeletal: The patient notes back pain/injury, denies back problems, denies sciatica, denies knee/foot trouble, denies arthritis, or denies gout. When was patient's last Mammogram screening? N/A Last Colonoscopy: None Najma Duran LPN documented in this encounter [facility] 10-04-2021 Note HNO ID: [id number] Author: Erma Cardenas APRN.[employer] Service: ? Author Type: Nurse Practitioner Type: Progress Notes Filed: 10/04/2021 5:55 PM Note Text: This note was created using NoteWriter. Subjective Eleazar Rondon is a 41 year old female. 41 year old female with PMH HTN presents with complaints of abdominal pain. Acute onset July pain so bad was worried my heart States in [place] at time and the ED down there did a cardiac/gastro work up. Was negative. She Followed up with her PCP as they were concerned it was her gallbladder. US and HIADA scan have been performed and normal Endorses that she has an appointment with GI November 07. Acute onset Friday after eating spicy food. raw and burning States she has been experiencing the pain since. Locates upper abdomen. Intensity varies. States that she recently experienced some right sided lower back/flank pain. +urinary frequency, but otherwise Denies sx. Denies fever or chills. Denies emesis. Denies diarrhea. Denies that she was advised to take medicines. States she is leaving for [place] on Friday. The history is provided by the patient. No speech language specialist was used. Abdominal Pain This is a recurrent problem. The current episode started more than 1 week ago. The problem occurs daily. The problem has been gradually worsening. The pain is associated with an unknown factor. The pain is located in the epigastric region. The quality of the pain is burning. The pain is at a severity of 5/10. The pain is moderate. Associated symptoms include nausea and frequency. Pertinent negatives include anorexia, fever, belching, diarrhea, flatus, hematochezia, melena, vomiting, constipation, dysuria, hematuria, headaches, arthralgias and myalgias. Exacerbated by: certain foods. Nothing relieves the symptoms. Past workup includes ultrasound. Her past medical history does not include PUD, gallstones, GERD, ulcerative colitis, Crohn's disease or irritable bowel syndrome. PAST MEDICAL HISTORY Diagnosis Date - Mononucleosis - Unspecified essential hypertension Essential hypertension PAST SURGICAL HISTORY Procedure Laterality Date - REMOVE TUMOR, LEG OR ANKLE >5 CM 1994 right knee - TYMPANOSTOMY LOCAL/TOPICAL ANESTHESIA 1989 - VAGINAL DELIVERY W/ CARE ONLY 2009 ALLERGIES Clindamycin MEDICATIONS amLODIPine-benazepril (LOTREL) 10-20 mg per capsule Take 1 capsule by mouth once daily. benazepril (LOTENSIN) 10 mg tablet Take 1 tablet by mouth once daily. fexofenadine/pseudoephedrine (SHERIN-D 24 HOUR ORAL) Take 1 tablet by mouth once daily. olopatadine (PATANOL) 0.1 % ophthalmic solution Use 1 Drop in both eyes twice daily. [place]-3 Fatty Acids (FISH OIL) 500 mg cap Take 2 capsules by mouth once daily. Garlic tab Take 1 tablet by mouth once daily. dicyclomine (BENTYL) 10 mg capsule Take 1 capsule by mouth before meals and at bedtime. famotidine (PEPCID) 20 mg tablet Take 1 tablet by mouth at bedtime as needed. nitrofurantoin monohydrate and macrocrystal (MACROBID) 100 mg capsule Take 1 capsule by mouth twice daily for 5 days. FAMILY HISTORY Problem Relation Age of Onset - Hypertension Father - Alcohol/Drug Maternal Grandmother - Cancer Maternal Grandfather - Stroke Paternal Grandfather Social History Tobacco Use - Smoking status: Former Smoker Quit date: 07/19/2002 Years since quittin.2 - Smokeless tobacco: Never Used - Tobacco comment: 1 cigarette daily at that time Vaping Use - Vaping Use: Unknown Substance Use Topics - Alcohol use: Yes Alcohol/week: 5.0 standard drinks Types: 2 Glasses of Wine (5oz) per week - Drug use: No Review of Systems Constitutional: Negative for activity change, appetite change, chills, diaphoresis and fever. HENT: Negative for congestion. Eyes: Negative for photophobia, pain, discharge, redness, itching and visual disturbance. Respiratory: Negative for apnea, cough, choking and chest tightness. Cardiovascular: Negative for chest pain, palpitations and leg swelling. Gastrointestinal: Positive for abdominal pain and nausea. Negative for anorexia, constipation, diarrhea, flatus, hematochezia, melena and vomiting. Genitourinary: Positive for flank pain and frequency. Negative for dysuria and hematuria. Musculoskeletal: Negative for arthralgias and myalgias. Skin: Negative for color change, pallor, rash and wound. Allergic/Immunologic: Negative for environmental allergies, food allergies and immunocompromised state. Neurological: Negative for dizziness, facial asymmetry and headaches. Hematological: Negative for adenopathy. Does not bruise/bleed easily. Psychiatric/Behavioral: Negative for agitation and behavioral problems. Objective BP 128/82 Pulse 63 Temp 36.9 ?C (98.4 ?F) (Tympanic) Resp 18 Wt 60.1 kg (132 lb 9.6 oz) LMP 06/08/2018 SpO2 98% BMI 22.07 kg/m? Physical Exam Vitals and (more content not included)... [facility] 10-04-2021 Instructions Erma Cardenas APRN.[facility] - 10/04/2021 5:42 PM EDT Images from the original note were not included. Gastroesophageal Reflux Disease (GERD) Heartburn is a burning sensation in the center of the chest that often occurs after eating, bending over, with exercise, and sometimes at night when lying down. Approximately one in 10 adults has heartburn at least once a week and one in three monthly. Some women experience heartburn almost daily as a result of increased pressure on the abdomen and hormonal changes. Although its name implies otherwise, heartburn has nothing to do with your heart. Rather, these symptoms indicate a condition called gastroesophageal reflux disease, or GERD. This fact sheet offers some tips on how to relieve heartburn caused by this condition. What is GERD? When you swallow, food passes down your throat and through your esophagus to your stomach. A muscle called the lower esophageal sphincter controls the opening between the esophagus and the stomach, and remains tightly closed except when you swallow food. When this muscle fails to close, the acid-containing contents of the stomach can travel back up into the esophagus. This backward movement is called reflux. When stomach acid enters the lower part of the esophagus, it can produce a burning sensation, commonly referred to as heartburn. Several factors might explain why this reflux action occurs and might offer some clues for relief. The most important are the following: The position of your body after eating (An upright posture helps prevent reflux.) The size of the meal (Smaller meals reduce reflux.) The nature of foods you consume (Certain substances that irritate the esophagus or weaken the sphincter can cause reflux.) How is GERD treated? To treat GERD, we recommend the following: Raise the head of your bed by six inches to allow gravity to help keep the stomach's contents in the stomach. (Do not use piles of pillows because this puts your body into a bent position that actually aggravates the condition by increasing pressure on the abdomen.) Eat meals at least three to four hours before lying down, and avoid bedtime snacks. Eat moderate portions of food and smaller meals. Maintain a healthy weight to eliminate unnecessary intra-abdominal pressure caused by extra pounds. Limit consumption of fatty foods, chocolate, peppermint, coffee, tea, luis, and alcohol all of which relax the lower esophageal sphincter. Also, avoid tomatoes and citrus fruits or juices, which contribute additional acid that can irritate the esophagus. Give up smoking, which also relaxes the lower esophageal sphincter. Wear loose belts and clothing. If it persists Many people will get relief from heartburn and the pressure accompanying esophageal reflux by following the above recommendations. [id number] liquid antacids are also helpful in treating occasional heartburn. If your symptoms persist, do not respond to treatment, or occur frequently, you need to see a doctor for testing and treatment. A visual examination of the esophagus, known as an endoscopy, might be necessary. Sometimes this test shows that the lining of the esophagus is severely inflamed and irritated by stomach acid. This condition, known as esophagitis, might lead to bleeding and difficulty in swallowing. Medical treatment for this condition might be necessary. This usually involves blocking acid production in the stomach or increasing the strength of the lower esophageal sphincter to help close off the opening to the stomach. Medicine and the lifestyle changes described above provide relief for most people who suffer from esophageal reflux. [id number] medicines, such as Tums , Rolaids , Maalox , Zantac , Tagamet , Pepcid , and Axid , can generally relieve esophageal reflux symptoms. Patients with more severe symptoms or those who have been using antacids for more than two weeks should contact their doctors, who can prescribe medicines to control or eliminate acid, such as H2-receptor antagonists and proton pump inhibitors. Only a few people need surgery to correct the disorder. Copyright 7577-4405 [employer] [facility]. All rights reserved. This information is provided by the [facility] and is not intended to replace the medical advice of your doctor or health care provider. Please consult your health care provider for advice about a specific medical condition. For additional health information, please contact the [facility] at the [facility] or toll-free extension [phone]. If you prefer, you may visit [email or web address] or [email or web address]. This document was last reviewed on: 2009 index#7042 Urinary Problem-When to Seek Help? Symptoms of a urinary problem may lead to a bladder infection. Women are at greater risk of a urinary tract infection than are men. Most urinary tract infections in women are caused by bacteria and involve the lower urinary tract including the bladder and urethra. Symptoms: Pain or burning when passing urine, urgency, frequency, blood in the urine, difficult emptying your bladder, and lower abdominal fullness or pressure. Common Causes: Sexual intercourse, menopause, constipation, uncontrolled diabetes, dehydration and feminine products such as tampons, and kidney stones. When to Get Help: Seek medical attention if you get frequent bladder infections, urinary concerns such as leakage, blood in the urine or frequent need to urinate. You may be recommended to get help from a specialist, such as a urologist. Diagnosis & Treatment: Lab testing may include: urinalysis, and urine culture that can be collected in the lab or walk-in clinic. Most bladder infections can easily be treated. A physician, nurse practitioner or physician assistant department manager may treat with a short course of an antibiotic. Delaying treatment can lead to worsening symptoms, like a kidney infection. Self-Care: Avoid a full bladder, bubble baths, bath oils, food and beverages that may irritate the bladder such as caffeine. Avoid spermicide foam and diaphragms Void before and after sexual intercourse Wipe front to back after using the bathroom. Stay hydrated Stop Smoking Follow-up Care: Follow up testing is not needed in healthy young women if symptoms resolve. documented in this encounter [facility] 10-04-2021 History of Present illness Narrative This note was created using NoteWriter. Subjective Eleazar Rondno is a 41 year old female. 41 year old female with PMH HTN presents with complaints of abdominal pain. Acute onset July pain so bad was worried my heart States in [place] at time and the ED down there did a cardiac/gastro work up. Was negative. She Followed up with her PCP as they were concerned it was her gallbladder. US and MIADA scan have been performed and normal Endorses that she has an appointment with GI November 07. Acute onset Friday after eating spicy food. raw and burning States she has been experiencing the pain since. Locates upper abdomen. Intensity varies. States that she recently experienced some right sided lower back/flank pain. +urinary frequency, but otherwise Denies sx. Denies fever or chills. Denies emesis. Denies diarrhea. Denies that she was advised to take medicines. States she is leaving for [place] on Friday morning. The history is provided by the patient. No speech language specialist was used. Abdominal Pain This is a recurrent problem. The current episode started more than 1 week ago. The problem occurs daily. The problem has been gradually worsening. The pain is associated with an unknown factor. The pain is located in the epigastric region. The quality of the pain is burning. The pain is at a severity of 5/10. The pain is moderate. Associated symptoms include nausea and frequency. Pertinent negatives include anorexia, fever, belching, diarrhea, flatus, hematochezia, melena, vomiting, constipation, dysuria, hematuria, headaches, arthralgias and myalgias. Exacerbated by: certain foods. Nothing relieves the symptoms. Past workup includes ultrasound. Her past medical history does not include PUD, gallstones, GERD, ulcerative colitis, Crohn's disease or irritable bowel syndrome. PAST MEDICAL HISTORY Diagnosis Date Mononucleosis Unspecified essential hypertension Essential hypertension PAST SURGICAL HISTORY Procedure Laterality Date REMOVE TUMOR, LEG OR ANKLE >5 CM 1994 right knee TYMPANOSTOMY LOCAL/TOPICAL ANESTHESIA 1989 VAGINAL DELIVERY W/ CARE ONLY 2009 ALLERGIES Clindamycin MEDICATIONS amLODIPine-benazepril (LOTREL) 10-20 mg per capsule Take 1 capsule by mouth once daily. benazepril (LOTENSIN) 10 mg tablet Take 1 tablet by mouth once daily. fexofenadine/pseudoephedrine (SHERIN-D 24 HOUR ORAL) Take 1 tablet by mouth once daily. olopatadine (PATANOL) 0.1 % ophthalmic solution Use 1 Drop in both eyes twice daily. [place]-3 Fatty Acids (FISH OIL) 500 mg cap Take 2 capsules by mouth once daily. Garlic tab Take 1 tablet by mouth once daily. dicyclomine (BENTYL) 10 mg capsule Take 1 capsule by mouth before meals and at bedtime. famotidine (PEPCID) 20 mg tablet Take 1 tablet by mouth at bedtime as needed. nitrofurantoin monohydrate and macrocrystal (MACROBID) 100 mg capsule Take 1 capsule by mouth twice daily for 5 days. FAMILY HISTORY Problem Relation Age of Onset Hypertension Father Alcohol/Drug Maternal Grandmother Cancer Maternal Grandfather Stroke Paternal Grandfather Social History Tobacco Use Smoking status: Former Smoker Quit date: 07/19/2002 Years since quittin.2 Smokeless tobacco: Never Used Tobacco comment: 1 cigarette daily at that time Vaping Use Vaping Use: Unknown Substance Use Topics Alcohol use: Yes Alcohol/week: 5.0 standard drinks Types: 2 Glasses of Wine (5oz) per week Drug use: No Review of Systems Constitutional: Negative for activity change, appetite change, chills, diaphoresis and fever. HENT: Negative for congestion. Eyes: Negative for photophobia, pain, discharge, redness, itching and visual disturbance. Respiratory: Negative for apnea, cough, choking and chest tightness. Cardiovascular: Negative for chest pain, palpitations and leg swelling. Gastrointestinal: Positive for abdominal pain and nausea. Negative for anorexia, constipation, diarrhea, flatus, hematochezia, melena and vomiting. Genitourinary: Positive for flank pain and frequency. Negative for dysuria and hematuria. Musculoskeletal: Negative for arthralgias and myalgias. Skin: Negative for color change, pallor, rash and wound. Allergic/Immunologic: Negative for environmental allergies, food allergies and immunocompromised state. Neurological: Negative for dizziness, facial asymmetry and headaches. Hematological: Negative for adenopathy. Does not bruise/bleed easily. Psychiatric/Behavioral: Negative for agitation and behavioral problems. Objective BP 128/82 Pulse 63 Temp 36.9 C (98.4 F) (Tympanic) Resp 18 Wt 60.1 kg (132 lb 9.6 oz) LMP 06/08/2018 SpO2 98% BMI 22.07 kg/m Physical Exam Vitals and nursing note reviewed. Constitutional: General: She is not in acute distress. Appearance: Normal appearance. She is normal weight. She is not ill-appearing, toxic-appearing or diaphoretic. HENT: Head: Normocephalic and atraumatic. Right Ear: Ear canal and external ear normal. Left Ear: Ear canal and external ear normal. Nose: Nose normal. No congestion or rhinorrhea. Mouth/Throat: Mouth: Mucous membranes are moist. Pharynx: No oropharyngeal exudate or posterior oropharyngeal erythema. Eyes: General: Right eye: No discharge. Left eye: No discharge. Extraocular Movements: Extraocular movements intact. Conjunctiva/sclera: Conjunctivae normal. Pupils: Pupils are equal, round, and reactive to light. Cardiovascular: Rate and Rhythm: Normal rate and regular rhythm. Pulses: Normal pulses. Heart sounds: Normal heart sounds. No murmur heard. No friction rub. Pulmonary: Effort: Pulmonary effort is normal. No respiratory distress. Breath sounds: Normal breath sounds. No stridor. No wheezing, rhonchi or rales. Chest: Chest wall: No tenderness. Abdominal: General: Abdomen is flat. There is no distension. Palpations: Abdomen is soft. There is no mass. Tenderness: There is no right CVA tenderness, left CVA tenderness, guarding or rebound. Hernia: No hernia is present. Comments: Mild epigastric tenderness Musculoskeletal: General: No swelling, tenderness, deformity or signs of injury. Normal range of motion. Cervical back: Normal range of motion and neck supple. No rigidity. Right lower leg: No edema. Left lower leg: No edema. Lymphadenopathy: Cervical: No cervical adenopathy. Skin: General: Skin is warm and dry. Coloration: Skin is not jaundiced or pale. Findings: No bruising, erythema, lesion or rash. Neurological: General: No focal deficit present. Mental Status: She is alert and oriented to person, place, and time. Cranial Nerves: No cranial nerve deficit. Sensory: No sensory deficit. Motor: No weakness. Coordination: Coordination normal. Gait: Gait normal. Psychiatric: Mood and Affect: Mood normal. Behavior: Behavior normal. Thought Content: Thought content normal. Judgment: Judgment normal. Assessment and Plan ASSESSMENT/PLAN: 1. Generalized abdominal pain - ICD9: 789.07, ICD10: R10.84 (primary diagnosis) Ongoing since July, Seen in ED and PCP Has had negative work up for gallbladder. Has GI in October, pain worsened over past couple days, also presents wondering about UTI. Differential Diagnosis includes GERD, PUD and Gastritis - Begin treatment with Pepcid 20 mg QD - [place] low residue diet - Referral to Gastroenterology, has appointment May 11. - Follow up in 2 days or sooner if worsening of symptoms - URINE OB DIP B/O - URINE CULTURE 2. Microscopic hematuria - ICD9: 599.72, ICD10: R31.29 Patient aware Treated for UTI - URINE CULTURE 3. Urinary frequency - ICD9: 788.41, ICD10: R35.0 acute - UA positive for renny esterase and hematuria - Send urine for culture - Begin treatment with Macrobid 100 mg BID - Patient education for prevention given 4. Right flank pain - ICD9: 789.09, ICD10: R10.9 No CVA tenderness Urine dip revealed leuks and hematuria WIll cover for UTI Erma Cardenas APRN.YUNG documented [facility] Epigastric pain- Primary Abdominal pain, epigastric [facility] Diagnosis Epigastric pain Abdominal pain, epigastric [facility] Diagnosis Epigastric pain- Primary Abdominal pain, epigastric [facility] Diagnosis Sore throat- Primary Acute pharyngitis Lip ulceration Diseases of lips Burning in the chest Other chest pain SOB (shortness of breath) Shortness of breath [facility] Diagnosis Epigastric pain- Primary Abdominal pain, epigastric [facility] Diagnosis Gastroesophageal reflux disease, unspecified whether esophagitis present- Primary Mouth sore Other and unspecified diseases of the oral soft tissues [facility] Diagnosis Low back pain, unspecified back pain laterality, unspecified chronicity, unspecified whether sciatica present [facility] Low back pain, unspecified back pain laterality, unspecified chronicity, unspecified whether sciatica present- Primary [facility] Diagnosis Herpes simplex- Primary Herpes simplex without mention of complication [facility] Diagnosis Paresthesia- Primary Disturbance of skin sensation [facility] Name Dates Details Patient Instructions Indication:BMI 24.0-24.9, adult Start:16-Mar-2021 Instruction Type:Provider Instructions for Treatment How to Access Health Informa tion Online using Patient Portal and [employer]rd [employer] Apps Indication:BMI 24.0-24.9, adult Start:16-Mar-2021 Instruction Type:Patient Education [facility]; [facility] Work Phone: instructions* Name Dates Details Patient Instructions Indication:BMI 24.0-24.9, adult Start:16-Mar-2021 Instruction Type:Provider Instructions for Treatment How to Access Health Informa tion Online using Patient Portal and [employer]rd [employer] Apps Indication:BMI 24.0-24.9, adult Start:16-Mar-2021 Instruction Type:Patient Education [facility]; [facility] Work Phone: instructions* Name Dates Details Patient Instructions Indication:BMI 24.0-24.9, adult Start:17-Aug-2021 Instruction Type:Provider Instructions for Treatment How to Access Health Informa tion Online using Patient Portal and [employer]rd [employer] Apps Indication:BMI 24.0-24.9, adult Start:17-Aug-2021 Instruction Type:Patient Education Patient Instructions Indication:BMI 24.0-24.9, adult Start:16-Mar-2021 Instruction Type:Provider Instructions for Treatment How to Access Health Informa tion Online using Patient Portal and [employer]rd [employer] Apps Indication:BMI 24.0-24.9, adult Start:16-Mar-2021 Instruction Type:Patient Education [facility]; [facility] Work Phone: instructions* Name Dates Details Patient Instructions Indication:BMI 24.0-24.9, adult Start:17-Aug-2021 Instruction Type:Provider Instructions for Treatment How to Access Health Informa tion Online using Patient Portal and [employer]rd [employer] Apps Indication:BMI 24.0-24.9, adult Start:17-Aug-2021 Instruction Type:Patient Education Patient Instructions Indication:BMI 24.0-24.9, adult Start:16-Mar-2021 Instruction Type:Provider Instructions for Treatment How to Access Health Informa tion Online using Patient Portal and [employer]rd [employer] Apps Indication:BMI 24.0-24.9, adult Start:16-Mar-2021 Instruction Type:Patient Education [facility]; [facility] Work Phone: instructions* Name Dates Details Patient Instructions Indication:BMI 24.0-24.9, adult Start:17-Aug-2021 Instruction Type:Provider Instructions for Treatment How to Access Health Informa tion Online using Patient Portal and [employer]rd [employer] Apps Indication:BMI 24.0-24.9, adult Start:17-Aug-2021 Instruction Type:Patient Education Patient Instructions Indication:BMI 24.0-24.9, adult Start:16-Mar-2021 Instruction Type:Provider Instructions for Treatment How to Access Health Informa tion Online using Patient Portal and [employer] Apps Indication:BMI 24.0-24.9, adult Start:16-Mar-2021 Instruction Type:Patient Education [facility]; [facility] Work Phone: instructions* Name Dates Details Patient Instructions Indication:BMI 24.0-24.9, adult Start:17-Aug-2021 Instruction Type:Provider Instructions for Treatment How to Access Health Informa tion Online using Patient Portal and [employer]rd [employer] Apps Indication:BMI 24.0-24.9, adult Start:17-Aug-2021 Instruction Type:Patient Education Patient Instructions Indication:BMI 24.0-24.9, adult Start:16-Mar-2021 Instruction Type:Provider Instructions for Treatment How to Access Health Informa tion Online using Patient Portal and [employer]rd [employer] Apps Indication:BMI 24.0-24.9, adult Start:16-Mar-2021 Instruction Type:Patient Education [facility]; [facility] Work Phone: instructions* Name Dates Details Patient Instructions Indication:BMI 22.0-22.9, adult Start:02-Nov-2021 Instruction Type:Provider Instructions for Treatment How to Access Health Informa tion Online using Patient Portal and [employer]rd [employer] Apps Indication:BMI 22.0-22.9, adult Start:02-Nov-2021 Instruction Type:Patient Education Patient Instructions Indication:Non-smoker Start:15-Oct-2021 Instruction Type:Provider Instructions for Treatment How to Access Health Informa tion Online using Patient Portal and [employer]rd [employer] Apps Indication:Non-smoker Start:15-Oct-2021 Instruction Type:Patient Education Patient Instructions Indication:BMI 24.0-24.9, adult Start:17-Aug-2021 Instruction Type:Provider Instructions for Treatment How to Access Health Informa tion Online using Patient Portal and [employer] Apps Indication:BMI 24.0-24.9, adult Start:17-Aug-2021 Instruction Type:Patient Education Patient Instructions Indication:BMI 24.0-24.9, adult Start:16-Mar-2021 Instruction Type:Provider Instructions for Treatment How to Access Health Informa tion Online using Patient Portal and [employer] Apps Indication:BMI 24.0-24.9, adult Start:16-Mar-2021 Instruction Type:Patient Education [facility]; [facility] Work Phone: instructions* Name Dates Details Patient Instructions Indication:BMI 22.0-22.9, adult Start:02-Nov-2021 Instruction Type:Provider Instructions for Treatment How to Access Health Informa tion Online using Patient Portal and [employer]rd [employer] Apps Indication:BMI 22.0-22.9, adult Start:02-Nov-2021 Instruction Type:Patient Education Patient Instructions Indication:Non-smoker Start:15-Oct-2021 Instruction Type:Provider Instructions for Treatment How to Access Health Informa tion Online using Patient Portal and [employer]rd [employer] Apps Indication:Non-smoker Start:15-Oct-2021 Instruction Type:Patient Education Patient Instructions Indication:BMI 24.0-24.9, adult Start:17-Aug-2021 Instruction Type:Provider Instructions for Treatment How to Access Health Informa tion Online using Patient Portal and [employer] Apps Indication:BMI 24.0-24.9, adult Start:17-Aug-2021 Instruction Type:Patient Education Patient Instructions Indication:BMI 24.0-24.9, adult Start:16-Mar-2021 Instruction Type:Provider Instructions for Treatment How to Access Health Informa tion Online using Patient Portal and [employer] Apps Indication:BMI 24.0-24.9, adult Start:16-Mar-2021 Instruction Type:Patient Education [facility]; [facility] Work Phone: instructions* Name Dates Details Patient Instructions Indication:BMI 22.0-22.9, adult Start:02-Nov-2021 Instruction Type:Provider Instructions for Treatment How to Access Health Informa tion Online using Patient Portal and [employer] Apps Indication:BMI 22.0-22.9, adult Start:02-Nov-2021 Instruction Type:Patient Education Patient Instructions Indication:Non-smoker Start:15-Oct-2021 Instruction Type:Provider Instructions for Treatment How to Access Health Informa tion Online using Patient Portal and [employer]rd [employer] Apps Indication:Non-smoker Start:15-Oct-2021 Instruction Type:Patient Education Patient Instructions Indication:BMI 24.0-24.9, adult Start:17-Aug-2021 Instruction Type:Provider Instructions for Treatment How to Access Health Informa tion Online using Patient Portal and [employer] Apps Indication:BMI 24.0-24.9, adult Start:17-Aug-2021 Instruction Type:Patient Education Patient Instructions Indication:BMI 24.0-24.9, adult Start:16-Mar-2021 Instruction Type:Provider Instructions for Treatment How to Access Health Informa tion Online using Patient Portal and [employer]rd [employer] Apps Indication:BMI 24.0-24.9, adult Start:16-Mar-2021 Instruction Type:Patient Education [facility]; [facility] Work Phone: Instructions* Name Dates Details Patient Instructions Indication:BMI 22.0-22.9, adult Start:02-Nov-2021 Instruction Type:Provider Instructions for Treatment How to Access Health Informa tion Online using Patient Portal and [employer]rd [employer] Apps Indication:BMI 22.0-22.9, adult Start:02-Nov-2021 Instruction Type:Patient Education Patient Instructions Indication:Non-smoker Start:15-Oct-2021 Instruction Type:Provider Instructions for Treatment How to Access Health Informa tion Online using Patient Portal and [employer]rd [employer] Apps Indication:Non-smoker Start:15-Oct-2021 Instruction Type:Patient Education Patient Instructions Indication:BMI 24.0-24.9, adult Start:17-Aug-2021 Instruction Type:Provider Instructions for Treatment How to Access Health Informa tion Online using Patient Portal and [employer]rd [employer] Apps Indication:BMI 24.0-24.9, adult Start:17-Aug-2021 Instruction Type:Patient Education Patient Instructions Indication:BMI 24.0-24.9, adult Start:16-Mar-2021 Instruction Type:Provider Instructions for Treatment How to Access Health Informa tion Online using Patient Portal and [employer] Apps Indication:BMI 24.0-24.9, adult Start:16-Mar-2021 Instruction Type:Patient Education [facility]; [facility] Work Phone: [employer]* Name Dates Details Patient Instructions Indication:BMI 22.0-22.9, adult Start:02-Nov-2021 Instruction Type:Provider Instructions for Treatment How to Access Health Informa tion Online using Patient Portal and [employer]rd [employer] Apps Indication:BMI 22.0-22.9, adult Start:02-Nov-2021 Instruction Type:Patient Education Patient Instructions Indication:Non-smoker Start:15-Oct-2021 Instruction Type:Provider Instructions for Treatment How to Access Health Informa tion Online using Patient Portal and [employer]rd [employer] Apps Indication:Non-smoker Start:15-Oct-2021 Instruction Type:Patient Education Patient Instructions Indication:BMI 24.0-24.9, adult Start:17-Aug-2021 Instruction Type:Provider Instructions for Treatment How to Access Health Informa tion Online using Patient Portal and [employer] Apps Indication:BMI 24.0-24.9, adult Start:17-Aug-2021 Instruction Type:Patient Education Patient Instructions Indication:BMI 24.0-24.9, adult Start:16-Mar-2021 Instruction Type:Provider Instructions for Treatment How to Access Health Informa tion Online using Patient Portal and [employer] Apps Indication:BMI 24.0-24.9, adult Start:16-Mar-2021 Instruction Type:Patient Education [facility]; [facility] Work Phone: [employer]* Name Dates Details Patient Instructions Indication:Non-smoker Start:21-Jan-2022 Instruction Type:Provider Instructions for Treatment How to Access Health Informa tion Online using Patient Portal and [employer]rd [employer] Apps Indication:Non-smoker Start:21-Jan-2022 Instruction Type:Patient Education Patient Instructions Indication:BMI 22.0-22.9, adult Start:02-Nov-2021 Instruction Type:Provider Instructions for Treatment How to Access Health Informa tion Online using Patient Portal and [employer] Apps Indication:BMI 22.0-22.9, adult Start:02-Nov-2021 Instruction Type:Patient Education Patient Instructions Indication:Non-smoker Start:15-Oct-2021 Instruction Type:Provider Instructions for Treatment How to Access Health Informa tion Online using Patient Portal and [employer]rd [employer] Apps Indication:Non-smoker Start:15-Oct-2021 Instruction Type:Patient Education Patient Instructions Indication:BMI 24.0-24.9, adult Start:17-Aug-2021 Instruction Type:Provider Instructions for Treatment How to Access Health Informa tion Online using Patient Portal and [employer]rd [employer] Apps Indication:BMI 24.0-24.9, adult Start:17-Aug-2021 Instruction Type:Patient Education Patient Instructions Indication:BMI 24.0-24.9, adult Start:16-Mar-2021 Instruction Type:Provider Instructions for Treatment How to Access Health Informa tion Online using Patient Portal and [employer]rd [employer] Apps Indication:BMI 24.0-24.9, adult Start:16-Mar-2021 Instruction Type:Patient Education [facility]; [facility] Work Phone: Instructions* Name Dates Details Patient Instructions Indication:Non-smoker Start:21-Jan-2022 Instruction Type:Provider Instructions for Treatment How to Access Health Informa tion Online using Patient Portal and [employer]rd [employer] Apps Indication:Non-smoker Start:21-Jan-2022 Instruction Type:Patient Education Patient Instructions Indication:BMI 22.0-22.9, adult Start:02-Nov-2021 Instruction Type:Provider Instructions for Treatment How to Access Health Informa tion Online using Patient Portal and [employer]rd [employer] Apps Indication:BMI 22.0-22.9, adult Start:02-Nov-2021 Instruction Type:Patient Education Patient Instructions Indication:Non-smoker Start:15-Oct-2021 Instruction Type:Provider Instructions for Treatment How to Access Health Informa tion Online using Patient Portal and [employer] Apps Indication:Non-smoker Start:15-Oct-2021 Instruction Type:Patient Education Patient Instructions Indication:BMI 24.0-24.9, adult Start:17-Aug-2021 Instruction Type:Provider Instructions for Treatment How to Access Health Informa tion Online using Patient Portal and [employer]rd [employer] Apps Indication:BMI 24.0-24.9, adult Start:17-Aug-2021 Instruction Type:Patient Education Patient Instructions Indication:BMI 24.0-24.9, adult Start:16-Mar-2021 Instruction Type:Provider Instructions for Treatment How to Access Health Informa tion Online using Patient Portal and [employer]rd [employer] Apps Indication:BMI 24.0-24.9, adult Start:16-Mar-2021 Instruction Type:Patient Education [facility]; [facility] Work Phone: Instructions* Name Dates Details Patient Instructions Indication:Non-smoker Start:21-Jan-2022 Instruction Type:Provider Instructions for Treatment How to Access Health Informa tion Online using Patient Portal and [employer]rd [employer] Apps Indication:Non-smoker Start:21-Jan-2022 Instruction Type:Patient Education Patient Instructions Indication:BMI 22.0-22.9, adult Start:02-Nov-2021 Instruction Type:Provider Instructions for Treatment How to Access Health Informa tion Online using Patient Portal and [employer] Apps Indication:BMI 22.0-22.9, adult Start:02-Nov-2021 Instruction Type:Patient Education Patient Instructions Indication:Non-smoker Start:15-Oct-2021 Instruction Type:Provider Instructions for Treatment How to Access Health Informa tion Online using Patient Portal and [employer]rd [employer] Apps Indication:Non-smoker Start:15-Oct-2021 Instruction Type:Patient Education Patient Instructions Indication:BMI 24.0-24.9, adult Start:17-Aug-2021 Instruction Type:Provider Instructions for Treatment How to Access Health Informa tion Online using Patient Portal and [employer]rd [employer] Apps Indication:BMI 24.0-24.9, adult Start:17-Aug-2021 Instruction Type:Patient Education Patient Instructions Indication:BMI 24.0-24.9, adult Start:16-Mar-2021 Instruction Type:Provider Instructions for Treatment How to Access Health Informa tion Online using Patient Portal and [employer]rd [employer] Apps Indication:BMI 24.0-24.9, adult Start:16-Mar-2021 Instruction Type:Patient Education [facility]; [facility] Work Phone: Instructions* Name Dates Details Patient Instructions Indication:Non-smoker Start:05-Feb-2022 Instruction Type:Provider Instructions for Treatment How to Access Health Informa tion Online using Patient Portal and [employer] Apps Indication:Non-smoker Start:05-Feb-2022 Instruction Type:Patient Education Patient Instructions Indication:Non-smoker Start:21-Jan-2022 Instruction Type:Provider Instructions for Treatment How to Access Health Informa tion Online using Patient Portal and [employer] Apps Indication:Non-smoker Start:21-Jan-2022 Instruction Type:Patient Education Patient Instructions Indication:BMI 22.0-22.9, adult Start:02-Nov-2021 Instruction Type:Provider Instructions for Treatment How to Access Health Informa tion Online using Patient Portal and [employer]rd [employer] Apps Indication:BMI 22.0-22.9, adult Start:02-Nov-2021 Instruction Type:Patient Education Patient Instructions Indication:Non-smoker Start:15-Oct-2021 Instruction Type:Provider Instructions for Treatment How to Access Health Informa tion Online using Patient Portal and [employer] Apps Indication:Non-smoker Start:15-Oct-2021 Instruction Type:Patient Education Patient Instructions Indication:BMI 24.0-24.9, adult Start:17-Aug-2021 Instruction Type:Provider Instructions for Treatment How to Access Health Informa tion Online using Patient Portal and [employer] Apps Indication:BMI 24.0-24.9, adult Start:17-Aug-2021 Instruction Type:Patient Education Patient Instructions Indication:BMI 24.0-24.9, adult Start:16-Mar-2021 Instruction Type:Provider Instructions for Treatment How to Access Health Informa tion Online using Patient Portal and [employer]rd [employer] Apps Indication:BMI 24.0-24.9, adult Start:16-Mar-2021 Instruction Type:Patient Education [facility]; [facility] Work Phone: Instructions* Name Dates Details Patient Instructions Indication:Non-smoker Start:05-Feb-2022 Instruction Type:Provider Instructions for Treatment How to Access Health Informa tion Online using Patient Portal and [employer] Apps Indication:Non-smoker Start:05-Feb-2022 Instruction Type:Patient Education Patient Instructions Indication:Non-smoker Start:21-Jan-2022 Instruction Type:Provider Instructions for Treatment How to Access Health Informa tion Online using Patient Portal and [employer] Apps Indication:Non-smoker Start:21-Jan-2022 Instruction Type:Patient Education Patient Instructions Indication:BMI 22.0-22.9, adult Start:02-Nov-2021 Instruction Type:Provider Instructions for Treatment How to Access Health Informa tion Online using Patient Portal and [employer] Indication:BMI 22.0-22.9, adult Start:02-Nov-2021 Instruction Type:Patient Education Patient Instructions Indication:Non-smoker Start:15-Oct-2021 Instruction Type:Provider Instructions for Treatment How to Access Health Informa tion Online using Patient Portal and [employer]rd [employer] Apps Indication:Non-smoker Start:15-Oct-2021 Instruction Type:Patient Education Patient Instructions Indication:BMI 24.0-24.9, adult Start:17-Aug-2021 Instruction Type:Provider Instructions for Treatment How to Access Health Informa tion Online using Patient Portal and [employer] Apps Indication:BMI 24.0-24.9, adult Start:17-Aug-2021 Instruction Type:Patient Education Patient Instructions Indication:BMI 24.0-24.9, adult Start:16-Mar-2021 Instruction Type:Provider Instructions for Treatment How to Access Health Informa tion Online using Patient Portal and [employer]rd [employer] Apps Indication:BMI 24.0-24.9, adult Start:16-Mar-2021 Instruction Type:Patient Education [facility]; [facility] Work Phone: Instructions* Name Dates Details Patient Instructions Indication:BMI 21.0-21.9, adult Start:18-Mar-2022 Instruction Type:Provider Instructions for Treatment How to Access Health Informa tion Online using Patient Portal and [employer] Apps Indication:BMI 21.0-21.9, adult Start:18-Mar-2022 Instruction Type:Patient Education Patient Instructions Indication:Non-smoker Start:28-Feb-2022 Instruction Type:Provider Instructions for Treatment How to Access Health Informa tion Online using Patient Portal and [employer] Apps Indication:Non-smoker Start:28-Feb-2022 Instruction Type:Patient Education Patient Instructions Indication:Anxiety Start:21-Feb-2022 Instruction Type:Provider Instructions for Treatment Patient Instructions Indication:Non-smoker Start:21-Feb-2022 Instruction Type:Provider Instructions for Treatment How to Access Health Informa tion Online using Patient Portal and [employer] Apps Indication:Non-smoker Start:21-Feb-2022 Instruction Type:Patient Education Patient Instructions Indication:Non-smoker Start:05-Feb-2022 Instruction Type:Provider Instructions for Treatment How to Access Health Informa tion Online using Patient Portal and [employer] Apps Indication:Non-smoker Start:05-Feb-2022 Instruction Type:Patient Education Patient Instructions Indication:Non-smoker Start:21-Jan-2022 Instruction Type:Provider Instructions for Treatment How to Access Health Informa tion Online using Patient Portal and [employer] Apps Indication:Non-smoker Start:21-Jan-2022 Instruction Type:Patient Education Patient Instructions Indication:BMI 22.0-22.9, adult Start:02-Nov-2021 Instruction Type:Provider Instructions for Treatment How to Access Health Informa tion Online using Patient Portal and [employer] Apps Indication:BMI 22.0-22.9, adult Start:02-Nov-2021 Instruction Type:Patient Education Patient Instructions Indication:Non-smoker Start:15-Oct-2021 Instruction Type:Provider Instructions for Treatment How to Access Health Informa tion Online using Patient Portal and [employer] Apps Indication:Non-smoker Start:15-Oct-2021 Instruction Type:Patient Education Patient Instructions Indication:BMI 24.0-24.9, adult Start:17-Aug-2021 Instruction Type:Provider Instructions for Treatment How to Access Health Informa tion Online using Patient Portal and [employer] Apps Indication:BMI 24.0-24.9, adult Start:17-Aug-2021 Instruction Type:Patient Education Patient Instructions Indication:BMI 24.0-24.9, adult Start:16-Mar-2021 Instruction Type:Provider Instructions for Treatment How to Access Health Informa tion Online using Patient Portal and [employer] Apps Indication:BMI 24.0-24.9, adult Start:16-Mar-2021 Instruction Type:Patient Education [facility]; [facility] Work Phone: Instructions* Name Dates Details Patient Instructions Indication:BMI 21.0-21.9, adult Start:18-Mar-2022 Instruction Type:Provider Instructions for Treatment How to Access Health Informa tion Online using Patient Portal and [employer] Apps Indication:BMI 21.0-21.9, adult Start:18-Mar-2022 Instruction Type:Patient Education Patient Instructions Indication:Non-smoker Start:28-Feb-2022 Instruction Type:Provider Instructions for Treatment How to Access Health Informa tion Online using Patient Portal and [employer] Apps Indication:Non-smoker Start:28-Feb-2022 Instruction Type:Patient Education Patient Instructions Indication:Anxiety Start:21-Feb-2022 Instruction Type:Provider Instructions for Treatment Patient Instructions Indication:Non-smoker Start:21-Feb-2022 Instruction Type:Provider Instructions for Treatment How to Access Health Informa tion Online using Patient Portal and [employer] Apps Indication:Non-smoker Start:21-Feb-2022 Instruction Type:Patient Education Patient Instructions Indication:Non-smoker Start:05-Feb-2022 Instruction Type:Provider Instructions for Treatment How to Access Health Informa tion Online using Patient Portal and [employer] Apps Indication:Non-smoker Start:05-Feb-2022 Instruction Type:Patient Education Patient Instructions Indication:Non-smoker Start:21-Jan-2022 Instruction Type:Provider Instructions for Treatment How to Access Health Informa tion Online using Patient Portal and [employer] Apps Indication:Non-smoker Start:21-Jan-2022 Instruction Type:Patient Education Patient Instructions Indication:BMI 22.0-22.9, adult Start:02-Nov-2021 Instruction Type:Provider Instructions for Treatment How to Access Health Informa tion Online using Patient Portal and [employer] Apps Indication:BMI 22.0-22.9, adult Start:02-Nov-2021 Instruction Type:Patient Education Patient Instructions Indication:Non-smoker Start:15-Oct-2021 Instruction Type:Provider Instructions for Treatment How to Access Health Informa tion Online using Patient Portal and [employer] Apps Indication:Non-smoker Start:15-Oct-2021 Instruction Type:Patient Education Patient Instructions Indication:BMI 24.0-24.9, adult Start:17-Aug-2021 Instruction Type:Provider Instructions for Treatment How to Access Health Informa tion Online using Patient Portal and [employer] Indication:BMI 24.0-24.9, adult Start:17-Aug-2021 Instruction Type:Patient Education Patient Instructions Indication:BMI 24.0-24.9, adult Start:16-Mar-2021 Instruction Type:Provider Instructions for Treatment How to Access Health Informa tion Online using Patient Portal and [employer] Indication:BMI 24.0-24.9, adult Start:16-Mar-2021 Instruction Type:Patient Education [facility]; [facility] Work Phone: Instructions* Name Dates Details Patient Instructions Indication:BMI 21.0-21.9, adult Start:18-Mar-2022 Instruction Type:Provider Instructions for Treatment How to Access Health Informa tion Online using Patient Portal and [employer] Indication:BMI 21.0-21.9, adult Start:18-Mar-2022 Instruction Type:Patient Education Patient Instructions Indication:Non-smoker Start:28-Feb-2022 Instruction Type:Provider Instructions for Treatment How to Access Health Informa tion Online using Patient Portal and [employer] Apps Indication:Non-smoker Start:28-Feb-2022 Instruction Type:Patient Education Patient Instructions Indication:Anxiety Start:21-Feb-2022 Instruction Type:Provider Instructions for Treatment Patient Instructions Indication:Non-smoker Start:21-Feb-2022 Instruction Type:Provider Instructions for Treatment How to Access Health Informa tion Online using Patient Portal and [employer] Apps Indication:Non-smoker Start:21-Feb-2022 Instruction Type:Patient Education Patient Instructions Indication:Non-smoker Start:05-Feb-2022 Instruction Type:Provider Instructions for Treatment How to Access Health Informa tion Online using Patient Portal and [employer] Apps Indication:Non-smoker Start:05-Feb-2022 Instruction Type:Patient Education Patient Instructions Indication:Non-smoker Start:21-Jan-2022 Instruction Type:Provider Instructions for Treatment How to Access Health Informa tion Online using Patient Portal and [employer] Apps Indication:Non-smoker Start:21-Jan-2022 Instruction Type:Patient Education Patient Instructions Indication:BMI 22.0-22.9, adult Start:02-Nov-2021 Instruction Type:Provider Instructions for Treatment How to Access Health Informa tion Online using Patient Portal and [employer] Indication:BMI 22.0-22.9, adult Start:02-Nov-2021 Instruction Type:Patient Education Patient Instructions Indication:Non-smoker Start:15-Oct-2021 Instruction Type:Provider Instructions for Treatment How to Access Health Informa tion Online using Patient Portal and [employer] Apps Indication:Non-smoker Start:15-Oct-2021 Instruction Type:Patient Education Patient Instructions Indication:BMI 24.0-24.9, adult Start:17-Aug-2021 Instruction Type:Provider Instructions for Treatment How to Access Health Informa tion Online using Patient Portal and [employer] Indication:BMI 24.0-24.9, adult Start:17-Aug-2021 Instruction Type:Patient Education Patient Instructions Indication:BMI 24.0-24.9, adult Start:16-Mar-2021 Instruction Type:Provider Instructions for Treatment How to Access Health Informa tion Online using Patient Portal and [employer] Indication:BMI 24.0-24.9, adult Start:16-Mar-2021 Instruction Type:Patient Education [facility]; [facility] Work Phone: Instructions* Name Dates Details Patient Instructions Indication:BMI 21.0-21.9, adult Start:18-Mar-2022 Instruction Type:Provider Instructions for Treatment How to Access Health Informa tion Online using Patient Portal and [employer] Apps Indication:BMI 21.0-21.9, adult Start:18-Mar-2022 Instruction Type:Patient Education Patient Instructions Indication:Non-smoker Start:28-Feb-2022 Instruction Type:Provider Instructions for Treatment How to Access Health Informa tion Online using Patient Portal and [employer] Apps Indication:Non-smoker Start:28-Feb-2022 Instruction Type:Patient Education Patient Instructions Indication:Anxiety Start:21-Feb-2022 Instruction Type:Provider Instructions for Treatment Patient Instructions Indication:Non-smoker Start:21-Feb-2022 Instruction Type:Provider Instructions for Treatment How to Access Health Informa tion Online using Patient Portal and [employer] Apps Indication:Non-smoker Start:21-Feb-2022 Instruction Type:Patient Education Patient Instructions Indication:Non-smoker Start:05-Feb-2022 Instruction Type:Provider Instructions for Treatment How to Access Health Informa tion Online using Patient Portal and [employer] Apps Indication:Non-smoker Start:05-Feb-2022 Instruction Type:Patient Education Patient Instructions Indication:Non-smoker Start:21-Jan-2022 Instruction Type:Provider Instructions for Treatment How to Access Health Informa tion Online using Patient Portal and [employer] Apps Indication:Non-smoker Start:21-Jan-2022 Instruction Type:Patient Education Patient Instructions Indication:BMI 22.0-22.9, adult Start:02-Nov-2021 Instruction Type:Provider Instructions for Treatment How to Access Health Informa tion Online using Patient Portal and [employer] Indication:BMI 22.0-22.9, adult Start:02-Nov-2021 Instruction Type:Patient Education Patient Instructions Indication:Non-smoker Start:15-Oct-2021 Instruction Type:Provider Instructions for Treatment How to Access Health Informa tion Online using Patient Portal and [employer] Apps Indication:Non-smoker Start:15-Oct-2021 Instruction Type:Patient Education Patient Instructions Indication:BMI 24.0-24.9, adult Start:17-Aug-2021 Instruction Type:Provider Instructions for Treatment How to Access Health Informa tion Online using Patient Portal and [employer] Indication:BMI 24.0-24.9, adult Start:17-Aug-2021 Instruction Type:Patient Education Patient Instructions Indication:BMI 24.0-24.9, adult Start:16-Mar-2021 Instruction Type:Provider Instructions for Treatment How to Access Health Informa tion Online using Patient Portal and [employer] Apps Indication:BMI 24.0-24.9, adult Start:16-Mar-2021 Instruction Type:Patient Education [facility]; [facility] Work Phone: Instructions* Name Dates Details Patient Instructions Indication:BMI 21.0-21.9, adult Start:18-Mar-2022 Instruction Type:Provider Instructions for Treatment How to Access Health Informa tion Online using Patient Portal and [employer] Apps Indication:BMI 21.0-21.9, adult Start:18-Mar-2022 Instruction Type:Patient Education Patient Instructions Indication:Non-smoker Start:28-Feb-2022 Instruction Type:Provider Instructions for Treatment How to Access Health Informa tion Online using Patient Portal and [employer] Apps Indication:Non-smoker Start:28-Feb-2022 Instruction Type:Patient Education Patient Instructions Indication:Anxiety Start:21-Feb-2022 Instruction Type:Provider Instructions for Treatment Patient Instructions Indication:Non-smoker Start:21-Feb-2022 Instruction Type:Provider Instructions for Treatment How to Access Health Informa tion Online using Patient Portal and [employer] Apps Indication:Non-smoker Start:21-Feb-2022 Instruction Type:Patient Education Patient Instructions Indication:Non-smoker Start:05-Feb-2022 Instruction Type:Provider Instructions for Treatment How to Access Health Informa tion Online using Patient Portal and [employer] Indication:Non-smoker Start:05-Feb-2022 Instruction Type:Patient Education Patient Instructions Indication:Non-smoker Start:21-Jan-2022 Instruction Type:Provider Instructions for Treatment How to Access Health Informa tion Online using Patient Portal and [employer] Apps Indication:Non-smoker Start:21-Jan-2022 Instruction Type:Patient Education Patient Instructions Indication:BMI 22.0-22.9, adult Start:02-Nov-2021 Instruction Type:Provider Instructions for Treatment How to Access Health Informa tion Online using Patient Portal and [employer] Indication:BMI 22.0-22.9, adult Start:02-Nov-2021 Instruction Type:Patient Education Patient Instructions Indication:Non-smoker Start:15-Oct-2021 Instruction Type:Provider Instructions for Treatment How to Access Health Informa tion Online using Patient Portal and [employer] Apps Indication:Non-smoker Start:15-Oct-2021 Instruction Type:Patient Education Patient Instructions Indication:BMI 24.0-24.9, adult Start:17-Aug-2021 Instruction Type:Provider Instructions for Treatment How to Access Health Informa tion Online using Patient Portal and [employer] Indication:BMI 24.0-24.9, adult Start:17-Aug-2021 Instruction Type:Patient Education Patient Instructions Indication:BMI 24.0-24.9, adult Start:16-Mar-2021 Instruction Type:Provider Instructions for Treatment How to Access Health Informa tion Online using Patient Portal and [employer] Indication:BMI 24.0-24.9, adult Start:16-Mar-2021 Instruction Type:Patient Education [facility]; [facility] Work Phone: Instructions* Name Dates Details Patient Instructions Indication:BMI 21.0-21.9, adult Start:18-Mar-2022 Instruction Type:Provider Instructions for Treatment How to Access Health Informa tion Online using Patient Portal and [employer] Apps Indication:BMI 21.0-21.9, adult Start:18-Mar-2022 Instruction Type:Patient Education Patient Instructions Indication:Non-smoker Start:28-Feb-2022 Instruction Type:Provider Instructions for Treatment How to Access Health Informa tion Online using Patient Portal and [employer] Apps Indication:Non-smoker Start:28-Feb-2022 Instruction Type:Patient Education Patient Instructions Indication:Anxiety Start:21-Feb-2022 Instruction Type:Provider Instructions for Treatment Patient Instructions Indication:Non-smoker Start:21-Feb-2022 Instruction Type:Provider Instructions for Treatment How to Access Health Informa tion Online using Patient Portal and [employer] Apps Indication:Non-smoker Start:21-Feb-2022 Instruction Type:Patient Education Patient Instructions Indication:Non-smoker Start:05-Feb-2022 Instruction Type:Provider Instructions for Treatment How to Access Health Informa tion Online using Patient Portal and [employer] Apps Indication:Non-smoker Start:05-Feb-2022 Instruction Type:Patient Education Patient Instructions Indication:Non-smoker Start:21-Jan-2022 Instruction Type:Provider Instructions for Treatment How to Access Health Informa tion Online using Patient Portal and [employer] Apps Indication:Non-smoker Start:21-Jan-2022 Instruction Type:Patient Education Patient Instructions Indication:BMI 22.0-22.9, adult Start:02-Nov-2021 Instruction Type:Provider Instructions for Treatment How to Access Health Informa tion Online using Patient Portal and [employer] Apps Indication:BMI 22.0-22.9, adult Start:02-Nov-2021 Instruction Type:Patient Education Patient Instructions Indication:Non-smoker Start:15-Oct-2021 Instruction Type:Provider Instructions for Treatment How to Access Health Informa tion Online using Patient Portal and [employer] Apps Indication:Non-smoker Start:15-Oct-2021 Instruction Type:Patient Education Patient Instructions Indication:BMI 24.0-24.9, adult Start:17-Aug-2021 Instruction Type:Provider Instructions for Treatment How to Access Health Informa tion Online using Patient Portal and [employer] Indication:BMI 24.0-24.9, adult Start:17-Aug-2021 Instruction Type:Patient Education Patient Instructions Indication:BMI 24.0-24.9, adult Start:16-Mar-2021 Instruction Type:Provider Instructions for Treatment How to Access Health Informa tion Online using Patient Portal and [employer] Apps Indication:BMI 24.0-24.9, adult Start:16-Mar-2021 Instruction Type:Patient Education [facility]; [facility] Work Phone: Instructions* Name Dates Details Patient Instructions Indication:BMI 21.0-21.9, adult Start:13-Jun-2022 Instruction Type:Provider Instructions for Treatment How to Access Health Informa tion Online using Patient Portal and [employer] Indication:BMI 21.0-21.9, adult Start:13-Jun-2022 Instruction Type:Patient Education Patient Instructions Indication:BMI 21.0-21.9, adult Start:18-Mar-2022 Instruction Type:Provider Instructions for Treatment How to Access Health Informa tion Online using Patient Portal and [employer] Apps Indication:BMI 21.0-21.9, adult Start:18-Mar-2022 Instruction Type:Patient Education Patient Instructions Indication:Non-smoker Start:28-Feb-2022 Instruction Type:Provider Instructions for Treatment How to Access Health Informa tion Online using Patient Portal and [employer] Apps Indication:Non-smoker Start:28-Feb-2022 Instruction Type:Patient Education Patient Instructions Indication:Anxiety Start:21-Feb-2022 Instruction Type:Provider Instructions for Treatment Patient Instructions Indication:Non-smoker Start:21-Feb-2022 Instruction Type:Provider Instructions for Treatment How to Access Health Informa tion Online using Patient Portal and [employer] Apps Indication:Non-smoker Start:21-Feb-2022 Instruction Type:Patient Education Patient Instructions Indication:Non-smoker Start:05-Feb-2022 Instruction Type:Provider Instructions for Treatment How to Access Health Informa tion Online using Patient Portal and [employer] Apps Indication:Non-smoker Start:05-Feb-2022 Instruction Type:Patient Education Patient Instructions Indication:Non-smoker Start:21-Jan-2022 Instruction Type:Provider Instructions for Treatment How to Access Health Informa tion Online using Patient Portal and [employer] Apps Indication:Non-smoker Start:21-Jan-2022 Instruction Type:Patient Education Patient Instructions Indication:BMI 22.0-22.9, adult Start:02-Nov-2021 Instruction Type:Provider Instructions for Treatment How to Access Health Informa tion Online using Patient Portal and [employer] Apps Indication:BMI 22.0-22.9, adult Start:02-Nov-2021 Instruction Type:Patient Education Patient Instructions Indication:Non-smoker Start:15-Oct-2021 Instruction Type:Provider Instructions for Treatment How to Access Health Informa tion Online using Patient Portal and [employer] Apps Indication:Non-smoker Start:15-Oct-2021 Instruction Type:Patient Education Patient Instructions Indication:BMI 24.0-24.9, adult Start:17-Aug-2021 Instruction Type:Provider Instructions for Treatment How to Access Health Informa tion Online using Patient Portal and [employer] Indication:BMI 24.0-24.9, adult Start:17-Aug-2021 Instruction Type:Patient Education Patient Instructions Indication:BMI 24.0-24.9, adult Start:16-Mar-2021 Instruction Type:Provider Instructions for Treatment How to Access Health Informa tion Online using Patient Portal and [employer] Indication:BMI 24.0-24.9, adult Start:16-Mar-2021 Instruction Type:Patient Education [facility]; [facility] Work Phone: Instructions* Name Dates Details Patient Instructions Indication:BMI 21.0-21.9, adult Start:13-Jun-2022 Instruction Type:Provider Instructions for Treatment How to Access Health Informa tion Online using Patient Portal and [employer] Apps Indication:BMI 21.0-21.9, adult Start:13-Jun-2022 Instruction Type:Patient Education Patient Instructions Indication:BMI 21.0-21.9, adult Start:18-Mar-2022 Instruction Type:Provider Instructions for Treatment How to Access Health Informa tion Online using Patient Portal and [employer] Apps Indication:BMI 21.0-21.9, adult Start:18-Mar-2022 Instruction Type:Patient Education Patient Instructions Indication:Non-smoker Start:28-Feb-2022 Instruction Type:Provider Instructions for Treatment How to Access Health Informa tion Online using Patient Portal and [employer] Apps Indication:Non-smoker Start:28-Feb-2022 Instruction Type:Patient Education Patient Instructions Indication:Anxiety Start:21-Feb-2022 Instruction Type:Provider Instructions for Treatment Patient Instructions Indication:Non-smoker Start:21-Feb-2022 Instruction Type:Provider Instructions for Treatment How to Access Health Informa tion Online using Patient Portal and [employer] Indication:Non-smoker Start:21-Feb-2022 Instruction Type:Patient Education Patient Instructions Indication:Non-smoker Start:05-Feb-2022 Instruction Type:Provider Instructions for Treatment How to Access Health Informa tion Online using Patient Portal and [employer] Indication:Non-smoker Start:05-Feb-2022 Instruction Type:Patient Education Patient Instructions Indication:Non-smoker Start:21-Jan-2022 Instruction Type:Provider Instructions for Treatment How to Access Health Informa tion Online using Patient Portal and [employer] Indication:Non-smoker Start:21-Jan-2022 Instruction Type:Patient Education Patient Instructions Indication:BMI 22.0-22.9, adult Start:02-Nov-2021 Instruction Type:Provider Instructions for Treatment How to Access Health Informa tion Online using Patient Portal and [employer] Indication:BMI 22.0-22.9, adult Start:02-Nov-2021 Instruction Type:Patient Education Patient Instructions Indication:Non-smoker Start:15-Oct-2021 Instruction Type:Provider Instructions for Treatment How to Access Health Informa tion Online using Patient Portal and [employer] Apps Indication:Non-smoker Start:15-Oct-2021 Instruction Type:Patient Education Patient Instructions Indication:BMI 24.0-24.9, adult Start:17-Aug-2021 Instruction Type:Provider Instructions for Treatment How to Access Health Informa tion Online using Patient Portal and [employer]rd [employer] Apps Indication:BMI 24.0-24.9, adult Start:17-Aug-2021 Instruction Type:Patient Education Patient Instructions Indication:BMI 24.0-24.9, adult Start:16-Mar-2021 Instruction Type:Provider Instructions for Treatment How to Access Health Informa tion Online using Patient Portal and 3rd [employer] Apps Indication:BMI 24.0-24.9, adult Start:16-Mar-2021 Instruction Type:Patient Education [facility]; [facility] Work Phone: Instructions* Name Dates Details Patient Instructions Indication:BMI 21.0-21.9, adult Start:13-Jun-2022 Instruction Type:Provider Instructions for Treatment How to Access Health Informa tion Online using Patient Portal and 3rd [employer] Apps Indication:BMI 21.0-21.9, adult Start:13-Jun-2022 Instruction Type:Patient Education Patient Instructions Indication:BMI 21.0-21.9, adult Start:18-Mar-2022 Instruction Type:Provider Instructions for Treatment How to Access Health Informa tion Online using Patient Portal and 3rd [employer] Apps Indication:BMI 21.0-21.9, adult Start:18-Mar-2022 Instruction Type:Patient Education Patient Instructions Indication:Non-smoker Start:28-Feb-2022 Instruction Type:Provider Instructions for Treatment How to Access Health Informa tion Online using Patient Portal and 3rd [employer] Apps Indication:Non-smoker Start:28-Feb-2022 Instruction Type:Patient Education Patient Instructions Indication:Anxiety Start:21-Feb-2022 Instruction Type:Provider Instructions for Treatment Patient Instructions Indication:Non-smoker Start:21-Feb-2022 Instruction Type:Provider Instructions for Treatment How to Access Health Informa tion Online using Patient Portal and 3rd [employer] Apps Indication:Non-smoker Start:21-Feb-2022 Instruction Type:Patient Education Patient Instructions Indication:Non-smoker Start:05-Feb-2022 Instruction Type:Provider Instructions for Treatment How to Access Health Informa tion Online using Patient Portal and 3rd [employer] Apps Indication:Non-smoker Start:05-Feb-2022 Instruction Type:Patient Education Patient Instructions Indication:Non-smoker Start:21-Jan-2022 Instruction Type:Provider Instructions for Treatment How to Access Health Informa tion Online using Patient Portal and 3rd [employer] Apps Indication:Non-smoker Start:21-Jan-2022 Instruction Type:Patient Education Patient Instructions Indication:BMI 22.0-22.9, adult Start:02-Nov-2021 Instruction Type:Provider Instructions for Treatment How to Access Health Informa tion Online using Patient Portal and 3rd [employer] Apps Indication:BMI 22.0-22.9, adult Start:02-Nov-2021 Instruction Type:Patient Education Patient Instructions Indication:Non-smoker Start:15-Oct-2021 Instruction Type:Provider Instructions for Treatment How to Access Health Informa tion Online using Patient Portal and 3rd [employer] Apps Indication:Non-smoker Start:15-Oct-2021 Instruction Type:Patient Education Patient Instructions Indication:BMI 24.0-24.9, adult Start:17-Aug-2021 Instruction Type:Provider Instructions for Treatment How to Access Health Informa tion Online using Patient Portal and 3rd [employer] Apps Indication:BMI 24.0-24.9, adult Start:17-Aug-2021 Instruction Type:Patient Education Patient Instructions Indication:BMI 24.0-24.9, adult Start:16-Mar-2021 Instruction Type:Provider Instructions for Treatment How to Access Health Informa tion Online using Patient Portal and 3rd [employer] Apps Indication:BMI 24.0-24.9, adult Start:16-Mar-2021 Instruction Type:Patient Education [facility]; [facility] Work Phone: Instructions* Name Dates Details Patient Instructions Indication:BMI 21.0-21.9, adult Start:13-Jun-2022 Instruction Type:Provider Instructions for Treatment How to Access Health Informa tion Online using Patient Portal and 3rd [employer] Apps Indication:BMI 21.0-21.9, adult Start:13-Jun-2022 Instruction Type:Patient Education Patient Instructions Indication:BMI 21.0-21.9, adult Start:18-Mar-2022 Instruction Type:Provider Instructions for Treatment How to Access Health Informa tion Online using Patient Portal and 3rd [employer] Apps Indication:BMI 21.0-21.9, adult Start:18-Mar-2022 Instruction Type:Patient Education Patient Instructions Indication:Non-smoker Start:28-Feb-2022 Instruction Type:Provider Instructions for Treatment How to Access Health Informa tion Online using Patient Portal and 3rd [employer] Apps Indication:Non-smoker Start:28-Feb-2022 Instruction Type:Patient Education Patient Instructions Indication:Anxiety Start:21-Feb-2022 Instruction Type:Provider Instructions for Treatment Patient Instructions Indication:Non-smoker Start:21-Feb-2022 Instruction Type:Provider Instructions for Treatment How to Access Health Informa tion Online using Patient Portal and 3rd [employer] Apps Indication:Non-smoker Start:21-Feb-2022 Instruction Type:Patient Education Patient Instructions Indication:Non-smoker Start:05-Feb-2022 Instruction Type:Provider Instructions for Treatment How to Access Health Informa tion Online using Patient Portal and [employer]rd [employer] Apps Indication:Non-smoker Start:05-Feb-2022 Instruction Type:Patient Education Patient Instructions Indication:Non-smoker Start:21-Jan-2022 Instruction Type:Provider Instructions for Treatment How to Access Health Informa tion Online using Patient Portal and [employer]rd [employer] Apps Indication:Non-smoker Start:21-Jan-2022 Instruction Type:Patient Education Patient Instructions Indication:BMI 22.0-22.9, adult Start:02-Nov-2021 Instruction Type:Provider Instructions for Treatment How to Access Health Informa tion Online using Patient Portal and 3rd [employer] Apps Indication:BMI 22.0-22.9, adult Start:02-Nov-2021 Instruction Type:Patient Education Patient Instructions Indication:Non-smoker Start:15-Oct-2021 Instruction Type:Provider Instructions for Treatment How to Access Health Informa tion Online using Patient Portal and 3rd [employer] Apps Indication:Non-smoker Start:15-Oct-2021 Instruction Type:Patient Education Patient Instructions Indication:BMI 24.0-24.9, adult Start:17-Aug-2021 Instruction Type:Provider Instructions for Treatment How to Access Health Informa tion Online using Patient Portal and [employer]rd [employer] Apps Indication:BMI 24.0-24.9, adult Start:17-Aug-2021 Instruction Type:Patient Education Patient Instructions Indication:BMI 24.0-24.9, adult Start:16-Mar-2021 Instruction Type:Provider Instructions for Treatment How to Access Health Informa tion Online using Patient Portal and [employer]rd [employer] Apps Indication:BMI 24.0-24.9, adult Start:16-Mar-2021 Instruction Type:Patient Education [facility]; [facility] Work Phone: reason for referral (narrative)* Outpatient Procedure (Routine) - Authorized Specialty Diagnoses / Procedures Referred By Leathacatie osvaldo Referred To Contact [facility] Diagnoses Epigastric pain Procedures EGD DIAGNOSTIC ESOPHAGOGASTRODUODENOSC OPY TRANSORAL DIAGNOSTIC Martha Musa MD [address] [facility] [place] [address] [place] [phone] Referral ID Status Reason Start Date Expiration Date Visits Requested Visits Authorized [id number] Authorized Auto-Generat ed Referral 10/18/2021 10/18/2022 1 1 [facility] for referral (narrative)* Outpatient Procedure (Routine) - Closed Specialty Diagnoses / Procedures Referred By Ade t Referred To Contact [facility] DISEASE [facility] Diagnoses Epigastric pain Procedures EGD DIAGNOSTIC ESOPHAGOGASTRODUODENOSC OPY TRANSORAL DIAGNOSTIC Martha Musa MD [address] [facility] [place] [address] [address] Referral ID Status Reason Start Date Expiration Date V isits Requested Visits Authorized [id number] Closed Auto-Generate d Referral 10/18/2021 10/18/2022 1 1 [facility] for referral (narrative)* Consultation (Routine) - New Request Specialty Diagnoses / Procedures Referred By Leathaac t Referred To Contact Spine Diagnoses Low back pain, unspecified back pain laterality, unspecified chronicity, unspecified whether sciatica present Violet Lorenzo MD [address] [place] [phone] Referral ID Status Reason Start Date Expiration Date V isits Requested Visits Authorized [id number] New Request 03/14/2022 04/08/2023 1 1 * (Routine) - New Request Specialty Diagnoses / Procedures Referred By Ade riley Referred To Contact Diagnoses Low back pain, unspecified back pain laterality, unspecified chronicity, unspecified whether sciatica present Procedures QUESTIONNAIRE SERIES Violet Lorenzo MD [address] [place] [address] Referral ID Status Reason Start Date Expiration Date V isits Requested Visits Authorized [id number] New Request 03/13/2022 04/07/2023 1 1 [facility] for visit Narrative* Outpatient Procedure (Routine) - Closed Specialty Diagnoses / Procedures Referred By Ade riley Referred To Contact [facility] Diagnoses Epigastric pain Procedures EGD DIAGNOSTIC ESOPHAGOGASTRODUODENOSC OPY TRANSORAL DIAGNOSTIC Martha Musa MD [address] [place] [address] [facility] [address] [place] [address] Referral ID Status Reason Start Date Expiration Date V isits Requested Visits Authorized [id number] Closed Auto-Generate d Referral 10/18/2021 10/18/2022 1 1 [facility] Family History No Family History Records FoundUnknown Family Member Name Dates Details Father Comments:HTN, high cholester ol Status:Active First Degree Relatives Comments:GP had lung [place], smo k[place] Status:Active Mother Comments:Depression Status:Active Unknown Family Member Name Dates Details Father Comments:HTN, high cholester ol Status:Active First Degree Relatives Comments:GP had lung [place], [place] Status:Active Mother Comments:Depression Status:Active Unknown Family Member Name Dates Details Father Comments:HTN, high cholester ol Status:Active First Degree Relatives Comments:GP had lung [place], [place] Status:Active Mother Comments:Depression Status:Active Unknown Family Member Name Dates Details Father Comments:HTN, high cholester ol Status:Active First Degree Relatives Comments:GP had lung [place], [place] Status:Active Mother Comments:Depression Status:Active Unknown Family Member Name Dates Details Father Comments:HTN, high cholester ol Status:Active First Degree Relatives Comments:GP had lung [place], [place] Status:Active Mother Comments:Depression Status:Active Unknown Family Member Name Dates Details Father Comments:HTN, high cholester ol Status:Active First Degree Relatives Comments:GP had lung [place], [place] Status:Active Mother Comments:Depression Status:Active Unknown Family Member Name Dates Details Father Comments:HTN, high cholester ol Status:Active First Degree Relatives Comments:GP had lung [place], [place] Status:Active Mother Comments:Depression Status:Active Unknown Family Member Name Dates Details Father Comments:HTN, high cholester ol Status:Active First Degree Relatives Comments:GP had lung [place], [place] Status:Active Mother Comments:Depression Status:Active Unknown Family Member Name Dates Details Father Comments:HTN, high cholester ol Status:Active First Degree Relatives Comments:GP had lung [place], [place] Status:Active Mother Comments:Depression Status:Active Unknown Family Member Name Dates Details Father Comments:HTN, high cholester ol Status:Active First Degree Relatives Comments:GP had lung [place], [place] Status:Active Mother Comments:Depression Status:Active Unknown Family Member Name Dates Details Father Comments:HTN, high cholester ol Status:Active First Degree Relatives Comments:GP had lung [place], [place] Status:Active Mother Comments:Depression Status:Active Unknown Family Member Name Dates Details Father Comments:HTN, high cholester ol Status:Active First Degree Relatives Comments:GP had lung [place], [place] Status:Active Mother Comments:Depression Status:Active Unknown Family Member Name Dates Details Father Comments:HTN, high cholester ol Status:Active First Degree Relatives Comments:GP had lung [place], [place] Status:Active Mother Comments:Depression Status:Active Unknown Family Member Name Dates Details Father Comments:HTN, high cholester ol Status:Active First Degree Relatives Comments:GP had lung [place], [place] Status:Active Mother Comments:Depression Status:Active Unknown Family Member Name Dates Details Father Comments:HTN, high cholester ol Status:Active First Degree Relatives Comments:GP had lung [place], [place] Status:Active Mother Comments:Depression Status:Active Unknown Family Member Name Dates Details Father Comments:HTN, high cholester ol Status:Active First Degree Relatives Comments:GP had lung [place], [place] Status:Active Mother Comments:Depression Status:Active Unknown Family Member Name Dates Details Father Comments:HTN, high cholester ol Status:Active First Degree Relatives Comments:GP had lung [place], [place] Status:Active Mother Comments:Depression Status:Active Unknown Family Member Name Dates Details Father Comments:HTN, high cholester ol Status:Active First Degree Relatives Comments:GP had lung [place], [place] Status:Active Mother Comments:Depression Status:Active Unknown Family Member Name Dates Details Father Comments:HTN, high cholester ol Status:Active First Degree Relatives Comments:GP had lung [place], [place] Status:Active Mother Comments:Depression Status:Active Unknown Family Member Name Dates Details Father Comments:HTN, high cholester ol Status:Active First Degree Relatives Comments:GP had lung [place], smo [place] Status:Active Mother Comments:Depression Status:Active Unknown Family Member Name Dates Details Father Comments:HTN, high cholester ol Status:Active First Degree Relatives Comments:GP had lung [place], [place] Status:Active Mother Comments:Depression Status:Active Unknown Family Member Name Dates Details Father Comments:HTN, high cholester ol Status:Active First Degree Relatives Comments:GP had lung [place], [place] Status:Active Mother Comments:Depression Status:Active Unknown Family Member Name Dates Details Father Comments:HTN, high cholester ol Status:Active First Degree Relatives Comments:GP had lung [place], [place] Status:Active Mother Comments:Depression Status:Active Unknown Family Member Name Dates Details Father Comments:HTN, high cholester ol Status:Active First Degree Relatives Comments:GP had lung [place], smo k[place] Status:Active Mother Comments:Depression Status:Active Unknown Family Member Name Dates Details Father Comments:HTN, high cholester ol Status:Active First Degree Relatives Comments:GP had lung [place], smo k[place] Status:Active Mother Comments:Depression Status:Active Unknown Family Member Name Dates Details Father Comments:HTN, high cholester ol Status:Active First Degree Relatives Comments:GP had lung [place], smo k[place] Status:Active Mother Comments:Depression Status:Active Unknown Family Member Name Dates Details Father Comments:HTN, high cholester ol Status:Active First Degree Relatives Comments:GP had lung [place], [place] Status:Active Mother Comments:Depression Status:Active Summary Purpose Advance Directives No Advanced Directives Records FoundDocuments on File Type Date Recorded Patient Boiling Off Winder Expl anation Advance Directive(s) 10/19/2021 9:18 AM Documents on File Type Date Recorded Patient Boiling Off Winder Expl anation Advance Directive(s) 10/23/2021 10:59 AM Advance Directive(s) 10/19/2021 9:18 AM Documents on File Type Date Recorded Patient Boiling Off Winder Expl anation Advance Directive(s) 10/23/2021 10:59 AM Advance Directive(s) 10/19/2021 9:18 AM Medications Administered Section Inactive Administered Medications - up to 3 most recent administrations Medication Order MAR Action Action Date Dose Rate Site benzocaine 20% 1 Volga (TOPEX) 1 Volga, TOPICAL, DIRECTED, Starting on Fri10/23/21 at 1300, Until Fri10/23/21 at 1659, DOSING DIRECTED BY PHYSICIAN FOR PROCEDURAL SEDATION ONLY - Pharmaceutical Waste: Aerosol -, Intraprocedure Given by LIP 10/23/2021 12:46 PM EDT 2 Sprays fentaNYL 50 mcg/mL 25-100 mcg injection (SUBLIMAZE) 25-100 mcg, INTRAVENOUS, DIRECTED, Starting on Fri10/23/21 at 1300, Until Fri10/23/21 at 1659, DOSING DIRECTED BY PHYSICIAN FOR PROCEDURAL SEDATION ONLY, Intraprocedure Given by [facility] 10/23/2021 12:48 PM EDT 50 mcg lactated ringers iv infusion 30 mL/hr, INTRAVENOUS, CONTINUOUS, Starting on Fri10/23/21 at 1130, Until Fri10/23/21 at 1311, Preprocedure New Bag/Syringe/Bottle 10/23/2021 11:30 AM EDT 30 mL/hr 30 mL/hr midazolam (PF) 1-5 mg injection (VERSED) 1-5 mg, INTRAVENOUS, DIRECTED, Starting on Fri10/23/21 at 1300, Until Fri10/23/21 at 1659, DOSING DIRECTED BY PHYSICIAN FOR PROCEDURAL SEDATION ONLY, Intraprocedure Given by LIP 10/23/2021 12:48 PM EDT 3 mg Additional Source Comments INFORMATION SOURCE (unrecogn ized section and content) DATE CREATED AUTHOR AUTHOR'S ORGANIZ ATION 03/29/2022 [facility] DATE CREATED AUTHOR AUTHOR'S ORGANIZ ATION 05/19/2022 [facility] DATE CREATED AUTHOR AUTHOR'S ORGANIZ ATION 06/19/2022 [facility] DATE CREATED AUTHOR AUTHOR'S ORGANIZ ATION 01/10/2023 [facility] Source Comments (unrecognize d section and content) In the event this informatio n is protected by the Federal Confidentiality of Alcohol and Drug Abuse Patient Records regulations: The Federal rules restrict any use of the information to criminally investigate or prosecute any alcohol or drug abuse patient.[facility] the event this information is protected by the Federal Confidentiality of Alcohol and Drug Abuse Patient Records regulations: The Federal rules restrict any use of the information to criminally investigate or prosecute any alcohol or drug abuse patient.[facility] the event this information is protected by the Federal Confidentiality of Alcohol and Drug Abuse Patient Records regulations: The Federal rules restrict any use of the information to criminally investigate or prosecute any alcohol or drug abuse patient.[facility] the event this information is protected by the Federal Confidentiality of Alcohol and Drug Abuse Patient Records regulations: The Federal rules restrict any use of the information to criminally investigate or prosecute any alcohol or drug abuse patient.[facility] the event this information is protected by the Federal Confidentiality of Alcohol and Drug Abuse Patient Records regulations: The Federal rules restrict any use of the information to criminally investigate or prosecute any alcohol or drug abuse patient.[facility] the event this information is protected by the Federal Confidentiality of Alcohol and Drug Abuse Patient Records regulations: The Federal rules restrict any use of the information to criminally investigate or prosecute any alcohol or drug abuse patient.[facility] the event this information is protected by the Federal Confidentiality of Alcohol and Drug Abuse Patient Records regulations: The Federal rules restrict any use of the information to criminally investigate or prosecute any alcohol or drug abuse patient.[facility] the event this information is protected by the Federal Confidentiality of Alcohol and Drug Abuse Patient Records regulations: The Federal rules restrict any use of the information to criminally investigate or prosecute any alcohol or drug abuse patient.[facility] the event this information is protected by the Federal Confidentiality of Alcohol and Drug Abuse Patient Records regulations: The Federal rules restrict any use of the information to criminally investigate or prosecute any alcohol or drug abuse patient.[facility] the event this information is protected by the Federal Confidentiality of Alcohol and Drug Abuse Patient Records regulations: The Federal rules restrict any use of the information to criminally investigate or prosecute any alcohol or drug abuse patient.[facility] the event this information is protected by the Federal Confidentiality of Alcohol and Drug Abuse Patient Records regulations: The Federal rules restrict any use of the information to criminally investigate or prosecute any alcohol or drug abuse patient.[facility] the event this information is protected by the Federal Confidentiality of Alcohol and Drug Abuse Patient Records regulations: The Federal rules restrict any use of the information to criminally investigate or prosecute any alcohol or drug abuse patient.[facility] the event this information is protected by the Federal Confidentiality of Alcohol and Drug Abuse Patient Records regulations: The Federal rules restrict any use of the information to criminally investigate or prosecute any alcohol or drug abuse patient.[facility] the event this information is protected by the Federal Confidentiality of Alcohol and Drug Abuse Patient Records regulations: The Federal rules restrict any use of the information to criminally investigate or prosecute any alcohol or drug abuse patient.[facility] the event this information is protected by the Federal Confidentiality of Alcohol and Drug Abuse Patient Records regulations: The Federal rules restrict any use of the information to criminally investigate or prosecute any alcohol or drug abuse patient.[facility] Dayton[facility] the event this information is protected by the Federal Confidentiality of Alcohol and Drug Abuse Patient Records regulations: The Federal rules restrict any use of the information to criminally investigate or prosecute any alcohol or drug abuse patient.[facility] Reason for Visit (unrecogniz ed section and content) Reason Comments Pain abdomen pain, since july Reason Comments Refill Request Reason Comments Abdominal Pain Reason Comments Acute Visit sores on lips and th roat, thinks it may be caused by acid reflux x 2 days Reason Comments Results D-dimer negative Reason Comments Patient Question Reason Onset Date Comments Refill Request 02/14/2022 Reason Comments Follow Up Epigastric pain Reason Comments Patient Update Reason Comments Follow Up Continued epigastric pain, sores in mouth x5 weeks Reason Comments Patient Update HIDA scan Reason Comments New Patient Specialty Diagnoses / Procedures Referred By Ade riley Referred To Contact [facility] Diagnoses Lumbar herniated disc Cassidy Dawkins DO [address] [facility] [address] [place] [address] [facility] [address] [place] [address] Referral ID Status Reason Start Date Expiration Date V isits Requested Visits Authorized [id number] Pending Review 02/13/2022 03/10/2023 1 1 Reason Comments Blister On inner lip Herpes Reason Comments Numbness/Tingling Hands, Arms, Legs, F eet- all intermittently. Seems to be triggered with stress and food. Care Teams (unrecognized sec tion and content) Change Control Analyst Relationship Specialty Start Date End Date Cassidy Dawkins DO [address] [facility] [address] [place] [address] [phone] PCP - General Internal Medicine 10/18/21 Change Control Analyst Relationship Specialty Start Date End Date Cassidy Dawkins DO [address] [facility] [address] [place] [address] [phone] PCP - General Internal Medicine 10/18/21 Change Control Analyst Relationship Specialty Start Date End Date Cassidy Dawkins DO [address] [facility] [address] [place] [address] PCP - General Internal Medicine 10/18/21 Change Control Analyst Relationship Specialty Start Date End Date Cassidy Dawkins, DO [address] [place] [address] PCP - General Internal Medicine 10/18/21 Change Control Analyst Relationship Specialty Start Date End Date Cassidy Dawkins DO [address] [facility] [address] [place] [address] PCP - General Internal Medicine 10/18/21 Change Control Analyst Relationship Specialty Start Date End Date Cassidy Dawkins DO [address] [facility] [address] [place] [address] PCP - General Internal Medicine 10/18/21 Change Control Analyst Relationship Specialty Start Date End Date Cassidy Dawkins DO [address] [facility] [address] [place] [address] PCP - General Internal Medicine 10/18/21 Change Control Analyst Relationship Specialty Start Date End Date Cassidy Dawkins DO [address] [facility] [address] [place] [address] PCP - General Internal Medicine 02/13/22 Change Control Analyst Relationship Specialty Start Date End Date Cassidy Dawkins DO [address] [facility] [address] [place] [address] PCP - General Internal Medicine 02/13/22 Change Control Analyst Relationship Specialty Start Date End Date Cassidy Dawkins DO [address] [facility] [address] [place] [address] PCP - General Internal Medicine 10/18/21 Change Control Analyst Relationship Specialty Start Date End Date Cassidy Dawkins DO [address] [place] [address] PCP - General Internal Medicine 10/18/21 Clari Del Valle MD [address] [facility] [place] [address] Neurology 05/15/22 FOR RECORDS PERTAINING TO PATIENTS WHO ARE OR HAVE BEEN ENROLLED IN A CHEMICAL DEPENDENCY/SUBSTANCEABUSE PROGRAM, SOME INFORMATION MAY BE OMITTED. This clinical summary was aggregated from multiple sources. Caution should be exercised in using it in the provision of clinical care. This summary normalizes information from multiple sources, and as a consequence, information in this document may materially change the coding, format and clinical context of patient data. In addition, data may be omitted in some cases. CLINICAL DECISIONS SHOULD BE BASED ON THE PRIMARY CLINICAL RECORDS. [employer] provides no warranty or guarantee of the accuracy or completeness of information in this document.
== END | disposition home or self-care (01) ==
LOC: LAB 11:54
PROVIDERS: PCP Nurse Practitioner Family; Referring Provider Nurse Practitioner Family; Visit Provider Nurse Practitioner Family
DX: R53.82 Chronic fatigue, unspecified (principal)
CPT/HCPCS: 36415; 81291

== ENCOUNTER 2024-01-28 16:04 | Outpatient (RCR) | payer BC, SELFPAY ==
--- NOTE | 2024-01-28 18:24 | HP.PTEVAL ---
Patient's Visit Information Visit Information Visit Information: ELEAZAR SHAHID is a 43 year old F referred to Physical Therapy by Dr. Kuldip Lentz MD with a diagnosis of ITBand Syndrome. Date of Evaluation: 01/28/24 Physical Therapist: Camila Marie DPT Visit Plan Frequency: 2x /Week Duration: 4 Weeks Plan: Piriformis- Focus on core strength/stabilization HEP Given IE: piriformis stretch, clams, self massage with ball on wall Subjective Subjective: Persistent right sided outer leg pain since last May- insidious onset. Sometimes will radiate into the calf but spotty and can radiate into the right glut. Agg: walking long distances (1 mile or 3 mile) the hotter it is the worse it is, squatting down to tie her shoes, anything that causes that area to contract. Does not feel that its nerve pain. Worst: 12/07 Describes the pain as achy. Eases: dry heat, hot bath with salts, laying down on her left side. Best: 07/09. No N/T in the LE. Lyme disease dx in May 2022- pins/needles, random joint pain. She has had a herniated disc and surgery October of 2021- surgery by Dr Henson- zay had to take her to the hospital- left sided pain. 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 Yoga stretching's- upward dog, downward dog, tennis ball down her spine, does not do a lot of forward bending. 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 Sleep: sometimes depends- feels like a band of pain. She has not had any MRI or x-rays taken of her legs. June was the most recent of her spine. PMHx: intermittent HTN Meds: none Objective Objective: Posture: forward head, rounded shoulders- can correct Gait: no deviation noted HR/TR: able SLS: mild pelvic sway- increased pain when lifting right left LE ROM: WNL in all ranges of lumbar spine increased pain with left rotation in the iliac crest region- Right Hip: WNL pain with IR Strength: Core: fair, Hip: Flexion: 4/5, Extn: 4-/5 with pain right, IR: 4/5, ER: 3+/5 with pain right, Abd: 4/5, Add: 4+/5, Knee: 5/5 Ankle: 5/5 Flex: Hamstring: no restriction, Gastroc: no restriction, Piriformis: moderate restriction with pain right Palpation: pain with palpation to piriformis on right Special Test: piriformis pump on right positive Special Tests R Hip NIGHAT - Intraarticular Pathology: Positive R Hip FADDIR - Labrum: Positive R Hip Trendelenberg - Glut Medius: Positive L Hip NIGHAT - Intraarticular Pathology: Negative L Hip FADDIR - Labrum: Negative L Hip Trendelenberg - Glut Medius: Negative Balance/Special Test Scores Lower Extremity Functional Score: 57 Goals Goal 1:: Patient will be I with HEP and progression Goal Time Frame: 4-6 Weeks Goal 2:: Patient will sls for 30 sec without pain Goal Time Frame: 4-6 Weeks Goal 3:: Patient will no dural s/s for 1 week Goal Time Frame: 4-6 Weeks Goal 4:: Patient will report 80% improvement Goal Time Frame: 4-6 Weeks Rehabilitation Potential Physical Therapy Diagnosis: Patient presents with decreased decreased core strength/stabilization and increased pain with ADL's. Rehabilitation Potential: Good Anticipated Interventions Patient/Client Instruction: Educate patient on: Benefits of Fitness Program Therapeutic Exercise to Include: Strength training, Endurance training, Balance training, Coordination, Agility training, Body mechanics, Postural training, Flexibilty training, Gait and locomotor training, Neuromotor development, Dynamic Lumbar Stabilization and Scapular Strength/Stabilization Text: Thank you for the opportunity to evaluate your patient. For Medicare and Medicare HMO plans, please review the plan of care and approve it. It will need to be FAXED BACK to us at [phone] for Medicare purposes. For Medicare only, by signing this I certify the plan of care. Please let me know if there are questions or concerns regarding this plan of care. Physician Signature: Date:
--- NOTE | 2024-03-02 17:55 | HP.PT.NRP ---
Patient Information Patient Information: ELEAZAR SHAHID was seen in my office for initial evaluation on 01/28/24. The following Plan of Care was established for this patient: POC Established Initial Frequency: 2x /Week Initial Duration: 4 Weeks Anticipated Interventions Patient/Client Instruction: Educate patient on: Benefits of Fitness Program Therapeutic Exercise to Include: Strength training, Endurance training, Balance training, Coordination, Agility training, Body mechanics, Postural training, Flexibilty training, Gait and locomotor training, Neuromotor development, Dynamic Lumbar Stabilization and Scapular Strength/Stabilization Last Seen Last Seen: This patient was last seen in our office . Pertinent comments regarding their Physical therapy will appear below: Patient to continue home exercises program and follow up PRN- d/c at this time. At this point I will be discontinuing this patient from physical therapy. I would be happy to see this patient again in the future if found appropriate by the physician. Thank you! Camila Marie, DPT Balance/Gait/Functional tests Balance/Special Test Scores Lower Extremity Functional Score: 57
== END 2024-01-28 19:00 | disposition home or self-care (01) ==
LOC: PT 16:04
PROVIDERS: PCP Nurse Practitioner Family; Referring Provider Anesthesiology; Visit Provider Anesthesiology
DX: M76.31 Iliotibial band syndrome, right leg (principal); M46.1 Sacroiliitis, not elsewhere classified
CPT/HCPCS: 97162

== ENCOUNTER → 2024-02-18 | Outpatient (CLI) | payer BC, SELFPAY ==
[2024-02-18 12:31] LABS: Absolute Lymphocyte Count 1.82 X10^3/uL (0.83-4.51); Absolute Neutrophil Count 2.2 X10^3/uL (2.0-7.7); Basophil# 0.06 X10^3/uL; Basophil% 1.3 % (0-1); Eosinophils% 2.2 % (0-5); Hematocrit 41.3 % (37-47); Hemoglobin 13.6 g/dL (12.0-15.0); Lymphocyte # 1.82 X10^3/ul (0.83-4.51); Lymphocyte % 39.5 % (19-41); Mean Corp Hgb Conc 32.9 g/dL (32-36); Mean Corpuscular Hgb 30.6 pg (27.0-32.0); Mean Platelet Vol. 11.1 fl (6.2-12.0); Monocyte# 0.44 X10^3/uL; Monocyte% 9.5 % (0-10); NRBC Flagged by Analyzer 0 % (0-5); Neutrophil # 2.17 X10^3/uL (2.7-7.7); Neutrophil % 47.1 % (47-70); Platelet Count 227 K/mm3 (150-450); RBC Distribution Width CV 12.6 % (11.6-14.6); RBC Distribution Width SD 43.5 fl (35.1-43.9); Red Blood Count 4.44 M/mm3 (4.2-5.4); White Blood Count 4.6 K/mm3 (4.4-11.0)
[2024-02-18 12:34] LABS: Erythrocyte Sedimentation Rate < 1 mm/hr (0-30)
[2024-02-18 13:01] LABS: ALB/GLOB Ratio 1.1 RATIO (0.9-2.4); AST(SGOT) 25 U/L (15-37); Alanine Aminotransfer ALT/SGPT 20 U/L (13-56); Alkaline Phosphatase 41 U/L (45-117); Amylase 59 U/L (25-115); Anion Gap 3 (5-15); BUN 13 mg/dL (7-18); BUN/Creat Ratio 18.6 RATIO (10-20); Bilirubin, Direct 0.18 mg/dL (0.00-0.30); CRP < 2.90 mg/L (0.0-3.0); Calcium,Total 9.5 mg/dL (8.5-10.1); Chloride 107 mmol/L (98-107); EST Glomerular Filtration Rate 97 mL/min (>60); Est Glom Filt Rate - Afr Amer 117 mL/min (>60); Globulin 3.7 g/dL (2.2-4.2); Glucose 102 mg/dL (74-106); Lipase 51 U/L (13-75); Potassium 4.2 mmol/L (3.5-5.1); Protein, Total 7.7 g/dL (6.4-8.2); Sodium Level 138 mmol/L (136-145)
[2024-02-19 15:09] LABS: ANTINUCLEAR ANTIBODIES DIRECT Negative (Negative)
[2024-02-20 10:08] LABS: G6PD Quant Test 268 (127-427); Red Blood Cell Count Test/G6PD 4.52 x10E6/uL (3.77-5.28)
== END | disposition home or self-care (01) ==
LOC: BIMLAB 09:07
PROVIDERS: PCP Nurse Practitioner Family; Referring Provider Nurse Practitioner Family; Visit Provider Nurse Practitioner Family
DX: R53.82 Chronic fatigue, unspecified (principal); A69.20 Lyme disease, unspecified; B60.09 Other babesiosis; M54.09 Panniculitis affecting regions, neck and back, multiple sites in spine; R11.0 Nausea
CPT/HCPCS: 36415; 80053; 82150; 82248; 82627; 82955; 83690; 85025; 85652; 86038; 86140; 86225; 86235; 82626

== ENCOUNTER → 2024-03-26 | Outpatient (CLI) | payer BC, SELFPAY ==
[2024-03-26 13:36] LABS: Cholesterol 168 mg/dL (200); High Density Lipoprotein 68 mg/dL; Triglycerides 54 mg/dL; Troponin-I HS 5 pg/mL (3.0-54.0); Very Low Density Lipoprotein 11 mg/dL (5-40)
[2024-03-27 11:09] LABS: HOMOCYSTEINE 6.6 umol/L (0.0-14.5)
== END | disposition home or self-care (01) ==
LOC: BIMLAB 10:39
PROVIDERS: PCP Nurse Practitioner Family; Referring Provider Nurse Practitioner Family; Visit Provider Nurse Practitioner Family
DX: R07.89 Other chest pain (principal)
CPT/HCPCS: 36415; 80061; 83090; 84484

== ENCOUNTER → 2025-04-21 | Outpatient (CLI) | payer BC, SELFPAY ==
[2025-04-21 16:47] LABS: Hematocrit 39.2 % (37-47); Hemoglobin 13.0 g/dL (12.0-15.0); Immature Granulocytes Count 0.010 X10^3/uL (0.0-0.0); Mean Corp Hgb Conc 33.2 g/dL (32-36); Mean Corpuscular Volume 91.2 fL (81-99); Mean Platelet Vol. 9.5 fl (6.2-12.0); NRBC Flagged by Analyzer 0 % (0-5); Platelet Count 225 K/mm3 (150-450); RBC Distribution Width CV 12.7 % (11.6-14.6); RBC Distribution Width SD 42.6 fl (35.1-43.9); Red Blood Count 4.30 M/mm3 (4.2-5.4); White Blood Count 6.6 K/mm3 (4.4-11.0)
[2025-04-21 18:07] LABS: AST(SGOT) 29 U/L (<=31); Alanine Aminotransfer ALT/SGPT 20 U/L (<=34); Albumin, Serum 4.7 g/dL (3.5-5.0); Alkaline Phosphatase 40 U/L (35-104); Anion Gap 11 (5-15); BUN 12 mg/dL (4-19); BUN/Creat Ratio 15.3 RATIO (10-20); Calcium,Total 9.5 mg/dL (7.6-11.0); Carbon Dioxide 24.0 mmol/L (21.0-32.0); Chloride 102 mmol/L (98-108); Globulin 3.1 g/dL (2.2-4.2); Glucose 88 mg/dL (70-99); Potassium 3.9 mmol/L (3.3-5.1); Vitamin D,25 Hydroxy 37.3 ng/mL (30-100)
[2025-04-27 04:07] LABS: HOMOCYSTEINE 7.4 umol/L (0.0-14.5); PROGESTERONE 5.9 ng/mL (.)
[2025-04-27 11:09] LABS: GGTP 29 IU/L (0-60); Testosterone, % Free 1.15 % (0.50-2.80); Testosterone, Free 0.08 ng/dL (0.10-0.85)
== END | disposition home or self-care (01) ==
LOC: LAB 04-26 11:07
PROVIDERS: PCP Nurse Practitioner Family; Visit Provider Nurse Practitioner Family
DX: A79.9 Rickettsiosis, unspecified (principal); B60.09 Other babesiosis; A69.20 Lyme disease, unspecified; M54.59 Other low back pain; R10.10 Upper abdominal pain, unspecified; R11.0 Nausea; R68.81 Early satiety; R53.82 Chronic fatigue, unspecified; G89.29 Other chronic pain
CPT/HCPCS: 36415; 80053; 82306; 82627; 82670; 82977; 83036; 83090; 84144; 84402; 84403; 85025; 82626